=== PATIENT | male | born 1945 | race Caucasian/White ===

== ENCOUNTER 2023-08-12 18:58 | Observation (INO) ==
[2023-08-12 21:27] LABS: Albumin Globulin Ratio 1.8 (0.9-2); Albumin Level 4.6 gm/dl (3.4-5.0); BUN Creatinine Ratio 15.9 (10-20); Bilirubin,Total 1.5 mg/dl (0.2-1.0); Calcium 9.4 mg/dl (8.6-10.3); Creatinine Clr Calc Pharmacy 52.2 ml/min; Est GFR (African American) 73.3 ml/min; Est GFR (Non-African American) 63.2 ml/min; Globulin 2.6 gm/dl (2.5-4.0); Potassium 4.5 mmol/L (3.5-5.1); Total Protein 7.2 gm/dl (6.0-8.3)
[2023-08-12 21:38] LABS: Basophils # (auto) 0.06 K/uL (0.00-0.20); Basophils % (auto) 1.1 %; Eosinophils # (auto) 0.06 K/uL (0.00-0.50); Eosinophils % (auto) 1.1 %; Hematocrit (blood only) 43.2 % (42.0-52.0); Hemoglobin 14.8 g/dl (14.0-18.0); Immature Granulocytes # (auto) 0.02 K/uL (0.01-0.20); Immature Granulocytes % (auto) 0.4 %; Lymphocytes # (auto) 1.22 K/uL (1.20-3.40); Mean Corpuscular Hemoglobin 30.6 pg (25.0-34.0); Mean Corpuscular Hgb Conc 34.3 g/dL (32.0-36.0); Mean Corpuscular Volume 89.3 fL (80.0-100.0); Mean Platelet Volume 11.3 fL (9.4-12.4); Monocytes # (auto) 0.39 K/uL (0.11-0.59); Neutrophils % (auto) 68.4 %; Platelet Count 185 K/uL (130-400); RDW Coefficient of Variation 13.2 % (11.5-14.5); RDW Standard Deviation 43.2 fL (36.4-46.3); Red Blood Count 4.84 M/uL (4.70-6.10); White Blood Count 5.55 K/ul (4.8-10.8)
[2023-08-12 21:39] LABS: Partial Thromboplastin Ratio 0.9; Partial Thromboplastin Time 26 Seconds (21-31)
[2023-08-12] MEDS: SODIUM CHLORIDE 0.9% 1,000 ML IV ONE ×2 (22:09→23:21)
--- NOTE | 2023-08-12 22:14 | Emergency Department Note ---
History of Present Illness General Chief complaint: Illness Stated complaint: NO INTAKE Time Seen by Provider: 08/12/23 21:51 Source: patient, family ( was at the bedside), RN notes reviewed and old records reviewed (The patient's primary doctor Dr. Blanco called and I reviewed the note that was left) Mode of arrival: ambulatory Limitations: no limitations History of Present Illness This patient was sent over by the primary care doctor after he has had weight loss and significant dysphagia he is in the midst of getting this worked up he was seen and had upper endoscopy done by Dr. Flor on July 23. He was found to have ulceration and esophagitis. They did multiple biopsies and he said that it was inconclusive whether it was cancer or not. He said he has trouble eating and is on a liquid diet today he has been having more problems eating and has been coughing/vomiting up a lot of phlegm. He is "coughed/vomited up greater than a quart of phlegm today. He only gets chest pain when he coughs up he feels like things get stuck. Bowels are moving is normal at present he feels okay. He apparently has lost 30 pounds and they felt he was dehydrated in the office and sent him here. Home Medications Medication Instructions Recorded Confirmed Type omeprazole 40 mg capsule,delayed 40 mg PO BID 08/12/23 08/12/23 History release Allergies Allergy/AdvReac Type Severity Reaction Status Date / Time No Known Allergies Allergy Verified 08/12/23 22:21 Past Med/Surg History Medical History BPH (benign prostatic hyperplasia) Vomiting reason for upcoming EGD > (30 lb weight loss) Dysphagia reason for upcoming EGD Surgical History Hx of vasectomy Hx of umbilical hernia repair History of appendectomy History of esophagogastroduodenoscopy (EGD) History of adenoidectomy History of tonsillectomy Social History Smoking Status: Never smoker Second Hand Exposure: No; Do You Dip or Chew Tobacco: No; Hx Alcohol Use: No Hx Substance Use: No Preferred Language: [place] Communication Ability: Effective Sql Data Architect Required: No Beliefs That Will Affect Care: None Current Living Situation: Spouse Feels Safe at Home: Yes Assistive Devices: Glasses and Hearing Aid - Bilateral Review of Systems A total of 10 systems reviewed and were otherwise negative Physical Exam Vital Signs Vital Signs - 24 hr 08/12/23 19:15 08/12/23 22:00 08/12/23 22:23 Temperature 36.6 C Temperature Source Temporal Artery Scan Pulse Rate 123 H 72 Pulse Rate [Apical] 80 Pulse Rhythm [Apical] Regular Pulse Strength [Apical] Normal Respiratory Rate 18 16 Respiratory Effort / Characteristics Non-Labored Non-Labored Respiratory Depth Normal Normal Blood Pressure 127/84 Blood Pressure [Right Arm] 146/78 H Blood Pressure Mean 98 Blood Pressure Mean [Right Arm] 100 Pulse Oximetry 97 99 Oxygen Delivery Method Room Air Room Air Sepsis Recent Fever Within 48 Hours No Sepsis New/Unexplained Change in Mental Status No Sepsis Action Taken by Nursing No Action Required General: Well developed well nourished older male who is slender and appears in no acute distress, breathing comfortably on room air. Normal speech, not drooling HEENT: Normal cephalic atraumatic. Pupils are equal round and reactive to light. Extraocular movements are intact. Oropharynx is pink with moist mucous membranes. No swelling of the mouth lips or tongue. Neck: Supple with a midline trachea. No meningeal signs or stiffness, no JVD or bruits. No Stridor. Chest: Clear to auscultation bilaterally. No wheezes or rhonchi. No increased work of breathing. Heart: Regular rate and rhythm without murmurs or gallops. Abdomen: Soft nontender, nondistended without rebound guarding or rigidity. Extremities: No cyanosis clubbing or edema. No calf tenderness or assymetry Spine/Back. Non tender to palpation. No CVA tenderness Skin: Good turgor without rashes. Neurologic exam: Cranial nerves two through 12 are intact. Motor and sensation are intact and symmetrical throughout. Course Administered Medications Sodium Chloride (Nss) 1,000 mls @ 999 mls/hr IV .Q1H1M ONE Stop: 08/13/23 00:08 Last Admin: 08/12/23 23:21 Dose: 999 mls/hr Documented By: HB Discontinued Medications Sodium Chloride (Nss) 1,000 mls @ 999 mls/hr IV .Q1H1M ONE Stop: 08/12/23 23:03 Last Infusion: 08/12/23 23:07 Dose: Infused Documented By: Admin: 08/12/23 22:09 Dose: 999 mls/hr Documented By: HB Medical Decision Making Differential Diagnosis Dehydration, esophagitis, esophageal cancer, electrolyte or metabolic abnormality, cardiac disease, aspiration Medical Records Attestation: I reviewed the patient's medical records. Home Medications Current Medication List: was personally reviewed by me Laboratory Data Attestation: I reviewed the patient's lab results. 08/12/23 20:50 08/12/23 20:50 Lab Results 08/12/23 Range/Units 20:50 WBC 5.55 (4.8-10.8) K/ul RBC 4.84 (4.70-6.10) M/uL Hgb 14.8 (14.0-18.0) g/dl Hct 43.2 (42.0-52.0) % MCV 89.3 (80.0-100.0) fL MCH 30.6 (25.0-34.0) pg MCHC 34.3 (32.0-36.0) g/dL RDW Std Deviation 43.2 (36.4-46.3) fL RDW Coeff of Fabby 13.2 (11.5-14.5) % Plt Count 185 (130-400) K/uL MPV 11.3 (9.4-12.4) fL Immature Gran % (Auto) 0.4 % Neut % (Auto) 68.4 % Lymph % (Auto) 22.0 % [place] % (Auto) 7.0 % Eos % (Auto) 1.1 % Baso % (Auto) 1.1 % Neut # (Auto) 3.80 (1.40-6.50) K/uL Lymph # (Auto) 1.22 (1.20-3.40) K/uL [place] # (Auto) 0.39 (0.11-0.59) K/uL Eos # (Auto) 0.06 (0.00-0.50) K/uL Baso # (Auto) 0.06 (0.00-0.20) K/uL Immature Gran # (Auto) 0.02 (0.01-0.20) K/uL APTT 26 (21-31) Seconds PTT Ratio 0.9 Sodium 142 (136-145) mmol/L Potassium 4.5 (3.5-5.1) mmol/L Chloride 103 (98-107) mmol/L Carbon Dioxide 24 (21-32) mmol/L Anion Gap 15 H (3-11) BUN 18 (6-23) mg/dl Creatinine 1.13 (0.6-1.4) mg/dl Est Cr Clr Drug Dosing 52.2 ml/min Est GFR ( Amer) 73.3 ml/min Est GFR (Non-Af Amer) 63.2 ml/min BUN/Creatinine Ratio 15.9 (10-20) Glucose 76 (70-99(Fasting)) mg/dl Calcium 9.4 (8.6-10.3) mg/dl Total Bilirubin 1.5 H (0.2-1.0) mg/dl AST 18 (13-39) U/L ALT 15 (7-52) U/L Alkaline Phosphatase 58 (34-104) U/L Total Protein 7.2 (6.0-8.3) gm/dl Albumin 4.6 (3.4-5.0) gm/dl Globulin 2.6 (2.5-4.0) gm/dl Albumin/Globulin Ratio 1.8 (0.9-2) ECG Data Attestation: I personally reviewed and interpreted this ECG as follows: Indication: + vomiting Rate (beats per minute): 93 Rhythm: + normal sinus and + other (Poor baseline) ECG Intervals/blocks: + Normal QRS, + Normal QT and + Normal [place] ECG [place]: + Normal ECG ST segments: + Nonspecific ST abnormalities ECG Findings: no PACs or no PVCs Comparison ECG Date: from (11/16/12) [facility] Narrative This patient comes in described above he is history of esophageal issues with gastritis and possibly malignancy. He has been having trouble with weight loss and they felt he was dehydrated in the office today they are questioning whether he might need a PEG tube. Sent to the ER. His EKG does not suggest ischemic changes or cardiac disease. And his symptoms do not either. He has no fever or white count to suggest infection. He has no significant anemia. He has no significant electrolyte or metabolic abnormalities. IV access was established hydrated with a 1 L IV normal saline bolus. Upon reassessment he looks well he has no evidence of fluid overload his lungs are clear I did order second liter normal saline bolus. Those labs are reassuring he has not been able to eat or drink and is losing significant weight. I think if we send him home he would end up coming back tomorrow with similar complaints it sounds like they are considering what to do with his esophagus or potentially does he need a feeding or PEG tube in the meantime. I have consult Dr. Del Toro to see him for admission/observation he will need further GI workup and evaluation in the hospital. Continuous cardiac monitoring: Orders placed in EMR for continuous cardiac monitoring: Upon my evaluation patient to be in normal sinus rhythm rate 74 Impression & Plan Acute dehydration, Vomiting, Esophagitis, Rapid weight loss Discharge Plan Visit Data Chief Complaint: Illness Stated Complaint: NO INTAKE ED Provider: Tariq Miller Discharge Problem: Acute dehydration, Vomiting, Esophagitis, Rapid weight loss Forms Stand Alone Forms: My [facility] Prescriptions Prescriptions: No Action omeprazole 40 mg Capsule,Delayed Release(Dr/Ec) 40 mg PO BID Referrals Referrals: PCP,NO [Primary Care Provider] - Discharge Problem: Vomiting Qualifiers: Vomiting type: unspecified Nausea presence: without nausea Qualified Code(s): R 11.11 - Vomiting without nausea
[2023-08-13 00:04] LABS: Magnesium 1.9 mg/dl (1.7-2.4)
--- NOTE | 2023-08-13 01:27 | History & Physical Report ---
Date of Service August 13, 2023 Assessment & Plan (1) Esophagitis: Plan: Progressive dysphagia since [facility] last year. Concern for malignancy Malnutrition (low BMI) secondary to above BPH, patient without retention issues OBS [facility] GI consult re: worsening dysphagia resulting in significant weight loss N.p.o. until patient seen by GI in anticipation of endoscopy Nutrition consult Re: Low BMI DVT prophylaxis. SCDs Re: Propensity for bleeding given history of esophagitis with bleeding on recent EGD Full code Patient requesting updates providers. Ms. Anayeli Martines, contact #[phone]. Text document was generated using [email or web address] recognition software. It may contain grammatical or spelling errors. Kindly contact undersigned for clarification of any documentation item in question. History of Present Illness Chief Complaint: Weight loss, worsening dysphagia Primary Care Provider: Nina Blanco MD History obtained from patient, family, and records. Medical history significant for esophagitis, BPH. Patient with worsening dysphagia symptoms over the last 4 months. Initially started with dysphagia with solids later followed by difficulty in swallowing both solids and liquids. Weight loss of about 35 pounds over the last 4 months. [facility] ER visit last month. CT abdomen pelvis showed 1. Severe thickening at the gastroesophageal junction with surrounding inflammatory change/edema. This could be due to an infectious/inflammatory process, the gastroesophageal mass, or underlying ulceration with impending perforation. 2. Mild thickening of the distal esophagus. Outpatient EGD last month. LA grade D esophagitis (with multiple mucosal breaks involving at least 75% of esophageal circumference) with bleeding found. Normal stomach/duodenum as per report. PPI course prescribed. Atypical gastric mucosa as per [facility] pathology report. [facility] GI specialist still concerned about malignancy given about patient significant weight loss. Outpatient EGD and EUS recommended in 2 to 4 weeks for repeat biopsy as per GI note. Worsening dysphagia, dehydration noted over the last few weeks. Regurgitation and throwing up. No chest pain, no SOB, no headache, no actual cough symptoms. Denies actual abdominal pain, black/bloody stools. Patient seen at new [facility] PCP's office yesterday. Subsequently directed to ER for evaluation. 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 Allergies Allergy/AdvReac Type Severity Reaction Status Date / Time No Known Allergies Allergy Verified 08/12/23 22:21 Home Medications Medication Instructions Recorded Confirmed Type omeprazole 40 mg capsule,delayed 40 mg PO BID 08/12/23 08/12/23 History release Past Med/Surg History Medical History BPH (benign prostatic hyperplasia) Vomiting reason for upcoming EGD > (30 lb weight loss) Dysphagia reason for upcoming EGD Surgical History Hx of vasectomy Hx of umbilical hernia repair History of appendectomy History of esophagogastroduodenoscopy (EGD) History of adenoidectomy History of tonsillectomy Social History Smoking Status: Never smoker Second Hand Exposure: No; Do You Dip or Chew Tobacco: No; Hx Alcohol Use: No Hx Substance Use: No Preferred Language: Nepali Communication Ability: Effective Bid Writer Required: No Beliefs That Will Affect Care: None Current Living Situation: Spouse Other Information That Helps Us Care for You: No Feels Safe at Home: Yes Safety Concerns: Feels Safe At This Time Assistive Devices: None Review of Systems Review of Systems: As per HPI, all other systems reviewed and negative Physical Exam Physical Exam: GENERAL: Comfortable, pleasant, underweight, no respiratory distress SKIN: Normal color, warm HEENT: Alopecia, [place] palpebral conjunctivae, no ptosis, dry buccal mucosa NECK : Supple, no tenderness CHEST : CTA, no tenderness HEART : RRR, no obvious murmurs ABDOMEN: no distention, nontender EXTREMITIES : No LE swelling/tenderness, no other conspicuous deformities noted NEUROLOGIC : Coherent, no facial asymmetry, no other gross focality Results & Data Results & Data Vital Signs (Past 12 Hours) Vital Signs Temp Pulse Pulse Resp BP BP Pulse Ox 08/12/23 22:23 72 08/12/23 22:00 80 16 146/78 H 99 08/12/23 19:15 36.6 C 123 H 18 127/84 97 O2 Del Method 08/12/23 22:23 08/12/23 22:00 Room Air 08/12/23 19:15 Room Air Laboratory Results Laboratory Results WBC 5.55 K/ul (4.8-10.8) 08/12/23 20:50 RBC 4.84 M/uL (4.70-6.10) 08/12/23 20:50 Hgb 14.8 g/dl (14.0-18.0) 08/12/23 20:50 Hct 43.2 % (42.0-52.0) 08/12/23 20:50 MCV 89.3 fL (80.0-100.0) 08/12/23 20:50 MCH 30.6 pg (25.0-34.0) 08/12/23 20:50 MCHC 34.3 g/dL (32.0-36.0) 08/12/23 20:50 RDW Std Deviation 43.2 fL (36.4-46.3) 08/12/23 20:50 RDW Coeff of Fabby 13.2 % (11.5-14.5) 08/12/23 20:50 Plt Count 185 K/uL (130-400) 08/12/23 20:50 MPV 11.3 fL (9.4-12.4) 08/12/23 20:50 Immature Gran % (Auto) 0.4 % 08/12/23 20:50 Neut % (Auto) 68.4 % 08/12/23 20:50 Lymph % (Auto) 22.0 % 08/12/23 20:50 [place] % (Auto) 7.0 % 08/12/23 20:50 Eos % (Auto) 1.1 % 08/12/23 20:50 Baso % (Auto) 1.1 % 08/12/23 20:50 Neut # (Auto) 3.80 K/uL (1.40-6.50) 08/12/23 20:50 Lymph # (Auto) 1.22 K/uL (1.20-3.40) 08/12/23 20:50 [place] # (Auto) 0.39 K/uL (0.11-0.59) 08/12/23 20:50 Eos # (Auto) 0.06 K/uL (0.00-0.50) 08/12/23 20:50 Baso # (Auto) 0.06 K/uL (0.00-0.20) 08/12/23 20:50 Immature Gran # (Auto) 0.02 K/uL (0.01-0.20) 08/12/23 20:50 APTT 26 Seconds (21-31) 08/12/23 20:50 PTT Ratio 0.9 08/12/23 20:50 Sodium 142 mmol/L (136-145) 08/12/23 20:50 Potassium 4.5 mmol/L (3.5-5.1) 08/12/23 20:50 Chloride 103 mmol/L (98-107) 08/12/23 20:50 Carbon Dioxide 24 mmol/L (21-32) 08/12/23 20:50 Anion Gap 15 (3-11) H 08/12/23 20:50 BUN 18 mg/dl (6-23) 08/12/23 20:50 Creatinine 1.13 mg/dl (0.6-1.4) 08/12/23 20:50 Est Cr Clr Drug Dosing 52.2 ml/min 08/12/23 20:50 Est GFR ( Amer) 73.3 ml/min 08/12/23 20:50 Est GFR (Non-Af Amer) 63.2 ml/min 08/12/23 20:50 BUN/Creatinine Ratio 15.9 (10-20) 08/12/23 20:50 Glucose 76 mg/dl (70-99(Fasting)) 08/12/23 20:50 Calcium 9.4 mg/dl (8.6-10.3) 08/12/23 20:50 Magnesium 1.9 mg/dl (1.7-2.4) 08/12/23 20:50 Total Bilirubin 1.5 mg/dl (0.2-1.0) H 08/12/23 20:50 AST 18 U/L (13-39) 08/12/23 20:50 ALT 15 U/L (7-52) 08/12/23 20:50 Alkaline Phosphatase 58 U/L (34-104) 08/12/23 20:50 Total Protein 7.2 gm/dl (6.0-8.3) 08/12/23 20:50 Albumin 4.6 gm/dl (3.4-5.0) 08/12/23 20:50 Globulin 2.6 gm/dl (2.5-4.0) 08/12/23 20:50 Albumin/Globulin Ratio 1.8 (0.9-2) 08/12/23 20:50 Diagnostic Findings EKG as per my interpretation :Rate 90, NSR, normal axis, no ischemia, multiple artifacts
[2023-08-13] MEDS ORDERED: PROMETHAZINE HCL 6.25 MG in SODIUM CHLORIDE 0.9% 50 ML IV PRN (01:30)
[2023-08-13] MEDS ORDERED: ACETAMINOPHEN 1,000 MG/100 ML VIAL IV PRN (01:30)
[2023-08-13] MEDS: D5W AND LACTATED RINGERS 1,000 ML IV ONE (03:04)
[2023-08-13] MEDS: PANTOprazole 40 MG TAB PO SCH (07:30)
--- NOTE | 2023-08-13 09:02 | Gastrointestinal Consultation ---
Date of Consultation August 13, 2023 Assessment & Plan (1) Esophagitis: 77 year old male with weight loss, progressively worsening dysphagia, recent EGD concerning for esophageal CA to have OP EGD/EUS admitted with dehydration and regurgitation of phlegm/secretions but notes is tolerating bone broth. No plan for inpatient EGD/EUS OP EGD/EUS Liquid diet only PO PPI 40 mg twice daily May try liquid carafate QID x 14 days He is requesting to try a medication to help decrease his secretions Thank you for allowing us to participate in the care of this patient. Please call with any acute changes, questions or concerns. Please see addendum below with additional recommendation from my supervising physician. Supervising Physician Co-Signing Physician Notes Agree with pe and plan as documented. Appears to be tolerating his secretions. Agree with further plan of care as documented. History of Present Illness Reason for Consultation: dysphagia Requesting Physician: Reese Attending Physician: Calista Leigh MD History of Present Illness 77 year old male with progressively worsening dysphagia, EGD 07/23/23 showing LA grade D esophagitis w/ nodular ulcerations who is admitted for worsening dysphagia, weight loss and dehydration. GI was asked to evaluate for dysphagia. He notes that he is tolerating liquid diet, specifically bone broth is able to be tolerated. however, after he eats/drinks he will have regurgitation and emesis of mucous/phlegm. He does not bring up the bone broth. Notes that room temp/warmer liquid causes less symptoms. Denies abd pain. No black or bloody emesis. 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 whose diagnosis is reflected above. EGD 2023: - LA Grade D esophagitis with stigmata of recent bleeding. At the GE junction and 2-3 cm above the tissue was extremely ulcerated and nodular with deep ulcerations. I did not appreciate an actual esophageal mass but the tissue was very inflamed and nodular. The GE junction was very stenotic due to inflammation. This was only able to be passed after switching to the ultra slim upper endoscope. Biopsies obtained. - Normal stomach. - Normal duodenal bulb and second portion of the duodenum. CTAP 07/18/2023: . Severe thickening at the gastroesophageal junction with surrounding inflammatory change/edema. This could be due to an infectious/inflammatory process, the gastroesophageal mass, or underlying ulceration with impending perforation. GI consultation recommended for further evaluation. 2. Mild thickening of the distal esophagus. 3. No evidence for bowel obstruction. 4. Colonic diverticulosis. No evidence for acute diverticulitis. 5. Prostatomegaly. 6. Prior appendectomy. 7. Additional findings as described above. Allergies Allergy/AdvReac Type Severity Reaction Status Date / Time No Known Allergies Allergy Verified 08/12/23 22:21 Home Medications Medication Instructions Recorded Confirmed Type omeprazole 40 mg capsule,delayed 40 mg PO BID 08/12/23 08/12/23 History release Patient History Medical History BPH (benign prostatic hyperplasia) Vomiting reason for upcoming EGD > (30 lb weight loss) Dysphagia reason for upcoming EGD Surgical History Hx of vasectomy Hx of umbilical hernia repair History of appendectomy History of esophagogastroduodenoscopy (EGD) History of adenoidectomy History of tonsillectomy Social History Smoking Status: Never smoker Second Hand Exposure: No; Do You Dip or Chew Tobacco: No; Hx Alcohol Use: No Hx Substance Use: No Preferred Language: Italian Communication Ability: Effective Manager Grocery Required: No Beliefs That Will Affect Care: None Current Living Situation: Spouse Other Information That Helps Us Care for You: No Feels Safe at Home: Yes Safety Concerns: Feels Safe At This Time Assistive Devices: None Review of Systems Review of Systems: All systems reviewed & are unremarkable except as noted in HPI & below Physical Exam Constitutional: WD/WN, vitals as above Respiratory: normal respiratory effort, lungs clear to auscultation Cardiovascular: Rate/Rhythm: regular rate and regular rhythm Skin: no rashes, warm and dry Results & Data Vital Signs (Past 12 Hours) Vital Signs Temp Pulse Pulse Pulse Resp BP Pulse Ox 08/13/23 08:00 08/13/23 07:13 36.4 C L 72 14 108/64 98 08/13/23 03:00 36.4 C L 77 16 150/66 H 99 08/13/23 02:35 75 16 133/79 96 08/13/23 02:21 76 08/12/23 22:23 72 08/12/23 22:00 80 16 146/78 H 99 O2 Del Method 08/13/23 08:00 Room Air 08/13/23 07:13 Room Air 08/13/23 03:00 Room Air 08/13/23 02:35 Room Air 08/13/23 02:21 08/12/23 22:23 08/12/23 22:00 Room Air Laboratory Results 08/13/23 08/12/23 Range/Units 07:20 20:50 WBC 5.55 (4.8-10.8) K/ul RBC 4.84 (4.70-6.10) M/uL Hgb 14.8 (14.0-18.0) g/dl Hct 43.2 (42.0-52.0) % MCV 89.3 (80.0-100.0) fL MCH 30.6 (25.0-34.0) pg MCHC 34.3 (32.0-36.0) g/dL RDW Std Deviation 43.2 (36.4-46.3) fL RDW Coeff of [place] 13.2 (11.5-14.5) % Plt Count 185 (130-400) K/uL MPV 11.3 (9.4-12.4) fL Immature Gran % (Auto) 0.4 % Neut % (Auto) 68.4 % Lymph % (Auto) 22.0 % [place] % (Auto) 7.0 % Eos % (Auto) 1.1 % Baso % (Auto) 1.1 % Neut # (Auto) 3.80 (1.40-6.50) K/uL Lymph # (Auto) 1.22 (1.20-3.40) K/uL [place] # (Auto) 0.39 (0.11-0.59) K/uL Eos # (Auto) 0.06 (0.00-0.50) K/uL Baso # (Auto) 0.06 (0.00-0.20) K/uL Immature Gran # (Auto) 0.02 (0.01-0.20) K/uL APTT 26 (21-31) Seconds PTT Ratio 0.9 Sodium Pending 142 (136-145) mmol/L Potassium Pending 4.5 (3.5-5.1) mmol/L Chloride Pending 103 (98-107) mmol/L Carbon Dioxide Pending 24 (21-32) mmol/L Anion Gap Pending 15 H (3-11) BUN Pending 18 (6-23) mg/dl Creatinine Pending 1.13 (0.6-1.4) mg/dl Est Cr Clr Drug Dosing Pending 52.2 ml/min Est GFR ( Amer) Pending 73.3 ml/min Est GFR (Non-Af Amer) Pending 63.2 ml/min BUN/Creatinine Ratio Pending 15.9 (10-20) Glucose Pending 76 (70-99(Fasting)) mg/dl Calcium Pending 9.4 (8.6-10.3) mg/dl Magnesium 1.9 (1.7-2.4) mg/dl Total Bilirubin Pending 1.5 H (0.2-1.0) mg/dl AST Pending 18 (13-39) U/L ALT Pending 15 (7-52) U/L Alkaline Phosphatase Pending 58 (34-104) U/L Total Protein Pending 7.2 (6.0-8.3) gm/dl Albumin Pending 4.6 (3.4-5.0) gm/dl Globulin Pending 2.6 (2.5-4.0) gm/dl Albumin/Globulin Ratio Pending 1.8 (0.9-2)
[2023-08-13 09:12] LABS: Albumin Globulin Ratio 2.1 (0.9-2); Albumin Level 3.5 gm/dl (3.4-5.0); BUN Creatinine Ratio 15.5 (10-20); Calcium 8.3 mg/dl (8.6-10.3); Creatinine Clr Calc Pharmacy 72.8 ml/min; Est GFR (African American) 99.3 ml/min; Est GFR (Non-African American) 85.7 ml/min; Globulin 1.7 gm/dl (2.5-4.0); Potassium 3.7 mmol/L (3.5-5.1); Total Protein 5.2 gm/dl (6.0-8.3)
--- OUTSIDE RECORDS SUMMARY | 2023-08-13 12:09 | External Medical Summary | Summary of Care ---
Author Name Unknown Organization [facility] Address [address] [facility] [place] [address] Phone [phone] Care Team Providers Care Sustainability Consultant Name Role Phone Unavailable Primary Care Provider Unavailabl e Encounter Details Date Type Department Care Team (Late st Contact Info) Description 08/06/2023 Telephone Hepatology, [facility] [address] [place] [address] Diana Flor DO [address] [place] [address] Allergies No known active allergiesdocumented as of this encounter (statuses as of 08/12/2023) Medications Medication Sig Dispensed Refills Start Date End Date Status IBUPROFEN 600 MG PO TABSIndications:Cell ulitis of arm one tab by mouth 3 times a day with meals 30 1 04/04/2006 Active Omeprazole 40 MG Oral Capsule Delayed Release (PriLOSEC)Indication s:Esophagitis Take 1 Capsule by mouth 2 times a day with morning and evening meals. 180 Capsule 1 07/23/2023 Active documented as of this encounter (statuses as of 08/12/2023) Active Problems Problem Noted Date Diagnosed Date NO KNOWN PROBLEMS 03/28/2006 documented as of this encounter (statuses as of 08/12/2023) Social History Tobacco Use Types Packs/Day Years Used Date Smoking Tobacco: Never Alcohol Use Standard Drinks/Week Comments No 0 (1 standard drink = 0.6 oz pur e alcohol) Sex and Gender Information Value Date Recorded Sex Assigned at Not on file Gender Identity Not on file Sexual Orientation Not on file Job Start Date Occupation Industry Not on file Not on file Not on file documented as of this encounter Miscellaneous Notes * Telephone Encounter - Chastity Loco RN - 08/12/2023 8:35 AM EDT I do not see a lot of health history in the chart but going off procedure at [place] it looks like he isan ASA 3. Could we see if we can get him on a [facility]SS[facility]? Chastity Loco RN * Telephone Encounter - Ronda Kee OSA - 08/06/2023 12:55 PM EST Pt done at [place] today. Please advise where to schedule. * Telephone Encounter - Diana Flor DO - 08/06/2023 12:38 PM EST Called patient to discuss pathology results from recent EGD done for dysphagia and significant weight loss. I let him know that [facility] pathology was unable to determine a diagnosis so his path results from EGD were sent to [facility]. 5 pathologists reviewed the case and they were unable to come to a definitive conclusion but said there is at least high grade dysplasia. Given his significant weight loss I am still concerned there is underlying cancer. Will arrange an EGD and EUS in the next 2-4 weeks for repeat biopsies and EUS given concern for cancer. Scheduling please assist in getting an urgent EGD and EUS arranged with either Dr. Barrios or Dr. Rivera. Diana Flor DO documented in this encounter Plan of Treatment Upcoming Encounters Date Type Department Care Team (Late st Contact Info) Description 08/12/2023 5:00 PM EDT Office Visit [address] [address] Nina Blanco MD [address] [place] [phone] Scheduled Orders Name Type Priority Associated Diagnoses Orde r Schedule US ENDOSCOPIC Medical Imaging Routine Severe esophageal dysplasia Esophagitis Expected: 08/06/2023, Expires: 09/05/2024 Health Maintenance Due Date Last Done Comments Depression Screening 1957 Hepatitis C Screening 12/07/1965 DTaP,Tdap,and Td Vaccines (1 - Tdap) 12/07/1966 Zoster Vaccines (1 of 2) 12/07/1997 Pneumococcal Vaccine: 65+ Ye ars (1 of 1 - PCV) 12/07/2012 COVID-19 Vaccine (2022-2 4 season) 2023 Influenza Vaccine (FLU shot) (#1) 2023 GARDASIL-HPV IMMUNIZATION SERIES Aged Out No longer eligible based on patient's age to complete this topic Hepatitis B Aged Out No longer eligi ble based on patient's age to complete this topic MENINGOCOCCAL (MENACTRA/MENVEO) Aged Out No longer eligible based on patient's age to complete this topic documented as of this encounter Medical Devices Not on filedocumented as of this encounter Visit Diagnoses Diagnosis Severe esophageal dysplasia- Primary Esophagitis Esophagitis, unspecified documented in this encounter
--- OUTSIDE RECORDS SUMMARY | 2023-08-13 12:10 | External Medical Summary | Summary of Care ---
Author Name Unknown Organization [facility] Address [address] [facility] [place] [address] Phone [phone] Care Team Providers Care Mailer Name Role Phone Unavailable Primary Care Provider Unavailabl e Encounter Details Date Type Department Care Team (Late st Contact Info) Description 07/23/2023 Telephone Hepatology, [facility] [address] [place] [address] Diana Flor DO [address] [place] [address] Allergies No known active allergiesdocumented as of this encounter (statuses as of 07/23/2023) Medications Medication Sig Dispensed Refills Start Date [...] as of this encounter (statuses as of 07/23/2023) Active Problems Problem Noted Date Diagnosed Date NO KNOWN PROBLEMS 03/28/2006 documented as of this encounter (statuses as of 07/23/2023) Social History Tobacco Use Types Packs/Day Years Used Date Smoking Tobacco: Never Alcohol Use Standard Drinks/Week Comments No 0 (1 standard drink = 0.6 oz pur e alcohol) Sex and Gender Information Value Date Recorded Sex Assigned at Not on file Gender Identity Not on file Sexual Orientation Not on file documented as of this encounter Plan of Treatment Health Maintenance Due Date Last Done Comments [...] as of this encounter Visit Diagnoses Diagnosis Esophagitis- Primary Esophagitis, unspecified documented in this encounter
--- OUTSIDE RECORDS SUMMARY | 2023-08-13 12:10 | External Medical Summary | Summary of Care ---
Author Name Unknown Organization [facility] Address [address] [facility] [place] [address] Phone [phone] Care Team Providers Care Scientific Process Operator Name Role Phone Unavailable Primary Care Provider Unavailabl e Encounter Details Date Type Department Care Team (Late st Contact Info) Description 07/23/2023 Result Scan Unspecified Department Diana Flor DO [address] [place] [address] <No scans attached> Allergies No known active allergiesdocumented as of this encounter (statuses as of 08/06/2023) Medications Medication Sig Dispensed Refills Start Date [...] as of this encounter (statuses as of 08/06/2023) Active Problems Problem Noted Date Diagnosed Date NO KNOWN PROBLEMS 03/28/2006 documented as of this encounter (statuses as of 08/06/2023) Social History Tobacco Use Types Packs/Day Years [...] of 1 - PCV) 12/07/2012 COVID-19 Vaccine (1 - 2022-2 4 season) 2023 Influenza Vaccine (FLU shot) [...] Not on filedocumented as of this encounter Procedures Procedure Name Priority Date/Time Associated Diagnosis Comments PATHOLOGY SCANNED RESULT 07/23/2023 documented in this encounter Results * PATHOLOGY SCANNED RESULT (07/23/2023) 07/23/2023 Diana Flor DO PATHOLOGY documented in this encounter
--- OUTSIDE RECORDS SUMMARY | 2023-08-13 12:10 | External Medical Summary | Summary of Care ---
Author Name Unknown Organization [facility] Address [address] [facility] [place] [address] Phone [phone] Care Team Providers Care Boiler Out Name Role Phone Unavailable Primary Care Provider Unavailabl e Encounter Details Date Type Department Care Team (Late st Contact Info) Description 08/06/2023 Telephone Hepatology, [facility] [address] [place] [address] Diana Flor DO [address] [place] [address] Allergies No known active allergiesdocumented as of [...] encounter Miscellaneous Notes * Telephone Encounter - Ronda Kee OSA - 08/06/2023 12:55 PM EST Pt done at [facility]. Please advise where to schedule. * Telephone Encounter - Diana Flor DO - 08/06/2023 12:38 PM EST Called patient to discuss pathology results from recent EGD done for dysphagia and significant weight loss. I let him know that [facility] pathology was unable to determine [...] documented in this encounter Plan of Treatment Scheduled Orders Name Type Priority Associated Diagnoses [...]
--- OUTSIDE RECORDS SUMMARY | 2023-08-13 12:10 | External Medical Summary | Continuity of Care Document ---
Author Name Unknown Organization [facility] Address [address] [place] [phone] Care Team Providers Care Public Policy Associate Name Role Phone Diana Flor Primary Care Physician [phone] [facility] [id number] Date(s): 07/28/23 - 07/28/[address] [phone] Discharge Disposition: Home or Self Care Attending Physician: MD Snell Sarah J Referring Physician: MD Snell Sarah J Social History Social History Type Response Sex Male Patient Care team information Care Team Personnel Name: DO Flor Ashley Marie Position: Referring Member Role: Primary Care Provider Address: Address: [facility] Gastroenterology [address] [place] [address] [place] [id number]
--- OUTSIDE RECORDS SUMMARY | 2023-08-13 12:10 | External Medical Summary | Summary of Care ---
Author Name Unknown Organization [facility] Address [address] [facility] [place] [address] Phone [phone] Care Team Providers Care Secretary Book Keeper Name Role Phone Unavailable Primary Care Provider Unavailabl e Reason for Visit * Reason Onset Date Comments Encounter Created in Error 08/04/2023 Encounter Details Date Type Department Care Team (Late st Contact Info) Description 08/04/2023 Telephone Gastroenterology, [facility] [address] [place] [address] Diana Flor DO [address] [place] [address] Encounter Created in Error Allergies No known active allergiesdocumented as of this encounter (statuses as of 08/04/2023) Medications Medication Sig Dispensed Refills Start Date [...] as of this encounter (statuses as of 08/04/2023) Active Problems Problem Noted Date Diagnosed Date NO KNOWN PROBLEMS 03/28/2006 documented as of this encounter (statuses as of 08/04/2023) Social History Tobacco Use Types Packs/Day Years [...]
--- OUTSIDE RECORDS SUMMARY | 2023-08-13 12:10 | External Medical Summary | Summary of Care ---
Author Name Unknown Organization [facility] Address [address] [facility] [place] [address] Phone [phone] Care Team Providers Care Pre Sales Network Engineer Name Role Phone Unavailable Primary Care Provider Unavailabl e Encounter Details Date Type Department Care Team (Late st Contact Info) Description 07/21/2023 Telephone ENDO [facility], Endoscopy Suite [facility] [address] [place] [address] Diana Webb, [address] [place] [address] Allergies No known active allergiesdocumented as of this encounter (statuses as of 08/04/2023) Medications Medication Sig Dispensed Refills Start Date End Date Status IBUPROFEN 600 MG PO TABSIndications:Celluli tis of arm one tab by mouth 3 times a day with meals 30 1 04/04/2006 Active documented as of this encounter (statuses [...] encounter Miscellaneous Notes * Telephone Encounter - Brenna Hawk LPN - 08/04/2023 1:56 PM EST Pt called by this nurse. Pt stating that he is drastically losing weight- losing approx one pound aday. Pt stating that he can not keep anything down. Asked him what he is eating ./ drinking since the last time he was seen ( for a scope with Dr webb) he was to be on a liquid diet. Pt stating that he is not sure what he can drink to increase his calories. Explained that he could drink protein shakes, tomato juice, and other fluids, pt stating that someone told him to stay away from acidic foods- I asked who. They replied that they were not sure who.Pt must have had me on speaker with and son listening- they never disclosed this to me, but multiple ppl were asking questions while Iwas on the phone with them. Pt stating that he is very fatigued due to not getting enough calories in, since he keeps having like " flem" come back up. Pt asking for advice, stating that if he "waits til 12 weeks from his last scope to be scope and they to dilated his esophagus- he will be 6 feet tall and about 140 lbs by than" the patient stating that he is losing approx once pound a day. Please advise. * Telephone Encounter - Lian Franks OSA - 08/04/2023 1:46 PM EST Pt called and stated he is still having issues since his procedure and keeping anything down. Can someone please call and advise? * Telephone Encounter - Roxie Lao RN - 07/21/2023 4:11 PM EST Pt aware. * Telephone Encounter - Roxie Lao, RN - 07/21/2023 1:14 PM EST This patient called this nurse, stating he cannot keep any food down, has lost 20 pounds, is vomiting even liquids, had blood in his emesis this morning. States he cannot wait until Friday for hisEGD. Are we able to fit him in anywhere tomorrow? Thank you, documented in this encounter Plan of Treatment Health Maintenance [...]
--- OUTSIDE RECORDS SUMMARY | 2023-08-13 12:10 | External Medical Summary | Summary of Care ---
Author Name Unknown Organization [facility] Address [address] [facility] [place] [address] Phone [phone] Care Team Providers Care Supervisor Silvering Department Name Role Phone Unavailable Primary Care Provider Unavailabl e Encounter Details Date Type Department Care Team (Late st Contact Info) Description 07/21/2023 Telephone ENDO [facility], Endoscopy Suite [facility] [address] [place] [address] Diana Webb, [address] [place] [address] Allergies No known active allergiesdocumented as of [...] Encounter - Brenna Hawk LPN - 08/04/2023 4:13 PM EST Pt called and made aware of awaiting path before we move forward with anything. Pt aware as we discussed earlier to drink protein drinks for calories. * Telephone Encounter - Brenna Hawk LPN [...] and advise? * Telephone Encounter - Roxie Lao, RN - 07/21/2023 4:11 PM EST Pt aware. * Telephone Encounter - Roxie Lao RN - 07/21/2023 1:14 PM EST This [...]
--- OUTSIDE RECORDS SUMMARY | 2023-08-13 12:10 | External Medical Summary | Summary of Care ---
Author Name Unknown Organization [facility] Address [address] [facility] [place] [address] Phone [phone] Care Team Providers Care Substation Inspector Name Role Phone Unavailable Primary Care Provider Unavailabl e Encounter Details Date Type Department Care Team (Late st Contact Info) Description 08/06/2023 Telephone Hepatology, [facility] [address] [place] [address] Diana Flor DO [address] [place] [address] Allergies No known active allergiesdocumented as of [...] 08/06/2023 12:55 PM EST Pt done at [facility]. Please advise where to schedule. * Telephone Encounter - Diana Flor DO - 08/06/2023 12:38 PM EST Called patient to discuss pathology results from recent EGD done for dysphagia and significant weight loss. I let him know that [facility] pathology was unable to determine [...]
--- OUTSIDE RECORDS SUMMARY | 2023-08-13 12:10 | External Medical Summary | Summary of Care ---
Author Name Unknown Organization [facility] Address [address] [facility] [place] [address] Phone [phone] Care Team Providers Care Aircraft Engine Mechanic Overhaul Name Role Phone Unavailable Primary Care Provider Unavailabl e Encounter Details Date Type Department Care Team (Late st Contact Info) Description 07/21/2023 Telephone ENDO [facility], Endoscopy Suite [facility] [address] [place] [address] Diana Flor, [address] [place] [address] Allergies No known active allergiesdocumented as of [...] encounter Miscellaneous Notes * Telephone Encounter - Lian Franks JAMES - 08/04/2023 1:46 PM EST Pt called [...] of 1 - PCV) 12/07/2012 COVID-19 Vaccine ( - 2022-2 4 season) 2023 Influenza Vaccine [...]
--- OUTSIDE RECORDS SUMMARY | 2023-08-13 12:10 | External Medical Summary | Summary of Care ---
Author Name Unknown Organization [facility] Address [address] [facility] [place] [address] Phone [phone] Care Team Providers Care Industrial Arts Teacher Name Role Phone Unavailable Primary Care Provider Unavailabl e Encounter Details Date Type Department Care Team (Late st Contact Info) Description 07/21/2023 Telephone ENDO [facility], Endoscopy Suite [facility] [address] [place] [address] Diana Webb, [address] [place] [address] Allergies No known active allergiesdocumented as of [...] Encounter - Brenna Hawk LPN - 08/04/2023 4:15 PM EST Pt called and made aware of awaiting path before we move forward with anything. Pt aware as we discussed earlier to drink protein drinks for calories. * Telephone Encounter - Brenna Hawk LPN - 08/04/2023 4:14 PM EST Images from the original note were not included. Diana Webb, DO You; [facility] Nurse Pool/Class6 minutes ago (4:08 PM) We are still awaiting the path results from [facility] from EGD that was done. The path had to be sent for expert consultation so we need to await for this path first to decide next steps. I recommend he try to drink 3-4 boost/ensure daily for protein right now in the meantime. Diana Webb, DO * Telephone Encounter - Brenna Hawk LPN - 08/04/2023 4:13 PM EST . * Telephone Encounter - Brenna Hawk LPN [...]
--- OUTSIDE RECORDS SUMMARY | 2023-08-13 12:10 | External Medical Summary | Summary of Care ---
Author Name Unknown Organization [facility] Address [address] [facility] [place] [address] Phone [phone] Care Team Providers Care Bookkeeping Assistant Name Role Phone Unavailable Primary Care Provider Unavailabl e Encounter Details Date Type Department Care Team (Late st Contact Info) Description 07/23/2023 Orders Only Gastroenterology, [facility] [address] [place] [address] Diana Flor DO [address] [place] [address] Allergies No known active allergiesdocumented as of [...] Procedure Name Priority Date/Time Associated Diagnosis Comments UPPER GI ENDOSCOPY 07/23/2023 documented in this encounter Results * UPPER GI ENDOSCOPY (07/23/2023) 07/23/2023 Diana Flor DO GASTRO UPPER documented in this encounter
--- NOTE | 2023-08-13 13:17 | Communication Note ---
Date of Service: August 13, 2023 Patient seen and examined. GI had evaluated not recommended statin liquid diet and for outpatient EGD with EUS. Patient was started on liquid diet and's been having nausea and vomiting. Discussed with GI who recommended monitoring and reassessing in the morning to determine next plan of action. Will continue IV fluids for now. Only liquid diet as tolerated Other plans as detailed in H&P this morning
[2023-08-13] MEDS: D5W AND NSS 1,000 ML IV SCH (16:02)
[2023-08-14 07:55] LABS: Hematocrit (blood only) 36.8 % (42.0-52.0); Hemoglobin 12.5 g/dl (14.0-18.0); Mean Corpuscular Hemoglobin 30.5 pg (25.0-34.0); Mean Corpuscular Volume 89.8 fL (80.0-100.0); Mean Platelet Volume 11.2 fL (9.4-12.4); Platelet Count 137 K/uL (130-400); RDW Coefficient of Variation 13.1 % (11.5-14.5); RDW Standard Deviation 42.5 fL (36.4-46.3); White Blood Count 4.64 K/ul (4.8-10.8)
[2023-08-14 08:14] LABS: BUN Creatinine Ratio 7.9 (10-20); Calcium 8.4 mg/dl (8.6-10.3); Creatinine Clr Calc Pharmacy 68.7 ml/min; Est GFR (African American) 96.9 ml/min; Est GFR (Non-African American) 83.6 ml/min; Magnesium 1.7 mg/dl (1.7-2.4); Phosphorus 3.2 mg/dl (2.5-4.9); Potassium 3.5 mmol/L (3.5-5.1)
[2023-08-14 14:19] LABS: Influenza A virus by PCR Negative (Neg); Influenza B virus by PCR Negative (Neg); RSV by PCR Negative (Neg); SARS CoV2 RNA(COVID-19) Ceph NEGATIVE (Negative)
--- NOTE | 2023-08-14 14:28 | Discharge Summary ---
Discharge Summary Date of Service August 14, 2023 Notes For Next Care Provider ongoing dysphagia, esophagitis, transferring to [facility] for EGD/EUS Medication Changes From Visit N/A Admission HPI Per Admitting Provider History obtained from patient, family, and records. Medical history significant for esophagitis, BPH. Patient with worsening dysphagia symptoms over the last 4 months. Initially started with dysphagia with solids later followed by difficulty in swallowing both solids and liquids. Weight loss of about 35 pounds over the last 4 months. [facility] ER visit last month. CT abdomen pelvis showed 1. Severe thickening at the gastroesophageal junction with surrounding inflammatory change/edema. This could be due to an infectious/inflammatory process, the gastroesophageal mass, or underlying ulceration with impending perforation. 2. Mild thickening of the distal esophagus. Outpatient EGD last month. LA grade D esophagitis (with multiple mucosal breaks involving at least 75% of esophageal circumference) with bleeding found. Normal stomach/duodenum as per report. PPI course prescribed. Atypical gastric mucosa as per [facility] pathology report. [facility] [place] still concerned about malignancy given about patient significant weight loss. Outpatient EGD and EUS recommended in 2 to 4 weeks for repeat biopsy as per GI note. Worsening dysphagia, dehydration noted over the last few weeks. Regurgitation and throwing up. No chest pain, no SOB, no headache, no actual cough symptoms. Denies actual abdominal pain, black/bloody stools. Patient seen at new [facility] [place]'s office yesterday. Subsequently directed to ER for evaluation. 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 Admission Exam Per Admitting Provider GENERAL: Comfortable, pleasant, underweight, no respiratory distress SKIN: Normal color, warm HEENT: Alopecia, [place] palpebral conjunctivae, no ptosis, dry buccal mucosa NECK : Supple, no tenderness CHEST : CTA, no tenderness HEART : RRR, no obvious murmurs ABDOMEN: no distention, nontender EXTREMITIES : No LE swelling/tenderness, no other conspicuous deformities noted NEUROLOGIC : Coherent, no facial asymmetry, no other gross focality Principal Dx & Hospital Course #1 = Principal Diagnosis (1) Rapid weight loss: (2) Esophagitis: (3) Dysphagia: Plan This is a 77yo M with a PMH of progressively worsening dysphagia, EGD 07/23/23 showing LA grade D esophagitis w/ nodular ulcerations who is admitted for worsening dysphagia, weight loss and dehydration. Patient admits to an approxi mate 30 pound weight loss over the past few months in setting of inability to tolerate p.o. intake. Can drink small amounts of bone broth at home but afterwards has regurgitation and emesis of mucus/phlegm. Cannot even tolerate drinking tea. History of biopsy from 2023 with atypical gastric mucosa with at least high-grade dysplasia. EGD from 2023 with esophagitis with stigmata of recent bleeding. At the GE junction and 2-3 cm above the tissue was extremely ulcerated and nodular with deep ulcerations. CT abdomen pelvis from 07/18/2023 with severe thickening at the gastroesophageal junction with surrounding inflammatory change/edema. This could be due to to an infectious/inflammatory process, the just growth esophageal mass or underlying ulceration with impending perforation. Was evaluated by GI service, with recommendation for EUS/EGD which unfortunately cannot be performed here at this time. Recommended transfer to [facility] with coordination between hospitalist and GI services. Patient accepted and to be transferred via ground this afternoon for continued GI care. Continue on full liquid diet, continue Protonix as tolerated. Patient hemodynamically stable at time of discharge to [facility]. Discharge Exam Gen: WD/WN, NAD, sitting up in bed, thin male, A&Ox3 HEENT: Normocephalic, atraumatic, conjunctivae moist, sclerae anicteric, dry mucous membranes of oropharynx Lung: Clear to Auscultation bilaterally, no wheezes/rales/rhonchi Heart: Regular rate, regular rhythm, no murmurs, rubs, or gallops Abdomen: Soft, NT, ND +BS x 4 Extremities: no edema Skin: Warm, no rash Updated Medication List Medication Instructions Recorded Confirmed Type omeprazole 40 mg capsule,delayed 40 mg PO BID 08/12/23 08/12/23 History release Hospital Stay Data Consultations 08/12/23 23:29 ED Decision to Admit Stat 08/13/23 02:59 Consult Gastroenterology Routine Pending Results Patient Have Any Pending Studies at Discharge: No Discharge Instructions Given to Patient (Per Discharging Provider) Patient with 30+ lb weight loss, progressively worsening dysphagia, recent EGD concerning for esophageal CA to have OP EGD/EUS admitted with dehydration and regurgitation of phlegm/secretions Seen by GI who recommend transfer for EGD/EUS. Care coordinated with hospitalist service/ GI service at [facility]. Liquid diet only. PPI 40mg BID. Consider Carafate QID x 14 days. Total Time Total Time Spent Total Time Spent (In Minutes): 60 Supervising Physician Co-Signing Physician Notes Patient seen and examined He is still not able to tolerate fluids and having vomiting. I discussed with Hillary Painter with GI. She discussed with GI Dr Barrios at [facility] who agreed to do EGD/EUS if transferred over to [facility] I discussed these with patient and . They initially preferred transfer to [facility] Delisa Correa PA-C called transfer center and patient was accepted for transfer to [facility] for GI eval/procedure and not [facility]. She notified patient about this and he agreed to transfer to [facility]. I called Dr Black who is Accepting Physician at [facility] and signed out patient to her. I agree with plans and findings as detailed by Advanced Provider and take full responsibility I spent a total of 50 minutes coordinating, documenting and providing care for this patient excluding time spent in performance of separately billed services
--- NOTE | 2023-08-15 06:05 | Electrocardiogram Report ---
Test Reason : Blood Pressure : / mmHG Vent. Rate : 093 BPM Atrial Rate : 093 BPM P-R Int : 166 ms QRS Dur : 080 ms QT Int : 396 ms P-R-T Axes : 067 023 051 degrees QTc Int : 492 ms Poor data quality, interpretation may be adversely affected Normal sinus rhythm Nonspecific ST and T wave abnormality Abnormal ECG When compared with ECG of 16-NOV-2012 11:53, QT has lengthened Confirmed by Mando Cardenas ([id number]) on 08/15/2023 6:04:38 AM Referred By: REFERRED SELF Confirmed By:Mando Cardenas
--- OUTSIDE RECORDS SUMMARY | 2023-08-15 15:54 | External Medical Summary | Summary of Care ---
Author Name Unknown Organization [facility] Address [address] [place] [address] Phone [phone] Care Team Providers Care Air Antisubmarine Officer Name Role Phone Unavailable Primary Care Provider Unavailabl e Reason for Visit * Reason Onset Date Comments Advice 08/13/2023 LMOM 08/14/2023 Encounter Details Date Type Department Care Team ([facility] Contact Info) Description 08/13/2023 Telephone Family Practice [address] [phone] Nina Blanco MD [address] [place] [phone] Advice (LMOM 08/14/2023) Allergies No known active allergiesdocumented as of this encounter (statuses as of 08/14/2023) Medications Medication Sig Dispensed Refills Start Date End Date Status Omeprazole 40 MG Oral Capsule Delayed Release (PriLOSEC)Indicatio ns:Esophagitis Take 1 Capsule by mouth 2 times a day with morning and evening meals. 180 Capsule 1 07/23/2023 Active Scopolamine 1 MG/3DAYS Transdermal Patch 72 Hour (Transderm Scop)Indications:Ex cessive salivation Place 1 Patch over 72 hours topically on the skin every 3 days. 10 Patch 12 08/12/2023 Active documented as of this encounter (statuses as of 08/14/2023) Active Problems Problem Noted Date Diagnosed Date Esophageal dysphagia 08/12/2023 Loss of weight 08/12/2023 documented as of this encounter (statuses as of 08/14/2023) Resolved Problems Problem Noted Date Diagnosed Date Resolved Date NO KNOWN PROBLEMS 03/28/2006 08/12/2023 documented as of this encounter (statuses as of 08/14/2023) Social History Tobacco Use Types Packs/Day Years Used Date Smoking Tobacco: Never Smokeless Tobacco: Never Alcohol Use Standard Drinks/Week Comments [...] encounter Miscellaneous Notes * Telephone Encounter - Denisse Singletary CCMA - 08/14/2023 10:[address] per Dr Blanco pt is in need of a PEG tube placement. We do not have the supplies for a PEG tubeat this office. Pt and were informed of this at office visit. This was the reasoning that theywere sent to the ED from the office visit. Attempted to call pt and make aware of of above. Unable to reach. LMOM If pt calls back please make aware of above. Dr Whitaker recommendation is to have a PEG tube placement. * Telephone Encounter - Swathi Stapleton OSA - 08/13/2023 6:26 PM EDT Spouse calling in to request Dr Blanco call her back as she was told the pt can stop by the clinicto receive an IV for his dehydration and is now in the hospital bc they do not do that at the clinic Spouse stating pt cannot keep anything down and has thrown up 28 oz of liquid She wants to know the "plan" for the pt Please advise [phone] Tried warm transfer to clinic but Dr Blanco had left for the night documented in this encounter Plan of Treatment [...]
--- OUTSIDE RECORDS SUMMARY | 2023-08-15 15:54 | External Medical Summary | Summary of Care ---
Author Name Unknown Organization [facility] Address [address] [place] [address] Phone [phone] Care Team Providers Care Fabricator Special Items Name Role Phone Unavailable Primary Care Provider Unavailabl e Reason for Visit * Reason Comments NEW PATIENT Encounter Details Date Type Department Care Team ([facility] Contact Info) Description 08/12/2023 5:00 PM EDT Office Visit [address] [phone] Nina Blanco MD [address] [place] [phone] Esophageal dysphagia*; Loss of weight; Dehydration; Excessive salivation Allergies No known active allergiesdocumented as of this encounter (statuses as of 08/12/2023) Medications Medication Sig Dispensed Refills Start Date End Date Status Omeprazole 40 MG Oral Capsule Delayed Release (PriLOSEC)Indicat ions:Esophagitis Take 1 Capsule by mouth 2 times a day with morning and evening meals. 180 Capsule 1 07/23/2023 Active Scopolamine 1 MG/3DAYS Transdermal Patch 72 Hour (Transderm Scop)Indications: Excessive salivation Place 1 Patch over 72 hours topically on the skin every 3 days. 10 Patch 12 08/12/2023 Active IBUPROFEN 600 MG PO TABSIndications:C ellulitis of arm one tab by mouth 3 times a day with meals 30 1 04/04/2006 Discontinue d(Medicatio n List Clean Up) documented as of this encounter (statuses as of 08/12/2023) Active Problems Problem Noted Date Diagnosed Date Esophageal dysphagia 08/12/2023 Loss of weight 08/12/2023 documented as of this encounter (statuses as of 08/12/2023) Resolved Problems Problem Noted Date Diagnosed Date Resolved Date NO KNOWN PROBLEMS 03/28/2006 08/12/2023 documented as of this encounter (statuses as of 08/12/2023) Social History Tobacco Use Types Packs/Day Years Used Date Smoking Tobacco: Never Smokeless Tobacco: Never Tobacco Cessation:Counseling Given: Yes Alcohol Use Standard Drinks/Week Comments No 0 (1 standard drink = 0.6 oz pur e alcohol) Sex and Gender Information Value Date Recorded Sex Assigned at Not on file Gender Identity Not on file Sexual Orientation Not on file Job Start Date Occupation Industry Not on file Not on file Not on file documented as of this encounter Last Filed Vital Signs Vital Sign Reading Time Taken Comments Blood Pressure 92/62 08/12/2023 4:55 PM EDT Pulse 95 08/12/2023 4:55 PM EDT Temperature 36.5 C (97.7 F) 08/12/2023 4:55 PM ED T Respiratory Rate 16 08/12/2023 4:55 PM EDT Oxygen Saturation 98% 08/12/2023 4:55 PM EDT Inhaled Oxygen Concentration - - Weight 66.7 kg (147 lb) 08/12/2023 4:55 PM EDT Height - - Body Mass Index - - documented in this encounter Progress Notes * Nina Blanco MD - 08/12/2023 5:00 PM EDT Images from the original note were not included. History of Present Illness Lauro Martines is a 77 year old male that presents for NEW PATIENT Chart reviewed. Recently was admitted at [facility] in July due to weight loss and severe dysphagia, dehydration. Also had a CT scan concerning for esophageal cancer. Completed an EGD at [facility] in July which showed severe ulcerations and esophageal stricture. Note from Dr. Flor reviewed from 08/06/23: "[facility] pathology was unable to determine a diagnosis [...] biopsies and EUS given concern for cancer. " Since then, he has had progressively worsening dysphagia even to liquids. Today is a particularly bad day with very poor oral intake - about 1.5 cups of urine all day which is very dark. He feels poorly, weak, dehydrated. Can't eat solids. Can't keep down protein shakes. Only can keep some electrolyte drinks down, but only here and there. Has had significant saliva production and can't even keep h is secretions down - he is throwing them up. Other medical history: none PSH: appendectomy, EGD FH: father had heart attack and an aneurysm. No cancer history SH: no tobacco ever. Very rare alcohol. No other drugs. Lives at home with . 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 Constitutional: General: He is not in acute distress. Appearance: Normal appearance. He is ill-appearing. Comments: Very thin HENT: Head: Normocephalic and atraumatic. Mouth/Throat: Mouth: Mucous membranes are dry. Pharynx: Oropharynx is clear. Eyes: Conjunctiva/sclera: Conjunctivae normal. Cardiovascular: Rate and Rhythm: Normal rate and regular rhythm. Pulses: Normal pulses. Heart sounds: Normal heart sounds. No murmur heard. Pulmonary: Effort: Pulmonary effort is normal. No respiratory distress. Breath sounds: Normal breath sounds. Musculoskeletal: Right lower leg: No edema. Left lower leg: No edema. Skin: General: Skin is warm and dry. Capillary Refill: Capillary refill takes 2 to 3 seconds. Findings: No rash. Neurological: General: No focal deficit present. Mental Status: He is alert and oriented to person, place, and time. Mental status is at baseline. I have reviewed the following results: EGD, biopsy results Assessment and Plan Esophageal dysphagia Loss of weight Dehydration Concerning for worsening dehydration with BP 90s/60s and worsening malnutrition. Discussed at length with patient. He and his will go to [facility] ER due to worsening dehydration for labs and IV fluids. Would certainly consider a PEG tube placement at this point given the severity of his dysphagia. Excessive salivation - Scopolamine 1 MG/3DAYS Transdermal Patch 72 Hour (Transderm Scop); Place 1 Patch over 72 hours topically on the skin every 3 days. Wrap-Up Follow Up: Return for Go to ER. | For: Go to ER Time: I spent a total of 40-54 minutes (exact time 48 mins) on the date of service in preparation, delivery, and documentation of the care provided to Lauro Martines excluding any time spent in the performance of separately billed services. documented in this encounter Nursing Notes * Jerry Barrett LPN - 08/12/2023 5:00 PM EDT The patient has been properly identified by confirmation of name and date of . Pt here with . New patient. Weight loss. States he can't eat. Spitting up mucous all day long. documented in this encounter Plan of Treatment [...] as of this encounter Visit Diagnoses Diagnosis Esophageal dysphagia- Primary Dysphagia, pharyngoesophageal phase Loss of weight Dehydration Excessive salivation Disturbance of salivary secretion documented in this encounter
== END 2023-08-14 15:59 | disposition short-term general hospital (02) ==
LOC: ED 18:58 → 3N 18:58

== ENCOUNTER 2024-05-27 05:18 | Inpatient (IN) ==
--- OUTSIDE RECORDS SUMMARY | 2024-05-27 05:24 | External Medical Summary | Summary of Care ---
Author Name Unknown Organization [facility] Address [address] [place] [address] Phone [phone] Care Team Providers Care Metal Furniture Polisher Name Role Phone Nina Blanco MD Primary Care Provi [facility] Reason for Referral * Ancillary Services (Within 10 days (routine)) - Authorized Specialty Diagnoses / Procedures Referred By Contact Referred To Contact Interventional Radiology / Radiology Diagnoses Encounter for adjustment and management of vascular access device Nina Blanco MD [address] [place] [phone] Phone: tel: fax: Referral ID Status Reason Start Date Expiration Date Visits Requested Visits Authorized [id number] Authorized Ancillary Services Required 4 [phone] Question Answer Referral Priority Within 10 days (routine) Where should this appointment be scheduled? ising Where Will The Procedure Be Performed? [facility] Comments Please enter the reason for consult: Malfunctioning port Are outside images available?: Yes - Images available in Epic Reason for Visit * Reason Onset Date Comments Order Request 05/06/2024 Encounter Details Date Type Department Care Team (Late st Contact Info) Description 05/06/2024 Telephone Hematology/Oncology Treatment, [facility] [address] [place] [phone] Nina Blanco MD [address] [place] [phone] Order Request Allergies No known active allergiesdocumented as of this encounter (statuses as of 05/17/2024) Medications Water For Irrigation, Sterile (FEED TUBE WATER) TF Administer 150 mL into J tube every 6 hours. 500 Each 10 09/01/19 Active Liquid Hope Peptide Sargent Oral LiquidIndications: Esophageal adenocarcinoma (HCC) Administer 5 pouches daily as directed through feeding tube via feeding pump at 100 ml/hr x 17 hours. [id number] g 04/16/20 24 025 Active Compleat Peptide 1.5 Oral LiquidIndications: Esophageal adenocarcinoma (HCC),Severe protein-energy malnutrition (HCC) Administer 7 bottles daily (1750 mL daily) through J tube at 100 ml/hr x 17.5 hrs via feeding pump 80858 mL 6 10/14/19 24 024 Discontin ued(Medic ation List Clean Up) [employer] Peptide 1.5 Oral Liquid Administer 1625 ml daily as directed at 135 ml/hr for 12 hours through J tube via feeding pump. 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/28/2023 Erosive esophagitis 08/15/2023 Severe protein-energy malnutrition 08/14/2023 Esophageal dysphagia 08/12/2023 documented as of this encounter (statuses as of 05/17/2024) Resolved Problems Problem Noted Date Diagnosed Date Resolved Date Preop examination 12/19/2023 02/05/2024 Esophageal mass 08/17/2023 08/28/2023 Dehydration 08/14/2023 08/17/2023 Gastroesophageal reflux dise ase with esophagitis without hemorrhage 08/14/2023 4 Loss of weight 08/12/2023 08/21/2023 NO KNOWN PROBLEMS 03/28/2006 08/12/2023 documented as of this encounter (statuses as of 05/17/2024) Immunizations No known immunizationsdocumented as of this encounter Social History Tobacco Use Types Packs/Day Years Used Date Smoking Tobacco: Never Passive Smoke Exposure: Never Smokeless Tobacco: Never Alcohol Use Standard Drinks/Week Comments No 0 (1 standard drink = 0.6 oz pur e alcohol) PHQ-2 Answer Date Recorded PHQ Adult Total Score 0 09/03/2023 Hunger Vital Sign Answer Date Recorded Within the past 12 months, y ou worried that your food would run out before you got the money to buy more. Never true 09/03/19 Within the past 12 months, t he food you bought just didn't last and you didn't have money to get more. Never true 09/03/2023 Childcare Answer Date Recorded Do you feel overwhelmed with taking care of a child, family member or friend? No 09/03/2023 Does your family need help f inding childcare? (Household - for ages 0-17 years) Not on file 09/03/2023 Clothing Answer Date Recorded Have you been unable to get clothing when it was really needed? No 09/03/2023 Is your family able to get c lothes or diapers when needed? (Household - for ages 0-17 years) Not on file 09/03/2023 Personal Safety Answer Date Recorded Do you feel unsafe or have concerns for your saf ety? No 09/03/2023 Do you have concerns for you r family's safety? (Household - for ages 0-17 years) Not on file 09/03/2023 Utilities Answer Date Recorded Do you have trouble paying y our heating, water, or electric bill? No 09/03/2023 Is your family able to pay t he heat, water, or electric bill? (Household - for ages 0-17 years) Not on file 09/03/2023 Does your family have access to good internet? (Household - for ages 0-17 years) Not on file 09/03/2023 Employment Status Answer Date Recorded Are you unemployed or without regular income? No 09/03/2023 Does the household have a re gular source of income? (Household - for ages 0-17 years) Not on file 09/03/2023 Social Connections Answer Date Recorded How often do you feel lonely or isolated from th ose around you? Never 09/03/2023 Financial Resource Strain Answer Date R ecorded Do you have any trouble payi ng for your medications, or do you think you might in the future? No 09/03/2023 Does your family have troubl e paying for medicine? (Household - for ages 0-17 years) Not on file 09/03/2023 Transportation Needs Answer Date Record ed READ ONLY Do you have troubl e getting a ride to medical visits or work? Never True 09/03/2023 Does your family have a hard time getting a ride to doctors visits? (Household - for ages 0-17 years) Not on file 09/03/2023 Has lack of transportation k ept you from medical appointments, meetings, work, or from getting things needed for daily living? Check all that apply. (Adult - for ages 18 years and over) Not on file 09/03/2023 Do you (or your family) have trouble finding or paying for a ride (transportation)? (Household - for ages 0-17 years) Not on file 09/03/2023 Housing Stability Answer Date Recorded Do you currently live in a s helter or have no steady place to sleep at night? No 09/03/2023 READ ONLY Do you think you a re at risk of becoming homeless? No 09/03/2023 Does your family worry about paying for your home or becoming homeless? (Household - for ages 0-17 years) Not on file 0 09/03/2023 Are you homeless or worried that you might be in the future? (Adult - for ages 18 years and over) Not on file Are you (or your family) nicky eless or worried that you might be in the future? (Household - for ages 0-17 years) Not on file Food Insecurity Answer Date Recorded Do you need food for this week? No 09/03/2023 Are you able to get enough f ood for your family? (Household - for ages 0-17 years) Not on file 09/03/2023 Does your family need food t his week? (Household - for ages 0-17 years) Not on file 09/03/2023 Do you always have enough fo od for your family? 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 Answer Date of Assessment Author No 08/28/2023 5:33 PM EDT Rosey Nassar RN * Are you blind or do you have serious difficulty seeing, even when wearing glasses? Answer Date of Assessment Author No 08/28/2023 5:33 PM EDT Rosey Nassar RN * Do you have serious difficulty walking or climbing stairs? (5 years old or older) Answer Date of Assessment Author No 08/28/2023 5:33 PM EDT Rosey Nassar RN * Do you have difficulty dressing or bathing? (5 years old or older) Answer Date of Assessment Author No 08/28/2023 5:33 PM EDT Rosey Nassar RN * Because of a physical, mental, or emotional condition, do you have difficulty doing errands alone such as visiting a doctors office or shopping? (15 years old or older) Answer Date of Assessment Author No 08/28/2023 5:33 PM EDT Rosey Nassar RN documented as of this encounter Mental Status * Because of a physical, mental, or emotional condition, do you have serious difficulty concentrating, remembering, or making decisions? (5 years old or older) Answer Entry Date Author No 08/28/2023 5:33 PM Rosey Rice RN documented in this encounter Miscellaneous Notes * Telephone Encounter - Patricia El LPN - 05/17/2024 12:15 PM EST myG sent to patient to make aware that referral and xray order placed. * Addendum Note - Nina Blanco MD - 05/15/2024 12:16 PM EST Addended by: NINA BLANCO on: 05/15/2024 12:16 PM Modules accepted: Orders * Telephone Encounter - Nina Blanco MD - 05/15/2024 12:16 PM EST Referral and xray ordered - please assist patient in scheduling * Telephone Encounter - Hailey Kowalski RN - 05/14/2024 1:58 PM EST Patient here for cathflo- still no blood return. Per [facility] policy, at this point would recommend referral to IR (either [facility] or [facility]) for port dye study. Before patient could be scheduled with IR, they will want patient to have a 1 view CXR to check port placement. Dr Blanco: TYRONE- please place orders/ have your office follow up with patient with the above if agreeable. * Telephone Encounter - Diana Willis OSA - 05/11/2024 10:00 AM EST Pt is scheduled and is aware * Telephone Encounter - Jeffrey Mccauley RN - 05/11/2024 9:52 AM EST Scheduling- please call patient to schedule 2 hour treatment "Port flush with Cathflo" (Francis). Thank you. * Telephone Encounter - Jeffrey Mccauley RN - 05/10/2024 9:44 AM EST Order received. Cathflo built into beacon plan. Awaiting signature and will route to [facility] for scheduling. * Telephone Encounter - Sherry Joyce CRNP - 05/10/2024 9:11 AM EST Inboxologist Covering Provider All replies or additional communication must be routed to the PCP ORDER signed * Telephone Encounter - Hailey Kowalski RN - 05/06/2024 12:57 PM EST Received message from [facility]- patient there for port flush, unable to obtain blood return. They are unable to cathflo port. Dr Blanco: would you like patient to receive cathflo in case port has developed a fibrin sheathe? If so, please place order- we will build beacon plan and route this to you to sign, then have patient come in. When patient comes in, we would check for blood return before administering cathflo (in case port had been positional). Thanks! documented in this encounter Plan of Treatment Upcoming Encounters Date Type Department Care Team (Late st Contact Info) Description 06/09/2024 12:20 PM EST Office Visit Nutrition & Weight Management, [facility] [address] [place] [address] Nina Larson PA-C [address] [place] [address] 06/21/2024 12:45 PM EST Imaging Radiology [address], [address] [place] [address] 07/14/2024 2:00 PM EST Office Visit [address] [phone] Nina Blanco MD [address] [place] [phone] Scheduled Orders Name Type Priority Associated Diagnoses Orde r Schedule XR CHEST 1 VIEW Medical Imaging Routine Encounter for adjustment and management of vascular access device Ordered: 05/15/2024 Scheduled Referrals Name Type Priority Associated Diagnoses Order Schedule INTERVENTIONAL RADIOLOGY REFERRAL OP Referral Within 10 days (routine) Encounter for adjustment and management of vascular access device Ordered: 05/15/2024 Health Maintenance Due Date Last Done Comments Hepatitis C Screening 12/07/1963 Zoster Vaccines (1 of 2) 12/07/1997 Pneumococcal Vaccine: 65+ Ye ars (1 of 1 - PCV) 12/07/2012 Adult Wellness Visit 12/07/2013 COVID-19 Vaccine (1 - 2023-2 5 season) 2024 Influenza Vaccine (FLU shot) (#1) 2024 DTap/Tdap Vaccines (1 - Tdap) 06/02/2024 Postponed from 12/07/1966 (Patient Declined After Education) Depression Screening 09/02/2024 09/03/2023 HPV (Gardasil) Vaccine Aged Out No lo nger eligible based on patient's age to complete this topic Hepatitis B Vaccine Aged Out No longe r eligible based on patient's age to complete this topic MENINGOCOCCAL (MENACTRA/MENVEO) Aged Out No longer eligible based on patient's age to complete this topic documented as of this encounter Medical Devices Implanted Type Area Bed Bug Exterminator Device Identifier Shelf Expiration Date Model / Serial / Lot Agile Eso Fc 2318mm 11.9cm - [id number] Implanted:Qty : 1 on 08/15/2023 by Liang Barrios DO at OR [facility] [employer] : ENDOSCOPY [id number] 04/09/2025 [id number] / / [id number] Cath Power Port 6fr Clearvue - [id number] Implanted:Qty : 1 on 08/29/2023 by Efe Tadeo MD at OR [facility] [place] Right: Chest CR BARD : PERIPHERAL VASCULAR 09/30/2023 [id number] / / [id number] documented as of this encounter Visit Diagnoses Diagnosis Encounter for adjustment and management of vascular access device- Primary documented in this encounter Advance Directives * Full Code (Latest Code Status on File) Date Activated Date Inactivated Comments 08/28/2023 6:20 PM 09/02/2023 4:30 PM Question Answer Comments Discussion of Advance Direct pily occurred with: Not Discussed due to patient's condition * Full Code Date Activated Date Inactivated Comments 08/14/2023 6:12 PM 08/17/2023 6:34 PM This order r eflects the patients wishes and were consensually agreed upon. Question Answer Comments Discussion of Advance Directives occurred with: Patient Care Teams Metal Furniture Polisher Relationship Specialty Start Date End Date Nina Blanco MD [address] [place] [phone] PCP - General Family Medicine 08/21/23 documented as of this encounter
--- OUTSIDE RECORDS SUMMARY | 2024-05-27 05:24 | External Medical Summary | Summary of Care ---
Author Name Unknown Organization [facility] Address [address] [facility] [place] [address] Phone [phone] Care Team Providers Care Cupola Melting Supervisor Name Role Phone Nina Blanco MD Primary Care Provi [facility] Encounter Details Date Type Department Care Team (Late st Contact Info) Description 02/18/2024 Telephone Nutrition & Weight Management, [facility] [address] [facility] [place] [phone] [facility] [address] [facility] [place] [phone] Allergies No known active allergiesdocumented as of this encounter (statuses as of 05/19/2024) Medications Water For Irrigation, Sterile (FEED TUBE WATER) TF Administer 150 mL into J tube every 6 hours. 500 Each 10 Active documented as of this encounter (statuses as of 05/19/2024) Active Problems Problem Noted Date Diagnosed Date Encounter for adjustment and management of vascular access device 05/10/2024 Iron deficiency anemia secon florentin to inadequate dietary iron intake 04/07/2024 History of esophageal cancer 02/09/2024 H/O insertion of central venous access port 10/01 Esophageal adenocarcinoma 08/28/2023 Erosive esophagitis 08/15/2023 Severe protein-energy malnutrition 08/14/2023 Esophageal dysphagia 08/12/2023 documented as of this encounter (statuses as of 05/19/2024) Resolved Problems Problem Noted Date Diagnosed Date Resolved Date Preop examination 12/19/2023 02/05/2024 Esophageal mass 08/17/2023 08/28/2023 Dehydration 08/14/2023 08/17/2023 Gastroesophageal reflux dise ase with esophagitis without hemorrhage 08/14/2023 Loss of weight 08/12/2023 08/21/2023 NO KNOWN PROBLEMS 03/28/2006 08/12/2023 documented as of this encounter (statuses as of 05/19/2024) Immunizations No known immunizationsdocumented as of this [...] 09/03/2023 Does the household have a re lar source of income? 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 Answer Date of Assessment Author No 08/28/2023 5:33 PM Rosey Rice RN * Are you blind or do you have serious difficulty seeing, even when wearing glasses? Answer Date of Assessment Author No 08/28/2023 5:33 PM EDT Rosey Nassar, FABRICE * Do you have serious difficulty walking or climbing stairs? (5 years old or older) Answer Date of Assessment Author No 08/28/2023 5:33 PM Rosey Rice RN * Do you have difficulty dressing or bathing? (5 years old or older) Answer Date of Assessment Author No 08/28/2023 5:33 PM Rosey Rice RN * Because of a physical, mental, or emotional condition, do you have difficulty doing errands alone such as visiting a doctors office or shopping? (15 years old or older) Answer Date of Assessment Author No 08/28/2023 5:33 PM Rosey Rice RN documented as of this encounter Mental Status * Because of a physical, mental, or emotional condition, do you have serious difficulty concentrating, remembering, or making decisions? (5 years old or older) Answer Entry Date Author No 08/28/2023 5:33 PM EDT Rosey Nassar RN documented in this encounter Plan of Treatment Upcoming Encounters Date Type Department Care Team (Latest Contact Info) Description 05/20/2024 1:34 PM EST Hospital Encounter OR [facility], Operating Room, [facility] - 4th Floor [address] [place] [phone] Uche Mcfarland MD [address] [facility] [place] [address] 05/20/2024 1:34 PM EST - 05/20/2024 2:19 PM EST Surgery OR [facility], Operating Room, [facility] - 4th Floor [address] [place] [phone] Uche Mcfarland MD [address] [facility] [place] [address] REMOVAL OF TUNNELED CENTRAL VENOUS ACCESS DEVICE WITH PORT 06/09/2024 12:20 PM EST Office Visit Nutrition & Weight Management, [place] [address] [place] [address] Nina Larson PA-C [address] [place] [address] 06/21/2024 12:45 PM EST Imaging Radiology [facility] [address] [facility] [place] [address] 07/14/2024 2:00 PM EST Office Visit [address] [phone] Nina Blanco MD [address] [place] [phone] Scheduled Procedures Name Priority Associated Diagnoses Date/Ti me REMOVAL OF TUNNELED CENTRAL VENOUS ACCESS DEVICE WITH PORT Esophageal adenocarcinoma (HCC) 05/20/2024 1:34 PM EST Health Maintenance Due Date Last Done Comments [...] this encounter Medical Devices Implanted Type Area Court Monitor Device Identifier Shelf Expiration Date Model / Serial / Lot Agile Eso Fc 2318mm 11.9cm - [id number] Implanted:Qty : 1 on 08/15/2023 by Liang Barrios DO at OR [facility] [employer] : ENDOSCOPY [id number] 04/09/2025 [id number] / / [id number] Cath Power Port 6fr Clearvue - [id number] Implanted:Qty : 1 on 08/29/2023 by Efe Tadeo MD at [place] [facility] [place] Right: Chest CR BARD : PERIPHERAL VASCULAR 09/30/2023 [id number] / / [id number] documented as of this encounter Advance Directives * Full Code [...] Advance Directives occurred with: Patient Care Teams Cupola Melting Supervisor Relationship Specialty Start Date End Date Nina Blanco MD [address] [place] [address] [place] [phone] PCP - General Family Medicine 08/21/23 documented as of this encounter
--- OUTSIDE RECORDS SUMMARY | 2024-05-27 05:24 | External Medical Summary | Summary of Care ---
Author Name Unknown Organization [facility] Address [address] [place] [address] Phone [phone] Care Team Providers Care Investment Banker Name Role Phone Nina Blanco MD Primary Care Provi mario Reason for Referral * Precert (Within 10 days (routine)) - Authorized Specialty Diagnoses / Procedures Referred By Contac t Referred To Contact Radiology Diagnoses Esophageal adenocarcinoma (HCC) Procedures [facility] Blanco MD [address] [place] [phone] Phone: tel: fax: Referral ID Status Reason Start Date Expiration Date V isits Requested Visits Authorized [id number] Authorized 05/19/2024 999 999 Reason for Visit * Reason Onset Date Comments Scheduling 05/18/2024 Encounter Details Date Type Department Care Team (Late st Contact Info) Description 05/18/2024 Telephone Interventional Radiology, [address] [address] Abhijit Guerrero, RN Scheduling Allergies No known active allergiesdocumented as of this encounter (statuses as of 05/18/2024) Medications Water For Irrigation, Sterile (FEED TUBE WATER) TF Administer 150 mL into J tube every 6 hours. 500 Each 10 4 Active Liquid Hope Peptide Sargent Oral LiquidIndications: Esophageal adenocarcinoma (HCC) Administer 5 pouches daily as directed through feeding tube via feeding pump at 100 ml/hr x 17 hours. 493445 g 4 025 Active documented as of this encounter (statuses as of 05/18/2024) Active Problems Problem Noted Date Diagnosed Date Encounter for adjustment and management of vascular access device 05/10/2024 Iron deficiency anemia secmoi lerma to inadequate dietary iron intake 04/07/2024 History of esophageal cancer 02/09/2024 H/O insertion of central venous access port 10/01 Esophageal adenocarcinoma 08/28/2023 Erosive esophagitis 08/15/2023 Severe protein-energy malnutrition 08/14/2023 Esophageal dysphagia 08/12/2023 documented as of this encounter (statuses as of 05/18/2024) Resolved Problems Problem Noted Date Diagnosed Date Resolved Date Preop examination 12/19/2023 02/05/2024 Esophageal mass 08/17/2023 08/28/2023 Dehydration 08/14/2023 08/17/2023 Gastroesophageal reflux dise ase with esophagitis without hemorrhage 08/14/2023 Loss of weight 08/12/2023 08/21/2023 NO KNOWN PROBLEMS 03/28/2006 08/12/2023 documented as of this encounter (statuses as of 05/18/2024) Immunizations No known immunizationsdocumented as of this [...] money to buy more. Never true 09/03/19 24 Within the past 12 months, t he [...] No 09/03/2023 Does the household have a [facility] [employer] source of income? 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 Answer Date of Assessment Author No 08/28/2023 5:33 PM EDT Rosey Nassar, RN * Are you blind or do you have serious difficulty seeing, even when wearing glasses? Answer Date of Assessment Author No 08/28/2023 5:33 PM Rosey Rice RN * Do you have serious difficulty [...] encounter Miscellaneous Notes * Telephone Encounter - Nina Blanco MD - 05/18/2024 2:19 PM EST Prefers port removal. Order for removal placed. To be scheduled by IR department. * Telephone Encounter - Abhijit Guerrero RN - 05/18/2024 12:38 PM EST Spoke with patient over the phone to schedule Mediport evaluation with scraping/stripping of catheter. Pt stated he would rather just have the catheter removed since he is only getting vitamin C and Iron infusions. Original referral for evaluation ordered by Dr. Blanco, will contact her before scheduling mediport removal, pt agreeable to plan. documented in this encounter Plan of Treatment Upcoming Encounters Date Type Department Care Team (Late st Contact Info) Description 06/09/2024 12:20 PM EST Office Visit Nutrition & Weight Management, [address] [address] Nina Larson PA-C [address] [place] [address] 06/21/2024 12:45 PM EST Imaging Radiology [address], [place] [address] [facility] [place] [address] 07/14/2024 2:00 [place] [phone] Nina Blanco MD [address] [place] [phone] Scheduled Orders Name Type Priority Associated Diagnoses Orde r Schedule REMOV DARREN ROHITH JAMIL ACC DEV,WITH Procedures Routine Circulatory system disorder Expected: 05/19/2024, Expires: 06/18/2025 IR VENOUS ACCESS MEDIPORT Medical Imaging Routine Esophageal adenocarcinoma (HCC) Expected: 05/19/2024, Expires: 06/18/2025 Health Maintenance Due Date Last Done Comments [...] this encounter Medical Devices Implanted Type Area Yarn Worker Device Identifier Shelf Expiration Date Model / Serial / Lot [employer] Eso Fc 2318mm 11.9cm - [id number] Implanted:Qty : 1 on 08/15/2023 by Liang Barrios DO at OR [facility] [id number] 04/09/2025 [id number] / / [id number] Cath Power Port 6fr Clearvue - [id number] Implanted:Qty : 1 on 08/29/2023 by Efe Tadeo MD at OR [facility] Right: Chest CR BARD : PERIPHERAL VASCULAR 09/30/2023 [id number] / / [id number] documented as of this encounter Visit Diagnoses Diagnosis Circulatory system disorder- Primary Unspecified circulatory system disorder Esophageal dysphagia Dysphagia, pharyngoesophageal phase Esophageal adenocarcinoma (HCC) Malignant neoplasm of esophagus, unspecified site documented in this encounter Advance Directives * Full Code (Latest Code Status on File) Date Activated Date Inactivated Comments 08/28/2023 6:20 PM 09/02/2023 4:30 PM Question Answer Comments Discussion of Advance Direct pily occurred with: Not Discussed due to patient's condition * Full Code Date Activated Date Inactivated Comments 08/14/2023 6:12 PM 08/17/2023 6:34 PM This order reflects the patients wishes and were consensually agreed upon. Question Answer Comments Discussion of Advance Directives occurred with: Patient Care Teams Investment Banker Relationship Specialty Start Date End Date Nina Blanco MD [address] [place] [phone] PCP - General Family Medicine 08/21/23 documented as of this encounter
--- OUTSIDE RECORDS SUMMARY | 2024-05-27 05:24 | External Medical Summary | Summary of Care ---
Author Name Unknown Organization [facility] Address [address] [facility] [address] Phone [phone] Care Team Providers Care Glass Enamel Mixer Name Role Phone Nina Blanco MD Primary Care [facility] Reason for Visit * Auth/Cert Specialty Diagnoses / Procedures Referred By Herrera mercado Referred To Contact Diagnoses Esophageal adenocarcinoma (HCC) Esophageal adenocarcinoma (HCC) [C15.9] Procedures REMOV DARREN ROHITH JAMIL ACC DEV,WITH REMOVAL OF TUNNELED CENTRAL VENOUS ACCESS DEVICE WITH PORT Uche Mcfarland MD [address] [place] [address] [place] [address] Phone: tel: fax: [facility], Operating Room, [facility] - 4th Floor [address] [place] [address] [place] [address] Phone: tel: Referral ID Status Reason Start Date Expiration Date Visits Re quested Visits Authorized [id number] Encounter Details Date Type Department Care Team (Latest Contact Info) Description 05/20/2024 12:46 PM EST - 05/20/2024 3:15 PM EST Hospital Encounter [facility], Operating Room, [facility] - 4th Floor [address] [place] [address] Uche Mcfarland MD [address] [place] [address] [place] [address] Discharge Disposition: Home - Self Care Allergies No known active allergiesdocumented as of this encounter (statuses as of 05/21/2024) Medications Water For Irrigation, Sterile (FEED TUBE WATER) TF Administer 150 mL into J tube every 6 hours. 500 Each 10 4 Active Liquid Hope Peptide Sargent Oral LiquidIndications: Esophageal adenocarcinoma (HCC) Administer 5 pouches daily as directed through feeding tube via feeding pump at 100 ml/hr x 17 hours. 323352 g 05/19/2024 11:59 PM EST 4 025 Active documented as of this encounter (statuses as of 05/21/2024) Active Problems Problem Noted Date Diagnosed Date Encounter for adjustment and management of vascular access device 05/10/2024 Iron deficiency anemia secon florentin to inadequate dietary iron intake 04/07/2024 History of esophageal cancer 02/09/2024 H/O insertion of central venous access port 10/01 Esophageal adenocarcinoma 08/28/2023 Erosive esophagitis 08/15/2023 Severe protein-energy malnutrition 08/14/2023 Esophageal dysphagia 08/12/2023 documented as of this encounter (statuses as of 05/21/2024) Resolved Problems Problem Noted Date Diagnosed Date Resolved Date Preop examination 12/19/2023 02/05/2024 Esophageal mass 08/17/2023 08/28/2023 Dehydration 08/14/2023 08/17/2023 Gastroesophageal reflux dise ase with esophagitis without hemorrhage 08/14/2023 Loss of weight 08/12/2023 08/21/2023 NO KNOWN PROBLEMS 03/28/2006 08/12/2023 documented as of this encounter (statuses as of 05/21/2024) Immunizations No known immunizationsdocumented as of this [...] 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 file Not on file Not on file documented as of this encounter Last Filed Vital Signs Vital Sign Reading Time Taken Comments Blood Pressure 129/86 05/20/2024 2:41 PM EST Pulse 98 05/20/2024 2:41 PM EST Temperature 36.5 C (97.7 F) 05/20/2024 2:41 PM ES T Respiratory Rate 18 05/20/2024 2:41 PM EST Oxygen Saturation 98% 05/20/2024 2:41 PM EST Inhaled Oxygen Concentration - - Weight 73 kg (161 lb) 05/20/2024 12:58 PM EST Height 188 cm (6' 2") 05/20/2024 12:58 PM EST Body Mass Index 20.67 05/20/2024 12:58 PM EST documented in this encounter Functional Status * Are you deaf or do you have serious difficulty hearing? Answer Date of Assessment Author No 08/28/2023 5:33 PM EDT Rosey Nassar RN * Are you blind or do you have serious difficulty seeing, even when wearing glasses? Answer Date of Assessment Author No 08/28/2023 5:33 PM EDRosey Romero RN * Do you have serious difficulty [...] Rosey Rice RN documented in this encounter Discharge Instructions * Discharge Instr - AVS* Uche Mcfarland MD - 05/20/2024 2:37 PM EST Discharge Date: 05/20/2024 Provider: Dr. Uche Mcfarland If you are experiencing any problems related to your procedure, please contact Interventional Radiology at [phone] during normal business hours: Friday- Friday 7:30 am - 4 pm. If a problem occursoutside of normal business hours, please call the hospital transcribing operator head at [phone] and ask for theInterventional Radiologist information security consultant. Contact scheduling for Interventional Radiology at [phone] during normal business hours: Friday-Friday, 7:30 am - 4 pm. The information below provides you with the instructions and the list of medications you need to betaking following discharge from the hospital. If you have any questions, please ask before leaving.Please carry this letter with you when you see your doctor in the clinic. If you have questions, you can reach us at the numbers above. SPECIAL INSTRUCTIONS Mediport Removal (Implanted Central Venous Access) Home Care If you are experiencing pain or discomfort at the site you may use a cold pack on the site and/or take acetaminophen (Tylenol) or your preferred pain medicine as directed. Avoid contact sports or any activity that may cause blunt force impact to the surgical site until the wound is completely healed. Avoid strenuous activity for 24 to 48 hours after the procedure. Do not lift anything heavier than 10 pounds for 3 days after the procedure. Gradually increase your activity after 24 to 48 hours after the procedure. No dressing changes or wound care are needed at the removal site. Your wound is closed with sutureson the inside and then sealed on the outside with a special "skin glue" called Dermabond (a surgical glue). Depending on your provider's preference, there may also be "steri strips" applied. It is very important to let these special bandages fall off on their own. Please do not scrub or pull these bandages off. You may gently wash the site with soap and water. Depending on your provider's preference, there may also be a gauze and Tegaderm (clear) bandage over the surgical site. You may remove this bandage in 24 hours. You may shower after 24 hours. Gently wash the area and pat it dry. Please do not take a bath, soak in a hot tub, or swim until the wound is completely healed. When to Call Interventional Radiology Call Interventional Radiology right away if you have any of the following: Fever above 100 degrees Fahrenheit Increased bleeding, redness, swelling, warmth, or discharge at the incision site. Constant or increasing pain, numbness, coldness, or tingling around the incision area. Vomiting or nausea that does not go away If at any time you feel you have a medical emergency, call 911 for emergency assistance. Symptoms may include: Chest Pain Sudden, severe shortness of breath Rapid heart rate Sudden onset of weakness Do not smoke or use tobacco products in any way! If you feel suicidal or homicidal, please call the crisis hotline at 5-970-579-YMLH ([phone]) Driving: You may resume driving 1 day . Diet: You may resume your current diet as tolerated. Return to work or school: You may return to school or work 1 days after the procedure, unless otherwise instructed by the physician. documented in this encounter Progress Notes * Uche Mcfarland MD - 05/20/2024 2:40 PM EST [address] [address] OUTPATIENT SURGERY DISCHARGE SUMMARY NOTE Name: Lauro Martines Location: [facility]/[place] Date: 05/20/2024 Time: 2:40 PM Surgery Date: 05/20/2024 Procedure: REMOVAL OF TUNNELED CENTRAL VENOUS ACCESS DEVICE WITH PORT Right Surgeon: Uche Mcfarland MD Discharge Diagnosis: port removal After examination of this patient, I have determined he is ready for discharge to home when the patient meets criteria. Discharge instructions were given to the patient. documented in this encounter H&P Notes * Uche Mcfarland MD - 05/20/2024 2:00 PM EST HISTORY & PHYSICAL - Interventional Radiology Service [address] [address] Name: Lauro Martines Location: [facility]/[place] Date: 05/20/2024 Time: 2:01 PM CHIEF COMPLAINT: Port removal HISTORY OF PRESENT ILLNESS: Esophageal CA. Declines chemo No past medical history on file. Past Surgical History: Procedure Laterality Date EGD, FLEXIBLE, DIAGNOSTIC N/A 08/15/2023 partially obstructing, GEJ/biopsies show invasive adenocarcinoma/ESOPHAGOGASTRODUODENOSCOPY (EGD), FLEXIBLE, TRANSORAL, DIAGNOSTIC performed by Liang Barrios DO at OR [facility] EGD, FLEXIBLE, DIAGNOSTIC N/A 07/23/2023 [place] grade D esophagitis/biopsies inconclusiveEGD/[place] EGD, W/ENDOSCOPIC US N/A 08/15/2023 mass GEJ/biopsies show invasive adenocarcinoma/ESOPHAGOGASTRODUODENOSCOPY (EGD), FLEXIBLE, TRANSORAL, ENDOSCOPIC ULTRASOUND performed by Liang Barrios DO at OR [facility] ESOPHAGOSCOPY, FLEXIBLE, DIAGNOSTIC N/A 08/29/2023 ESOPHAGOSCOPY DIAGNOSTIC performed by Efe Tadeo MD at [place] [facility] INSER TUNN ACC DEV;5 YRS/OLDER N/A 08/29/2023 INSERT TUNNELED CENTRAL VENOUS ACCESS WITH SUBQ PORT performed by Efe Tadeo MD at [facility] REMOVAL OF APPENDIX 06/02/1971 Appendectomy TUBE JEJUNOSTOMY FOR FEEDING N/A 08/29/2023 NEEDLE CATHETER OR TUBE JEJUNOSTOMY FOR ALIMENTATION performed by Efe Tadeo MD at [place] [facility] Social History Socioeconomic History Marital status: Spouse name: Not on file Number of children: Not on file Years of education: Not on file Highest education level: Not on file Occupational History 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 (Adult - for ages 18 years and over): No Does your family have trouble paying for medicine? (Household - for ages 0-17 years): Not on file Food Insecurity: No Food Insecurity (09/03/2023) Food Insecurity Do you need food for this week? (Adult - for ages 18 years and over): No Are you able to get enough food for your family? (Household - for ages 0-17 years): Not on file Does your family need food this week? (Household - for ages 0-17 years): Not on file Do you always have enough food for your family? (Household - for ages 0-17 years): Not on file Transportation Needs: No Transportation Needs (09/03/2023) Transportation Needs Do you have trouble getting a ride to medical visits or work? (Adult - for ages 18 years and over):Never True Does your family have a hard time getting a ride to doctors visits? (Household - for ages 0-17 years): Not on file Has lack of transportation kept you from medical appointments, meetings, work, or from getting things needed for daily living? Check all that apply. (Adult - for ages 18 years and over): Not on file Do you (or your family) have trouble finding or paying for a ride (transportation)? (Household - for ages 0-17 years): Not on file Social Connections: Socially Integrated (09/03/2023) Social Connections How often do you feel lonely or isolated from those around you? (Adult - for ages 18 years and over): Never Housing Stability: Low Risk (09/03/2023) Housing Stability Do you currently live in a [place] or have no steady place to sleep at night? (Adult - for ages 18 years and over): No Do you think you are at risk of becoming homeless? (Adult - for ages 18 years and over): No Does your family worry about paying for your home or becoming homeless? (Household - for ages 0-17 years): Not on file Are you homeless or worried that you might be in the future? (Adult - for ages 18 years and over): Not on file Are you (or your family) homeless or worried that you might be in the future? (Household - for ages0-17 years): Not on file Family History Problem Relation Name Age of Onset No Past Hx Mother Heart Disorder Father aneurysm, heart attack Cancer No significant family history Review of patient's allergies indicates: No Known Allergies No current facility-administered medications for this encounter. REVIEW OF SYSTEMS: Constitutional: (-) fever chills sweats or weight loss Cardiovascular: (-) negative: no chest pain, dyspnea, syncope, or palpitations Pulmonary: (-) negative: no cough, wheezing, or shortness of breath Abdominal/GI: (-) negative: no pain, heartburn, dysphagia, bleeding, change in bowel habits, nauseaor vomiting OBJECTIVE: BP 115/77 | Pulse 96 | Temp 36 C (96.8 F) (Tympanic) | Resp 16 | Ht 1.88 m (6' 2") | Wt 73 kg (161 lb) | SpO2 98% | BMI 20.67 kg/m | BSA 1.95 m PHYSICAL EXAM: Constitutional: no acute distress CV: normal rate and rhythm, no murmur, gallops or rub Chest: normal respiratory effort, lungs clear to auscultation and percussion, breath sounds normal Abdomen: normal: soft, bowel sounds normal, no masses, tenderness or organomegaly LABS: CBC Results: PT INR Results: BUN Results: Lab Results Component Value Date/Time BUN - [facility] 25 (H) 03/29/2024 10:15 AM BUN - [facility] 24 (H) 12/15/2023 09:27 AM BUN - [facility] 14 09/02/2023 05:15 AM Creatinine Results: Lab Results Component Value Date/Time CREATININE - [facility] 0.9 05/14/2024 11:22 AM CREATININE - [facility] 1.1 03/29/2024 10:15 AM CREATININE - [facility] 1.1 12/15/2023 09:27 AM Potassium Results: Lab Results Component Value Date/Time POTASSIUM - [facility] 4.3 03/29/2024 10:15 AM POTASSIUM - [facility] 4.7 12/15/2023 09:27 AM POTASSIUM - [facility] 4.0 09/02/2023 05:15 AM INFORMED CONSENT: Yes PRE-SEDATION ASSESSMENT IMPRESSION/PLAN: Port removal Uche Mcfarland MD documented in this encounter OR Notes * OR Surgeon - Uche Mcfarland MD - 05/20/2024 3:09 PM EST Procedure: chest medical port removal. 05/20/2024 INDICATION: [Port no longer needed] ATTENDING (OPERATING PHYSICIAN): Bruna CONSENT: After a detailed discussion of the procedure, risks, benefits and alternative treatment options, informed consent was obtained. TIME OUT: A time out procedure was performed. The patient's identification was verified. Informed consent with agreement of procedure, site and position was obtained. All necessary equipment was available prior to procedure. CONTRAST: No contrast was administered. COMPLICATIONS: None. ANESTHESIA: [Local lidocaine.] MEDICATIONS: See MAR PROCEDURE DESCRIPTION: The patient was placed on the fluoroscopy table and a director education fluoroscopic image of the chest was obtained. The [right] neck and chest were prepped and draped in the usual sterile fashion. An incision was made over the scar from medical port placement. The medical port was removed, inspected, and noted to be removed in its entirety. The port pocket was inspected. A final postremoval image was obtained. The incision was then closed with suture and surgical glue. The procedure was performed by Dr. Mcfarland. Findings: The medical port is in the upper chest. The final image demonstrates complete removal. Impression: Successful chest medical port removal. * Operative Report Brief - Uche Mcfarland MD - 05/20/2024 2:36 PM EST PROCEDURE NOTE - Interventional Radiology [facility]-[address] [address] Name: Lauro Martines Location: [facility]/OR Date: 05/20/2024 Time: 2:36 PM PROCEDURE: port removal FARM EQUIPMENT TECHNICIAN: Dr. Uche Mcfarland ASSISTANTS: none ANESTHESIA: local COMPLICATIONS: none SPECIMEN: none ESTIMATED BLOOD LOSS: negligible FINDINGS: port removed intacdt documented in this encounter Miscellaneous Notes * Pre-Sedation Assessment - Uche Mcfarland MD - 05/20/2024 2:02 PM EST PRE-SEDATION ASSESSMENT PRE-SEDATION ASSESSMENT: Port Removal Level of sedation planned: Minimal Patient's allergies reviewed: Yes H&P Review / Interval Note Documentation: There is no H&P on file. Difficulty with sedation / anesthesia: No Sleep apnea: No History of snoring: No History of difficult intubation: No Decreased ROM neck flexion/extension: No Tracheal deviation: No Decreased ability to open mouth / TMJ: No Loose teeth / dentures / partial: No Congenital deformities / abnormalities: No Dysphagia: No Mallampati Classification: II - soft palate, uvula, fauces visible Chest: Clear Heart: Regular Rhythm Adequate Vascular Access: Yes ASA Risk Stratification (Select One): ASA 2 - Mild systemic disease, no functional limitations The patient was identified and the procedure verified: Yes The patient was reevaluated immediately prior to the sedation: 05/20/2024 2:02 PM documented in this encounter Plan of Treatment Upcoming Encounters Date Type Department Care Team (Late st Contact Info) Description 06/09/2024 12:20 PM EST Office Visit Nutrition & Weight Management, [place] [address] [place] [address] Nina Larson PA-C [address] [place] [address] 06/21/2024 12:45 PM EST Imaging Radiology [facility] [address] [address] 07/14/2024 2:00 PM EST Office Visit [address] [address] Nina Blanco MD [address] [place] [phone] Health Maintenance Due Date Last Done Comments Hepatitis C Screening 12/07/1965 Zoster Vaccines (1 of 2) 12/07/1997 Pneumococcal Vaccine: 65+ Ye ars (1 of 1 - PCV) 12/07/2012 Adult Wellness Visit 12/07/2013 COVID-19 Vaccine ( - 2023-2 5 season) 2024 Influenza Vaccine [...] this encounter Medical Devices Implanted Type Area Labor Relations Teacher Device Identifier Shelf Expiration Date Model / Serial / Lot Agile Eso Fc 2318mm 11.9cm - [id number] Implanted:Qty : 1 on 08/15/2023 by Liang Barrios DO at OR [facility] [place] [employer] : ENDOSCOPY [id number] 04/09/2025 [id number] / / [id number] Cath Power Port 6fr Clearvue - [id number] Implanted:Qty : 1 on 08/29/2023 by Efe Tadeo MD [place] [facility] [place] Right: Chest CR BARD : PERIPHERAL VASCULAR 09/30/2023 [id number] / / [id number] documented as of this encounter Procedures Procedure Name Priority Date/Time Associated Diagnosis Comments IR INTERVENTIONAL RADIOLOGY PROCEDURE IN OR Routine 05/20/2024 2:35 PM EST documented in this encounter Results * IR INTERVENTIONAL RADIOLOGY PROCEDURE IN OR (05/20/2024 2:35 PM EST) 05/20/2024 3:11 PM EST Impressions [facility] - 05/20/2024 3:08 PM EST IMPRESSION: Successful chest medical port removal. [facility] - 05/20/2024 3:08 PM EST PROCEDURE: chest medical port removal. 05/20/2024 INDICATION: Port no longer needed ATTENDING (OPERATING PHYSICIAN): Bruna CONSENT: After a detailed discussion of the procedure, risks, benefits and alternative treatment options, informed consent was obtained. TIME OUT: A time out procedure was performed. The patient's identification was verified. Informed consent with agreement of procedure, site and position was obtained. All necessary equipment was available prior to procedure. CONTRAST: No contrast was administered. COMPLICATIONS: None. ANESTHESIA: Local lidocaine. MEDICATIONS: See [facility] PROCEDURE DESCRIPTION: The patient was placed on the fluoroscopy table and a director education fluoroscopic image of the chest was obtained. The right neck and chest were prepped and draped in the usual sterile fashion. An incision was made over the scar from medical port placement. The medical port was removed, inspected, and noted to be removed in its entirety. The port pocket was inspected. A final post removal image was obtained. The incision was then closed with suture and surgical glue. The procedure was performed by Dr. Mcfarland. FINDINGS: The medical port is in the upper chest. The final image demonstrates complete removal. Procedure Note Uche Mcfarland MD - 05/20/2024 PROCEDURE: chest medical port removal. 05/20/2024 INDICATION: Port no longer needed ATTENDING (OPERATING PHYSICIAN): Bruna CONSENT: After a detailed discussion of the procedure, risks, benefits andalternative treatment options, informed consent was obtained. TIME OUT: A time out procedure was performed. The patient's identificationwas verified. Informed consent with agreement of procedure, site andposition was obtained. All necessary equipment was available prior toprocedure. CONTRAST: No contrast was administered. COMPLICATIONS: None. ANESTHESIA: Local lidocaine. MEDICATIONS: See [facility] PROCEDURE DESCRIPTION: The patient was placed on the fluoroscopy table kyle director education fluoroscopic image of the chest was obtained. The right neck andchest were prepped and draped in the usual sterile fashion. An incisionwas made over the scar from medical port placement. The medical port wasremoved, inspected, and noted to be removed in its entirety. The portpocket was inspected. A final post removal image was obtained. Theincision was then closed with suture and surgical glue. The procedure was performed by Dr. Mcfarland. FINDINGS: The medical port is in the upper chest. The final image demonstratescomplete removal. IMPRESSION IMPRESSION: Successful chest medical port removal. Uche Mcfarland MD RAD SPECIAL PROCEDURES Final Res ult [facility] documented in this encounter Active and Recently Administered Medications Times are shown in EST. PRN Medication Order 05/18/2024 05/19/2024 05/20/2024 buffered lidocaine 1 % inj (CANCELED) ONCE PRN INTRA PROCEDURE, Starting on Angelica 05/20/24 at 1426, Until Angelica 05/20/24 at 1436, Intra-Op 1426 (Given - Provid er: Uche Mcfarland MD) documented in this encounter Advance Directives * [...] Advance Directives occurred with: Patient Care Teams Glass Enamel Mixer Relationship Specialty Start Date End Date Nina Blanco MD [address] [place] [phone] PCP - General Family Medicine 08/21/23 documented as of this encounter
--- OUTSIDE RECORDS SUMMARY | 2024-05-27 05:24 | External Medical Summary | Summary of Care ---
Author Name Unknown Organization [facility] Address [address] [place] [address] Phone [phone] Care Team Providers Care Fiscal Clerk Name Role Phone Nina Blanco MD Primary Care Provi [facility] Reason for Referral * Precert (Within 10 days (routine)) - Authorized Specialty Diagnoses / Procedures Referred By Contac t Referred To Contact Radiology Diagnoses Admission for fitting and adjustment of vascular catheter Procedures IR VENOUS ACCESS MEDIPORT Uche Mcfarland MD [address] [place] [address] Phone: tel: fax: Referral ID Status Reason Start Date Expiration Date V isits Requested Visits Authorized [id number] Authorized 05/17/2024 999 999 Encounter Details Date Type Department Care Team (Late st Contact Info) Description 05/17/2024 Orders Only Interventional Radiology, [facility] [address] [place] [address] Uche Mcfarland MD [address] [facility] [phone] Admission for fitting and adjustment of vascular catheter* Allergies No known active allergiesdocumented as of this encounter (statuses as of 05/17/2024) Medications Water For Irrigation, Sterile (FEED TUBE WATER) TF Administer 150 mL into J tube every 6 hours. 500 Each 10 4 Active Liquid Hope Peptide Sargent Oral LiquidIndications: Esophageal adenocarcinoma (HCC) Administer 5 pouches daily as directed through feeding tube via feeding pump at 100 ml/hr x 17 hours. 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 Answer Date of Assessment Author No 08/28/2023 5:33 PM EDT Rosey Nassar, FABRICE * Are you blind or do you [...] 08/28/2023 5:33 PM EDRosey Romero RN * Because of a physical, mental, [...] Rosey Rice RN documented in this encounter Plan of Treatment Upcoming Encounters Date Type Department Care Team (Late st Contact Info) Description 06/09/2024 12:20 PM EST Office Visit Nutrition & Weight Management, [place] [address] [place] [address] Nina Larson PA-C [address] [place] [address] 07/14/2024 2:00 PM EST Office Visit [address] [phone] Nina Blanco MD [address] [place] [phone] Scheduled Orders Name Type Priority Associated Diagnoses Orde r Schedule IR VENOUS ACCESS MEDIPORT Medical Imaging Routine Admission for fitting and adjustment of vascular catheter Expected: 05/17/2024, Expires: 06/17/2025 Health Maintenance Due Date Last Done Comments [...] this encounter Medical Devices Implanted Type Area Pastry Assistant Device Identifier Shelf Expiration Date Model / Serial / Lot Agile Eso Fc 2318mm 11.9cm - [id number] Implanted:Qty : 1 on 08/15/2023 by Liang Barrios DO at OR [facility] [employer] : ENDOSCOPY [id number] 04/09/2025 [id number] / / [id number] Cath Power Port 6fr Clearvue - [id number] Implanted:Qty : 1 on 08/29/2023 [place] Efe Tadeo MD [place] [facility] [place]: Chest CR BARD : PERIPHERAL VASCULAR 09/30/2023 [id number] / / [id number] documented as of this encounter Visit Diagnoses Diagnosis Admission for fitting and adjustment of vascular catheter- Primary Fitting and adjustment of vascular catheter documented in this encounter Advance Directives * [...] Advance Directives occurred with: Patient Care Teams Fiscal Clerk Relationship Specialty Start Date End Date Nina Blanco MD [address] [place] [phone] PCP - General Family Medicine 08/21/23 documented as of this encounter
--- OUTSIDE RECORDS SUMMARY | 2024-05-27 05:24 | External Medical Summary | Summary of Care ---
Author Name Unknown Organization [facility] Address [address] [place] [address] Phone [phone] Care Team Providers Care Rn Staff Name Role Phone Nina Blanco MD Primary Care Provi mario Reason for Referral * Precert (Within 10 days (routine)) - Authorized Specialty Diagnoses / Procedures Referred By Contac t Referred To Contact Radiology Diagnoses Esophageal adenocarcinoma (HCC) Procedures [facility] Nina Blanco MD [address] [place] [phone] Phone: tel: fax: Referral ID Status Reason Start Date Expiration Date V isits Requested Visits Authorized [id number] Authorized 05/19/2024 999 999 Reason for Visit * Reason Onset Date Comments Scheduling 05/18/2024 Encounter Details Date Type Department Care Team (Late st Contact Info) Description 05/18/2024 Telephone Interventional Radiology, [address] [address] Abhijit Guerrero, RN Scheduling Allergies [...] pump at 100 ml/hr x 17 hours. 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 on file Not on file Not [...] encounter Miscellaneous Notes * Telephone Encounter - Arleen Krishnamurthy OSA - 05/18/2024 2:53 PM EST Spoke to patient after the order was placed by the ordering to have the Mediport Removed for 05/20 at [facility] Patient identified by: name Person taught: Patient METHOD: Lecture-telephone interview PATIENT INSTRUCTIONS GIVEN: - General Preoperative Instructions Reviewed - No food or fluid restrictions prior procedure - Animal Husbandry Worker recommended Location and check-in instructions Verbalizes understanding of education: Yes Procedure date at time of Imaging Encounter: 05/20 What procedure is patient having? Mediport Removal Laterality confirmed as Not Applicable Does the patient have a yellow bar? did not The Patient was given the opportunity to ask questions concerning the procedure. Signature: JAMES Ambriz 05/18/2024 * Telephone Encounter - Nina Blanco MD - 05/18/2024 2:19 PM EST Prefers port removal. Order for removal placed. To be scheduled by IR department. * Telephone Encounter - Abhijit Guerrero, RN - 05/18/2024 12:38 PM EST Spoke [...] 05/20/2024 1:34 PM EST Hospital Encounter OR [facility], Operating Room, [facility] - 4th Floor [address] [place] [phone] Uche Mcfarland MD [address] [facility] [place] [address] 05/20/2024 1:34 PM EST - 05/20/2024 2:19 PM EST Surgery OR [facility], Operating Room, [facility] - 4th Floor [address] [place] [phone] Uche Mcfarland MD [address] [place] [address] REMOVAL OF TUNNELED CENTRAL VENOUS ACCESS DEVICE WITH PORT 06/09/2024 12:20 PM EST Office Visit Nutrition & Weight Management, [place] [address] [facility] [place] [address] Nina Larson PA-C [address] [facility] [place] [address] 06/21/2024 12:45 PM EST Imaging Radiology [address], [place] [address] [place] [address] 07/14/2024 2:00 PM EST Office Visit [address] [phone] Nina Blanoc MD [address] [place] [phone] Scheduled Orders Name Type Priority Associated Diagnoses Orde r Schedule REMOV DARREN ROHITH JAMIL ACC DEV,WITH Procedures Routine Circulatory system disorder Expected: 05/19/2024, Expires: 06/18/2025 IR VENOUS ACCESS MEDIPORT Medical Imaging Routine Esophageal adenocarcinoma (HCC) Expected: 05/19/2024, Expires: 06/18/2025 Scheduled Procedures Name Priority Associated Diagnoses Date/Ti [...] this encounter Medical Devices Implanted Type Area Pack Out Operator Device Identifier Shelf Expiration Date Model / Serial / Lot Agile Eso Fc 2318mm 11.9cm - [id number] Implanted:Qty : 1 on 08/15/2023 by Liang Barrios DO at OR [facility] [employer] : ENDOSCOPY [id number] 04/09/2025 [id number] / / [id number] Cath Power Port 6fr Clearvue - [id number] Implanted:Qty : 1 on 08/29/2023 by Efe Tadeo MD at [facility] Right: Chest CR BARD : PERIPHERAL VASCULAR 09/30/2023 [id number] / / [id number] documented as of this encounter Visit Diagnoses Diagnosis Circulatory system disorder- Primary Unspecified circulatory system disorder Esophageal dysphagia Dysphagia, pharyngoesophageal phase Esophageal adenocarcinoma (HCC) Malignant neoplasm of esophagus, unspecified site Esophageal adenocarcinoma (HCC) Malignant neoplasm of esophagus, [...] Advance Directives occurred with: Patient Care Teams Rn Staff Relationship Specialty Start Date End Date Nina Blanco MD [address] [place] [phone] PCP - General Family Medicine 08/21/23 documented as of this encounter
--- OUTSIDE RECORDS SUMMARY | 2024-05-27 05:24 | External Medical Summary | Summary of Care ---
Author Name Unknown Organization [facility] Address [address] [place] [address] Phone [phone] Care Team Providers Care Grinding Mill Operator Name Role Phone Nina Blanco MD Primary Care Provi mario Reason for Visit * Reason Onset Date Comments Med Request 02/17/2024 Encounter Details Date Type Department Care Team ([facility] st Contact Info) Description 02/17/[address] [phone] Nina Blanco MD [address] [place] [phone] Med Request Allergies No known active allergiesdocumented as of this encounter (statuses as of 05/18/2024) Medications Water For Irrigation, Sterile (FEED TUBE WATER) TF Administer 150 mL into J tube every 6 hours. 500 Each 10 024 Active Compleat Peptide 1.5 Oral LiquidIndications :Esophageal adenocarcinoma (HCC),Severe protein-energy malnutrition (HCC) Administer 7 bottles daily (1750 mL daily) through J tube at 100 ml/hr x 17.5 hrs via feeding pump 60220 mL 6 024 2023 Discontinued(M edication List Clean Up) Liquid Hope Peptide Sargent Oral Liquid Administer 5 pouches daily as directed through feeding tube via feeding pump at 100 ml/hr x 17 hours. 00678 g 11 024 2023 Discontinued Triamcinolone Acetonide 0.1 % External Cream (Aristocort)Indic ations:Granulatio n tissue Apply topically to affected area 2 times a day for 15 days. Apply to j-tube site 30 g 024 2023 Irma Morales Peptide 1.5 Oral Liquid Administer 1625 ml daily as directed at 135 ml/hr for 12 hours through J tube via feeding pump. 21292 mL 6 024 2023 Discontinued(M edication List Clean Up) documented as of this [...] No 09/03/2023 Does the household have a [facility] source of income? 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 - 4th Floor [address] [facility] [place] [phone] Uche Mcfarland MD [address] [facility] [place] [address] REMOVAL OF TUNNELED CENTRAL VENOUS ACCESS DEVICE WITH PORT 06/09/2024 12:20 PM EST Office Visit Nutrition & Weight Management, [place] [address] [place] [address] Nina Larson PA-C [address] [place] [address] 06/21/2024 12:45 PM EST Imaging Radiology [facility] [facility], [place] [address] [facility] [place] [address] 07/14/2024 2:00 PM EST Office Visit [address] [phone] Nina Blanco MD [address] [place] [phone] Scheduled Procedures Name Priority Associated Diagnoses [...] this encounter Medical Devices Implanted Type Area Room Attendants Device Identifier Shelf Expiration Date Model / Serial / Lot Adeline Ogden Fc 2318mm 11.9cm - [id number] Implanted:Qty : 1 on 08/15/2023 by Liang Barrios DO at OR [facility] [employer] : ENDOSCOPY [id number] 04/09/2025 [id number] / / [id number] Cath Power Port 6fr Clearvue - [id number] Implanted:Qty : 1 on 08/29/2023 by Efe Tadeo MD at [place] [facility] [place] Right: Chest CR BARD : PERIPHERAL VASCULAR 09/30/2023 [id number] / / [id number] documented as of this encounter Advance Directives [...] Advance Directives occurred with: Patient Care Teams Grinding Mill Operator Relationship Specialty Start Date End Date Nina Blanco MD [address] [place] [phone] PCP - General Family Medicine 08/21/23 documented as of this encounter
--- OUTSIDE RECORDS SUMMARY | 2024-05-27 05:24 | External Medical Summary | Summary of Care ---
Author Name Unknown Organization [facility] Address [address] [facility] [place] [address] Phone [phone] Care Team Providers Care Manager Site Name Role Phone Nina Blanco MD Primary Care Provi mario Encounter Details Date Type Department Care Team (Late st Contact Info) Description 05/16/2024 Documentation General Internal Medicine [address] [place] [phone] Burrell, Alyson Norma Thi, DO [address] [place] [facility] [place] [address] Allergies No known active allergiesdocumented as of this encounter (statuses as of 05/16/2024) Medications Water For Irrigation, Sterile (FEED TUBE WATER) TF Administer 150 mL into J tube every 6 hours. 500 Each 10 4 Active Liquid Hope Peptide Sargent Oral LiquidIndications: Esophageal adenocarcinoma (HCC) Administer 5 pouches daily as directed through feeding tube via feeding pump at 100 ml/hr x 17 hours. 579843 g 4 025 Active documented as of this encounter (statuses as of 05/16/2024) Active Problems Problem Noted Date Diagnosed Date Encounter for adjustment and management of vascular access device 05/10/2024 Iron deficiency anemia secon florentin to inadequate dietary iron intake 04/07/2024 History of esophageal cancer 02/09/2024 H/O insertion of central venous access port 10/01 Esophageal adenocarcinoma 08/28/2023 Erosive esophagitis 08/15/2023 Severe protein-energy malnutrition 08/14/2023 Esophageal dysphagia 08/12/2023 documented as of this encounter (statuses as of 05/16/2024) Resolved Problems Problem Noted Date Diagnosed Date Resolved Date Preop examination 12/19/2023 02/05/2024 Esophageal mass 08/17/2023 08/28/2023 Dehydration 08/14/2023 08/17/2023 Gastroesophageal reflux dise ase with esophagitis without hemorrhage 08/14/2023 Loss of weight 08/12/2023 08/21/2023 NO KNOWN PROBLEMS 03/28/2006 08/12/2023 documented as of this encounter (statuses as of 05/16/2024) Immunizations No known immunizationsdocumented as of this [...] 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 (5 years old or older) Answer Date of Assessment Author No 08/28/2023 5:33 PM EDT Rosey Nassar, FABRICE * Do you have difficulty dressing or bathing? (5 years old or older) Answer Date of Assessment Author No 08/28/2023 5:33 PM EDT Rosey Nassar, RN * Because of a physical, mental, or emotional condition, do you have difficulty doing errands alone such as visiting a doctors office or shopping? (15 years old or older) Answer Date of Assessment Author No 08/28/2023 5:33 PM EDT Rosey Nassar, RN documented as of this encounter Mental [...] EST Office Visit Nutrition & Weight Management, [place] [address] [place] [address] McSNina burns PA-C [address] [place] [address] 07/14/2024 2:00 PM EST Office Visit [address] [phone] Nina Blanco MD [address] [place] [phone] Health Maintenance Due Date Last Done [...] this encounter Medical Devices Implanted Type Area Ticker Maintainer Device Identifier Shelf Expiration Date Model / Serial / Lot Agile Eso Fc 2318mm 11.9cm - [id number] Implanted:Qty : 1 on 08/15/2023 by Liang Barrios DO at OR [facility] [employer] ENDOSCOPY [id number] 04/09/2025 [id number] / / [id number] Cath Power Port 6fr Clearvue - [id number] Implanted:Qty : 1 on 08/29/2023 by Efe Tadeo MD [place] [facility] [place] Chest CR [employer]ARD : PERIPHERAL VASCULAR 09/30/2023 [id number] / / [id number] documented as of this encounter Advance Directives [...] Advance Directives occurred with: Patient Care Teams Manager Site Relationship Specialty Start Date End Date Nina Blanco MD [address] [place] [phone] PCP - General Family Medicine 08/21/23 documented as of this encounter
--- OUTSIDE RECORDS SUMMARY | 2024-05-27 05:24 | External Medical Summary | Summary of Care ---
Author Name Unknown Organization [facility] Address [address] [place] [address] Phone [phone] Care Team Providers Care Catalog Librarian Name Role Phone Nina Blanco MD Primary Care Provi [facility] Reason for Referral * Ancillary Services (Within 10 days (routine)) - Authorized Specialty Diagnoses / Procedures Referred By Contact Referred To Contact Interventional Radiology / Radiology Diagnoses Encounter for adjustment and management of vascular access device Nina Blanco MD [address] [place] [phone] Phone: tel: fax: Referral ID Status Reason Start Date Expiration Date Visits Requested Visits Authorized [id number] Authorized Ancillary Services Required 4 999 999 Question Answer Referral Priority Within 10 days (routine) Where should this appointment be scheduled? ising Where Will The Procedure Be Performed? [facility] Comments Please enter the reason for consult: Malfunctioning port Are outside images available?: Yes - Images available in Epic Reason for Visit * Reason Onset Date Comments Order Request 05/06/2024 Encounter Details Date Type Department Care Team (Late st Contact Info) Description 05/06/2024 Telephone Hematology/Oncology Treatment, [place] [address] [place] [phone] Nina Blanco MD [address] [place] [phone] Order Request Allergies No known active allergiesdocumented [...] pump at 100 ml/hr x 17 hours. 266128 g 04/16/20 24 025 Active Compleat Peptide 1.5 Oral LiquidIndications: Esophageal adenocarcinoma (HCC),Severe protein-energy malnutrition (HCC) Administer 7 bottles daily (1750 mL daily) through J tube at 100 ml/hr x 17.5 hrs via feeding pump 84908 mL 6 10/14/19 24 024 Discontin ued(Medic ation List Clean Up) Irma Farms Peptide 1.5 Oral Liquid Administer 1625 ml daily as directed at 135 ml/hr for 12 hours through J tube via feeding pump. 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 Answer Date of Assessment Author No 08/28/2023 5:33 PM DAVIDT Rosey Nassar RN * Are you blind or do you have serious difficulty seeing, even when wearing glasses? Answer Date of Assessment Author No 08/28/2023 5:33 PM DAVIDT Rosey Nassar RN * Do you have serious difficulty walking or climbing stairs? (5 years old or older) Answer Date of Assessment Author No 08/28/2023 5:33 PM DAVIDT Rosey Nassar RN * Do you have difficulty dressing or bathing? (5 years old or older) Answer Date of Assessment Author No 08/28/2023 5:33 PM DAVIDT Rosey Nassar RN * Because of a [...] encounter Miscellaneous Notes * Telephone Encounter - Sangeetha Loo, JAMES - 05/17/2024 12:47 PM EST Lmom to call us and read his my chart msg then call us to get apt set up * Telephone Encounter - Patricia El LPN [...] for cathflo- still no blood return. Per [facility] policy, at this point would recommend referral to IR (either [facility] or [place]) for port dye study. Before patient could [...] plan. Awaiting signature and will route to [facility] for scheduling. * Telephone Encounter - Sherry Joyce CRNP - 05/10/2024 9:11 AM EST Inboxologist Covering Provider All replies or additional communication must be routed to the PCP ORDER signed * Telephone Encounter - Hailey Kowalski RN - 05/06/2024 12:57 PM EST Received message from [facility]- patient there for port flush, unable to [...] EST Office Visit Nutrition & Weight Management, [place] [address] [place] [address] Nina Larson PA-C [address] [place] [address] 06/21/2024 12:45 PM EST Imaging Radiology [address] [place] [address] 07/14/2024 2:00 PM EST Office Visit [address] [phone] Nina Blanco MD [address] [place] [phone] Scheduled Orders Name Type Priority Associated [...] this encounter Medical Devices Implanted Type Area T Rail Turner Device Identifier Shelf Expiration Date Model / Serial / Lot Adeline Eso Fc 2318mm 11.9cm - [id number] Implanted:Qty : 1 on 08/15/2023 by Liang Barrios DO at OR [facility] [employer] [facility] ENDOSCOPY [id number] 04/09/2025 [id number] / / [id number] Cath Power Port 6fr Clearvue - [id number] Implanted:Qty : 1 on 08/29/2023 by Efe Tadeo MD at [facility] Right: Chest CR BARD : PERIPHERAL VASCULAR 09/30/2023 [id number] / / [id number] documented as of this encounter Visit Diagnoses [...] Advance Directives occurred with: Patient Care Teams Catalog Librarian Relationship Specialty Start Date End Date Nina Blanco MD [address] [place] [address] [place] [phone] PCP - General Family Medicine 08/21/23 documented as of this encounter
--- OUTSIDE RECORDS SUMMARY | 2024-05-27 05:24 | External Medical Summary | Summary of Care ---
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) Procedures PET CT SKULL BASE TO MID-THIGH FDG Nina Blanco MD [address] [place] [phone] Phone: tel: fax: Referral ID Status Reason Start Date Expiration Date V isits Requested Visits Authorized [id number] Authorized 07/01/2024 999 999 Reason for Visit * Reason Comments Follow Up 3 month follow up Encounter Details Date Type Department Care Team (Latest Contact Info) Description 05/13/2024 1:40 PM EST Office Visit [address] [phone] Nina Blanco MD [address] [place] [phone] Esophageal adenocarcinoma (HCC)*; 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 500 Each 10 09/01/19 Active Liquid Hope Peptide Sargent Oral LiquidIndications: Esophageal adenocarcinoma (HCC) Administer 5 pouches daily as directed through feeding tube via feeding pump at 100 ml/hr x 17 hours. 020058 g 04/16/20 24 025 Active Compleat Peptide 1.5 Oral LiquidIndications: Esophageal adenocarcinoma (HCC),Severe protein-energy malnutrition (HCC) Administer 7 bottles daily (1750 mL daily) through J tube at 100 ml/hr x 17.5 hrs via feeding pump 37664 mL 6 10/14/19 24 024 Discontin ued(Medic ation List Clean Up) Irma Farms Peptide 1.5 Oral Liquid Administer 1625 ml daily as directed at 135 ml/hr for 12 hours through J tube via feeding pump. 15154 mL 6 02/17/20 24 024 Discontin ued(Medic ation List Clean Up) documented as of this encounter (statuses as of 05/15/2024) Active Problems Problem Noted Date Diagnosed Date Encounter for adjustment and management of vascular access device 05/10/2024 Iron deficiency anemia secon florentin to inadequate dietary iron intake 04/07/2024 History of esophageal cancer 02/09/2024 H/O insertion of central venous access port 10/01 Esophageal adenocarcinoma 08/28/2023 Erosive esophagitis 08/15/2023 Severe protein-energy malnutrition 08/14/2023 Esophageal dysphagia 08/12/2023 documented as of this encounter (statuses as of 05/15/2024) Resolved Problems Problem Noted Date Diagnosed Date Resolved Date Preop examination 12/19/2023 02/05/2024 Esophageal mass 08/17/2023 08/28/2023 Dehydration 08/14/2023 08/17/2023 Gastroesophageal reflux dise ase with esophagitis without hemorrhage 08/14/2023 Loss of weight 08/12/2023 08/21/2023 NO KNOWN PROBLEMS 03/28/2006 08/12/2023 documented as of this encounter (statuses as of 05/15/2024) Immunizations No known immunizationsdocumented as of this encounter Social History Tobacco Use Types Packs/Day Years Used Date Smoking Tobacco: Never Passive Smoke Exposure: Never Smokeless Tobacco: Never Tobacco Cessation:Counseling Given: Not Answered Alcohol Use Standard Drinks/Week Comments No 0 [...] 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 Not on file Not on file documented as of this encounter Last Filed Vital Signs Vital Sign Reading Time Taken Comments Blood Pressure 112/68 05/13/2024 1:35 PM EST Pulse 105 05/13/2024 1:35 PM EST Temperature 35.9 C (96.7 F) 05/13/2024 1:35 PM ES T Respiratory Rate 17 05/13/2024 1:35 PM EST Oxygen Saturation 96% 05/13/2024 1:35 PM EST Inhaled Oxygen Concentration - - Weight 73 kg (161 lb) 05/13/2024 1:35 PM EST Height - - Body Mass Index 20.4 04/27/2024 3:46 PM EST documented in this encounter Functional [...] Rosey Rice RN documented in this encounter Progress Notes * Nina Blanco MD - 05/13/2024 1:40 PM EST Images from the original note were not included. History of Present Illness Lauro Martines is a 78 year old male with esophageal adenocarcinoma with severe protein calorie malnutrition that presents for Follow Up (3 month follow up) Presents for routine follow up. He has esophageal adenocarcinoma. Has opted for non-traditional treatment through an organization in [place] called [facility]. Just recently returned from [facility], where they made some changes to his treatment. His treatment currently includes capecitabine 1000 mg BID - 2 weeks on, 1 week off, and cyclophosphamide 50 mg daily (5 days per week), as well as vitamin B17, D, Turmeric, selenium, fish oil, and melatonin. Repeat PET scan 03/29/24 showed: 1. Increased hypermetabolism in the lower esophagus and gastric cardia, consistent with known esophageal adenocarcinoma. 2. Increased size and metabolic activity of gastrohepatic lymph node cluster, peripancreatic nodule, and lower abdominal omental nodule, highly suspicious for metastatic disease. 3. New mildly enlarged left supraclavicular and left axillary lymph nodes with metabolic activity less than blood pool, nonspecific, but given other findings also suspicious for metastasis. At a minimum, attention on follow-up imaging advised. He has a J tube with Liquid Hope tube feeds. Struggles with managing his secretions and swallowing,but is working with a rn medical surgical in [place] and feels some new supplements have been helpful. Has been struggling with some diarrhea since returning from [place]. No longer feels ill, just having some non-bloody diarrhea. They wonder if it could be from alkaline water they have been drinking or the higher dose of capecitabine he just started. Due for a week of next week and will see how it is doing. No abdominal pain. Had been sick around [facility] and had noted leukocytosis. Also recently was found to have mild iron deficiency anemia, likely related to poor absorption fromJ tube feeds. Underwent IV iron infusion. Also had difficulty accessing port, so he is scheduled for a clot buster treatment in [place]. Physical Exam Vitals: 05/13/24 1335 Temp: 96.7 F (35.9 C) Pulse: 105 Resp: 17 SpO2: 96% BP: 112/68 Wt Readings from Last 3 Encounters: 05/13/24 161 lb (73 kg) 04/27/24 158 lb 8 oz (71.9 kg) 03/16/24 159 lb (72.1 kg) Physical Exam Vitals and nursing note reviewed. Constitutional: General: He is not in acute distress. Appearance: Normal appearance. He is not toxic-appearing. Comments: Appears thin HENT: Head: Normocephalic and atraumatic. Mouth/Throat: Comments: Bringing up secretions Eyes: Conjunctiva/sclera: Conjunctivae normal. Cardiovascular: Rate and Rhythm: Normal rate and regular rhythm. Pulses: Normal pulses. Heart sounds: Normal heart sounds. No murmur heard. Pulmonary: Effort: Pulmonary effort is normal. No respiratory distress. Breath sounds: Normal breath sounds. Musculoskeletal: Right lower leg: No edema. Left lower leg: No edema. Skin: General: Skin is warm and dry. Capillary Refill: Capillary refill takes less than 2 seconds. Findings: No rash. Neurological: General: No focal deficit present. Mental Status: He is alert and oriented to person, place, and time. Mental status is at baseline. Psychiatric: Mood and Affect: Mood normal. Behavior: Behavior normal. I have reviewed the following results: PET scan, iron studies, ferritin, B12, UA, CA 19-9, CMP, andCBC Assessment and Plan Esophageal adenocarcinoma (HCC) Has opted for non-traditional treatment through an organization in [place] called [facility]. Histreatment currently includes capecitabine 1000 mg BID - 2 weeks on, 1 week off, and cyclophosphamide 50 mg daily (5 days per week), as well as vitamin B17, D, Turmeric, selenium, fish oil, and melatonin. Continues on J tube feedings, Liquid Hope, and is managing secretions with holistic approach with supplements. Plan on repeating labs and PET scan prior to next trip to [facility], likely July. 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 - COMPREHENSIVE METABOLIC PANEL; Future Iron deficiency anemia secondary to inadequate dietary iron intake Likely due to poor absorption with J tube feeds. S/p iron infusion. Recheck labs in 6-8 weeks. - CBC WITH WBC DIFFERENTIAL; Future - FERRITIN; Future - IRON SCREEN, INCLUDING TIBC; Future Leukocytosis, unspecified type Repeat CBC now that infection improved - CBC WITH WBC DIFFERENTIAL AND ANEMIA REFLEX WORKUP; Future Diarrhea, unspecified type Possibly capecitabine induced - will monitor with him holding this over the next week. IF not improving, consider stool studies. Wrap-Up Follow Up: Return in about 2 months (around 07/14/2024) for Return with Physician. | For: Return with Physician | Check-out note: With me if at all possible Time: I spent a total of 40-54 minutes (exact time 53 mins) on the date of service in preparation, delivery, and documentation of the care provided to Lauro Martines excluding any time spent in the performance of separately billed services. documented in this encounter Nursing Notes * Marie Jimenez LPN - 05/13/2024 1:35 PM EST The patient has been properly identified by confirmation of name and date of . Chief Complaint Patient presents with Follow Up 3 month follow up documented in this encounter Plan of Treatment Upcoming Encounters Date Type Department Care Team (Late st Contact Info) Description 06/09/2024 12:20 PM EST Office Visit Nutrition & Weight Management, [place] [address] [place] [address] [facility] [address] [place] [address] 07/14/2024 2:00 PM EST Office Visit [address] [phone] Nina Blanco MD [address] [place] [phone] Scheduled Orders Name Type Priority Associated Diagnoses Orde r Schedule COMPREHENSIVE METABOLIC PANEL Lab Routine Esophageal adenocarcinoma (HCC) Severe protein-energy malnutrition (HCC) Expected: 06/24/2024 (Approximate), Expires: 05/13/2025 CBC WITH WBC DIFFERENTIAL Lab Routine Iron deficiency anemia secondary to inadequate dietary iron intake Expected: 06/24/2024 (Approximate), Expires: 05/13/2025 FERRITIN Lab Routine Iron deficiency anemia secondary to inadequate dietary iron intake Expected: 06/24/2024 (Approximate), Expires: 05/13/2025 IRON SCREEN, INCLUDING TIBC Lab Routine Iron deficiency anemia secondary to inadequate dietary iron intake Expected: 06/24/2024 (Approximate), Expires: 05/13/2025 CA 19-9 Lab Routine Esophageal adenocarcinoma (HCC) Neoplasm of uncertain behavior of other specified digestive organs Expected: 06/24/2024 (Approximate), Expires: 05/13/2025 MICROSCOPIC EXAM, URINE Lab Routine Esophageal adenocarcinoma (HCC) Expected: 06/24/2024 (Approximate), Expires: 05/13/[address] SKULL BASE TO MID-THIGH FDG Medical Imaging Routine Esophageal adenocarcinoma (HCC) 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) Expected: 07/01/2024, Expires: 06/13/2025 Health Maintenance Due Date Last Done Comments [...] this encounter Medical Devices Implanted Type Area Hvac Commercial Salesperson Device Identifier Shelf Expiration Date Model / Serial / Lot Agile Eso Fc 2318mm 11.9cm - [id number] Implanted:Qty : 1 on 08/15/2023 by Liang Barrios DO at OR [facility] [employer] : ENDOSCOPY [id number] 04/09/2025 [id number] / / [id number] Cath Power Port 6fr Clearvue - [id number] Implanted:Qty : 1 on 08/29/2023 [place] Efe Tade[place] [facility] [place] Chest CR BARD : PERIPHERAL VASCULAR 09/30/2023 [id number] / / [id number] documented as of this encounter Visit Diagnoses Diagnosis Esophageal adenocarcinoma (HCC)- Primary Malignant neoplasm of esophagus, unspecified site 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) Malignant neoplasm of lower third of esophagus Neoplasm of uncertain behavior of other specified digestive organs Severe protein-energy malnutrition (HCC) Other severe protein-calorie malnutrition Iron deficiency anemia secondary to inadequate dietary iron intake Leukocytosis, unspecified type Diarrhea, unspecified type documented in this encounter Advance Directives * [...] Advance Directives occurred with: Patient Care Teams Card Doffer Relationship Specialty Start Date End Date Nina Blanco MD [address] [place] [phone] PCP - General Family Medicine 3/21/24 documented as of this encounter"
--- OUTSIDE RECORDS SUMMARY | 2024-05-27 05:24 | External Medical Summary | Summary of Care ---
Author Name Unknown Organization [facility] Address [address] [place] [address] Phone [phone] Care Team Providers Care Boilermaker Assembly And Erection Name Role Phone Nina Blanco MD Primary Care Provi [facility] Reason for Referral * Ancillary Services (Within 10 days (routine)) - Authorized Specialty Diagnoses / Procedures Referred By Contact Referred To Contact Interventional Radiology / Radiology Diagnoses Encounter for adjustment and management of vascular access device Nina Blanco MD [address] [place] [phone] Phone: tel: fax: Referral ID Status Reason Start Date Expiration Date Visits Requested Visits Authorized [id number] Authorized Ancillary Services Required 4 999 999 Question Answer Referral Priority Within 10 days (routine) Where should this appointment be scheduled? ising Where Will The Procedure Be Performed? [facility] Comments Please enter the reason for consult: Malfunctioning port Are outside images available?: Yes - Images available in Epic Reason for Visit * Reason Onset Date Comments Order Request 05/06/2024 Encounter Details Date Type Department Care Team (Late st Contact Info) Description 05/06/2024 Telephone Hematology/Oncology Treatment, [place] [address] [place] [phone] Nina Blanco MD [address] [place] [phone] Order Request Allergies No known active allergiesdocumented [...] pump at 100 ml/hr x 17 hours. 517349 g 04/16/20 24 025 Active Compleat Peptide 1.5 Oral LiquidIndications: Esophageal adenocarcinoma (HCC),Severe protein-energy malnutrition (HCC) Administer 7 bottles daily (1750 mL daily) through J tube at 100 ml/hr x 17.5 hrs via feeding pump 07906 mL 6 10/14/19 24 024 Discontin ued(Medic ation List Clean Up) [employer] Peptide 1.5 Oral Liquid Administer 1625 ml daily as directed at 135 ml/hr for 12 hours through J tube via feeding pump. 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 (5 years old or older) Answer Entry Date Author No 08/28/2023 5:33 PM Rosey Rice RN documented in this encounter Miscellaneous Notes * Addendum Note - Nina Blanco MD [...] for cathflo- still no blood return. Per [facility] policy, at this point would recommend referral to IR (either [facility] or [place]) for port dye study. Before patient could be scheduled with IR, they will want patient to have a 1 view CXR to check port placement. Dr Blanco: FYI- please place orders/ have your office follow [...] plan. Awaiting signature and will route to [facility] for scheduling. * Telephone Encounter - Sherry Joyce CRNP - 05/10/2024 9:11 AM EST Inboxologist Covering Provider All replies or additional communication must be routed to the PCP ORDER signed * Telephone Encounter - Hailey Kowalski RN - 05/06/2024 12:57 PM EST Received message from [employer]- patient there for port flush, unable to [...] EST Office Visit Nutrition & Weight Management, [place] [address] [place] [address] Nina Larson PA-C [address] [place] [address] 07/14/2024 2:00 PM EST Office Visit [address] [phone] Nina Blanco MD [address] [place] [phone] Scheduled Orders Name Type Priority Associated [...] this encounter Medical Devices Implanted Type Area Key Punch Operator Device Identifier Shelf Expiration Date Model / Serial / Lot Agile Eso Fc 2318mm 11.9cm - [id number] Implanted:Qty : 1 on 08/15/2023 by Liang Barrios DO at OR [facility] [employer] : ENDOSCOPY [id number] 04/09/2025 [id number] / / [id number] Cath Power Port 6fr Clearvue - [id number] Implanted:Qty : 1 on 08/29/2023 [place] Efe Tadeo [place] [facility] [facility] [place] Chest CR BARD : PERIPHERAL VASCULAR 09/30/2023 [id number] / / [id number] documented as of this encounter Visit Diagnoses [...] Advance Directives occurred with: Patient Care Teams Boilermaker Assembly And Erection Relationship Specialty Start Date End Date Nina Blanco MD [address] [place] [phone] PCP - General Family Medicine 08/21/23 documented as of this encounter
--- OUTSIDE RECORDS SUMMARY | 2024-05-27 05:25 | External Medical Summary ---
Author Name Unknown Address Unknown Organization [id number]:LABORATORY [facility] [place] - [facility] [address] [facility] [address] Laboratory Report Ordering Provider Test Date Status HAYLIE MICHELE 05/14/2024 11:22:35 Final Observation Date Value Abnormality Reference (Units ) Status Retic, % (auto) 05/14/2024 11:22:35 2.31 Above high normal 0.80-1.90 (%) Final Reticulocytes, Absolute 05/14/2024 11:22:35 86.2 31.3-100.1 (K/uL) Final Reticulocyte fraction, immature 05/14/2024 11:22:35 17.5 2.5-20.6 (%) Final Reticulocyte HGB 05/14/2024 11:22:35 44.4 Above high normal 29.7-37.4 (pg) Final Performing Location LABORATORY [facility] [place] - [address] [place] [address]
--- OUTSIDE RECORDS SUMMARY | 2024-05-27 05:25 | External Medical Summary ---
Author Name Unknown Address Unknown Organization [id number]:LABORATORY [facility] [place] - [address] [place] [address] Laboratory Report Ordering Provider Test Date Status HAYLIE MICHELE 05/14/2024 11:22:35 Final Observation Date Value Abnormality Reference (Units ) Status Vitamin B12 05/14/2024 11:22:35 191 139-5322 (pg/mL) Final Performing Location LABORATORY [facility] - [address] [place] [address]
--- OUTSIDE RECORDS SUMMARY | 2024-05-27 05:25 | External Medical Summary | Summary of Care ---
Author Name Unknown Organization [facility] Address [address] [place] [address] Phone [phone] Care Team Providers Care Microwave Supervisor Name Role Phone Nina Blanco MD Primary Care Provi mario Reason for Visit * Reason Onset Date Comments Order Request 05/06/2024 Encounter Details Date Type Department Care Team (Late st Contact Info) Description 05/06/2024 Telephone Hematology/Oncology Treatment, [place] [address] [place] [address] Nina Blanco MD [address] [place] [phone] Order Request Allergies No known active allergiesdocumented as of this encounter (statuses as of 05/14/2024) Medications Water For Irrigation, Sterile (FEED TUBE WATER) TF Administer 150 mL into J tube every 6 hours. 500 Each 10 09/01/19 24 Active Liquid Hope Peptide Sargent Oral LiquidIndications: Esophageal adenocarcinoma (HCC) Administer 5 pouches daily as directed through feeding tube via feeding pump at 100 ml/hr x 17 hours. 505609 g 04/16/20 24 025 Active Compleat Peptide 1.5 Oral LiquidIndications: Esophageal adenocarcinoma (HCC),Severe protein-energy malnutrition (HCC) Administer 7 bottles daily (1750 mL daily) through J tube at 100 ml/hr x 17.5 hrs via feeding pump 37631 mL 6 10/14/19 24 024 Discontin ued(Medic ation List Clean Up) [employer] Far[employer] Peptide 1.5 Oral Liquid Administer 1625 ml daily as directed at 135 ml/hr for 12 hours through J tube via feeding pump. 72925 mL 6 02/17/20 24 024 Discontin ued(Medic ation List Clean Up) documented as of this encounter (statuses as of 05/14/2024) Active Problems Problem Noted Date Diagnosed Date Encounter for adjustment and management of vascular access device 05/10/2024 Iron deficiency anemia secon florentin to inadequate dietary iron intake 04/07/2024 History of esophageal cancer 02/09/2024 H/O insertion of central venous access port 10/01 Esophageal adenocarcinoma 08/28/2023 Erosive esophagitis 08/15/2023 Severe protein-energy malnutrition 08/14/2023 Esophageal dysphagia 08/12/2023 documented as of this encounter (statuses as of 05/14/2024) Resolved Problems Problem Noted Date Diagnosed Date Resolved Date Preop examination 12/19/2023 02/05/2024 Esophageal mass 08/17/2023 08/28/2023 Dehydration 08/14/2023 08/17/2023 Gastroesophageal reflux dise ase with esophagitis without hemorrhage 08/14/2023 Loss of weight 08/12/2023 08/21/2023 NO KNOWN PROBLEMS 03/28/2006 08/12/2023 documented as of this encounter (statuses as of 05/14/2024) Immunizations No known immunizationsdocumented as of this [...] 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 (5 years old or older) Answer Entry Date Author No 08/28/2023 5:33 PM EDRosey Romero RN documented in this encounter Miscellaneous Notes * Telephone Encounter - Hailey Kowalski RN - 05/14/2024 1:58 PM EST Patient here for cathflo- still no blood return. Per [facility] policy, at this point would recommend referral to IR (either [facility] or [place]) for port dye study. Before patient could [...] plan. Awaiting signature and will route to [facility] for scheduling. * Telephone Encounter - Sherry Joyce CRNP - 05/10/2024 9:11 AM EST Inboxologist Covering Provider All replies or additional communication must be routed to the PCP ORDER signed * Telephone Encounter - Hailey Kowalski RN - 05/06/2024 12:57 PM EST Received message from [facility]- patient there for port flush, [...] EST Office Visit Nutrition & Weight Management, [place] [address] [place] [address] Nina Larson PA-C [address] [place] [address] 07/14/2024 2:00 PM EST Office Visit Family Practice [address], [place] [address] [place] [phone] Nina Blanco MD [address] [place] [phone] Health Maintenance Due Date Last Done [...] this encounter Medical Devices Implanted Type Area Outreach Associate Device Identifier Shelf Expiration Date Model / Serial / Lot Agile Eso Fc 2318mm 11.9cm - [id number] Implanted:Qty : 1 on 08/15/2023 by Liang Barrios DO at OR [facility] [employer] : ENDOSCOPY [id number] 04/09/2025 [id number] / / [id number] Cath Power Port 6fr Clearvue - [id number] Implanted:Qty : 1 on 08/29/2023 [place] Efe Tadeo [place] [facility] [place] Chest CR BARD : PERIPHERAL VASCULAR 09/30/2023 [id number] / / [id number] documented as of this encounter Visit Diagnoses [...] Advance Directives occurred with: Patient Care Teams Microwave Supervisor Relationship Specialty Start Date End Date Nina Blanco MD [address] [place] [phone] PCP - General Family Medicine 08/21/23 documented as of this encounter
--- OUTSIDE RECORDS SUMMARY | 2024-05-27 05:25 | External Medical Summary ---
Author Name Unknown Address Unknown Organization K01:LABORATORY [facility] [place] - [address] [place] [address] Laboratory Report Ordering Provider Test Date Status HAYLIE MICHELE 05/14/2024 11:22:35 Final Observation Date Value Abnormality Reference (Units ) Status Creatinine 05/14/2024 11:22:35 0.9 0.6-1.2 (mg/dL) Final Glomerular filtration rate/1.73 sq M.predicted [Volume Rate/Area] in Serum, Plasma or Blood by Creatinine-based formula (CKD-EPI) 05/14/2024 11:22:35 89 >=60 (mL/min) Final eGFR is calculated based on the CKD-EPI 2020 equation. Performing Location LABORATORY [facility] [place] - [address] [place] [address]
--- OUTSIDE RECORDS SUMMARY | 2024-05-27 05:25 | External Medical Summary | Summary of Care ---
Author Name Unknown Organization [facility] Address [address] [facility] [facility] [address] Phone [phone] Care Team Providers Care Acid Operator Name Role Phone Nina Blanco MD Primary Care Provi mario Reason for Visit * Reason Comments Procedure Port flush Medication Administration Cath evelina Encounter Details Date Type Department Care Team (Latest Contact Info) Description 05/14/2024 11:45 AM EST Hem/Onc Treatment Hematology/Oncology Treatment, [address] [phone] [place], Chair 5 Hem Onc [address] [address] History of esophageal cancer*; Encounter for adjustment and management of vascular access device Allergies No known active allergiesdocumented as of this encounter (statuses as of 05/14/2024) Medications Water For Irrigation, Sterile (FEED TUBE WATER) TF Administer 150 mL into J tube every 6 hours. 500 Each 10 4 Active Liquid Hope Peptide Sargent Oral LiquidIndications: Esophageal adenocarcinoma (HCC) Administer 5 pouches daily as directed through feeding tube via feeding pump at 100 ml/hr x 17 hours. 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 (5 years old or older) Answer Date of Assessment Author No 08/28/2023 5:33 PM Rosey Rice, RN * Do you have difficulty dressing or bathing? (5 years old or older) Answer Date of Assessment Author No 08/28/2023 5:33 PM EDT Rosey Nassar, FABRICE * Because of a physical, mental, or [...] EDRosey Romero RN documented in this encounter Nursing Notes * Sima Bain RN - 05/14/2024 12:05 PM EST 1152 cath evelina instilled, explained procedure to patient and . 1222: No blood return at this time, TPA remains in place. 1252: No blood return, TPA in place. 1320: No blood return, TPA in place 1350: No bleed return, TPA in place. TE sent by Hailey Kowalski RN to Dr. Blanco to notify. Informed patient and that next steps typically include chest xray and port dye study. Verbalized understanding. VAD flushed with 10 ml NSS and Heparin 5 ml (100 units/ml). Rdz needle removed intact. Dry dressing applied. Goals: Patient will remain free from injury. Possible barriers to meeting goals: decreased mobility Stability of the patient: Moderately stable - low risk of patient condition declining or worsening Summary regarding today's goals: Met: Patient remained free from harm/injury during treatment. Patient left facility in stable condition. * Sima Bain RN - 05/14/2024 12:02 PM EST Chair 9, patient here for port flush and use of cath evelina if needed. VAD accessed without difficulty, flushed easily, no blood return noted. Repositioned patient multiple times - unsuccessful for obtaining blood return. Cath evelina instilled per order. Safety and Risk for Injury Patient will remain free from injury. Ensure appropriate safety devices are available. Provide and maintain safe environment. Patient instructed on use of heat and massage functions where applicable. Patient shown how to operate the heat function of the chair and to alert nursing staff if the chair feels too warm. Patient instructed on the risk of potential capellan while using the heat function. documented in this encounter Plan of Treatment Upcoming Encounters Date Type Department Care Team (Late st Contact Info) Description 06/09/2024 12:20 PM EST Office Visit Nutrition & Weight Management, [place] [address] [place] [address] Nina Larson PA-C [address] [place], [place] [phone] 07/14/2024 2:00 PM EST Office Visit [address] [phone] Nina Blanco MD [address] [place] [phone] Health Maintenance Due Date Last Done [...] this encounter Medical Devices Implanted Type Area Tool Lathe Operator Device Identifier Shelf Expiration Date Model / Serial / Lot Adeline Maganao Fc 2318mm 11.9cm - [id number] Implanted:Qty : 1 on 08/15/2023 by Liang Barrios DO at OR [facility] [employer] : ENDOSCOPY [id number] 04/09/2025 [id number] / / [id number] Cath Power Port 6fr Clearvue - [id number] Implanted:Qty : 1 on 08/29/2023 by Efe Tadeo MD at [place] [facility] [place]: Chest CR BARD : PERIPHERAL VASCULAR 09/30/2023 [id number] / / [id number] documented as of this encounter Visit Diagnoses Diagnosis History of esophageal cancer- Primary Personal history of malignant neoplasm of esophagus Encounter for adjustment and management of vascular access device documented in this encounter Administered Medications Active Administered Medications - up to 3 most recent administrations Medication Order MAR Action Action Date Dose Rate Site hEParin 100 UNIT/ML Lock Flush inj 500 Units 500 Units (5 mL), IV Lock, PRN Other, IV Flush, Starting on Fri05/14/24 at 1146, Until 05/15/24 at 1145, For 24 hours, Do not flush if lock, PICC, or central line not in place; IV infusing or unable to flush.Indications:History of esophageal cancer,Encounter for adjustment and management of vascular access device Given 05/14/2024 2:02 PM EST 500 Units sodium chloride 0.9 % flush central line 10 mL 10 mL, IV Push, PRN Other, IV Flush, Starting on Fri05/14/24 at 1146, Until 05/15/24 at 1145, For 24 hours, Do not flush if lock, PICC, or central line not in place; IV infusing or unable to flush.Indications:History of esophageal cancer,Encounter for adjustment and management of vascular access device Given 05/14/2024 2:02 PM EST 10 mL Inactive Administered Medications - up to 3 most recent administrations Medication Order MAR Action Action Date Dose Rate Site Alteplase (Cathflo Activase) inj 2 mg 2 mg, IV Push, ONCE, On Fri05/14/24 at 1230, For 1 dose, *Obtain Alteplase (CathFlo Activase) *Reconstitute Alteplase (CathFlo Activase) 2 mg in 2.2 mL sterile water *Instill Alteplase (CathFlo Activase) into occluded lumen(s) *After 30 minutes dwell time in catheter, assess catheter patency by attempting to aspirate blood. If catheter is patent withdraw 3 mL of blood to remove Alteplase (CathFlo Activase) and residual clot. Flush lumen with 10 mL 0.9% normal saline *If catheter function is not restored allow for further dwell up to 120 minutes. *If catheter function is not restored, a second dose of Alteplase (CathFlo Activase) may be administered. *if catheter is still not restored call a physicianIndications:History of esophageal cancer,Encounter for adjustment and management of vascular access device Given 05/14/2024 11:52 AM EST 2 mg documented in this encounter Advance Directives * [...] Advance Directives occurred with: Patient Care Teams Acid Operator Relationship Specialty Start Date End Date Nina lBanco MD [address] [place] [phone] PCP - General Family Medicine 08/21/23 documented as of this encounter
--- OUTSIDE RECORDS SUMMARY | 2024-05-27 05:25 | External Medical Summary ---
Author Name Unknown Address Unknown Organization K01:LABORATORY [facility] [place] - [address] [facility] [address] Laboratory Report Ordering Provider Test Date Status HAYLIE MICHELE 05/14/2024 11:22:35 Final Observation Date Value Abnormality Reference (Units ) Status SYNC LEUKOCYTES IN BLOOD BY AUTOMATED COUNT 05/14/2024 11:22:35 11.12 Above high normal 4.00-10.80 (K/uL) Final Segs 05/14/2024 11:22:35 79.5 Above high normal 40.0-75.0 (%) Final Lymphs % 05/14/2024 11:22:35 11.3 Below low normal 18.0-42.0 (%) Final Monos 05/14/2024 11:22:35 7.7 1.0-11.0 (%) Final Eosinophils 05/14/2024 11:22:35 0.3 0.0-6.0 (%) Final Basos 05/14/2024 11:22:35 0.5 0.0-2.0 (%) Final Immature Granulocyte, Percent 05/14/2024 11:22:35 0.7 0.0-2.0 (%) Final Absolute Segs 05/14/2024 11:22:35 8.83 Above high normal 1.80-7.70 (K/uL) Final Lymphs, absolute 05/14/2024 11:22:35 1.26 1.00-4.80 (K/ul) Final Monos, Abs 05/14/2024 11:22:35 0.86 0.00-1.10 (K/uL) Final Eos, Abs 05/14/2024 11:22:35 0.03 0.00-0.70 (K/uL) Final Basos, Abs 05/14/2024 11:22:35 0.06 0.00-0.20 (K/uL) Final Immature Granulocytes, Number 05/14/2024 11:22:35 0.08 0.00-0.20 (K/uL) Final Performing Location LABORATORY [facility] [place] - [facility] [place] [address]
--- OUTSIDE RECORDS SUMMARY | 2024-05-27 05:25 | External Medical Summary ---
Author Name Unknown Address Unknown Organization K01:LABORATORY [facility] [place] [place] - [address] [place] [address] Laboratory Report Ordering Provider Test Date Status HAYLIE MICHELE 05/14/2024 11:22:35 Final Observation Date Value Abnormality Reference (Units ) Status Folic Acid 05/14/2024 11:22:35 17.7 >4.5 (ng/ mL) Final Performing Location LABORATORY [facility] - [address] [place] [address]
--- OUTSIDE RECORDS SUMMARY | 2024-05-27 05:25 | External Medical Summary | Summary of Care ---
Author Name Unknown Organization [facility] Address [address] [facility] [address] Phone [phone] Care Team Providers Care Acrobatic Rigger Name Role Phone Nina Blanco MD Primary Care Provi [facility] Encounter Details Date Type Department Care Team (Late st Contact Info) Description 05/12/2024 Orders Only Hematology/Oncology [facility] [place] [address] [facility] [place] [phone] Nina Blanco MD [address] [place] [phone] Allergies No known active allergiesdocumented as of this encounter (statuses as of 05/12/2024) Medications Water For Irrigation, Sterile (FEED TUBE WATER) TF Administer 150 mL into J tube every 6 hours. 500 Each 10 09/01/19 24 Active Compleat Peptide 1.5 Oral LiquidIndications: Esophageal adenocarcinoma (HCC),Severe protein-energy malnutrition (HCC) Administer 7 bottles daily (1750 mL daily) through J tube at 100 ml/hr x 17.5 hrs via feeding pump 92424 mL 6 10/14/19 24 Active Additional Information Patient not taking.Reported on 04/27/2024 [employer] Peptide 1.5 Oral Liquid Administer 1625 ml daily as directed at 135 ml/hr for 12 hours through J tube via feeding pump. 03130 mL 6 02/17/20 24 Active Additional Information Patient not taking.Reported on 04/27/2024 Liquid Hope Peptide Sargent Oral LiquidIndications: Esophageal adenocarcinoma (HCC) Administer 5 pouches daily as directed through feeding tube via feeding pump at 100 ml/hr x 17 hours. 128267 g 04/16/20 24 025 Active documented as of this encounter (statuses as of 05/12/2024) Active Problems Problem Noted Date Diagnosed Date Encounter for adjustment and management of vascular access device 05/10/2024 Iron deficiency anemia secon florentin to inadequate dietary iron intake 04/07/2024 History of esophageal cancer 02/09/2024 H/O insertion of central venous access port 10/01 Esophageal adenocarcinoma 08/28/2023 Erosive esophagitis 08/15/2023 Severe protein-energy malnutrition 08/14/2023 Esophageal dysphagia 08/12/2023 documented as of this encounter (statuses as of 05/12/2024) Resolved Problems Problem Noted Date Diagnosed Date Resolved Date Preop examination 12/19/2023 02/05/2024 Esophageal mass 08/17/2023 08/28/2023 Dehydration 08/14/2023 08/17/2023 Gastroesophageal reflux dise ase with esophagitis without hemorrhage 08/14/2023 Loss of weight 08/12/2023 08/21/2023 NO KNOWN PROBLEMS 03/28/2006 08/12/2023 documented as of this encounter (statuses as of 05/12/2024) Immunizations No known immunizationsdocumented as of this [...] No 09/03/2023 Does the household have a unm cancer centerlar source of income? 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 on file Not [...] Care Team (Late st Contact Info) Description 05/13/2024 1:40 PM EST Office Visit [address] [phone] Nina Blanco MD [address] [place] [phone] 05/14/2024 11:45 AM EST Hem/Onc Treatment Hematology/Oncology Treatment, [place] [address] [place] [phone] Lan[place], Chair 5 Hem Onc [facility] [address] [place] [address] 06/09/2024 12:20 PM EST Office Visit Nutrition & Weight Management, [place] [address] [place] [address] Nina Larson PA-C [address] [place] [address] Health Maintenance Due Date Last Done Comments [...] this encounter Medical Devices Implanted Type Area Small Business Sales Representative Device Identifier Shelf Expiration Date Model / Serial / Lot Agile Eso Fc 2318mm 11.9cm - [id number] Implanted:Qty : 1 on 08/15/2023 by Liang Barrios DO at OR [facility] [employer] : ENDOSCOPY [id number] 04/09/2025 [id number] / / [id number] Cath Power Port 6fr Clearvue - [id number] Implanted:Qty : 1 on 08/29/2023 by Efe Tadeo MD [place] [facility] [place] Chest CR BARD : PERIPHERAL VASCULAR 09/30/2023 [id number] / / [id number] documented as of this encounter Advance Directives [...] Advance Directives occurred with: Patient Care Teams Acrobatic Rigger Relationship Specialty Start Date End Date Nina Blanco MD [address] [place] [phone] PCP - General Family Medicine 08/21/23 documented as of this encounter
--- OUTSIDE RECORDS SUMMARY | 2024-05-27 05:25 | External Medical Summary | Summary of Care ---
Author Name Unknown Organization [facility] Address [address] [place] [address] Phone [phone] Care Team Providers Care Program Development Specialist Name Role Phone Nina Blanco MD Primary Care Provi mario Reason for Visit * Reason Onset Date Comments Order Request 05/06/2024 Encounter Details Date Type Department Care Team (Late st Contact Info) Description 05/06/2024 Telephone Hematology/Oncology Treatment, [place] [address] [place] [address] Nina Blanco MD [address] [place] [phone] Order Request Allergies No known active allergiesdocumented as of this encounter (statuses as of 05/11/2024) Medications Water For Irrigation, Sterile (FEED TUBE WATER) TF Administer 150 mL into J tube every 6 hours. 500 Each 10 09/01/19 24 Active Compleat Peptide 1.5 Oral LiquidIndications: Esophageal adenocarcinoma (HCC),Severe protein-energy malnutrition (HCC) Administer 7 bottles daily (1750 mL daily) through J tube at 100 ml/hr x 17.5 hrs via feeding pump 80345 mL 6 10/14/19 24 Active Additional Information Patient not taking.Reported on 04/27/2024 [employer] Peptide 1.5 Oral Liquid Administer 1625 ml daily as directed at 135 ml/hr for 12 hours through J tube via feeding pump. 80111 mL 6 02/17/20 24 Active Additional Information Patient not taking.Reported on 04/27/2024 Liquid Hope Peptide Sargent Oral LiquidIndications: Esophageal adenocarcinoma (HCC) Administer 5 pouches daily as directed through feeding tube via feeding pump at 100 ml/hr x 17 hours. 120365 g 04/16/20 24 025 Active documented as of this encounter (statuses as of 05/11/2024) Active Problems Problem Noted Date Diagnosed Date Encounter for adjustment and management of vascular access device 05/10/2024 Iron deficiency anemia secon florentin to inadequate dietary iron intake 04/07/2024 History of esophageal cancer 02/09/2024 H/O insertion of central venous access port 10/01 Esophageal adenocarcinoma 08/28/2023 Erosive esophagitis 08/15/2023 Severe protein-energy malnutrition 08/14/2023 Esophageal dysphagia 08/12/2023 documented as of this encounter (statuses as of 05/11/2024) Resolved Problems Problem Noted Date Diagnosed Date Resolved Date Preop examination 12/19/2023 02/05/2024 Esophageal mass 08/17/2023 08/28/2023 Dehydration 08/14/2023 08/17/2023 Gastroesophageal reflux dise ase with esophagitis without hemorrhage 08/14/2023 Loss of weight 08/12/2023 08/21/2023 NO KNOWN PROBLEMS 03/28/2006 08/12/2023 documented as of this encounter (statuses as of 05/11/2024) Immunizations No known immunizationsdocumented as of this [...] 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 Thank you. * Telephone Encounter - Jeffrey Mccauley RN - 05/10/2024 9:44 AM EST Order received. Cathflo built into beacon plan. Awaiting signature and will route to [facility] for scheduling. * Telephone Encounter - Sherry Joyce CRNP - 05/10/2024 9:11 AM EST Inboxologist Covering Provider All replies or additional communication must be routed to the PCP ORDER signed * Telephone Encounter - Hailey Kowalski RN - 05/06/2024 12:57 PM EST Received message from [facility]- patient there for port flush, unable to [...] Upcoming Encounters Date Type Department Care Team ([facility] st Contact Info) Description 05/13/2024 1:40 PM EST Office Visit [address] [phone] Nina Blanco MD [address] [place] [phone] 06/09/2024 12:20 PM EST Office Visit Nutrition & Weight Management, [place] [address] [place] [address] Nina Larson PA-C [address] [place] [address] Health Maintenance Due Date Last Done Comments [...] this encounter Medical Devices Implanted Type Area Catalyst Concentration Operator Device Identifier Shelf Expiration Date Model / Serial / Lot Agile Eso Fc 2318mm 11.9cm - [id number] Implanted:Qty : 1 on 08/15/2023 by Liang Barrios DO at OR [facility] [employer] [facility] ENDOSCOPY [id number] 04/09/2025 [id number] / / [id number] Cath Power Port 6fr Clearvue - [id number] Implanted:Qty : 1 on 08/29/2023 by Efe Tadeo MD at [place] [facility] [place] Right: Chest CR BARD : PERIPHERAL VASCULAR 09/30/2023 [id number] / / [id number] documented as of this encounter Visit Diagnoses [...] Advance Directives occurred with: Patient Care Teams Program Development Specialist Relationship Specialty Start Date End Date Nina Blanco MD [address] [place] [phone] PCP - General Family Medicine 08/21/23 documented as of this encounter
--- OUTSIDE RECORDS SUMMARY | 2024-05-27 05:25 | External Medical Summary | Summary of Care ---
Author Name Unknown Organization [facility] Address [address] [facility] [place] [address] Phone [phone] Care Team Providers Care Reach Truck Operator Name Role Phone Nina Blanco MD Primary Care Provi mario Encounter Details Date Type Department Care Team (Late st Contact Info) Description 05/13/2024 Documentation General Internal Medicine [place] [address] [place] [phone] Burrell, Alyson Norma Thi, DO [address] [place] [facility] [phone] Allergies No known active allergiesdocumented as of this encounter (statuses as of 05/13/2024) Medications Water For Irrigation, Sterile (FEED TUBE WATER) TF Administer 150 mL into J tube every 6 hours. 500 Each 10 4 Active Liquid Hope Peptide Sargent Oral LiquidIndications: Esophageal adenocarcinoma (HCC) Administer 5 pouches daily as directed through feeding tube via feeding pump at 100 ml/hr x 17 hours. 236144 g 4 025 Active documented as of this encounter (statuses as of 05/13/2024) Active Problems Problem Noted Date Diagnosed Date Encounter for adjustment and management of vascular access device 05/10/2024 Iron deficiency anemia secon florentin to inadequate dietary iron intake 04/07/2024 History of esophageal cancer 02/09/2024 H/O insertion of central venous access port 10/01 Esophageal adenocarcinoma 08/28/2023 Erosive esophagitis 08/15/2023 Severe protein-energy malnutrition 08/14/2023 Esophageal dysphagia 08/12/2023 documented as of this encounter (statuses as of 05/13/2024) Resolved Problems Problem Noted Date Diagnosed Date Resolved Date Preop examination 12/19/2023 02/05/2024 Esophageal mass 08/17/2023 08/28/2023 Dehydration 08/14/2023 08/17/2023 Gastroesophageal reflux dise ase with esophagitis without hemorrhage 08/14/2023 Loss of weight 08/12/2023 08/21/2023 NO KNOWN PROBLEMS 03/28/2006 08/12/2023 documented as of this encounter (statuses as of 05/13/2024) Immunizations No known immunizationsdocumented as of this [...] 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 Not [...] 5:33 PM EDT Rosey Nassar, RN documented in this encounter Plan of Treatment Upcoming Encounters Date Type Department Care Team (Late st Contact Info) Description 05/14/2024 11:45 AM EST Hem/Onc Treatment Hematology/Oncology Treatment, [place] [address] [place] [phone] [place], Chair 5 Hem Onc [place] [address] [place] [address] 06/09/2024 12:20 PM EST Office Visit Nutrition & Weight Management, [place] [address] [place] [address] Nina Larson PA-C [address] [place] [address] 07/14/2024 2:00 PM EST Office Visit Family [address] [phone] Nina Blanco MD [address] [place] [phone] Health Maintenance Due Date Last Done [...] this encounter Medical Devices Implanted Type Area Primary Special Education Teacher Device Identifier Shelf Expiration Date Model / Serial / Lot Agile Eso Fc 2318mm 11.9cm - [id number] Implanted:Qty : 1 on 08/15/2023 by Liang Barrios DO at OR [facility] [employer] : ENDOSCOPY [id number] 04/09/2025 [id number] / / [id number] Cath Power Port 6fr Clearvue - [id number] Implanted:Qty : 1 on 08/29/2023 by Efe Tadeo MD at OR [facility] Right: Chest CR BARD : PERIPHERAL VASCULAR 09/30/2023 [id number] / / [id number] documented as of this encounter Advance Directives [...] Advance Directives occurred with: Patient Care Teams Reach Truck Operator Relationship Specialty Start Date End Date Nina Blanco MD [address] [place] [phone] PCP - General Family Medicine 08/21/23 documented as of this encounter
--- OUTSIDE RECORDS SUMMARY | 2024-05-27 05:25 | External Medical Summary | Summary of Care ---
Author Name Unknown Organization [facility] Address [address] [place] [address] Phone [phone] Care Team Providers Care Concrete Pointer Name Role Phone Nina Blanco MD Primary Care Provi mario Reason for Visit * Reason Onset Date Comments Order Request 05/06/2024 Encounter Details Date Type Department Care Team (Late st Contact Info) Description 05/06/2024 Telephone Hematology/Oncology Treatment, [place] [address] [place] [address] Nina Blanco MD [address] [place] [phone] Order Request Allergies No known active [...] ml/hr x 17.5 hrs via feeding pump 53317 mL 6 10/14/19 24 Active Additional Information Patient not taking.Reported on 04/27/2024 Irma Farms Peptide 1.5 Oral Liquid Administer 1625 ml daily as directed at 135 ml/hr for 12 hours through J tube via feeding pump. 63512 mL 6 02/17/20 24 Active Additional Information Patient not taking.Reported on 04/27/2024 Liquid Hope Peptide Sargent Oral LiquidIndications: Esophageal adenocarcinoma (HCC) Administer 5 pouches daily as directed through feeding tube via feeding pump at 100 ml/hr x 17 hours. 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 Thank you. * Telephone Encounter - Jeffrey Mccauley RN - 05/10/2024 9:44 AM EST Order received. Cathflo built into beacon plan. Awaiting signature and will route to [facility] for scheduling. * Telephone Encounter - Sherry Joyce CRNP - 05/10/2024 9:11 AM EST Inboxologist Covering Provider All replies or additional communication must be routed to the PCP ORDER signed * Telephone Encounter - Hailey Kowalski RN - 05/06/2024 12:57 PM EST Received message from [facility]- patient there for port flush, unable [...] Description 05/13/2024 1:40 PM EST Office Visit [address] [phone] Nina Blanco MD [address] [place] [phone] 05/14/2024 11:45 AM EST Hem/Onc Treatment Hematology/Oncology Treatment, [place] [address] [place] [facility] [place] [phone] Lanette, Chair 5 Hem Onc [facility] 200 [facility] [place] [address] 06/09/2024 12:20 PM EST Office Visit Nutrition & Weight Management, [place] [address] [place] [address] Nina Larson PA-C [address], [place] [phone] Health Maintenance Due Date Last Done Comments [...] this encounter Medical Devices Implanted Type Area Research Development Director Device Identifier Shelf Expiration Date Model / Serial / Lot Agile Eso Fc 2318mm 11.9cm - [id number] Implanted:Qty : 1 on 08/15/2023 by Liang Barrios DO at OR [facility] [employer] : ENDOSCOPY [id number] 04/09/2025 [id number] / / [id number] Cath Power Port 6fr Clearvue - [id number] Implanted:Qty : 1 on 08/29/2023 by Efe Tadeo MD at OR [facility] [place] Right: Chest CR BARD : PERIPHERAL VASCULAR 09/30/2023 [id number] / / [id number] documented as of this encounter Visit Diagnoses [...] Advance Directives occurred with: Patient Care Teams Concrete Pointer Relationship Specialty Start Date End Date Nina Blanco MD [address] [place] [phone] PCP - General Family Medicine 08/21/23 documented as of this encounter
--- OUTSIDE RECORDS SUMMARY | 2024-05-27 05:25 | External Medical Summary ---
Author Name Unknown Address Unknown Organization [id number]:LABORATORY [facility] [place] - [address] [facility] [address] Laboratory Report Ordering Provider Test Date Status HAYLIE MICHELE 05/14/2024 11:22:35 Final Observation Date Value Abnormality Reference (Units ) Status WBC, Total 05/14/2024 11:22:35 11.12 Above high normal 4 .00-10.80 (K/uL) Final RBC 05/14/2024 11:22:35 3.74 4.50-5.25 (M/uL) Final Hemoglobin 05/14/2024 11:22:35 11.7 Below low normal 14 .0-16.8 (g/dL) Final Anemia reflex testing trigge rs on a HGB < 12.0 for Females and HGB < 13.0 for Males in accordance with the WHO Anemia Guidelines
Anemia reflex testing triggers on a HGB < 12.0 for Females and HGB < 13.0 for Males in accordance with the WHO Anemia Guidelines HCT 05/14/2024 11:22:35 37.6 Below low normal 40. 0-48.4 (%) Final MCV 05/14/2024 11:22:35 100.5 82.0-99.5 (fL) Final MCH 05/14/2024 11:22:35 31.3 27.0-34.0 (pg) Final MCHC 05/14/2024 11:22:35 31.1 32.0-36.0 (g/dL) Final RDW 05/14/2024 11:22:35 16.8 11.5-15.5 (%) Final Platelets 05/14/2024 11:22:35 377 140-400 (K /uL) Final MPV 05/14/2024 11:22:35 9.1 6.6-11.1 ( fL) Final Nucleated erythrocytes/100 leukocytes [Ratio] in Blood by Automated count 05/14/2024 11:22:35 0 <=0 (/100 WBCs) Fi formerly [facility] Performing Location LABORATORY [facility] [place] - [address] [facility] [address]
--- OUTSIDE RECORDS SUMMARY | 2024-05-27 05:25 | External Medical Summary ---
Author Name Unknown Address Unknown Organization K01:LABORATORY [facility] [place] - [address] [facility] [place] [address] Laboratory Report Ordering Provider Test Date Status HAYLIE MICHELE 05/14/2024 11:22:35 Final Observation Date Value Abnormality Reference (Units ) Status TSH 05/14/2024 11:22:35 2.73 0.27-4.20 (uIU/mL) Final Performing Location LABORATORY [facility] - [address] [facility] [address]
--- OUTSIDE RECORDS SUMMARY | 2024-05-27 05:25 | External Medical Summary | Summary of Care ---
Author Name Unknown Organization [facility] Address [address] [facility] [place] [address] Phone [phone] Care Team Providers Care Electrical Controls Assembler Name Role Phone Nina Blanco MD Primary Care Provi mario Encounter Details Date Type Department Care Team (Late st Contact Info) Description 05/15/2024 Documentation General Internal Medicine [place] [address] [place] [phone] Burrell, Alyson Norma Thi, DO [address] [place] [facility] [place] [address] Allergies No known active allergiesdocumented as [...] pump at 100 ml/hr x 17 hours. 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 Answer Date of Assessment Author No 08/28/2023 5:33 PM EDT Rosey Nsasar, FABRICE * Are you blind or do [...] EST Office Visit Nutrition & Weight Management, [place] [address] [place] [address] McSNina burns PA-C [address] [place] [address] 07/14/2024 2:00 PM EST Office Visit [address] [phone] Nina Blanco MD [address] [place] [phone] Health Maintenance Due Date Last Done [...] this encounter Medical Devices Implanted Type Area Senior Genetic Counselor Device Identifier Shelf Expiration Date Model / Serial / Lot Agile Eso Fc 2318mm 11.9cm - [id number] Implanted:Qty : 1 on 08/15/2023 by Liang Barrios DO at OR [facility] [employer] : ENDOSCOPY [id number] 04/09/2025 [id number] / / [id number] Cath Power Port 6fr Clearvue - [id number] Implanted:Qty : 1 on 08/29/2023 by Efe Tadeo [place] [facility] [place]: Chest CR BARD : PERIPHERAL VASCULAR 09/30/2023 [id number] / / [id number] documented as of this encounter Advance Directives [...] Advance Directives occurred with: Patient Care Teams Electrical Controls Assembler Relationship Specialty Start Date End Date Nina Blanco MD [address] [place] [phone] PCP - General Family Medicine 08/21/23 documented as of this encounter
--- OUTSIDE RECORDS SUMMARY | 2024-05-27 05:25 | External Medical Summary | Summary of Care ---
Author Name Unknown Organization [facility] Address [address] [facility] [address] Phone [phone] Care Team Providers Care Program Project Manager Name Role Phone Nina Blanco MD Primary Care Provi mario Reason for Visit * Reason Comments Outpatient Testing Encounter Details Date Type Department Care Team (Late st Contact Info) Description 05/14/2024 11:20 AM EST Laboratory Laboratory [facility] [place] [address] [place] [phone] [facility] 200 [facility] [place] [address] Leukocytosis, unspecified type Allergies No known active allergiesdocumented [...] pump at 100 ml/hr x 17 hours. 232186 g 4 025 Active documented as of this encounter (statuses as of 05/14/2024) Active Problems Problem Noted Date Diagnosed Date Encounter for adjustment and management of vascular access device 05/10/2024 Iron deficiency anemia phyllis lerma to inadequate dietary iron intake 04/07/2024 [...] No 09/03/2023 Does the household have a [facility] source of income? (Household - [...] 11:45 AM EST Hem/Onc Treatment Hematology/Oncology Treatment, [place] [address] [place] [phone] Lanette, Chair 5 Hem Onc [place] [address] [place] [address] Arrived 06/09/2024 12:20 PM EST Office Visit Nutrition & Weight Management, [place] [address] [place] [address] [facility] [address] [place] [address] 07/14/2024 2:00 PM EST Office Visit [address] [phone] Nina Blanco MD [address] [place] [phone] Pending Results Name Type Priority Associated Diagnoses Date /Time CBC WITH WBC DIFFERENTIAL AND ANEMIA REFLEX WORKUP Lab Routine Leukocytosis, unspecified type 05/14/2024 11:22 AM EST ANEMIA CBC Lab Routine Leukocytosis, unspecified type 05/14/2024 11:22 AM EST DIFFERENTIAL, AUTOMATED Lab Routine Leukocytosis, unspecified type 05/14/2024 11:22 AM EST ANEMIA REFLEX CHEMISTRY HOLD Lab Routine Leukocytosis, unspecified type 05/14/2024 11:22 AM EST Health Maintenance Due Date Last Done [...] this encounter Medical Devices Implanted Type Area Weather Strip Installer Device Identifier Shelf Expiration Date Model / Serial / Lot Agile Eso Fc 2318mm 11.9cm - [id number] Implanted:Qty : 1 on 08/15/2023 by Liang Barrios DO at OR [facility] [employer] : ENDOSCOPY [id number] 04/09/2025 [id number] / / [id number] Cath Power Port 6fr Clearvue - [id number] Implanted:Qty : 1 on 08/29/2023 by Efe Tadeo MD [place] [facility] [place]: Chest CR BARD : PERIPHERAL VASCULAR 09/30/2023 [id number] / / [id number] documented as of this encounter Visit Diagnoses Diagnosis Leukocytosis, unspecified type documented in this encounter Advance [...] Directives occurred with: Patient Care Teams Program Project Manager Relationship Specialty Start Date End Date Nina Blanco MD [address] [place] [phone] PCP - General Family Medicine 08/21/23 documented as of this encounter
--- OUTSIDE RECORDS SUMMARY | 2024-05-27 05:26 | External Medical Summary | Summary of Care ---
Author Name Unknown Organization [facility] Address [address] [place] [address] Phone [phone] Care Team Providers Care Moisture Meter Operator Name Role Phone Nina Blanco MD Primary Care Provi mario Reason for Visit * Auth/Cert Specialty Diagnoses / Procedures Referred By Herrera mercado Referred To Contact Diagnoses Other iron deficiency anemias Malignant neoplasm of esophagus, unspecified (HCC) Procedures [facility] Adwoa Olmedo MD [address] [place] [address] Phone: tel: fax: OR [facility], Operating Room, [facility] 1st Floor [address] [place] [address] Phone: tel: Referral ID Status Reason Start Date Expiration Date Visits Re quested Visits Authorized [id number] Encounter Details Date Type Department Care Team (Latest Contact Info) Description 05/06/2024 11:03 AM EST - 05/06/2024 1:28 PM EST Hospital Encounter OR [facility], Operating Room, [facility] 1st Floor [address] [place] [address] Adwoa Olmedo MD [address] [facility] [place] [address] Discharge Disposition: Home - Self Care Allergies No known active allergiesdocumented as of this encounter (statuses as of 05/07/2024) Medications Water For Irrigation, Sterile (FEED TUBE WATER) TF Administer 150 mL into J tube every 6 hours. 500 Each 10 09/01/19 24 Active Compleat Peptide 1.5 Oral LiquidIndications: Esophageal adenocarcinoma (HCC),Severe protein-energy malnutrition (HCC) Administer 7 bottles daily (1750 mL daily) through J tube at 100 ml/hr x 17.5 hrs via feeding pump 67743 mL 6 10/14/19 Active Additional Information Patient not taking.Reported on 04/27/2024 Ir[employer] Farms Peptide 1.5 Oral Liquid Administer 1625 ml daily as directed at 135 ml/hr for 12 hours through J tube via feeding pump. 70625 mL 6 02/17/20 Active Additional Information Patient not taking.Reported on 04/27/2024 Liquid Hope Peptide Sargent Oral LiquidIndications: Esophageal adenocarcinoma (HCC) Administer 5 pouches daily as directed through feeding tube via feeding pump at 100 ml/hr x 17 hours. 918329 g 04/16/20 24 025 Active documented as of this encounter (statuses as of 05/07/2024) Active Problems Problem Noted Date Diagnosed Date Iron deficiency anemia secon florentin to inadequate dietary iron intake 04/07/2024 History of esophageal cancer 02/09/2024 H/O insertion of central venous access port 10/01 Esophageal adenocarcinoma 08/28/2023 Erosive esophagitis 08/15/2023 Severe protein-energy malnutrition 08/14/2023 Esophageal dysphagia 08/12/2023 documented as of this encounter (statuses as of 05/07/2024) Resolved Problems Problem Noted Date Diagnosed Date Resolved Date Preop examination 12/19/2023 02/05/2024 Esophageal mass 08/17/2023 08/28/2023 Dehydration 08/14/2023 08/17/2023 Gastroesophageal reflux dise ase with esophagitis without hemorrhage 08/14/2023 Loss of weight 08/12/2023 08/21/2023 NO KNOWN PROBLEMS 03/28/2006 08/12/2023 documented as of this encounter (statuses as of 05/07/2024) Immunizations No known immunizationsdocumented as of this [...] 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 on file Not on file Travel History Travel Start Travel End [place] 03/31/2024 04/07/2024 documented as of this encounter Last Filed Vital Signs Vital Sign Reading Time Taken Comments Blood Pressure 120/82 05/06/2024 1:15 PM EST Pulse 97 05/06/2024 1:15 PM EST Temperature 36 C (96.8 F) 05/06/2024 12:00 PM EST Respiratory Rate 16 05/06/2024 12:15 PM EST Oxygen Saturation 96% 05/06/2024 1:15 PM EST Inhaled Oxygen Concentration - - Weight - - Height - - Body Mass Index - - documented in this encounter Functional Status * [...] Rosey Rice RN documented in this encounter Nursing Notes * Aditi Alicea, FABRICE - 05/06/2024 1:27 PM EST Patient tolerated infusion without issues. Vitals stable, IV removed without issues. Pt declined tostay post infusion for monitoring due to no previous reaction to infusion. Pt left to home via ambulation to personal car. documented in this encounter Plan of Treatment Upcoming Encounters Date Type Department Care Team ([facility] st Contact Info) Description 05/13/2024 1:40 PM EST Office Visit [address] [phone] Nina Blanco MD [address] [place] [phone] 06/09/2024 12:20 PM EST Office Visit Nutrition & Weight Management, [place] [address] [place] [address] Nina Larson PA-C [address] [place], [place] [phone] Health Maintenance Due Date Last Done Comments [...] this encounter Medical Devices Implanted Type Area Electrical Assemblies Supervisor Device Identifier Shelf Expiration Date Model / Serial / Lot Adeline Eso Fc 2318mm 11.9cm - [id number] Implanted:Qty : 1 on 08/15/2023 by Liang Barrios DO at OR [facility] [employer] : ENDOSCOPY [id number] 04/09/2025 [id number] / / [id number] Cath Power Port 6fr Clearvue - [id number] Implanted:Qty : 1 on 08/29/2023 by Efe Tadeo MD at OR [facility] [place] Right: Chest CR BARD : PERIPHERAL VASCULAR 09/30/2023 [id number] / / [id number] documented as of this encounter Visit Diagnoses Diagnosis Iron deficiency anemia secondary to inadequate dietary iron intake- Primary documented in this encounter Administered Medications Inactive Administered Medications - up to 3 most recent administrations Medication Order MAR Action Action Date Dose Rate Site EPINEPHrine 1 MG/ML inj 0.3 mg 0.3 mg, Intramuscular, ONCE PRN Other, Hypersensitivity Reaction or Anaphylaxis, Starting on Angelica 05/06/24 at 1105, Until Angelica 05/06/24 at 1728, For 24 hoursIndications:Iron deficiency anemia secondary to inadequate dietary iron intake Famotidine (Pepcid) inj 20 mg 20 mg, IV Push, ONCE PRN Other, Hypersensitivity Reaction, Starting on Angelica 05/06/24 at 1105, Until Angelica 05/06/24 at 1728, For 24 hours, Give IV push over 2 minutes.Indications:Iron deficiency anemia secondary to inadequate dietary iron intake hEParin 100 UNIT/ML Lock Flush inj 500 Units 500 Units (5 mL), IV Lock, ONCE PRN Other, medi-port, Starting on Angelica 05/06/24 at 1118, Until Angelica 05/06/24 at 1728, For 1 dose, Do not flush if lock, PICC, or central line not in place; IV infusing or unable to flush. Hydrocortisone Sod Suc (PF) (Solu-Cortef) inj 100 mg 100 mg, IV Push, ONCE PRN Other, Hypersensitivity Reaction, Starting on Angelica 05/06/24 at 1105, Until Angelica 05/06/24 at 1728, For 24 hoursIndications:Iron deficiency anemia secondary to inadequate dietary iron intake Iron Dextran (Infed) 975 mg in NSS 250 mL INFUSION 975 mg, IV Piggyback, ONCE, 1 dose, On Angelica 05/06/24 at 1230, Administer over 1 Hours, - Administer iron dextran infusion bag over 1 hour - Monitor for infusion reactions with vitals at 30 minutes and 60 minutes after starting the infusion. - If patient develops sign/symptoms of reaction or vital signs outside normal limits: 1) STOP infusion 2) CONTACT physicianIndications:Iron deficiency anemia secondary to inadequate dietary iron intake New Bag 05/06/2024 12:16 PM EST 975 mg 274.5 mL/hr Iron Dextran (Infed) IV Push TEST DOSE 25 mg IV Push, Administer over 0.5 Minutes, -Educate patient on signs/symptoms of infusion reaction -Administer 25 mg test dose of iron dextran before infusion bag -Observe patient for signs/symptoms of reaction with vital signs before test dose, then at 15 minutes after administering the test dose -If patient tolerates test dose with no reaction, proceed with iron dextran infusion -HOLD infusion and contact physician immediately if patient reacts to test dose, ONCE, 1 dose, On Angelica 05/06/24 at 1215Indications:Iron deficiency anemia secondary to inadequate dietary iron intake Given 05/06/2024 12:03 PM EST 25 mg oxygen GAS Inhalation, PRN, Starting on Angelica 05/06/24 at 1105, Until Angelica 05/06/24 at 1728, Device/Managed by: Low Flow Device, Goal SPO2 (%): 91-95, Starting Device: Nasal Cannula, Initial Flow Rate (LPM): 2, Lowest Support: Nasal Cannula: Flow 0-6 LPM. Titrate up/down by 1 LPM., Higher Support: Non-Rebreather (NRB) Mask: Minimum of 10 LPM. Titrate to maintain bag inflation., Titration Interval: Q2 minutes and as needed., Notify Provider: For sudden DECREASE in resting SPO2 to less than 85% and when escalating delivery device., Wean patient off Oxygen when the oxygen saturation is greater than or equal to 93%Indications:Iron deficiency anemia secondary to inadequate dietary iron intake sodium chloride 0.9 % flush central line 10 mL 10 mL, IV Push, Q8H, First dose on Angelica 05/06/24 at 1400, Until Discontinued, TO UNUSED PORTS Do not flush if lock, PICC, or central line not in place; IV infusing or unable to flush. documented in this encounter Active and Recently Administered Medications Times are shown in EST. Scheduled Medication Order 05/04/2024 05/05/2024 05/06/2024 Iron Dextran (Infed) 975 mg in NSS 250 mL INFUSION (COMPLETED) 975 mg, IV Piggyback, ONCE, 1 dose, On Angelica 05/06/24 at 1230, Administer over 1 Hours, - Administer iron dextran infusion bag over 1 hour - Monitor for infusion reactions with vitals at 30 minutes and 60 minutes after starting the infusion. - If patient develops sign/symptoms of reaction or vital signs outside normal limits: 1) STOP infusion 2) CONTACT physician 1216 (New Bag - Prov ider: Aditi Alicea RN) Iron Dextran (Infed) IV Push TEST DOSE 25 mg (COMPLETED) IV Push, Administer over 0.5 Minutes, -Educate patient on signs/symptoms of infusion reaction -Administer 25 mg test dose of iron dextran before infusion bag -Observe patient for signs/symptoms of reaction with vital signs before test dose, then at 15 minutes after administering the test dose -If patient tolerates test dose with no reaction, proceed with iron dextran infusion -HOLD infusion and contact physician immediately if patient reacts to test dose, ONCE, 1 dose, On Angelica 05/06/24 at 1215 1203 (Given - Provid er: Aditi Alicea RN) sodium chloride 0.9 % flush central line 10 mL 10 mL, IV Push, Q8H, First dose on Angelica 05/06/24 at 1400, Until Discontinued, TO UNUSED PORTS Do not flush if lock, PICC, or central line not in place; IV infusing or unable to flush. PRN Medication Order 05/04/2024 05/05/2024 05/06/2024 EPINEPHrine 1 MG/ML inj 0.3 mg 0.3 mg, Intramuscular, ONCE PRN Other, Hypersensitivity Reaction or Anaphylaxis, Starting on Angelica 05/06/24 at 1105, Until Angelica 05/06/24 at 1728, For 24 hours Famotidine (Pepcid) inj 20 mg 20 mg, IV Push, ONCE PRN Other, Hypersensitivity Reaction, Starting on Angelica 05/06/24 at 1105, Until Angelica 24 at 1728, For 24 hours, Give IV push over 2 minutes. hEParin 100 UNIT/ML Lock Flush inj 500 Units 500 Units (5 mL), IV Lock, ONCE PRN Other, medi-port, Starting on Angelica 05/06/24 at 1118, Until Angelica 1224 at 1728, For 1 dose, Do not flush if lock, PICC, or central line not in place; IV infusing or unable to flush. Hydrocortisone Sod Suc (PF) (Solu-Cortef) inj 100 mg 100 mg, IV Push, ONCE PRN Other, Hypersensitivity Reaction, Starting on Angelica 05/06/24 at 1105, Until Angelica 1224 at 1728, For 24 hours oxygen GAS Inhalation, PRN, Starting on Angelica 05/06/24 at 1105, Until Angelica 1224 at 1728, Device/Managed by: Low Flow Device, Goal SPO2 (%): 91-95, Starting Device: Nasal Cannula, Initial Flow Rate (LPM): 2, Lowest Support: Nasal Cannula: Flow 0-6 LPM. Titrate up/down by 1 LPM., Higher Support: Non-Rebreather (NRB) Mask: Minimum of 10 LPM. Titrate to maintain bag inflation., Titration Interval: Q2 minutes and as needed., Notify Provider: For sudden DECREASE in resting SPO2 to less than 85% and when escalating delivery device., Wean patient off Oxygen when the oxygen saturation is greater than or equal to 93% documented in this encounter Advance Directives * [...] Advance Directives occurred with: Patient Care Teams Moisture Meter Operator Relationship Specialty Start Date End Date Nina Blnaco MD [address] [place] [phone] (Lpso) PCP - General Family Medicine 08/21/23 documented as of this encounter
--- OUTSIDE RECORDS SUMMARY | 2024-05-27 05:26 | External Medical Summary | Summary of Care ---
Author Name Unknown Organization [facility] Address [address] [place] [address] Phone [phone] Care Team Providers Care Grounds Manager Name Role Phone Nina Blanco MD Primary Care Provi mario Reason for Visit * Reason Onset Date Comments Order Request 05/06/2024 Encounter Details Date Type Department Care Team (Late st Contact Info) Description 05/06/2024 Telephone Hematology/Oncology Treatment, [place] [address] [place] [address] Nina Blanco MD [address] [place] [phone] Order Request Allergies No known active allergiesdocumented as of this encounter (statuses as of 05/10/2024) Medications Water For Irrigation, Sterile (FEED TUBE WATER) TF Administer 150 mL into J tube every 6 hours. 500 Each 10 09/01/19 24 Active Compleat Peptide 1.5 Oral LiquidIndications: Esophageal adenocarcinoma (HCC),Severe protein-energy malnutrition (HCC) Administer 7 bottles daily (1750 mL daily) through J tube at 100 ml/hr x 17.5 hrs via feeding pump 67535 mL 6 10/14/19 24 Active Additional Information Patient not taking.Reported on 04/27/2024 [employer] Farms Peptide 1.5 Oral Liquid Administer 1625 ml daily as directed at 135 ml/hr for 12 hours through J tube via feeding pump. 37019 mL 6 02/17/20 24 Active Additional Information Patient not taking.Reported on 04/27/2024 Liquid Hope Peptide Sargetn Oral LiquidIndications: Esophageal adenocarcinoma (HCC) Administer 5 pouches daily as directed through feeding tube via feeding pump at 100 ml/hr x 17 hours. 321170 g 04/16/20 24 025 Active documented as of this encounter (statuses as of 05/10/2024) Active Problems Problem Noted Date Diagnosed Date Encounter for adjustment and management of vascular access device 05/10/2024 Iron deficiency anemia secon florentin to inadequate dietary iron intake 04/07/2024 History of esophageal cancer 02/09/2024 H/O insertion of central venous access port 10/01 Esophageal adenocarcinoma 08/28/2023 Erosive esophagitis 08/15/2023 Severe protein-energy malnutrition 08/14/2023 Esophageal dysphagia 08/12/2023 documented as of this encounter (statuses as of 05/10/2024) Resolved Problems Problem Noted Date Diagnosed Date Resolved Date Preop examination 12/19/2023 02/05/2024 Esophageal mass 08/17/2023 08/28/2023 Dehydration 08/14/2023 08/17/2023 Gastroesophageal reflux dise ase with esophagitis without hemorrhage 08/14/2023 Loss of weight 08/12/2023 08/21/2023 NO KNOWN PROBLEMS 03/28/2006 08/12/2023 documented as of this encounter (statuses as of 05/10/2024) Immunizations No known immunizationsdocumented as of this [...] 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 Awaiting signature and will route to [facility] for scheduling. * Telephone Encounter - Sherry Joyce CRNP - 05/10/2024 9:11 AM EST Inboxologist Covering Provider All replies or additional communication must be routed to the PCP ORDER signed * Telephone Encounter - Hailey Kowalski RN - 05/06/2024 12:57 PM EST Received message from [facility]- patient there for port flush, [...] Upcoming Encounters Date Type Department Care Team ([facility] st Contact Info) Description 05/13/2024 1:40 PM EST Office Visit [address] [phone] Nina Blanco MD [address] [place] [phone] 06/09/2024 12:20 PM EST [facility] [address] [place] [address] Nina Larson PA-C [address] [place] [address] Health Maintenance Due Date Last Done Comments [...] this encounter Medical Devices Implanted Type Area Scrap Piler Device Identifier Shelf Expiration Date Model / Serial / Lot Agile Eso Fc 2318mm 11.9cm - [id number] Implanted:Qty : 1 on 08/15/2023 by Liang Barrios DO at OR [facility] : ENDOSCOPY [id number] 04/09/2025 [id number] / / [id number] Cath Power Port 6fr Clearvue - [id number] Implanted:Qty : 1 on 08/29/2023 by Efe Tadeo MD [place] [facility] [place]: Chest CR BARD : PERIPHERAL VASCULAR 09/30/2023 [id number] / / [id number] documented as of this encounter Visit Diagnoses [...] Advance Directives occurred with: Patient Care Teams Grounds Manager Relationship Specialty Start Date End Date Nina Blanco MD [address] [place] [phone] PCP - General Family Medicine 08/21/23 documented as of this encounter
--- OUTSIDE RECORDS SUMMARY | 2024-05-27 05:26 | External Medical Summary | Summary of Care ---
Author Name Unknown Organization [facility] Address [address] [facility] [place] [address] Phone [phone] Care Team Providers Care Garment Looper Name Role Phone Nina Blanco MD Primary Care Provi [facility] Encounter Details Date Type Department Care Team (Late st Contact Info) Description 02/03/2024 Telephone Vitaliy Larkin [address] [place] [address] Gwendolyn Nails RDN [address] [place] [address] Allergies No known active allergiesdocumented as of this encounter (statuses as of 05/04/2024) Medications Water For Irrigation, Sterile (FEED TUBE WATER) TF Administer 150 mL into J tube every 6 hours. 500 Each 10 09/01/19 24 Active Compleat Peptide 1.5 Oral LiquidIndications: Esophageal adenocarcinoma (HCC),Severe protein-energy malnutrition (HCC) Administer 7 bottles daily (1750 mL daily) through J tube at 100 ml/hr x 17.5 hrs via feeding pump 40232 mL 6 10/14/19 24 Active Additional Information Patient not taking.Reported on 04/27/2024 documented as of this encounter (statuses as of 05/04/2024) Active Problems Problem Noted Date Diagnosed Date Iron deficiency anemia secon florentin to inadequate dietary iron intake 04/07/2024 History of esophageal cancer 02/09/2024 H/O insertion of central venous access port 10/01 Esophageal adenocarcinoma 08/28/2023 Erosive esophagitis 08/15/2023 Severe protein-energy malnutrition 08/14/2023 Esophageal dysphagia 08/12/2023 documented as of this encounter (statuses as of 05/04/2024) Resolved Problems Problem Noted Date Diagnosed Date Resolved Date Preop examination 12/19/2023 02/05/2024 Esophageal mass 08/17/2023 08/28/2023 Dehydration 08/14/2023 08/17/2023 Gastroesophageal reflux dise ase with esophagitis without hemorrhage 08/14/2023 Loss of weight 08/12/2023 08/21/2023 NO KNOWN PROBLEMS 03/28/2006 08/12/2023 documented as of this encounter (statuses as of 05/04/2024) Immunizations No known immunizationsdocumented as of this [...] 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 Requesting to have it done at [facility]. Requesting a return call at [phone]. documented in this encounter Plan of Treatment Upcoming Encounters Date Type Department Care Team (Late st Contact Info) Description 05/06/2024 11:00 AM EST Appointment Ancillary Special Procedures, [place] [id number] [place] [address] 05/13/2024 1:40 PM EST Office Visit [address] [phone] Nina Blanco MD [address] [place] [phone] 06/09/2024 12:20 PM EST Office Visit Nutrition & Weight Management, [place] [address] [place] [address] Nina Larson PA-C [address] [place] [address] Health Maintenance Due Date Last Done Comments [...] this encounter Medical Devices Implanted Type Area Prepress Specialist Device Identifier Shelf Expiration Date Model / Serial / Lot Agile Eso Fc 2318mm 11.9cm - [id number] Implanted:Qty : 1 on 08/15/2023 by Liang Barrios DO at OR [facility] [employer] : ENDOSCOPY [id number] 04/09/2025 [id number] / / [id number] Cath Power Port 6fr Clearvue - [id number] Implanted:Qty : 1 on 08/29/2023 by Efe Tadeo MD at [place] [facility] [place]: Chest CR BARD : PERIPHERAL VASCULAR 09/30/2023 [id number] / / [id number] documented as of this encounter Advance Directives [...] Advance Directives occurred with: Patient Care Teams Garment Looper Relationship Specialty Start Date End Date Nina Blanco MD [address] [place] [phone] PCP - General Family Medicine 08/21/23 documented as of this encounter
--- OUTSIDE RECORDS SUMMARY | 2024-05-27 05:26 | External Medical Summary | Summary of Care ---
Author Name Unknown Organization [facility] Address [address] [place] [address] Phone [phone] Care Team Providers Care Senior Process Analyst Name Role Phone Nina Blanco MD Primary Care Provi [facility] Encounter Details Date Type Department Care Team (Late st Contact Info) Description 01/22/2024 Telephone Home Infusion, [address] [phone] Rosamaria Ruelas, [facility] [address] [place] [address] Allergies No known active allergiesdocumented as of this encounter (statuses as of 04/22/2024) Medications Water For Irrigation, Sterile (FEED TUBE WATER) TF Administer 150 mL into J tube every 6 hours. 500 Each 10 024 Active Compleat Peptide 1.5 Oral LiquidIndications :Esophageal adenocarcinoma (HCC),Severe protein-energy malnutrition (HCC) Administer 7 bottles daily (1750 mL daily) through J tube at 100 ml/hr x 17.5 hrs via feeding pump 08245 mL 6 024 Active Additional Information Patient not taking.Reported on 03/29/2024 Liquid Hope Peptide Sargent Oral Liquid Administer 5 pouches daily as directed through feeding tube via feeding pump at 100 ml/hr x 17 hours. 53199 g 11 024 2023 Discontinued documented as of this encounter (statuses as of 04/22/2024) Active Problems Problem Noted Date Diagnosed Date Iron deficiency anemia secon florentin to inadequate dietary iron intake 04/07/2024 History of esophageal cancer 02/09/2024 H/O insertion of central venous access port 10/01 Esophageal adenocarcinoma 08/28/2023 Erosive esophagitis 08/15/2023 Severe protein-energy malnutrition 08/14/2023 Esophageal dysphagia 08/12/2023 documented as of this encounter (statuses as of 04/22/2024) Resolved Problems Problem Noted Date Diagnosed Date Resolved Date Preop examination 12/19/2023 02/05/2024 Esophageal mass 08/17/2023 08/28/2023 Dehydration 08/14/2023 08/17/2023 Gastroesophageal reflux dise ase with esophagitis without hemorrhage 08/14/2023 Loss of weight 08/12/2023 08/21/2023 NO KNOWN PROBLEMS 03/28/2006 08/12/2023 documented as of this encounter (statuses as of 04/22/2024) Immunizations No known immunizationsdocumented as of this [...] 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 on 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 Not [...] Care Team (Late st Contact Info) Description 05/03/2024 11:00 AM EST Nurse Only Hematology/Oncology Treatment, [place] [address] [place] [address] Lanette, Chair 3 Hem Onc [place] [address] [place] [address] 05/13/2024 1:40 PM EST Office Visit Family [address] [phone] Nina Blanco MD [address] [place] [phone] 06/09/2024 12:20 PM EST Office Visit Nutrition & Weight Management, [place] [address] [place] [address] Nina Larson PA-C [address] [place], [place] [phone] Health Maintenance Due Date Last Done Comments [...] this encounter Medical Devices Implanted Type Area Speaking Unit Assembler Device Identifier Shelf Expiration Date Model / Serial / Lot Agile Eso Fc 2318mm 11.9cm - [id number] Implanted:Qty : 1 on 08/15/2023 by Liang Barrios DO at OR [facility] : ENDOSCOPY [id number] 04/09/2025 [id number] / / [id number] Cath Power Port 6fr Clearvue - [id number] Implanted:Qty : 1 on 08/29/2023 by Efe Tadeo MD [place] [facility] [place]: Chest CR BARD : PERIPHERAL VASCULAR 09/30/2023 [id number] / / [id number] documented as of this encounter Advance Directives [...] Advance Directives occurred with: Patient Care Teams Senior Process Analyst Relationship Specialty Start Date End Date Nina Blanco MD [address] [place] [phone] PCP - General Family Medicine 08/21/23 documented as of this encounter
--- OUTSIDE RECORDS SUMMARY | 2024-05-27 05:26 | External Medical Summary | Summary of Care ---
Author Name Unknown Organization [facility] Address [address] [place] [address] Phone [phone] Care Team Providers Care Mainspring Torque Tester Name Role Phone Nina Blanco MD Primary Care Provi mario Reason for Visit * Reason Onset Date Comments Order Request 05/06/2024 Encounter Details Date Type Department Care Team (Late st Contact Info) Description 05/06/2024 Telephone Hematology/Oncology Treatment, [place] [address] [place] [address] Nina Blanco MD [address] [place] [phone] Order Request Allergies No known active [...] ml/hr x 17.5 hrs via feeding pump 94884 mL 6 10/14/19 24 Active Additional Information Patient not taking.Reported on 04/27/2024 [employer] Peptide 1.5 Oral Liquid Administer 1625 ml daily as directed at 135 ml/hr for 12 hours through J tube via feeding pump. 80769 mL 6 02/17/20 24 Active Additional Information Patient not taking.Reported on 04/27/2024 Liquid Hope Peptide Sargent Oral LiquidIndications: Esophageal adenocarcinoma (HCC) Administer 5 pouches daily as directed through feeding tube via feeding pump at 100 ml/hr x 17 hours. 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 Awaiting signature and will route to [facility] for scheduling. * Telephone Encounter - Sherry Joyce CRNP - 05/10/2024 9:11 AM EST Inboxologist Covering Provider All replies or additional communication must be routed to the PCP ORDER signed * Telephone Encounter - Hailey Kowalski RN - 05/06/2024 12:57 PM EST Received message from [facility]- patient there for port flush, [...] Upcoming Encounters Date Type Department Care Team ([facility] st Contact Info) Description 05/13/2024 1:40 PM EST Office Visit [address] [phone] Nina Blanco MD [address] [place] [phone] 06/09/2024 12:20 PM EST [facility] [address] [place] [address] Nina Larson PA-C [address] [place] [address] Health Maintenance Due Date Last Done Comments [...] this encounter Medical Devices Implanted Type Area Hot Bread Baker Device Identifier Shelf Expiration Date Model / Serial / Lot Agile Eso Fc 2318mm 11.9cm - [id number] Implanted:Qty : 1 on 08/15/2023 by Liang Barrios DO at OR [facility] [employer] : ENDOSCOPY [id number] 04/09/2025 [id number] / / [id number] Cath Power Port 6fr Clearvue - [id number] Implanted:Qty : 1 on 08/29/2023 by Efe Tadeo MD [place] [facility] [place]: Chest CR BARD : PERIPHERAL VASCULAR 09/30/2023 [id number] / / [id number] documented as of this encounter Visit Diagnoses [...] Advance Directives occurred with: Patient Care Teams Mainspring Torque Tester Relationship Specialty Start Date End Date Nina Blanco MD [address] [place] [phone] PCP - General Family Medicine 08/21/23 documented as of this encounter
--- OUTSIDE RECORDS SUMMARY | 2024-05-27 05:26 | External Medical Summary ---
Author Name Unknown Address Unknown Organization [id number][facility] [address] [place] [address] Laboratory Report Ordering Provider Test Date Status HAYLIE MICHELE 04/27/2024 16:16:23 Final Observation Date Value Abnormality Reference (Units ) Status WBC, Total 04/27/2024 16:16:23 18.27 Above high normal 4 .00-10.80 (K/uL) Final RBC 04/27/2024 16:16:23 4.06 4.50-5.25 (M/uL) Final Hemoglobin 04/27/2024 16:16:23 12.6 Below low normal 14 .0-16.8 (g/dL) Final HCT 04/27/2024 16:16:23 38.9 Below low normal 40. 0-48.4 (%) Final MCV 04/27/2024 16:16:23 95.8 82.0-99.5 (fL) Final MCH 04/27/2024 16:16:23 31.0 27.0-34.0 (pg) Final MCHC 04/27/2024 16:16:23 32.4 32.0-36.0 (g/dL) Final RDW 04/27/2024 16:16:23 15.0 11.5-15.5 (%) Final Platelets 04/27/2024 16:16:23 399 140-400 (K /uL) Final MPV 04/27/2024 16:16:23 8.9 6.6-11.1 ( fL) Final Performing Location [facility] [place] [address]
--- OUTSIDE RECORDS SUMMARY | 2024-05-27 05:26 | External Medical Summary | Summary of Care ---
Author Name Unknown Organization [facility] Address [address] [place] [address] Phone [phone] Care Team Providers Care Keno Clerk Name Role Phone Nina Blanco MD Primary Care Provi mario Encounter Details Date Type Department [facility] ([facility] Contact Info) Description 04/27/[address] [phone] Nina Blanco MD [address] [place] [phone] Allergies No known active allergiesdocumented as of this encounter (statuses as of 04/27/2024) Medications Water For Irrigation, Sterile (FEED TUBE WATER) TF Administer 150 mL into J tube every 6 hours. 500 Each 10 09/01/19 24 Active Compleat Peptide 1.5 Oral LiquidIndications: Esophageal adenocarcinoma (HCC),Severe protein-energy malnutrition (HCC) Administer 7 bottles daily (1750 mL daily) through J tube at 100 ml/hr x 17.5 hrs via feeding pump 68644 mL 6 10/14/19 24 Active Additional Information Patient not taking.Reported on 03/29/2024 [employer] Peptide 1.5 Oral Liquid Administer 1625 ml daily as directed at 135 ml/hr for 12 hours through J tube via feeding pump. 19283 mL 6 02/17/20 Active Liquid Hope Peptide Sargent Oral LiquidIndications: Esophageal adenocarcinoma (HCC) Administer 5 pouches daily as directed through feeding tube via feeding pump at 100 ml/hr x 17 hours. 678463 g 04/16/20 24 025 Active documented as of this encounter (statuses as of 04/27/2024) Active Problems Problem Noted Date Diagnosed Date Iron deficiency anemia secon florentin to inadequate dietary iron intake 04/07/2024 History of esophageal cancer 02/09/2024 H/O insertion of central venous access port 10/01 Esophageal adenocarcinoma 08/28/2023 Erosive esophagitis 08/15/2023 Severe protein-energy malnutrition 08/14/2023 Esophageal dysphagia 08/12/2023 documented as of this encounter (statuses as of 04/27/2024) Resolved Problems Problem Noted Date Diagnosed Date Resolved Date Preop examination 12/19/2023 02/05/2024 Esophageal mass 08/17/2023 08/28/2023 Dehydration 08/14/2023 08/17/2023 Gastroesophageal reflux dise ase with esophagitis without hemorrhage 08/14/2023 Loss of weight 08/12/2023 08/21/2023 NO KNOWN PROBLEMS 03/28/2006 08/12/2023 documented as of this encounter (statuses as of 04/27/2024) Immunizations No known immunizationsdocumented as of this [...] 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 (5 years old or older) Answer Entry Date Author No 08/28/2023 5:33 PM Rosey Rice RN documented in this encounter Miscellaneous Notes * Telephone Encounter - Nina Blanco MD - 04/27/2024 10:42 AM EST Labs ordered to reassess iron deficiency anemia documented in this encounter Plan of Treatment Upcoming Encounters Date Type Department Care Team (Late st Contact Info) Description 04/27/2024 3:40 PM EST Office Visit Nutrition & Weight Management, [facility] [address] [facility] [place] [address] Marycruz Galvan PA-C [address] [facility] [place] [address] 05/03/2024 11:00 AM EST Nurse Only Hematology/Oncology Treatment, [place] [address] [place] [phone] Lanette, Chair 3 Hem Onc [facility] [address] [place] [address] 05/13/2024 1:40 PM EST Office [address] [phone] Nina Blanco MD [address] [place] [phone] 06/09/2024 12:20 PM EST Office Visit Nutrition & Weight Management, [place] [address] [place] [address] Nina Larson PA-C [address] [place], [place] [phone] Scheduled Orders Name Type Priority Associated Diagnoses Orde r Schedule CBC WITH WBC DIFFERENTIAL Lab Routine Iron deficiency anemia, unspecified iron deficiency anemia type Expected: 04/27/2024 (Approximate), Expires: 04/27/2025 FERRITIN Lab Routine Iron deficiency anemia, unspecified iron deficiency anemia type Expected: 04/27/2024 (Approximate), Expires: 04/27/2025 IRON SCREEN, INCLUDING TIBC Lab Routine Iron deficiency anemia, unspecified iron deficiency anemia type Expected: 04/27/2024 (Approximate), Expires: 04/27/2025 Health Maintenance Due Date Last Done Comments [...] this encounter Medical Devices Implanted Type Area Fire Technician Device Identifier Shelf Expiration Date Model / Serial / Lot Agile Eso Fc 2318mm 11.9cm - [id number] Implanted:Qty : 1 on 08/15/2023 by Liang Barrios DO at OR [facility] : ENDOSCOPY [id number] 04/09/2025 [id number] / / [id number] Cath Power Port 6fr Clearvue - [id number] Implanted:Qty : 1 on 08/29/2023 by Efe Tadeo MD at [place] [facility] [place] Right: Chest CR BARD : PERIPHERAL VASCULAR 09/30/2023 [id number] / / [id number] documented as of this encounter Visit Diagnoses Diagnosis Iron deficiency anemia, unspecified iron deficiency anemia type- Primary documented in this encounter Advance Directives [...] Advance Directives occurred with: Patient Care Teams Keno Clerk Relationship Specialty Start Date End Date Nina Blanco MD [address] [place] [phone] PCP - General Family Medicine 08/21/23 documented as of this encounter
--- OUTSIDE RECORDS SUMMARY | 2024-05-27 05:26 | External Medical Summary | Summary of Care ---
Author Name Unknown Organization [facility] Address [address] [place] [address] Phone [phone] Care Team Providers Care Web Sizer Name Role Phone Nina Blanco MD Primary Care Provi mario Reason for Visit * Reason Onset Date Comments Order Request 05/06/2024 Encounter Details Date Type Department Care Team (Late st Contact Info) Description 05/06/2024 Telephone Hematology/Oncology Treatment, [place] [address] [place] [address] Nina Blanco MD [address] [place] [phone] Order Request Allergies No known active [...] ml/hr x 17.5 hrs via feeding pump 30350 mL 6 10/14/19 24 Active Additional Information Patient not taking.Reported on 04/27/2024 Irma Farms Peptide 1.5 Oral Liquid Administer 1625 ml daily as directed at 135 ml/hr for 12 hours through J tube via feeding pump. 12439 mL 6 02/17/20 24 Active Additional Information Patient not taking.Reported on 04/27/2024 Liquid Hope Peptide Sargent Oral LiquidIndications: Esophageal adenocarcinoma (HCC) Administer 5 pouches daily as directed through feeding tube via feeding pump at 100 ml/hr x 17 hours. 293726 g 04/16/20 24 025 Active documented as [...] No 09/03/2023 Does the household have a [facility] source of income? (Household - for ages [...] EDRosey Romero RN * Do you have difficulty dressing [...] encounter Miscellaneous Notes * Telephone Encounter - Sherry Joyce CRNP - 05/10/2024 9:11 AM EST Inboxologist Covering Provider All replies or additional communication must be routed to the PCP ORDER signed * Telephone Encounter - Hailey Kowalski RN - 05/06/2024 12:57 PM EST Received message from [facility]- patient there for port [...] Description 05/13/2024 1:40 PM EST Office Visit [facility] [address] [place] [phone] Nina Blanco MD [address] [place] [phone] 06/09/2024 12:20 PM EST Office Visit Nutrition & Weight Management, [place] [address] [place] [address] Nina Larson PA-C [address] [place], [place] [phone] Health Maintenance Due Date Last Done Comments [...] encounter Medical Devices Implanted Type Area Catalyst Plant Supervisor Device Identifier Shelf Expiration Date Model / Serial / Lot Agile Eso Fc 2318mm 11.9cm - [id number] Implanted:Qty : 1 on 08/15/2023 by Liang Barrios DO at OR [facility] [employer] : ENDOSCOPY [id number] 04/09/2025 [id number] / / [id number] Cath Power Port 6fr Clearvue - [id number] Implanted:Qty : 1 on 08/29/2023 by Efe Tadeo MD at [facility] Right: Chest CR BARD : PERIPHERAL VASCULAR 09/30/2023 [id number] / / [id number] documented as of this encounter Visit Diagnoses [...] Advance Directives occurred with: Patient Care Teams Web Sizer Relationship Specialty Start Date End Date Nina Blanco MD [address] [place] [phone] PCP - General Family Medicine 08/21/23 documented as of this encounter
--- OUTSIDE RECORDS SUMMARY | 2024-05-27 05:26 | External Medical Summary | Summary of Care ---
Author Name Unknown Organization [facility] Address [address] [facility] [place] [address] Phone [phone] Care Team Providers Care Aeroplane Pilot Name Role Phone Nina Blanco MD Primary Care Provi mario Encounter Details Date Type Department Care Team ([facility] [address] Contact Info) Description 05/10/2024 Orders Only Family Practice [address] [phone] Nina Blanco MD [address] [place] [phone] Allergies No known active allergiesdocumented as [...] ml/hr x 17.5 hrs via feeding pump 69243 mL 6 10/14/19 24 Active Additional Information Patient not taking.Reported on 04/27/2024 Irma Farms Peptide 1.5 Oral Liquid Administer 1625 ml daily as directed at 135 ml/hr for 12 hours through J tube via feeding pump. 56149 mL 6 02/17/20 24 Active Additional Information Patient not taking.Reported on 04/27/2024 Liquid Hope Peptide Sargent Oral LiquidIndications: Esophageal adenocarcinoma (HCC) Administer 5 pouches daily as directed through feeding tube via feeding pump at 100 ml/hr x 17 hours. 070327 g 04/16/20 24 025 Active documented as [...] No 09/03/2023 Does the household have a [facility] source of income? 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 on file Not [...] Description 05/13/2024 1:40 PM EST Office Visit [address] [phone] Nina Blanco MD [address] [place] [phone] 06/09/2024 12:20 PM EST Office Visit Nutrition & Weight Management, [place] [address] [place] [address] [facility] [address] [place] [address] Health Maintenance Due Date Last Done Comments [...] this encounter Medical Devices Implanted Type Area De Alcholizer Device Identifier Shelf Expiration Date Model / Serial / Lot Agile Eso Fc 2318mm 11.9cm - [id number] Implanted:Qty : 1 on 08/15/2023 by Liang Barrios DO at OR [facility] [employer] : ENDOSCOPY [id number] 04/09/2025 [id number] / / [id number] Cath Power Port 6fr Clearvue - [id number] Implanted:Qty : 1 on 08/29/2023 by Efe Tadeo MD at [place] [facility] [place] Right: Chest CR BARD : PERIPHERAL VASCULAR 09/30/2023 [id number] / / [id number] documented as of this encounter Advance Directives [...] Advance Directives occurred with: Patient Care Teams Aeroplane Pilot Relationship Specialty Start Date End Date Nina Blanco MD [address] [place] [phone] PCP - General Family Medicine 08/21/23 documented as of this encounter
--- OUTSIDE RECORDS SUMMARY | 2024-05-27 05:26 | External Medical Summary | Summary of Care ---
Author Name Unknown Organization [facility] Address [address] [facility] [place] [address] Phone [phone] Care Team Providers Care Metal Finish Inspector Name Role Phone Nina Blanco MD Primary Care Provi mario Reason for Visit * Reason Comments Home Tube Feeding The pt stated he dev eloped a granuloma about a week ago. Then he saw [facility] and now he is here for assessment and treatment Encounter Details Date Type Department Care Team (Late st Contact Info) Description 04/27/2024 3:40 PM EST Office Visit Nutrition & Weight Management, [facility] [address] [facility] [place] [address] Marycruz Galvan PA-C [address] [facility] [place] [address] Jejunostomy tube leak (HCC)*; Granulation tissue Allergies No known active allergiesdocumented as of [...] ml/hr x 17.5 hrs via feeding pump 52681 mL 6 10/14/19 24 Active Additional Information Patient not taking.Reported on 04/27/2024 Irma Farms Peptide 1.5 Oral Liquid Administer 1625 ml daily as directed at 135 ml/hr for 12 hours through J tube via feeding pump. 10280 mL 6 02/17/20 24 Active Additional Information Patient not taking.Reported on 04/27/2024 Liquid Hope Peptide Sargent Oral LiquidIndications: Esophageal adenocarcinoma (HCC) Administer 5 pouches daily as directed through feeding tube via feeding pump at 100 ml/hr x 17 hours. 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 Not on file Not on file documented as of this encounter Last Filed Vital Signs Vital Sign Reading Time Taken Comments Blood Pressure 112/72 04/27/2024 3:46 PM EST Pulse 94 04/27/2024 3:46 PM EST Temperature 36.3 C (97.3 F) 04/27/2024 3:46 PM ES T Respiratory Rate - - Oxygen Saturation - - Inhaled Oxygen Concentration - - Weight 71.9 kg (158 lb 8 oz) 04/27/2024 3:46 PM EST Height 189.2 cm (6' 2.49") 04/27/2024 3:46 PM ES T Body Mass Index 20.08 04/27/2024 3:46 PM EST documented in this [...] documented in this encounter Progress Notes * Marycruz Galvan PA-C - 04/27/2024 3:52 PM EST GI NUTRITION TUBE CHANGE Lauro Martines presents to the clinic today for follow-up. The patient has a 14F 3.[address] The current tube was placed 03/16/24 The patient presents today for a tube check He has noted proud flesh/granuloma Some drainage Minimal erythema without warmth or tenderness, no fevers Tried triamcinolone cream Area cleaned and silver nitrate applied to granulomatous tissue Recommend monitoring the area for changes, any signs of worsening redness, warmth, drainage, fevers Follow up in [place] as scheduled for tube changes Patient tolerated procedure well. BP 112/72 | Pulse 94 | Temp 36.3 C (97.3 F) (Tympanic) | Ht 1.892 m (6' 2.49") | Wt 71.9 kg (158 lb 8 oz) | BMI 20.08 kg/m | BSA 1.94 m Weight is stable. Assessment and Plan: Continue current tube feeding cycle. Education provided regarding follow-up care and emergency measures. Marycruz Galvan PA-C, [facility] Nutrition and Weight Management [facility] ([facility]) documented in this encounter Nursing Notes * Piter Cooper LPN - 04/27/2024 4:24 PM EST Chief Complaint Patient presents with Home Tube Feeding The pt stated he developed a granuloma about a week ago. Then he saw [facility] and now he is here for assessment and treatment documented in this encounter Plan of Treatment Upcoming Encounters Date Type Department Care Team (Late st Contact Info) Description 05/03/2024 11:00 AM EST Nurse Only Hematology/Oncology Treatment, [place] [facility] [phone] [place], Chair 3 Hem Onc [facility] [address] [facility] [address] 05/13/2024 1:40 PM EST Office Visit [address] [phone] Nina Blanco MD [address] [place] [phone] 06/09/2024 12:20 PM EST Office Visit Nutrition & Weight Management, [place] [address] [place] [address] Mc[facility]ina burns PA-C [address] [place] [address] Health Maintenance Due Date Last Done Comments [...] this encounter Medical Devices Implanted Type Area Mule Operator Device Identifier Shelf Expiration Date Model / Serial / Lot Agile Eso Fc 2318mm 11.9cm - [id number] Implanted:Qty : 1 on 08/15/2023 by Liang Barrios DO at OR [facility] [employer] : ENDOSCOPY [id number] 04/09/2025 [id number] / / [id number] Cath Power Port 6fr Clearvue - [id number] Implanted:Qty : 1 on 08/29/2023 [place] Efe Tade[place] MD [place] [facility] [place]: Chest CR BARD : PERIPHERAL VASCULAR 09/30/2023 [id number] / / [id number] documented as of this encounter Visit Diagnoses Diagnosis Jejunostomy tube leak (HCC)- Primary Mechanical complication of colostomy and enterostomy Granulation tissue documented in this encounter Advance Directives * [...] Directives occurred with: Patient Care Teams Metal Finish Inspector Relationship Specialty Start Date End Date Nina Blanco MD [address] [place] [phone] PCP - General Family Medicine 08/21/23 documented as of this encounter
--- OUTSIDE RECORDS SUMMARY | 2024-05-27 05:26 | External Medical Summary ---
Author Name Unknown Address Unknown Organization K01:LABORATORY C - [address] [facility] [place] [address] Laboratory Report Ordering Provider Test Date Status HAYLIE MICHELE 04/27/2024 16:16:23 Final Observation Date Value Abnormality Reference (Units ) Status Ferritin 04/27/2024 16:16:23 224 30-400 (ng /mL) Final Performing Location [facility] - [address] [place] [address]
--- OUTSIDE RECORDS SUMMARY | 2024-05-27 05:26 | External Medical Summary | Summary of Care ---
Author Name Unknown Organization [facility] Address [address] [place] [address] Phone [phone] Care Team Providers Care Installation Coordinator Name Role Phone Nina Blanco MD Primary Care Provi mario Reason for Visit * Reason Onset Date Comments Other 05/03/2024 Encounter Details Date Type Department Care Team ([facility] st Contact Info) Description 05/03/2024 Telephone Family [address] [phone] Nina Blanco MD [address] [place] [phone] Other Allergies No known active allergiesdocumented as of this encounter (statuses as of 05/03/2024) Medications Water For Irrigation, Sterile (FEED TUBE WATER) TF Administer 150 mL into J tube every 6 hours. 500 Each 10 09/01/19 24 Active Compleat Peptide 1.5 Oral LiquidIndications: Esophageal adenocarcinoma (HCC),Severe protein-energy malnutrition (HCC) Administer 7 bottles daily (1750 mL daily) through J tube at 100 ml/hr x 17.5 hrs via feeding pump 71342 mL 6 10/14/19 24 Active Additional Information Patient not taking.Reported on 04/27/2024 Irma Farms Peptide 1.5 Oral Liquid Administer 1625 ml daily as directed at 135 ml/hr for 12 hours through J tube via feeding pump. 65201 mL 6 02/17/20 24 Active Additional Information Patient not taking.Reported on 04/27/2024 Liquid Hope Peptide Sargent Oral LiquidIndications: Esophageal adenocarcinoma (HCC) Administer 5 pouches daily as directed through feeding tube via feeding pump at 100 ml/hr x 17 hours. 242417 g 04/16/20 24 025 Active documented as of this encounter (statuses as of 05/03/2024) Active Problems Problem Noted Date Diagnosed Date Iron deficiency anemia secon florentin to inadequate dietary iron intake 04/07/2024 History of esophageal cancer 02/09/2024 H/O insertion of central venous access port 10/01 Esophageal adenocarcinoma 08/28/2023 Erosive esophagitis 08/15/2023 Severe protein-energy malnutrition 08/14/2023 Esophageal dysphagia 08/12/2023 documented as of this encounter (statuses as of 05/03/2024) Resolved Problems Problem Noted Date Diagnosed Date Resolved Date Preop examination 12/19/2023 02/05/2024 Esophageal mass 08/17/2023 08/28/2023 Dehydration 08/14/2023 08/17/2023 Gastroesophageal reflux dise ase with esophagitis without hemorrhage 08/14/2023 Loss of weight 08/12/2023 08/21/2023 NO KNOWN PROBLEMS 03/28/2006 08/12/2023 documented as of this encounter (statuses as of 05/03/2024) Immunizations No known immunizationsdocumented as of this [...] No 09/03/2023 Does the household have a [facility] source of income? 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 He verbalized understanding and will await contact from infusion center. Zuri Martinez RN * Telephone Encounter - Nina Blanco MD - 05/03/2024 11:05 AM EST Iron infusion ordered - patient should be contacted by infusion center to arrange scheduling * Telephone Encounter - Zuri Martinez RN - 05/03/2024 8:31 AM EST Incoming call from [place] and his stating that their geophysical party chief feels he would benefit froman iron infusion. Stated it was not their [facility] geophysical party chief that recommended this. If an iron infusion is indicated they would like to have his port flush completed at the same time. Please review and advise. Zuri Martinez RN documented in this encounter Plan of Treatment Upcoming Encounters Date Type Department Care Team ([facility] st Contact Info) Description 05/13/2024 1:40 PM EST Office Visit [facility] [address] [place] [phone] Nina Blanco MD [address] [place] [phone] 06/09/2024 12:20 PM EST Office Visit Nutrition & Weight Management, [place] [address] [place], [place] [phone] Nina Larson PA-C [address] [place], [place] [phone] Health Maintenance Due Date Last Done Comments [...] this encounter Medical Devices Implanted Type Area Cath Lab Manager Device Identifier Shelf Expiration Date Model / Serial / Lot Adeline Ogden Fc 2318mm 11.9cm - [id number] Implanted:Qty : 1 on 08/15/2023 by Liang Barrios DO at OR [facility] [employer] : ENDOSCOPY [id number] 04/09/2025 [id number] / / [id number] Cath Power Port 6fr Clearvue - [id number] Implanted:Qty : 1 on 08/29/2023 by Efe Tadeo MD [place] [facility] [place]: Chest CR BARD : PERIPHERAL VASCULAR 09/30/2023 [id number] / / [id number] documented as of this encounter Visit Diagnoses Diagnosis Other iron deficiency anemia- Primary Esophageal adenocarcinoma (HCC) Malignant neoplasm of esophagus, [...] Advance Directives occurred with: Patient Care Teams Installation Coordinator Relationship Specialty Start Date End Date Nina Blanco MD [address] [place] [phone] PCP - General Family Medicine 08/21/23 documented as of this encounter
--- OUTSIDE RECORDS SUMMARY | 2024-05-27 05:26 | External Medical Summary | Summary of Care ---
Author Name Unknown Organization [facility] Address [address] [facility] [address] Phone [phone] Care Team Providers Care Patient Ambassador Name Role Phone Nina Blanco MD Primary Care Provi [facility] Encounter Details Date Type Department Care Team (Late st Contact Info) Description 05/10/2024 Orders Only Hematology/Oncology [facility] [place] [address] [facility] [place] [phone] Nina Blanco MD [address] [place] [phone] Allergies No known active allergiesdocumented as [...] ml/hr x 17.5 hrs via feeding pump 54363 mL 6 10/14/19 24 Active Additional Information Patient not taking.Reported on 04/27/2024 Irma Farms Peptide 1.5 Oral Liquid Administer 1625 ml daily as directed at 135 ml/hr for 12 hours through J tube via feeding pump. 37315 mL 6 02/17/20 24 Active Additional Information Patient not taking.Reported on 04/27/2024 Liquid Hope Peptide Sargent Oral LiquidIndications: Esophageal adenocarcinoma (HCC) Administer 5 pouches daily as directed through feeding tube via feeding pump at 100 ml/hr x 17 hours. 406382 g 04/16/20 24 025 Active documented as [...] No 09/03/2023 Does the household have a [facility] source of income? (Household - for [...] Description 05/13/2024 1:40 PM EST Office Visit [address] [phone] Nina Blanco MD [address] [place] [phone] 06/09/2024 12:20 PM EST Office Visit Nutrition & Weight Management, [place] [address] [place] [address] [facility] [address] [place] [address] Health Maintenance Due Date Last Done Comments Hepatitis C Screening 12/07/1965 Zoster Vaccines (1 of 2) 12/07/1997 Pneumococcal Vaccine: 65+ Ye ars (1 of 1 - PCV) 12/07/2012 Adult Wellness Visit 12/07/2013 COVID-19 Vaccine (2023-2 5 season) 2024 Influenza Vaccine (FLU shot) [...] this encounter Medical Devices Implanted Type Area Desk Manager Device Identifier Shelf Expiration Date Model / Serial / Lot Agile Eso Fc 2318mm 11.9cm - [id number] Implanted:Qty : 1 on 08/15/2023 by Liang Barrios DO at OR [facility] [employer] : ENDOSCOPY [id number] 04/09/2025 [id number] / / [id number] Cath Power Port 6fr Clearvue - [id number] Implanted:Qty : 1 on 08/29/2023 by Efe Tadeo MD [place] [facility] [place]: Chest CR BARD : PERIPHERAL VASCULAR 09/30/2023 [id number] / / [id number] documented as of this encounter Advance Directives [...] Advance Directives occurred with: Patient Care Teams Patient Ambassador Relationship Specialty Start Date End Date Nina Blanco MD [address] [place] [phone] PCP - General Family Medicine 08/21/23 documented as of this encounter
--- OUTSIDE RECORDS SUMMARY | 2024-05-27 05:26 | External Medical Summary ---
Author Name Unknown Address Unknown Organization K01:LAB[facility]ATORY [facility] [place] [facility] - [address] [place] [address] Laboratory Report Ordering Provider Test Date Status HAYLIE MICHELE 04/27/2024 16:16:23 Final Observation Date Value Abnormality Reference (Units ) Status Iron 04/27/2024 16:16:23 33 Below low normal 45-176 (ug/dL) Final Iron-binding capacity 04/27/2024 16:16:23 353 250-425 (ug/dL) Final Transferrin Sat % 04/27/2024 16:16:23 9 Below low normal 15-55 (%) Final Performing Location LAB[facility]ORY [facility] [place] [facility] - [address] [place] [address]
--- OUTSIDE RECORDS SUMMARY | 2024-05-27 05:26 | External Medical Summary | Summary of Care ---
Author Name Unknown Organization [facility] Address [address] [place] [address] Phone [phone] Care Team Providers Care Project Lead Name Role Phone Nina Blanco MD Primary Care Provi mario Reason for Visit * Reason Onset Date Comments Other 04/16/2024 Encounter Details Date Type Department Care Team ([facility] st Contact Info) Description 04/16/2024 Telephone Family [address] [phone] Nina Blanco MD [address] [place] [phone] Other Allergies No known active allergiesdocumented as of this encounter (statuses as of 04/27/2024) Medications Water For Irrigation, Sterile (FEED TUBE WATER) TF Administer 150 mL into J tube every 6 hours. 500 Each 09/01/19 24 Active Compleat Peptide 1.5 Oral LiquidIndications: Esophageal adenocarcinoma (HCC),Severe protein-energy malnutrition (HCC) Administer 7 bottles daily (1750 mL daily) through J tube at 100 ml/hr x 17.5 hrs via feeding pump 61657 mL 6 10/14/19 24 Active Additional Information Patient not taking.Reported on 03/29/2024 [employer] Peptide 1.5 Oral Liquid Administer 1625 ml daily as directed at 135 ml/hr for 12 hours through J tube via feeding pump. 18181 mL 6 02/17/20 Active Liquid Hope Peptide Oral LiquidIndications: Esophageal adenocarcinoma (HCC),Severe protein-energy malnutrition (HCC) Administer 5 pouches daily as directed through feeding tube via feeding pump at 100 ml/hr x 17 hours 69347 g 11 04/13/20 24 024 Discontin ued(Medic ation List Clean Up) Liquid Hope Peptide Sargent Oral Liquid Pump - Administer 5 pouches daily as directed through feeding tube via feeding pump at 100ml/hr x 17 hours 78462 g 04/16/20 24 024 Discontin ued(Medic ation List Clean [...] No 09/03/2023 Does the household have a [facility] source of income? 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 Not on file Not [...] encounter Miscellaneous Notes * Telephone Encounter - Mitchell Oropeza PA-C - 04/16/2024 2:13 PM EST Pharmacy Selected: [facility] Medication Orders Placed This Encounter Medications Liquid Hope Peptide Sargent Oral Liquid Sig: Pump - Administer 5 pouches daily as directed through feeding tube via feeding pump at 100ml/hr x 17 hours Dispense: 99031 g Refill: 11 * Telephone Encounter - Zuri Martinez RN - 04/16/2024 1:58 PM EST CM received incoming call from [facility] stating that there are no suppliers able to obtain Liquid Hope Peptide formula. They are requesting to return to Liquid Hope Sargent formula for tube feedsand would like to continue with [facility] for supplier. Please place order for Liquid Hope Sargent as requested by patient. He previously was using [employer] formula which he had concerns regarding the sugar content. He is trying to limit sugar content with active cancer and Liquid Hope Sargent will better meet his needs. documented in this encounter Plan of Treatment Upcoming Encounters Date Type Department Care Team (Late st Contact Info) Description 04/27/2024 3:40 PM EST Office Visit Nutrition & Weight Management, [facility] [place] [address] Marycruz Galvan PA-C [address] [place] [address] 05/03/2024 11:00 AM EST Nurse Only Hematology/Oncology Treatment, [address] [phone] Lanette, Chair [address] Hem [address] [address] 05/13/2024 1:40 PM EST Office Visit [address] [phone] Nina Blanco MD [address] [place] [phone] 06/09/2024 12:20 PM EST Office Visit Nutrition & Weight Management, [place] [address] [place], [place] [phone] Nina Larson PA-C [address] [place], [place] [phone] Health Maintenance Due Date Last Done Comments [...] this encounter Medical Devices Implanted Type Area Admitting Interviewer Device Identifier Shelf Expiration Date Model / Serial / Lot Agile Eso Fc 2318mm 11.9cm - [id number] Implanted:Qty : 1 on 08/15/2023 by Liang Barrios DO at OR [facility] [employer] : ENDOSCOPY [id number] 04/09/2025 [id number] / / [id number] Cath Power Port 6fr Clearvue - [id number] Implanted:Qty : 1 on 08/29/2023 by Efe Tadeo MD at OR [facility] Right: Chest CR BARD : PERIPHERAL VASCULAR 09/30/2023 [id number] / / [id number] documented as of this encounter Advance Directives [...] Advance Directives occurred with: Patient Care Teams Project Lead Relationship Specialty Start Date End Date Nina Blanco MD [address] [place] [phone] PCP - General Family Medicine 08/21/23 documented as of this encounter
--- OUTSIDE RECORDS SUMMARY | 2024-05-27 05:26 | External Medical Summary | Summary of Care ---
Author Name Unknown Organization [facility] Address [address] [place] [address] Phone [phone] Care Team Providers Care Reverberatory Furnace Operator Name Role Phone Nina Blanco MD Primary Care Provi mario Reason for Visit * Reason Onset Date Comments Order Request 05/06/2024 Encounter Details Date Type Department Care Team (Late st Contact Info) Description 05/06/2024 Telephone Hematology/Oncology Treatment, [place] [address] [place] [address] Nina Blanco MD [address] [place] [phone] Order Request Allergies No known active [...] ml/hr x 17.5 hrs via feeding pump 86035 mL 6 10/14/19 24 Active Additional Information Patient not taking.Reported on 04/27/2024 [employer] Peptide 1.5 Oral Liquid Administer 1625 ml daily as directed at 135 ml/hr for 12 hours through J tube via feeding pump. 06171 mL 6 02/17/20 24 Active Additional Information Patient not taking.Reported on 04/27/2024 Liquid Hope Peptide Sargent Oral LiquidIndications: Esophageal adenocarcinoma (HCC) Administer 5 pouches daily as directed through feeding tube via feeding pump at 100 ml/hr x 17 hours. 876023 g 04/16/20 24 025 Active documented as [...] No 09/03/2023 Does the household have a [facility] source of income? 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 Not on file Not [...] 05/06/2024 12:57 PM EST Received message from [facility]- patient there for port flush, unable to [...] Description 05/13/2024 1:40 PM EST Office Visit [facility] [address] [place] [address] Nina Blanco MD [address] [place] [phone] 06/09/2024 12:20 PM EST Office Visit Nutrition & Weight Management, [place] [address] [place] [address] Nina Larson PA-C [address] [place], [place] [phone] Health Maintenance Due Date Last Done Comments [...] this encounter Medical Devices Implanted Type Area Wheelchair Van Operator First Responder Device Identifier Shelf Expiration Date Model / Serial / Lot Agile Eso Fc 2318mm 11.9cm - [id number] Implanted:Qty : 1 on 08/15/2023 by Liang Barrios DO at OR [facility] [employer] : ENDOSCOPY [id number] 04/09/2025 [id number] / / [id number] Cath Power Port 6fr Clearvue - [id number] Implanted:Qty : 1 on 08/29/2023 by Efe Tadeo MD at [facility] Right: Chest CR BARD : PERIPHERAL VASCULAR 09/30/2023 [id number] / / [id number] documented as of this encounter Visit Diagnoses [...] Advance Directives occurred with: Patient Care Teams Reverberatory Furnace Operator Relationship Specialty Start Date End Date Nina Blanco MD [address] [place] [phone] PCP - General Family Medicine 08/21/23 documented as of this encounter
--- OUTSIDE RECORDS SUMMARY | 2024-05-27 05:26 | External Medical Summary | Summary of Care ---
Author Name Unknown Organization [facility] Address [address] [facility] [address] Phone [phone] Care Team Providers Care Jig And Fixture Builder Name Role Phone Nina Blanco MD Primary Care Provi mario Reason for Visit * Reason Comments Outpatient Testing Encounter Details Date Type Department Care Team (Late st Contact Info) Description 04/27/2024 4:00 PM EST Laboratory Laboratory, [facility] [address] [place] [address] [facility] [address] Iron deficiency anemia, unspecified iron deficiency anemia type Allergies No known active allergiesdocumented as [...] ml/hr x 17.5 hrs via feeding pump 84319 mL 6 10/14/19 24 Active Additional Information Patient not taking.Reported on 04/27/2024 Irma [employer] Peptide 1.5 Oral Liquid Administer 1625 ml daily as directed at 135 ml/hr for 12 hours through J tube via feeding pump. 34231 mL 6 02/17/20 24 Active Additional Information Patient not taking.Reported on 04/27/2024 Liquid Hope Peptide Sargent Oral LiquidIndications: Esophageal adenocarcinoma (HCC) Administer 5 pouches daily as directed through feeding tube via feeding pump at 100 ml/hr x 17 hours. 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 on file Not [...] 11:00 AM EST Nurse Only Hematology/Oncology Treatment, [address] [phone] Lanette, Chair 3 Hem On[address] [address] 05/13/2024 1:40 PM EST Office Visit [address] [phone] Nina Blanco MD [address] [place] [phone] 06/09/2024 12:20 PM EST Office Visit Nutrition & Weight Management, [place] [address] [place] [address] Nina Larson PA-C [address] [place] [address] Pending Results Name Type Priority Associated Diagnoses Date /Time FERRITIN Lab Routine Iron deficiency anemia, unspecified iron deficiency anemia type 04/27/2024 4:16 PM EST IRON SCREEN, INCLUDING TIBC Lab Routine Iron deficiency anemia, unspecified iron deficiency anemia type 04/27/2024 4:16 PM EST Health Maintenance Due Date Last [...] this encounter Medical Devices Implanted Type Area Care Tech Device Identifier Shelf Expiration Date Model / Serial / Lot Agile Eso Fc 2318mm 11.9cm - [id number] Implanted:Qty : 1 on 08/15/2023 by Liang Barrios DO at OR [facility] [employer] : ENDOSCOPY [id number] 04/09/2025 [id number] / / [id number] Cath Power Port 6fr Clearvue - [id number] Implanted:Qty : 1 on 08/29/2023 by Efe Tadeo MD [place] [facility] Right: Chest CR BARD : PERIPHERAL VASCULAR 09/30/2023 [id number] / / [id number] documented as of this encounter Procedures Procedure Name Priority Date/Time Associated Diagnosis Comments DIFFERENTIAL, AUTOMATED Routine 04/27/2024 4:16 PM EST Iron deficiency anemia, unspecified iron deficiency anemia type CBC Routine 04/27/2024 4:16 PM EST Iron deficiency anemia, unspecified iron deficiency anemia type CBC Routine 04/27/2024 4:16 PM EST Iron deficiency anemia, unspecified iron deficiency anemia type DIFFERENTIAL, TECHNOLOGIST REVIEW Routine 04/27/2024 4:16 PM EST Iron deficiency anemia, unspecified iron deficiency anemia type documented in this encounter Results * (ABNORMAL) DIFFERENTIAL, TECHNOLOGIST REVIEW (04/27/2024 4:16 PM EST) WBC 18.27(H) 4.00 - 10.80 K/uL 04/27/2024 4:51 PM EST [facility] [place] [facility] Neutrophils % 83.0(H) 40.0 - 75.0 % 04/27/2024 4:51 PM EST [facility] [place] [facility] Lymphocytes % 12.0(L) 18.0 - 42.0 % 04/27/2024 4:51 PM EST [facility] [place] [facility] Monocytes % 3.0 1.0 - 11.0 % 04/27/2024 4:51 PM EST [facility] [place] [facility] Eosinophils % 1.0 0.0 - 6.0 % 04/27/2024 4:51 PM EST [facility] [place] [facility] Metamyelocytes % 1.0(H) <=0.0 % 04/27/20 4:51 PM EST [facility] [place] [facility] Absolute Neutrophils 15.16(H) 1.80 - 7.70 K/uL 04/27/2024 4:51 PM EST [facility] [place] [facility] Absolute Lymphocytes 2.19 1.00 - 4.80 K/uL 04/27/2024 4:51 PM EST [facility] [place] [facility] Absolute Monocytes 0.55 0.00 - 1.10 K/uL 04/27/2024 4:51 PM EST [facility] [place] [facility] Absolute Eosinophils 0.18 0.00 - 0.70 K/uL 04/27/2024 4:51 PM EST [facility] [place] [facility] Absolute Metamyelocytes 0.18(H) <=0.00 K/uL 04/27/2024 4:51 PM EST [facility] [place] [facility] nRBCs 04/27/2024 4:51 PM EST [facility] [place] [facility] Blood Venous blood specimen / Unknown Venipuncture / Unknown 04/27/2024 4:16 PM EST 04/27/2024 4:16 PM EST Nina Blanco MD LAB BLOOD ORDERABLE S Final Result [facility]ATORY [facility] [place] [address] * DIFFERENTIAL, AUTOMATED (04/27/2024 4:16 PM EST) Blood Venous blood specimen / Unknown Venipuncture / Unknown 04/27/2024 4:16 PM EST 04/27/2024 4:16 PM EST Nina Blanco MD LAB BLOOD ORDERABLE S Final Result Performing Organization Address City/[facility]/ZIP Co de Phone Number LAB[facility]ATORY [facility] [place] [address] * (ABNORMAL) CBC (04/27/2024 4:16 PM EST) WBC 18.27(H) 4.00 - 10.80 K/uL 04/27/2024 4:51 PM EST [facility] [place] [facility] RBC 4.06 4.50 - 5.25 M/uL 04/27/2024 4:51 PM EST [facility] [place] [facility] HGB 12.6(L) 14.0 - 16.8 g/dL 04/27/2024 4:51 PM EST [facility] [place] [facility] HCT 38.9(L) 40.0 - 48.4 % 04/27/2024 4:51 PM EST [facility] [place] [facility] MCV 95.8 82.0 - 99.5 fL 04/27/2024 4:51 PM EST [facility] [place] [facility] MCH 31.0 27.0 - 34.0 pg 04/27/2024 4:51 PM EST [facility] [place] [facility] MCHC 32.4 32.0 - 36.0 g/dL 04/27/2024 4:51 PM EST [facility] [place] [facility] RDW 15.0 11.5 - 15.5 % 04/27/2024 4:51 PM EST [facility] [place] [facility] PLT 399 140 - 400 K/uL 04/27/2024 4:51 PM EST [facility] [place] [facility] MPV 8.9 6.6 - 11.1 fL 04/27/2024 4:51 PM EST [facility] [place] [facility] Blood Venous blood specimen / Unknown Venipuncture / Unknown 04/27/2024 4:16 PM EST 04/27/2024 4:16 PM EST Nina Blanco MD LAB BLOOD ORDERABLE S Final Result [facility] [place] [facility] [address] [place] [place] [address] documented in this encounter Visit Diagnoses Diagnosis Iron deficiency anemia, unspecified iron deficiency anemia type documented in this encounter Advance Directives [...] Advance Directives occurred with: Patient Care Teams Jig And Fixture Builder Relationship Specialty Start Date End Date Nina Blanco MD [address] [place] [address] [place] [address] PCP - General Family Medicine 08/21/23 documented as of this encounter
--- OUTSIDE RECORDS SUMMARY | 2024-05-27 05:26 | External Medical Summary ---
Author Name Unknown Address Unknown Organization [id number]:LABORATORY [facility] - [address] [place] [address] Laboratory Report Ordering Provider Test Date Status HAYLIE MICHELE 04/27/2024 16:16:23 Final Observation Date Value Abnormality Reference (Units ) Status SYNC LEUKOCYTES IN BLOOD BY AUTOMATED COUNT 04/27/2024 16:16:23 18.27 Above high normal 4.00-10.80 (K/uL) Final Neutrophils/100 leukocytes in Blood by Manual count 04/27/2024 16:16:23 83.0 Above high normal 40.0-75.0 (%) Final Lymphocytes/100 leukocytes in Blood by Manual count 04/27/2024 16:16:23 12.0 Below low normal 18.0-42.0 (%) Final Monocytes/100 leukocytes in Blood by Manual count 04/27/2024 16:16:23 3.0 1.0-11.0 (%) Final Eosinophils/100 leukocytes in Blood by Manual count 04/27/2024 16:16:23 1.0 0.0-6.0 (%) Final Metamyelocytes/100 leukocytes in Blood by Manual count 04/27/2024 16:16:23 1.0 Above high normal <=0.0 (%) Final Neutrophils [#/volume] in Blood by Manual count 04/27/2024 16:16:23 15.16 Above high normal 1.80-7.70 (K/uL) Final Lymphocytes [#/volume] in Blood by Manual count 04/27/2024 16:16:23 2.19 1.00-4.80 (K/uL) Final Monocytes [#/volume] in Blood by Manual count 04/27/2024 16:16:23 0.55 0.00-1.10 (K/uL) Final Eosinophils [#/volume] in Blood by Manual count 04/27/2024 16:16:23 0.18 0.00-0.70 (K/uL) Final Metamyelocytes [#/volume] in Blood by Manual count 04/27/2024 16:16:23 0.18 Above high normal <=0.00 (K/uL) Final Nucleated erythrocytes/100 leukocytes [Ratio] in Blood by Automated count 04/27/2024 16:16:23 Final Performing Location LAB[facility]ATORY [facility]1 0 - [address] [facility] [address]
--- OUTSIDE RECORDS SUMMARY | 2024-05-27 05:27 | External Medical Summary | Summary of Care ---
Author Name Unknown Organization [facility] Address [address] [facility] [address] Phone [phone] Care Team Providers Care Assistant Superintendent Name Role Phone Nina Blanco MD Primary Care Provi mario Reason for Visit * Reason Comments Procedure Port flush Encounter Details Date Type Department Care Team (Late st Contact Info) Description 03/22/2024 11:00 AM EDT Nurse Only Hematology/Oncology Treatment, [address] [phone] [place], Chair 3 Hem On[address] [place] [address] Procedure (Port flush) Allergies No known active allergiesdocumented as of this encounter (statuses as of 03/22/2024) Medications Medication Sig Dispensed Refills Start Date End Date Status Water For Irrigation, Sterile (FEED TUBE WATER) TF Administer 150 mL into J tube every 6 hours. 500 Each 10 09/01/2023 Active Compleat Peptide 1.5 Oral LiquidIndications:Esop hageal adenocarcinoma (HCC),Severe protein-energy malnutrition (HCC) Administer 7 bottles daily (1750 mL daily) through J tube at 100 ml/hr x 17.5 hrs via feeding pump 55025 mL 6 10/14/2023 Active Liquid Hope Peptide Sragent Oral Liquid Administer 5 pouches daily as directed through feeding tube via feeding pump at 100 ml/hr x 17 hours. 38615 g 11 01/20/2024 Active Irma [email or web address] Peptide 1.5 Oral Liquid Administer 1625 ml daily as directed at 135 ml/hr for 12 hours through J tube via feeding pump. 51718 mL 6 02/17/2024 Active documented as of this encounter (statuses as of 03/22/2024) Active Problems Problem Noted Date Diagnosed Date History of esophageal cancer 02/09/2024 H/O insertion of central venous access port 10/01 Esophageal adenocarcinoma 08/28/2023 Erosive esophagitis 08/15/2023 Severe protein-energy malnutrition 08/14/2023 Esophageal dysphagia 08/12/2023 documented as of this encounter (statuses as of 03/22/2024) Resolved Problems Problem Noted Date Diagnosed Date Resolved Date Preop examination 12/19/2023 02/05/2024 Esophageal mass 08/17/2023 08/28/2023 Dehydration 08/14/2023 08/17/2023 Gastroesophageal reflux dise ase with esophagitis without hemorrhage 08/14/2023 Loss of weight 08/12/2023 08/21/2023 NO KNOWN PROBLEMS 03/28/2006 08/12/2023 documented as of this encounter (statuses as of 03/22/2024) Immunizations No known immunizationsdocumented as of this [...] No 09/03/2023 Does the household have a [facility] source of income? (Household - for ages [...] Assigned at Male 01/26/2024 6:38 PM EDT Gender Identity Male 01/26/2024 6:38 PM EDT Sexual Orientation Straight 01/26/2024 6: 38 PM EDT Job Start Date Occupation Industry Not on file Not on file Not on file documented as of this encounter Functional Status Functional Status Response Date of Assess ment Are you deaf or do you have serious difficulty h earing? No 08/28/2023 Are you blind or do you have serious difficulty seeing, even when wearing glasses? No 08/28/2023 Do you have serious difficul ty walking or climbing stairs? (5 years old or older) No 08/28/2023 Do you have difficulty dress ing or bathing? (5 years old or older) No 08/28/2023 Because of a physical, menta l, or emotional condition, do you have difficulty doing errands alone such as visiting a doctor s office or shopping? (15 years old or older) No 08/28/19 Cognitive Status Response Date of Assessm ent Because of a physical, menta l, or emotional condition, do you have serious difficulty concentrating, remembering, or making decisions? (5 years old or older) No 08/28/2023 documented as of this encounter Nursing Notes * Milly Gray, RN - 03/22/2024 11:36 AM EDT Chair 11 Patient here for port flush. Patient offers no acute complaints. VAD (Venous Access Device) accessed with #19G 3/4" without difficulty. VAD flushed with 10 ml NSS and Heparin 5 ml (100 units/ml). Rdz needle removed intact. Pt discharged in stable condition. documented in this encounter Plan of Treatment Upcoming Encounters Date Type Department Care Team (Late st Contact Info) Description 03/29/2024 10:45 AM EDT Imaging Radiology [facility] 1st [facility] [address] [place] [address] 05/03/2024 11:00 AM EST Nurse Only Hematology/Oncology Treatment, [place] [address] [facility] [address] [place] [phone] [place], Chair 3 Hem Onc Scene [address] [place] [address] 05/10/2024 9:40 AM EST Office Visit Nutrition & Weight Management, [facility] [address] [place] [address] Marycruz Galvan PA-C [address] [place] [address] 05/13/2024 1:40 PM EST Office Visit [address] [phone] Nina Blanco MD [address] [place] [phone] 06/09/2024 12:20 PM EST Office Visit Nutrition & Weight Management, [place] [address] [place] [address] McSNina burns PA-C [address] [place] [address] Health Maintenance Due Date Last Done Comments [...] this encounter Medical Devices Implanted Type Area Test Lead Application Testing Device Identifier Shelf Expiration Date Model / Serial / Lot Adeline Eso Fc 2318mm 11.9cm - [id number] Implanted:Qty : 1 on 08/15/2023 by Liang Barrios DO at OR [facility] [employer] ENDOSCOPY [id number] 04/09/2025 [id number] / / [id number] Cath Power Port 6fr Clearvue - [id number] Implanted:Qty : 1 on 08/29/2023 by Efe Tadeo MD [place] [facility] [place]: Chest CR BARD : PERIPHERAL VASCULAR 09/30/2023 [id number] / / [id number] documented as of this encounter Visit Diagnoses Diagnosis History of esophageal cancer- Primary Personal history of malignant neoplasm of esophagus Encounter for adjustment and management of vascular access device documented in this encounter Administered Medications Inactive Administered Medications - up to 3 most recent administrations Medication Order MAR Action Action Date Dose Rate Site hEParin 100 UNIT/ML Lock Flush inj 500 Units 500 Units (5 mL), IV Lock, PRN Other, IV Flush, Starting on Fri03/22/24 at 1111, Until Fri03/22/24 at 1543, For 24 hours, Do not flush if lock, PICC, or central line not in place; IV infusing or unable to flush. Given 03/22/2024 11:11 AM EDT 500 Units sodium chloride 0.9 % flush central line 10 mL 10 mL, IV Push, PRN Other, IV Flush, Starting on Fri03/22/24 at 1111, Until Fri03/22/24 at 1543, For 24 hours, Do not flush if lock, PICC, or central line not in place; IV infusing or unable to flush. Given 03/22/2024 11:11 AM EDT 10 mL documented in this encounter Advance Directives * [...] Advance Directives occurred with: Patient Care Teams Assistant Superintendent Relationship Specialty Start Date End Date Nina Blanco MD [address] [place] [phone] PCP - General Family Medicine 08/21/23 documented as of this encounter
--- OUTSIDE RECORDS SUMMARY | 2024-05-27 05:27 | External Medical Summary ---
Author Name Unknown Address Unknown Organization K01:LABORATORY C - [address] [place] [address] Laboratory Report Ordering Provider Test Date Status HAYLIE MICHELE 03/29/2024 10:15:06 Final Observation Date Value Abnormality Reference (Units ) Status Ferritin 03/29/2024 10:15:06 30 30-400 (ng /mL) Final Performing Location [facility]ORY [facility] - [address] [place] [address]
--- OUTSIDE RECORDS SUMMARY | 2024-05-27 05:27 | External Medical Summary | Summary of Care ---
Author Name Unknown Organization [facility] Address [address] [facility] [place] [address] Phone [phone] Care Team Providers Care Ladies Suit Operator Name Role Phone Nina Blanco MD Primary Care Provi mario Reason for Visit * Reason Onset Date Comments Test Results 03/30/2024 Encounter Details Date Type Department Care Team ([facility] st Contact Info) Description 03/30/2024 Telephone Family [address] [phone] Nina Blanco MD [address] [place] [phone] Test Results Allergies No known active allergiesdocumented as of this encounter (statuses as of 03/30/2024) Medications Medication Sig Dispensed Refills Start Date End Date Status Water For Irrigation, Sterile (FEED TUBE WATER) TF Administer 150 mL into J tube every 6 hours. 500 Each 10 09/01/2023 Active Compleat Peptide 1.5 Oral LiquidIndications:Eso phageal adenocarcinoma (HCC),Severe protein-energy malnutrition (HCC) Administer 7 bottles daily (1750 mL daily) through J tube at 100 ml/hr x 17.5 hrs via feeding pump 21037 mL 6 10/14/2023 Active Additional Information Patient not taking.Reported on 03/29/2024 Liquid Hope Peptide Sargent Oral Liquid Administer 5 pouches daily as directed through feeding tube via feeding pump at 100 ml/hr x 17 hours. 50800 g 11 01/20/2024 Active Irma Carmen Peptide 1.5 Oral Liquid Administer 1625 ml daily as directed at 135 ml/hr for 12 hours through J tube via feeding pump. 11332 mL 6 02/17/2024 Active documented as of this encounter (statuses as of 03/30/2024) Active Problems Problem Noted Date Diagnosed Date History of esophageal cancer 02/09/2024 H/O insertion of central venous access port 10/01 Esophageal adenocarcinoma 08/28/2023 Erosive esophagitis 08/15/2023 Severe protein-energy malnutrition 08/14/2023 Esophageal dysphagia 08/12/2023 documented as of this encounter (statuses as of 03/30/2024) Resolved Problems Problem Noted Date Diagnosed Date Resolved Date Preop examination 12/19/2023 02/05/2024 Esophageal mass 08/17/2023 08/28/2023 Dehydration 08/14/2023 08/17/2023 Gastroesophageal reflux dise ase with esophagitis without hemorrhage 08/14/2023 Loss of weight 08/12/2023 08/21/2023 NO KNOWN PROBLEMS 03/28/2006 08/12/2023 documented as of this encounter (statuses as of 03/30/2024) Immunizations No known immunizationsdocumented as of this [...] No 09/03/2023 Does the household have a [facility] source of income? (Household - for ages [...] (15 years old or older) No 08/28/19 24 Cognitive Status Response Date of Assessm ent Because of a physical, menta l, or emotional condition, do you have serious difficulty concentrating, remembering, or making decisions? (5 years old or older) No 08/28/2023 documented as of this encounter Miscellaneous Notes * Telephone Encounter - Nina Blanco MD - 03/30/2024 10:17 AM EDT Called and spoke with patient and his regarding PET scan results, indicating progression of disease: IMPRESSION 1. Increased hypermetabolism in the lower esophagus [...] attention on follow-up imaging advised. He has elected non-traditional treatment through an organization in [place] called [facility], with aim at using non-toxic low dose chemotherapy and holistic treatments, emphasis on maintaining quality of life. Prefers not to pursue traditional oncologic treatments. He is returning to see them tomorrow for an 8 day trip. They have access to his PET scan and labs. He will report back after this trip on their recommendations and if he would like to change his course of treatment. They are interested in switching to a lower sugar tube feed, such as Liquid Hope Nourish Peptide, and will be reaching out to nutrition today regarding that. Add on anemia work up with downtrending hgb. documented in this encounter Plan of Treatment Upcoming Encounters Date Type Department Care Team (Late st Contact Info) Description 05/03/2024 11:00 AM EST Nurse Only Hematology/Oncology Treatment, [place] [address] [place] [phone] Lanette, Chair 3 Hem Onc Scenery [address] [place] [address] 05/13/2024 1:40 PM EST Office Visit Family [facility] [address] [place] [phone] Nina Blanco MD [address] [place] [phone] 06/09/2024 12:20 PM EST Office Visit Nutrition & Weight Management, [place] [address] [place] [address] Nina Larson PA-C [address] [place] [address] Pending Results Name Type Priority Associated Diagnoses Date /Time FERRITIN Lab Routine Macrocytic anemia 03/29/2024 10:15 AM EDT IRON SCREEN, INCLUDING TIBC Lab Routine Macrocytic anemia 03/29/2024 10:15 AM EDT VITAMIN B12 Lab Routine Macrocytic anemia 03/29/2024 10:15 AM EDT FOLIC ACID Lab Routine Macrocytic anemia 03/29/2024 10:15 AM EDT Scheduled Orders Name Type Priority Associated Diagnoses Orde r Schedule FERRITIN Lab Routine Macrocytic anemia Expected: 03/30/2024 (Approximate), Expires: 03/30/2025 IRON SCREEN, INCLUDING TIBC Lab Routine Macrocytic anemia Expected: 03/30/2024 (Approximate), Expires: 03/30/2025 VITAMIN B12 Lab Routine Macrocytic anemia Expected: 03/30/2024 (Approximate), Expires: 03/30/2025 FOLIC ACID Lab Routine Macrocytic anemia Expected: 03/30/2024 (Approximate), Expires: 03/30/2025 Health Maintenance Due Date Last Done Comments [...] this encounter Medical Devices Implanted Type Area Cartography Professor Device Identifier Shelf Expiration Date Model / Serial / Lot Agile Eso Fc 2318mm 11.9cm - [id number] Implanted:Qty : 1 on 08/15/2023 by Liang Barrios DO at OR [facility] [employer] : ENDOSCOPY [id number] 04/09/2025 [id number] / / [id number] Cath Power Port 6fr Clearvue - [id number] Implanted:Qty : 1 on 08/29/2023 by Efe Tadeo MD at [place] [facility] Right: Chest CR BARD : PERIPHERAL VASCULAR 09/30/2023 [id number] / / [id number] documented as of this encounter Visit Diagnoses Diagnosis Macrocytic anemia- Primary Unspecified deficiency anemia documented in this encounter Advance Directives * [...] Advance Directives occurred with: Patient Care Teams Ladies Suit Operator Relationship Specialty Start Date End Date Nina Blanco MD [address] [place] [phone] PCP - General Family Medicine 08/21/23 documented as of this encounter
--- OUTSIDE RECORDS SUMMARY | 2024-05-27 05:27 | External Medical Summary ---
Author Name Unknown Address Unknown Organization [id number]:LABORATORY [facility] [place] - [address] [place] [address] Laboratory Report Ordering Provider Test Date Status HAYLIE MICHELE 03/29/2024 10:15:06 Final Observation Date Value Abnormality Reference (Units ) Status Iron 03/29/2024 10:15:06 54 45-176 (ug/dL) Final Iron-binding capacity 03/29/2024 10:15:06 496 Above high normal 250-425 (ug/dL) Final Transferrin Sat % 03/29/2024 10:15:06 11 Below low normal 15-55 (%) Final Performing Location LABORATORY [facility] - [address] [place] [address]
--- OUTSIDE RECORDS SUMMARY | 2024-05-27 05:27 | External Medical Summary ---
Author Name Unknown Address Unknown Organization [id number]:LABORATORY [facility] [place] [facility] - [address] [place] [address] Laboratory Report Ordering Provider Test Date Status HAYLIE MICHELE 03/29/2024 12:30:21 Final Observation Date Value Abnormality Reference (Units ) Status Color of Urine by Auto 03/29/2024 12:30:21 Yellow Light Yellow, Yellow, Dark Yellow Final Clarity, Urine 03/29/2024 12:30:21 Slightly Cloudy Abnormal Clear Final Glucose [Mass/volume] in Urine by Automated test strip 03/29/2024 12:30:21 Negative Negative (mg/dL) Final Bilirubin.total [Presence] in Urine by Automated test strip 03/29/2024 12:30:21 Negative Negative Final Ketones [Mass/volume] in Urine by Automated test strip 03/29/2024 12:30:21 Negative Negative (mg/dL) Final Specific gravity, Urine 03/29/2024 12:30:21 >=1.030 1.003-1.030 Final Hemoglobin [Presence] in Urine by Automated test strip 03/29/2024 12:30:21 Negative Negative Final pH, Urine 03/29/2024 12:30:21 6.0 5.0-7.5 (Units) Final Protein [Mass/volume] in Urine by Automated test strip 03/29/2024 12:30:21 Trace Abnormal Negative (mg/dL) Final Urobilinogen [Mass/volume] in Urine by Automated test strip 03/29/2024 12:30:21 0.2 0.2, 1.0 (mg/dL) Final Nitrite [Presence] in Urine by Automated test strip 03/29/2024 12:30:21 Negative Negative Final Leukocyte esterase [Presence] in Urine by Automated test strip 03/29/2024 12:30:21 Negative Negative Final RBC, Urine 03/29/2024 12:30:21 0-2 0-2 (/HPF) Final WBC, Urine 03/29/2024 12:30:21 0-2 0-2 (/HPF) Final Bacteria [#/area] in Urine sediment by Microscopy high power field 03/29/2024 12:30:21 0-25 0-25 (/HPF) Final Performing Location LABORATORY [place] [phone] [facility] [address]
--- OUTSIDE RECORDS SUMMARY | 2024-05-27 05:27 | External Medical Summary ---
Author Name Unknown Address Unknown Organization K01:LABORATORY [facility] [place] - [address] [place] [address] Laboratory Report Ordering Provider Test Date Status HAYLIE MICHELE 03/29/2024 10:15:06 Final Observation Date Value Abnormality Reference (Units ) Status Vitamin B12 03/29/2024 10:15:06 790 376-0636 (pg/mL) Final Performing Location LABORATORY [facility] - [address] [place] [address]
--- OUTSIDE RECORDS SUMMARY | 2024-05-27 05:27 | External Medical Summary | Summary of Care ---
Author Name Unknown Organization [facility] Address [address] [facility] [address] Phone [phone] Care Team Providers Care Flame Hardening Machine Setter Name Role Phone Nina Blanco MD Primary Care Provi mario Reason for Visit * Reason Comments Outpatient Testing Encounter Details Date Type Department Care Team (Late st Contact Info) Description 03/29/2024 10:10 AM EDT Laboratory Laboratory, [facility] [address] [facility] [phone] [facility] [address] [facility] [place] [address] [employer] Research Other*[id number]; Esophageal adenocarcinoma (HCC); Other abnormal tumor markers Allergies No known active allergiesdocumented as of this encounter (statuses as of 03/29/2024) Medications Medication Sig Dispensed Refills Start Date End Date Status Water For Irrigation, Sterile (FEED TUBE WATER) TF Administer 150 mL into J tube every 6 hours. 500 Each 09/01/2023 Active Compleat Peptide 1.5 Oral LiquidIndications:Eso phageal adenocarcinoma (HCC),Severe protein-energy malnutrition (HCC) Administer 7 bottles daily (1750 mL daily) through J tube at 100 ml/hr x 17.5 hrs via feeding pump 00788 mL 6 10/14/2023 Active Additional Information Patient not taking.Reported on 03/29/2024 Liquid Hope Peptide Sargent Oral Liquid Administer 5 pouches daily as directed through feeding tube via feeding pump at 100 ml/hr x 17 hours. 94360 g 11 01/20/2024 Active Irma Carmen Peptide 1.5 Oral Liquid Administer 1625 ml daily as directed at 135 ml/hr for 12 hours through J tube via feeding pump. 64023 mL 6 02/17/2024 Active documented as of this encounter (statuses as of 03/29/2024) Active Problems Problem Noted Date Diagnosed Date History of esophageal cancer 02/09/2024 H/O insertion of central venous access port 10/01 Esophageal adenocarcinoma 08/28/2023 Erosive esophagitis 08/15/2023 Severe protein-energy malnutrition 08/14/2023 Esophageal dysphagia 08/12/2023 documented as of this encounter (statuses as of 03/29/2024) Resolved Problems Problem Noted Date Diagnosed Date Resolved Date Preop examination 12/19/2023 02/05/2024 Esophageal mass 08/17/2023 08/28/2023 Dehydration 08/14/2023 08/17/2023 Gastroesophageal reflux dise ase with esophagitis without hemorrhage 08/14/2023 Loss of weight 08/12/2023 08/21/2023 NO KNOWN PROBLEMS 03/28/2006 08/12/2023 documented as of this encounter (statuses as of 03/29/2024) Immunizations No known immunizationsdocumented as of this [...] No 09/03/2023 Does the household have a [facility] source of [facility]? (Household - for ages [...] No 08/28/2023 documented as of this encounter Plan of Treatment Upcoming Encounters Date Type Department Care Team (Late st Contact Info) Description 05/03/2024 11:00 AM EST Nurse Only Hematology/Oncology Treatment, [place] [address] [place] [address] Lanette, Chair 3 Hem Onc Scenery [address] [place] [address] 05/13/2024 1:40 PM EST Office Visit [address] [phone] Nina Blanco MD [address] [place] [phone] 06/09/2024 12:20 PM EST Office Visit Nutrition & Weight Management, [place] [address] [place], [place] [phone] Nina Larson PA-C [address] [place], [place] [phone] Pending Results Name Type Priority Associated Diagnoses Date /Time MYCODE INITIAL ADULT Lab Routine MyCode Research Other*[id number] 03/29/2024 10:15 AM EDT CA 19-9 Lab Routine Esophageal adenocarcinoma (HCC) Other abnormal tumor markers 03/29/2024 10:15 AM EDT MYCODE INITIAL ADULT-PINK Lab Routine [employer] Other*[id number] 03/29/2024 10:15 AM EDT MYCODE SST1 Lab Routine [employer] Research Other*[id number] 03/29/2024 10:15 AM EDT MYCODE SST2 Lab Routine [employer] Research Other*[id number] 03/29/2024 10:15 AM EDT URINALYSIS WITH MICROSCOPIC EXAM Lab Routine Esophageal adenocarcinoma (HCC) 03/29/2024 12:30 PM EDT Health Maintenance Due Date Last Done Comments [...] this encounter Medical Devices Implanted Type Area Energy Efficiency Specialist Device Identifier Shelf Expiration Date Model / Serial / Lot Agile Eso Fc 2318mm 11.9cm - [id number] Implanted:Qty : 1 on 08/15/2023 by Liang Barrios DO at OR [facility] [employer] : ENDOSCOPY [id number] 04/09/2025 [id number] / / [id number] Cath Power Port 6fr Clearvue - [id number] Implanted:Qty : 1 on 08/29/2023 by Efe Tadeo MD at OR [facility] Right: Chest CR BARD : PERIPHERAL VASCULAR 09/30/2023 [id number] / / [id number] documented as of this encounter Procedures Procedure Name Priority Date/Time Associated Diagnosis Comments DIFFERENTIAL, AUTOMATED Routine 03/29/2024 10:15 AM EDT Esophageal adenocarcinoma (HCC) COMPREHENSIVE METABOLIC PANEL Routine 03/29/2024 10:15 AM EDT Esophageal adenocarcinoma (HCC) CBC Routine 03/29/2024 10:15 AM EDT Esophageal adenocarcinoma (HCC) CBC Routine 03/29/2024 10:15 AM EDT Esophageal adenocarcinoma (HCC) documented in this encounter Results * DIFFERENTIAL, AUTOMATED (03/29/2024 10:15 AM EDT) WBC 6.92 4.00 - 10.80 K/uL 03/29/2024 10:58 AM EDT [facility] [place] [facility] Neutrophils % 68.0 40.0 - 75.0 % 03/29/2024 10:58 AM EDT [facility] [place] [facility] Lymphocytes % 22.0 18.0 - 42.0 % 03/29/2024 10:58 AM EDT [facility] [place] [facility] Monocytes % 8.2 1.0 - 11.0 % 03/29/2024 10:58 AM EDT [facility] [place] [facility] Eosinophils % 1.2 0.0 - 6.0 % 03/29/2024 10:58 AM EDT [facility] [place] [facility] Basophils % 0.6 0.0 - 2.0 % 03/29/2024 10:58 AM EDT [facility] [place] [facility] Absolute Neutrophils 4.71 1.80 - 7.70 K/uL 03/29/2024 10:58 AM EDT [facility] [place] [facility] Absolute Lymphocytes 1.52 1.00 - 4.80 K/ul 03/29/2024 10:58 AM EDT [facility] [place] [facility] Absolute Monocytes 0.57 0.00 - 1.10 K/uL 03/29/2024 10:58 AM EDT [facility] [place] [facility] Absolute Eosinophils 0.08 0.00 - 0.70 K/uL 03/29/2024 10:58 AM EDT [facility] [place] [facility] Absolute Basophils 0.04 0.00 - 0.20 K/uL 03/29/2024 10:58 AM EDT [facility] [place] [facility] Blood Venous blood specimen / Unknown Venipuncture / Unknown 03/29/2024 10:15 AM EDT 03/29/2024 10:15 AM EDT Nina Blanco MD LAB BLOOD O RDERABLES LAB[facility] [place] [facility] [address] [place] [address] * (ABNORMAL) CBC (03/29/2024 10:15 AM EDT) WBC 6.92 4.00 - 10.80 K/uL 03/29/2024 10:58 AM EDT [facility] [place] [facility] RBC 3.72 4.50 - 5.25 M/uL 03/29/2024 10:58 AM EDT [facility] [place] [facility] HGB 12.3(L) 14.0 - 16.8 g/dL 03/29/2024 10:58 AM EDT [facility] [place] [facility] HCT 38.0(L) 40.0 - 48.4 % 03/29/2024 10:58 AM EDT [facility] [place] [facility] MCV 102.2 82.0 - 99.5 fL 03/29/2024 10:58 AM EDT [facility] [place] [facility] MCH 33.1 27.0 - 34.0 pg 03/29/2024 10:58 AM EDT [facility] [place] [facility] MCHC 32.4 32.0 - 36.0 g/dL 03/29/2024 10:58 AM EDT [facility] [place] [facility] RDW 15.8 11.5 - 15.5 % 03/29/2024 10:58 AM EDT [facility] [place] [facility] PLT 231 140 - 400 K/uL 03/29/2024 10:58 AM EDT [facility] [place] [facility] MPV 10.0 6.6 - 11.1 fL 03/29/2024 10:58 AM EDT [facility] [place] [facility] Blood Venous blood specimen / Unknown Venipuncture / Unknown 03/29/2024 10:15 AM EDT 03/29/2024 10:15 AM EDT Nina Blanco MD LAB BLOOD O RDERABLES [facility] [place] [facility] [address] [place] [place] [address] * (ABNORMAL) COMPREHENSIVE METABOLIC PANEL (03/29/2024 10:15 AM EDT) BUN 25(H) 6 - 20 mg/dL 03/29/2024 12:05 PM EDT [facility] [place] [facility] CREATININE 1.1 0.6 - 1.2 mg/dL 03/29/2024 12:05 PM EDT [facility] [place] [facility] [facility] EGFR 71 >=60 mL/min 03/29/2024 12:05 PM EDT [facility] [place] [facility] Comment:eGFR is calculated b ased on the CKD-EPI 2020 equation. SODIUM 145 135 - 146 mmol/L 03/29/2024 12:05 PM EDT [facility] [place] [facility] POTASSIUM 4.3 3.5 - 5.1 mmol/L 03/29/2024 12:05 PM EDT [facility] [place] [facility] CHLORIDE 105 98 - 107 mmol/L 03/29/2024 12:05 PM EDT [facility] [place] [facility] CO2 29 22 - 32 mmol/L 03/29/2024 12:05 PM EDT [facility] [place] [facility] ANION GAP 11 7 - 15 mmol/L 03/29/2024 12:05 PM EDT [facility] [place] [facility] [facility] GLUCOSE 110 70 - 120 mg/dL 03/29/2024 12:05 PM EDT [facility] [place] [facility] [facility] Albumin 4.1 3.8 - 5.0 g/dL 03/29/2024 12:05 PM EDT [facility] [place] [facility] [facility] AST 19 10 - 50 U/L 03/29/2024 12:05 PM EDT [facility] [place] [facility] [facility] Alkaline Phosphatase 79 35 - 130 U/L 03/29/2024 12:05 PM EDT [facility] [place] [facility] [facility] Bilirubin, Total 0.4 <=1.2 mg/dL 03/29/2024 12:05 PM EDT [facility] [place] [facility] CALCIUM 9.5 8.4 - 10.2 mg/dL 03/29/2024 12:05 PM EDT [facility] [place] [facility] [facility] Protein 6.6 6.0 - 8.3 g/dL 03/29/2024 12:05 PM EDT [facility] [place] [facility] ALT 17 10 - 50 U/L 03/29/2024 12:05 PM EDT [facility] [place] [facility] Blood Venous blood specimen / Unknown Venipuncture / Unknown 03/29/2024 10:15 AM EDT 03/29/2024 10:15 AM EDT Nina Blanco MD LAB BLOOD O RDERABLES [facility] [place] [facility] [address] [place] [address] documented in this encounter Visit Diagnoses Diagnosis MyCode Research Other*[id number] Esophageal adenocarcinoma (HCC) Malignant neoplasm of esophagus, unspecified site Other abnormal tumor markers documented in this encounter Advance Directives * [...] Advance Directives occurred with: Patient Care Teams Flame Hardening Machine Setter Relationship Specialty Start Date End Date Nina Blanco MD [address] [place] [phone] PCP - General Family Medicine 08/21/23 documented as of this encounter
--- OUTSIDE RECORDS SUMMARY | 2024-05-27 05:27 | External Medical Summary ---
Author Name Unknown Address Unknown Organization K01:LABORATORY [facility] [place] - [address] [place] [address] Laboratory Report Ordering Provider Test Date Status FINESSE VELAZQUEZ 03/29/2024 10:15:06 Final Observation Date Value Abnormality Reference (Units ) Status MYCODE SPECIMEN-SST 03/29/2024 10:15:06 Freezing of extracted DNA, whole blood and/or serum. Final Performing Location LABORATORY [facility] [place] - [address] [place] [address]
--- OUTSIDE RECORDS SUMMARY | 2024-05-27 05:27 | External Medical Summary | Summary of Care ---
Author Name Unknown Organization [facility] Address [address] [place] [address] Phone [phone] Care Team Providers Care Poultry Feed Supervisor Name Role Phone Nina Blanco MD Primary Care Provi mario Encounter Details Date Type Department Care Team ([facility] Contact Info) Description 04/07/2024 Orders Only Family Practice [address] [phone] Nina Blanco MD [address] [place] [phone] Allergies No known active allergiesdocumented as of this encounter (statuses as of 04/07/2024) Medications Medication Sig Dispensed Refills Start Date End Date Status Water For Irrigation, Sterile (FEED TUBE WATER) TF Administer 150 mL into J tube every 6 hours. 500 Each 10 09/01/2023 Active Compleat Peptide 1.5 Oral LiquidIndications:Eso phageal adenocarcinoma (HCC),Severe protein-energy malnutrition (HCC) Administer 7 bottles daily (1750 mL daily) through J tube at 100 ml/hr x 17.5 hrs via feeding pump 14446 mL 6 10/14/2023 Active Additional Information Patient not taking.Reported on 03/29/2024 Liquid Hope Peptide Sargent Oral Liquid Administer 5 pouches daily as directed through feeding tube via feeding pump at 100 ml/hr x 17 hours. 85117 g 11 01/20/2024 Active Irma Morales Peptide 1.5 Oral Liquid Administer 1625 ml daily as directed at 135 ml/hr for 12 hours through J tube via feeding pump. 57349 mL 6 02/17/2024 Active documented as of this encounter (statuses as of 04/07/2024) Active Problems Problem Noted Date Diagnosed Date Iron deficiency anemia secon florentin to inadequate dietary iron intake 04/07/2024 History of esophageal cancer 02/09/2024 H/O insertion of central venous access port 10/01 Esophageal adenocarcinoma 08/28/2023 Erosive esophagitis 08/15/2023 Severe protein-energy malnutrition 08/14/2023 Esophageal dysphagia 08/12/2023 documented as of this encounter (statuses as of 04/07/2024) Resolved Problems Problem Noted Date Diagnosed Date Resolved Date Preop examination 12/19/2023 02/05/2024 Esophageal mass 08/17/2023 08/28/2023 Dehydration 08/14/2023 08/17/2023 Gastroesophageal reflux dise ase with esophagitis without hemorrhage 08/14/2023 Loss of weight 08/12/2023 08/21/2023 NO KNOWN PROBLEMS 03/28/2006 08/12/2023 documented as of this encounter (statuses as of 04/07/2024) Immunizations No known immunizationsdocumented as of this [...] No 09/03/2023 Does the household have a [facility] source of income? (Household - for [...] 11:00 AM EST Nurse Only Hematology/Oncology Treatment, [place] [address] [place] [phone] Lanette, Chair 3 Hem Onc [address] [place] [address] 05/13/2024 1:40 PM EST Office Visit [address] [phone] Nina Blanco MD [address] [place] [phone] 06/09/2024 12:20 PM EST Office Visit Nutrition & Weight Management, [place] [address] [place], [place] [phone] Nina Larson PA-C [address] [place], [place] [phone] Health Maintenance Due Date Last Done Comments [...] this encounter Medical Devices Implanted Type Area Passementerie Worker Device Identifier Shelf Expiration Date Model / Serial / Lot [employer]il[employer]ix Eso Fc 2318mm 11.9cm - [id number] Implanted:Qty : 1 on 08/15/2023 by Liang Barrios DO at OR [facility] [employer] : ENDOSCOPY [id number] 04/09/2025 [id number] / / [id number] Cath Power Port 6fr Clearvue - [id number] Implanted:Qty : 1 on 08/29/2023 by Efe Tadeo MD at [place] [facility] Right: Chest CR BARD : PERIPHERAL VASCULAR 09/30/2023 [id number] / / [id number] documented as of this encounter Advance Directives [...] Advance Directives occurred with: Patient Care Teams Poultry Feed Supervisor Relationship Specialty Start Date End Date Nina Blanco MD [address] [place] [phone] PCP - General Family Medicine 08/21/23 documented as of this encounter
--- OUTSIDE RECORDS SUMMARY | 2024-05-27 05:27 | External Medical Summary ---
Author Name Unknown Address Unknown Organization K01:LABORATORY [facility] [place] - [address] [place] [address] Laboratory Report Ordering Provider Test Date Status FINESSE VELAZQUEZ 03/29/2024 10:15:06 Final Observation Date Value Abnormality Reference (Units ) Status MYCODE SPECIMEN-SST 03/29/2024 10:15:06 Freezing of extracted DNA, whole blood and/or serum. Final Performing Location LABORATORY [facility] [place] - [address] [place] [address]
--- OUTSIDE RECORDS SUMMARY | 2024-05-27 05:27 | External Medical Summary | Summary of Care ---
Author Name Unknown Organization [facility] Address [address] [facility] [place] [address] Phone [phone] Care Team Providers Care Pesticide Control Inspector Name Role Phone Nina Blanco MD Primary Care Provi mario Reason for Visit * Reason Onset Date Comments Home Tube Feeding 04/21/2024 Encounter Details Date Type Department Care Team (Late st Contact Info) Description 04/21/2024 10:30 AM EST Scheduled Telephone Vitaliy Larkin [address] [place] [address] Gwendolyn Nails RDN [address] [facility] [place] [address] Allergies No known active allergiesdocumented as of this encounter (statuses as of 04/21/2024) Medications Water For Irrigation, Sterile (FEED TUBE WATER) TF Administer 150 mL into J tube every 6 hours. 500 Each 09/01/19 24 Active Compleat Peptide 1.5 Oral LiquidIndications: Esophageal adenocarcinoma (HCC),Severe protein-energy malnutrition (HCC) Administer 7 bottles daily (1750 mL daily) through J tube at 100 ml/hr x 17.5 hrs via feeding pump 46395 mL 6 10/14/19 24 Active Additional Information Patient not taking.Reported on 03/29/2024 Irma Morales Peptide 1.5 Oral Liquid Administer 1625 ml daily as directed at 135 ml/hr for 12 hours through J tube via feeding pump. 04745 mL 6 02/17/20 Active Liquid Hope Peptide Oral LiquidIndications: Esophageal adenocarcinoma (HCC),Severe protein-energy malnutrition (HCC) Administer 5 pouches daily as directed through feeding tube via feeding pump at 100 ml/hr x 17 hours 23190 g 11 04/13/20 Active Liquid Hope Peptide Sargent Oral Liquid Pump - Administer 5 pouches daily as directed through feeding tube via feeding pump at 100ml/hr x 17 hours 07893 g 11 04/16/20 24 025 Active documented as of this encounter (statuses as of 04/21/2024) Active Problems Problem Noted Date Diagnosed Date Iron deficiency anemia secon florentin to inadequate dietary iron intake 04/07/2024 History of esophageal cancer 02/09/2024 H/O insertion of central venous access port 10/01 Esophageal adenocarcinoma 08/28/2023 Erosive esophagitis 08/15/2023 Severe protein-energy malnutrition 08/14/2023 Esophageal dysphagia 08/12/2023 documented as of this encounter (statuses as of 04/21/2024) Resolved Problems Problem Noted Date Diagnosed Date Resolved Date Preop examination 12/19/2023 02/05/2024 Esophageal mass 08/17/2023 08/28/2023 Dehydration 08/14/2023 08/17/2023 Gastroesophageal reflux dise ase with esophagitis without hemorrhage 08/14/2023 Loss of weight 08/12/2023 08/21/2023 NO KNOWN PROBLEMS 03/28/2006 08/12/2023 documented as of this encounter (statuses as of 04/21/2024) Immunizations No known immunizationsdocumented as of this [...] Industry 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 He has returned from [place] following cancer treatments recently. Spoke with his , Anayeli, who states there was an issue getting the variety of tube feeding that they requested. They were working with a supplier but were unable to access this formula. Patient is currently receiving 5 containers of Liquid Hope daily. states she needs to thin down formula with 1/2 cup or more of water in order for it to go through the tube. Patient tolerating regimen, but admits to some bloating. notes pt has a borderline low iron level recently. She is asking about rechecking this level, B-12 and folic acid levels. Encouraged her to disc uss this with pt's PCP. Encouraged them to contact me if any other questions or concerns arise. Gwendolyn Nails RDN, Clinical Dietitian II, [facility] Clinical Nutrition Services [facility] [address] [place] [address] Available via [employer] Portal documented in this encounter Plan of Treatment Upcoming Encounters Date Type Department Care Team (Late st Contact Info) Description 05/03/2024 11:00 AM EST Nurse Only Hematology/Oncology Treatment, [place] [address] [place] [phone] Lanette, Chair 3 Hem Onc Scenery [address] [place] [address] 05/13/2024 1:40 PM EST Office Visit [address] [phone] Nina Blanco MD [address] [place] [phone] 06/09/2024 12:20 PM EST Office Visit Nutrition & Weight Management, [place] [address] [place], [place] [phone] Nina Larson PA-C [address] [place], [place] [phone] Health Maintenance Due Date Last Done Comments [...] this encounter Medical Devices Implanted Type Area Apron Operator Device Identifier Shelf Expiration Date Model / Serial / Lot Adeline Ogden Fc 2318mm 11.9cm - [id number] Implanted:Qty : 1 on 08/15/2023 by Liang Barrios DO at OR [facility] [employer] : ENDOSCOPY [id number] 04/09/2025 [id number] / / [id number] Cath Power Port 6fr Clearvue - [id number] Implanted:Qty : 1 on 08/29/2023 [place] Efe Tadeo MD [place] [facility] [place] Chest CR BARD : PERIPHERAL VASCULAR 09/30/2023 [id number] / / [id number] documented as of this encounter Advance Directives [...] Advance Directives occurred with: Patient Care Teams Pesticide Control Inspector Relationship Specialty Start Date End Date Nina Blanco MD [address] [place] [phone] PCP - General Family Medicine 08/21/23 documented as of this encounter
--- OUTSIDE RECORDS SUMMARY | 2024-05-27 05:27 | External Medical Summary ---
Author Name Unknown Address Unknown Organization [facility]0G:[facility] [address] [place] [address] Laboratory Report Ordering Provider Test Date Status HAYLIE MICHELE 03/29/2024 10:15:06 Final Observation Date Value Abnormality Reference (Units ) Status SYNC LEUKOCYTES IN BLOOD BY AUTOMATED COUNT 03/29/2024 10:15:06 6.92 4.00-10.80 (K/uL) Final Segs 03/29/2024 10:15:06 68.0 40.0-75.0 (%) Final Lymphs % 03/29/2024 10:15:06 22.0 18.0-42.0 (%) Final Monos 03/29/2024 10:15:06 8.2 1.0-11.0 (%) Final Eosinophils 03/29/2024 10:15:06 1.2 0.0-6.0 (%) Final Basos 03/29/2024 10:15:06 0.6 0.0-2.0 (%) Final Absolute Segs 03/29/2024 10:15:06 4.71 1.80-7.70 (K/uL) Final Lymphs, absolute 03/29/2024 10:15:06 1.52 1.00-4.80 (K/ul) Final Monos, Abs 03/29/2024 10:15:06 0.57 0.00-1.10 (K/uL) Final Eos, Abs 03/29/2024 10:15:06 0.08 0.00-0.70 (K/uL) Final Basos, Abs 03/29/2024 10:15:06 0.04 0.00-0.20 (K/uL) Final Performing Location [facility] [address] [place] [address]
--- OUTSIDE RECORDS SUMMARY | 2024-05-27 05:27 | External Medical Summary ---
Author Name Unknown Address Unknown Organization K01:[facility] [place] [address] [place] [address] Laboratory Report Ordering Provider Test Date Status HAYLIE MICHELE 03/29/2024 10:15:06 Final Observation Date Value Abnormality Reference (Units ) Status Cancer Ag 19-9 03/29/2024 10:15:06 11.5 <35.0 (U/mL) Final Performing Location [facility] - [address] [place] [address]
--- OUTSIDE RECORDS SUMMARY | 2024-05-27 05:27 | External Medical Summary | Summary of Care ---
Author Name Unknown Organization [facility] Address [address] [facility] [address] Phone [phone] Care Team Providers Care Chemical Maker Name Role Phone Nina Blanco MD Primary Care Provi mario Reason for Visit * Reason Comments Outpatient Testing Encounter Details Date Type Department Care Team (Late st Contact Info) Description 03/29/2024 10:10 AM EDT Laboratory Laboratory, [facility] [address] [facility] [address] [facility] [address] [facility] [place] [address] Telepathy Research Other*[id number]; Esophageal adenocarcinoma (HCC); Other abnormal tumor markers [...] ml/hr x 17.5 hrs via feeding pump 10458 mL 6 10/14/2023 Active Additional Information Patient not taking.Reported on 03/29/2024 Liquid Hope Peptide Sargent Oral Liquid Administer 5 pouches daily as directed through feeding tube via feeding pump at 100 ml/hr x 17 hours. 55776 g 11 01/20/2024 Active Irma Carmen Peptide 1.5 Oral Liquid Administer 1625 ml daily as directed at 135 ml/hr for 12 hours through J tube via feeding pump. 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) 03/29/2024 12:00 PM EDT [address] Rad[address] [address] Arrived 05/03/2024 11:00 AM EST Nurse Only Hematology/Oncology Treatment, [place] [address] [place] [phone] Lanette, Chair 3 Hem Onc Scenery [address] [place] [address] 05/13/2024 1:40 PM EST Office Visit [address] [phone] Nina Blanco MD [address] [place] [phone] 06/09/2024 12:20 PM EST Office Visit Nutrition & Weight Management, [place] [address] [place] [address] Nina Larson PA-C [address] [place], [place] [phone] Pending Results Name Type Priority Associated Diagnoses Date /Time MYCODE INITIAL ADULT Lab Routine MyCode Research Other*[id number] 03/29/2024 10:15 AM EDT CBC WITH WBC DIFFERENTIAL Lab Routine Esophageal adenocarcinoma (HCC) 03/29/2024 10:15 AM EDT COMPREHENSIVE METABOLIC PANEL Lab Routine Esophageal adenocarcinoma (HCC) 03/29/2024 10:15 AM EDT CA 19-9 Lab Routine Esophageal adenocarcinoma (HCC) Other abnormal tumor markers 03/29/2024 10:15 AM EDT MYCODE INITIAL ADULT-PINK Lab Routine MyCode Research Other*[id number] 03/29/2024 10:15 AM EDT MYCODE SST1 Lab Routine MyCode Research Other*[id number] 03/29/2024 10:15 AM EDT MYCODE SST2 Lab Routine MyCode Research Other*[id number] 03/29/2024 10:15 AM EDT CBC Lab Routine Esophageal adenocarcinoma (HCC) 03/29/2024 10:15 AM EDT DIFFERENTIAL, AUTOMATED Lab Routine Esophageal adenocarcinoma (HCC) 03/29/2024 10:15 AM EDT Health Maintenance Due Date Last Done [...] this encounter Medical Devices Implanted Type Area Radiation / Chemistry Technician Device Identifier Shelf Expiration Date Model / Serial / Lot Agile Eso Fc 2318mm 11.9cm - [id number] Implanted:Qty : 1 on 08/15/2023 by Liang Barrios DO at OR [facility] [employer] : ENDOSCOPY [id number] 04/09/2025 [id number] / / [id number] Cath Power Port 6fr Clearvue - [id number] Implanted:Qty : 1 on 08/29/2023 by Efe Tadeo MD at [place] [facility] [place]: Chest CR BARD : PERIPHERAL VASCULAR 09/30/2023 [id number] / / [id number] documented as of this encounter Visit Diagnoses Diagnosis Esophageal adenocarcinoma (HCC) Malignant neoplasm of esophagus, unspecified site 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
--- OUTSIDE RECORDS SUMMARY | 2024-05-27 05:27 | External Medical Summary | Summary of Care ---
Author Name Unknown Organization [facility] Address [address] [place] [address] Phone [phone] Care Team Providers Care Lead Solutions Architect Name Role Phone Nina Blanco MD Primary Care Provi mario Encounter Details Date Type Department Care Team (Late st Contact Info) Description 04/05/2024 Orders Only Outcomes Research Department [address] [place], [place] [phone] Raquel Morin CHRA MyCode Research Other*[id number] Allergies No known active allergiesdocumented as of this encounter (statuses as of 04/05/2024) Medications Medication Sig Dispensed Refills Start Date End Date Status Water For Irrigation, Sterile (FEED TUBE WATER) TF Administer 150 mL into J tube every 6 hours. 500 Each 10 09/01/2023 Active Compleat Peptide 1.5 Oral LiquidIndications:Eso phageal adenocarcinoma (HCC),Severe protein-energy malnutrition (HCC) Administer 7 bottles daily (1750 mL daily) through J tube at 100 ml/hr x 17.5 hrs via feeding pump 18330 mL 6 10/14/2023 Active Additional Information Patient not taking.Reported on 03/29/2024 Liquid Hope Peptide Sargent Oral Liquid Administer 5 pouches daily as directed through feeding tube via feeding pump at 100 ml/hr x 17 hours. 29761 g 11 01/20/2024 Active Irma Farms Peptide 1.5 Oral Liquid Administer 1625 ml daily as directed at 135 ml/hr for 12 hours through J tube via feeding pump. 87682 mL 6 02/17/2024 Active documented as of this encounter (statuses as of 04/05/2024) Active Problems Problem Noted Date Diagnosed Date History of esophageal cancer 02/09/2024 H/O insertion of central venous access port 10/01 Esophageal adenocarcinoma 08/28/2023 Erosive esophagitis 08/15/2023 Severe protein-energy malnutrition 08/14/2023 Esophageal dysphagia 08/12/2023 documented as of this encounter (statuses as of 04/05/2024) Resolved Problems Problem Noted Date Diagnosed Date Resolved Date Preop examination 12/19/2023 02/05/2024 Esophageal mass 08/17/2023 08/28/2023 Dehydration 08/14/2023 08/17/2023 Gastroesophageal reflux dise ase with esophagitis without hemorrhage 08/14/2023 Loss of weight 08/12/2023 08/21/2023 NO KNOWN PROBLEMS 03/28/2006 08/12/2023 documented as of this encounter (statuses as of 04/05/2024) Immunizations No known immunizationsdocumented as of this [...] 11:00 AM EST Nurse Only Hematology/Oncology Treatment, [place] [address] [place] [phone] Lanette, Chair 3 Hem Onc Scenery [address] [place] [address] 05/13/2024 1:40 PM EST Office Visit [facility] [address] [place] [phone] Nina Blanco MD [address] [place] [phone] 06/09/2024 12:20 PM EST Office Visit Nutrition & Weight Management, [place] [address] [place] [address] Nina Larson PA-C [address] [place] [address] Scheduled Orders Name Type Priority Associated Diagnoses Orde r Schedule MYCODE SUBSEQUENT ADULT Lab Routine MyCode Research Other*[id number] Every 6 Months for 2 Occurrences starting 04/05/2024 until 04/25/2025 Health Maintenance Due Date Last Done Comments [...] this encounter Medical Devices Implanted Type Area Glass Lined Tank Repairer Device Identifier Shelf Expiration Date Model / Serial / Lot Agile Eso Fc 2318mm 11.9cm - [id number] Implanted:Qty : 1 on 08/15/2023 by Liang Barrios DO at OR [facility] [employer] : ENDOSCOPY [id number] 04/09/2025 [id number] / / [id number] Cath Power Port 6fr Clearvue - [id number] Implanted:Qty : 1 on 08/29/2023 [place] Efe Tadeo MD [place] [facility] [place]: Chest CR BARD : PERIPHERAL VASCULAR 09/30/2023 [id number] / / [id number] documented as of this encounter Visit Diagnoses Diagnosis MyCode Research Other*[id number] documented in this encounter Advance Directives * [...] Advance Directives occurred with: Patient Care Teams Lead Solutions Architect Relationship Specialty Start Date End Date Nina Blanco MD [address] [place] [phone] PCP - General Family Medicine 08/21/23 documented as of this encounter
--- OUTSIDE RECORDS SUMMARY | 2024-05-27 05:27 | External Medical Summary ---
Author Name Unknown Address Unknown Organization K0G:[facility] [address] - [address] [place] [address] Laboratory Report Ordering Provider Test Date Status HAYLIE MICHELE 03/29/2024 10:15:06 Final Observation Date Value Abnormality Reference (Units ) Status BUN 03/29/2024 10:15:06 25 Above high normal 6-20 (mg/dL) Final Creatinine 03/29/2024 10:15:06 1.1 0.6-1.2 (mg/dL) Final Glomerular filtration rate/1.73 sq M.predicted [Volume Rate/Area] in Serum, Plasma or Blood by Creatinine-based formula (CKD-EPI) 03/29/2024 10:15:06 71 >=60 (mL/min) Final eGFR is calculated based on the CKD-EPI 2020 equation. Sodium 03/29/2024 10:15:06 145 135-146 (m mol/L) Final Potassium 03/29/2024 10:15:06 4.3 3.5-5.1 (m mol/L) Final Cl 03/29/2024 10:15:06 105 98-107 (mm ol/L) Final CO2 03/29/2024 10:15:06 29 22-32 (mmo l/L) Final Anion gap 03/29/2024 10:15:06 11 7-15 (mmol /L) Final Glucose 03/29/2024 10:15:06 110 70-120 (mg /dL) Final Albumin 03/29/2024 10:15:06 4.1 3.8-5.0 (g /dL) Final AST (Aspartate aminotransferase) 03/29/2024 10:15:06 19 10-50 (U/L) Final Alk Phos 03/29/2024 10:15:06 79 35-130 (U/ L) Final Bilirubin, Total 03/29/2024 10:15:06 0.4 <=1 .2 (mg/dL) Final Calcium 03/29/2024 10:15:06 9.5 8.4-10.2 ( mg/dL) Final Protein 03/29/2024 10:15:06 6.6 6.0-8.3 (g /dL) Final ALT (Alanine aminotransferase) 03/29/2024 10:15:06 17 10-50 (U/L) Final Performing Location [facility] [address] [facility] [address]
--- OUTSIDE RECORDS SUMMARY | 2024-05-27 05:27 | External Medical Summary ---
Author Name Unknown Address Unknown Organization K01[facility] [place] [address] [place] [address] Laboratory Report Ordering Provider Test Date Status FINESSE VELAZQUEZ 03/29/2024 10:15:06 Final Observation Date Value Abnormality Reference (Units ) Status Telecoast CommunicationsODE SPECIMEN-LAV 03/29/2024 10:15:06 Freezing of extracted DNA, whole blood and/or serum. Final Performing Location [facility] [place] [address] [facility] [address]
--- OUTSIDE RECORDS SUMMARY | 2024-05-27 05:27 | External Medical Summary | Summary of Care ---
Author Name Unknown Organization [facility] Address [address] [facility] [address] Phone [phone] Care Team Providers Care Pattern Lease Inspector Name Role Phone Nina Blanco MD Primary Care Provi mario Reason for Visit * Reason Comments Procedure Port flush Encounter Details Date Type Department Care Team (Late st Contact Info) Description 03/22/2024 11:00 AM EDT Nurse Only Hematology/Oncology Treatment, [address] [phone] [place], Chair [address] Hem On[address] [place] [address] Procedure (Port flush) Allergies No known active allergiesdocumented as of this encounter (statuses as of 04/13/2024) Medications Water For Irrigation, Sterile (FEED TUBE WATER) TF Administer 150 mL into J tube every 6 hours. 500 Each 10 4 Active Compleat Peptide 1.5 Oral LiquidIndications: Esophageal adenocarcinoma (HCC),Severe protein-energy malnutrition (HCC) Administer 7 bottles daily (1750 mL daily) through J tube at 100 ml/hr x 17.5 hrs via feeding pump 97486 mL 6 4 Active Liquid Hope Peptide Sargent Oral Liquid Administer 5 pouches daily as directed through feeding tube via feeding pump at 100 ml/hr x 17 hours. 27017 g 11 4 Active Irma Morales Peptide 1.5 Oral Liquid Administer 1625 ml daily as directed at 135 ml/hr for 12 hours through J tube via feeding pump. 94250 mL 6 4 Active documented as of this encounter (statuses as of 04/13/2024) Active Problems Problem Noted Date Diagnosed Date History of esophageal cancer 02/09/2024 H/O insertion of central venous access port 10/01 Esophageal adenocarcinoma 08/28/2023 Erosive esophagitis 08/15/2023 Severe protein-energy malnutrition 08/14/2023 Esophageal dysphagia 08/12/2023 documented as of this encounter (statuses as of 04/13/2024) Resolved Problems Problem Noted Date Diagnosed Date Resolved Date Preop examination 12/19/2023 02/05/2024 Esophageal mass 08/17/2023 08/28/2023 Dehydration 08/14/2023 08/17/2023 Gastroesophageal reflux dise ase with esophagitis without hemorrhage 08/14/2023 Loss of weight 08/12/2023 08/21/2023 NO KNOWN PROBLEMS 03/28/2006 08/12/2023 documented as of this encounter (statuses as of 04/13/2024) Immunizations No known immunizationsdocumented as of this [...] No 09/03/2023 Does the household have a [facility] hospital[facility] source of income? 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 on file [...] Assessment Author No 08/28/2023 5:33 PM EDRosey Romero, RN * Do you have difficulty dressing [...] Rosey Nassar, RN documented in this encounter Nursing Notes * Milly Gray RN - 03/22/2024 11:36 AM EDT Chair [...] 11:00 AM EST Nurse Only Hematology/Oncology Treatment, [address] [phone] [place], Chair [address] [address] 05/13/2024 1:40 PM EST Office Visit [address] [phone] Nina Blanco MD [address] [place] [phone] 06/09/2024 12:20 PM EST Office Visit Nutrition & Weight Management, [address] [address] Nina Larson PA-C [address] [place], [place] [phone] Health Maintenance Due Date Last Done Comments [...] this encounter Medical Devices Implanted Type Area Mixer Dry Food Products Device Identifier Shelf Expiration Date Model / Serial / Lot Agile Eso Fc 2318mm 11.9cm - [id number] Implanted:Qty : 1 on 08/15/2023 by Liang Barrios DO at OR [facility] [employer] : ENDOSCOPY [id number] 04/09/2025 [id number] / / [id number] Cath Power Port 6fr Clearvue - [id number] Implanted:Qty : 1 on 08/29/2023 by Efe Tadeo MD [place] [facility] [place]: Chest CR BARD : PERIPHERAL VASCULAR 09/30/2023 [id number] / / [id number] documented as of this encounter Visit Diagnoses [...] Flush, Starting on Fri03/22/24 at 1111, Until 03/22/24 at 1543, For 24 hours, Do not flush if lock, PICC, or central line not in place; IV infusing or unable to flush.Indications:History of esophageal cancer Given 03/22/2024 11:11 AM EDT 500 Units sodium chloride 0.9 % flush central line 10 mL 10 mL, IV Push, PRN Other, IV Flush, Starting on 03/22/24 at 1111, Until 03/22/24 at 1543, For 24 hours, Do not flush if lock, PICC, or central line not in place; IV infusing or unable to flush.Indications:History of esophageal cancer Given 03/22/2024 11:11 AM EDT 10 mL [...] Advance Directives occurred with: Patient Care Teams Pattern Lease Inspector Relationship Specialty Start Date End Date Nina Blanco MD [address] [place] [phone] PCP - General Family Medicine 08/21/23 documented as of this encounter
--- OUTSIDE RECORDS SUMMARY | 2024-05-27 05:27 | External Medical Summary | Summary of Care ---
Author Name Unknown Organization [facility] Address [address] [place] [address] Phone [phone] Care Team Providers Care Wire Fence Erector Name Role Phone Nina Blanco MD Primary Care Provi mario Encounter Details Date Type Department Care Team ([facility] Contact Info) Description 04/07/2024 Orders Only Family Practice [address] [phone] Nina Blanco MD [address] [place] [phone] Allergies No known active allergiesdocumented as [...] ml/hr x 17.5 hrs via feeding pump 50978 mL 6 10/14/2023 Active Additional Information Patient not taking.Reported on 03/29/2024 Liquid Hope Peptide Sargent Oral Liquid Administer 5 pouches daily as directed through feeding tube via feeding pump at 100 ml/hr x 17 hours. 78759 g 11 01/20/2024 Active Irma Morales Peptide 1.5 Oral Liquid Administer 1625 ml daily as directed at 135 ml/hr for 12 hours through J tube via feeding pump. 35934 mL 6 02/17/2024 Active documented as of [...] No 09/03/2023 Does the household have a [facility] source of income? (Household - for ages [...] 11:00 AM EST Nurse Only Hematology/Oncology Treatment, [place] [address] [place] [phone] [place], Chair 3 Hem Onc Scene [address] [place] [address] 05/13/2024 1:40 PM EST Office Visit [address] [phone] Nina Blanco MD [address] [place] [phone] 06/09/2024 12:20 PM EST Office Visit Nutrition & Weight Management, [place] [address] [place], [place] [phone] Nina Larson PA-C [address] [place], [place] [phone] Health Maintenance Due Date Last Done Comments [...] this encounter Medical Devices Implanted Type Area Manager Strategy Device Identifier Shelf Expiration Date Model / Serial / Lot Agilfelix Eso Fc 2318mm 11.9cm - [id number] Implanted:Qty : 1 on 08/15/2023 by Liang Barrios DO at OR [facility] [place] [employer] : ENDOSCOPY [id number] 04/09/2025 [id number] / / [id number] Cath Power Port 6fr Clearvue - [id number] Implanted:Qty : 1 on 08/29/2023 by Efe Tadeo MD at OR [facility] [place] Right: Chest CR BARD : PERIPHERAL VASCULAR 09/30/2023 [id number] / / [id number] documented as of this encounter Advance Directives [...] Advance Directives occurred with: Patient Care Teams Wire Fence Erector Relationship Specialty Start Date End Date Nina Blanco MD [address] [place] [phone] PCP - General Family Medicine 08/21/23 documented as of this encounter
--- OUTSIDE RECORDS SUMMARY | 2024-05-27 05:27 | External Medical Summary | Summary of Care ---
Author Name Unknown Organization [facility] Address [address] [facility] [address] Phone [phone] Care Team Providers Care Organic Gardening Teacher Name Role Phone Nina Blanco MD Primary Care Provi mario Reason for Visit * Reason Comments Procedure Port flush Encounter Details Date Type Department Care Team (Late st Contact Info) Description 03/22/2024 11:00 AM EDT Nurse Only Hematology/Oncology Treatment, [address] [address] [place], Chair 3 Hem On[address] [place] [address] Procedure (Port flush) Allergies No known active [...] ml/hr x 17.5 hrs via feeding pump 42015 mL 6 10/14/2023 Active Liquid Hope Peptide Sargent Oral Liquid Administer 5 pouches daily as directed through feeding tube via feeding pump at 100 ml/hr x 17 hours. 51930 g 11 01/20/2024 Active Irma Selectable Media Peptide 1.5 Oral Liquid Administer 1625 ml daily as directed at 135 ml/hr for 12 hours through J tube via feeding pump. 98382 mL 6 02/17/2024 Active documented as of [...] No 09/03/2023 Does the household have a [facility] source of income? (Household - for ages [...] Description 03/29/2024 10:45 AM EDT Imaging Radiology [facility] 1st [facility] [address] [place] [address] 05/03/2024 11:00 AM EST Nurse Only Hematology/Oncology Treatment, [place] [address] [place] [phone] Lan[place], Chair 3 Hem Onc Scene [address] [place] [address] 05/10/2024 9:40 AM EST Office Visit Nutrition & Weight Management, [facility] [address] [place] [address] Marycruz Galvan PA-C [address] [place] [address] 05/13/2024 1:40 PM EST Office Visit [address] [phone] Nina Blanco MD [address] [place] [phone] 06/09/2024 12:20 PM EST Office Visit Nutrition & Weight Management, [place] [address] [place] [address] McSNina burns PA-C [address] [place] [address] Health Maintenance Due Date Last Done Comments [...] this encounter Medical Devices Implanted Type Area Tennis Ball Cover Cementer Device Identifier Shelf Expiration Date Model / Serial / Lot Adeline Eso Fc 2318mm 11.9cm - [id number] Implanted:Qty : 1 on 08/15/2023 by Liang Barrios DO at OR [facility] [place] [employer] : ENDOSCOPY [id number] 04/09/2025 [id number] / / [id number] Cath Power Port 6fr Clearvue - [id number] Implanted:Qty : 1 on 08/29/2023 by Efe Tadeo MD at [place] [facility] [place]: Chest CR BARD : PERIPHERAL VASCULAR 09/30/2023 [id number] / / [id number] documented as of this encounter Visit Diagnoses [...] Flush, Starting on Fri03/22/24 at 1111, Until Fri03/23/24 at 1110, For 24 hours, Do not flush if lock, PICC, or central line not in place; IV infusing or unable to flush. Given 03/22/2024 11:11 AM EDT 500 Units sodium chloride 0.9 % flush central line 10 mL 10 mL, IV Push, PRN Other, IV Flush, Starting on Fri03/22/24 at 1111, Until Fri03/23/24 at 1110, For 24 hours, Do not flush if [...] Advance Directives occurred with: Patient Care Teams Organic Gardening Teacher Relationship Specialty Start Date End Date Nina Blanco MD [address] [place] [phone] PCP - General Family Medicine 08/21/23 documented as of this encounter
--- OUTSIDE RECORDS SUMMARY | 2024-05-27 05:27 | External Medical Summary ---
Author Name Unknown Address Unknown Organization K01:[facility] [place] - [address] [place] [address] Laboratory Report Ordering Provider Test Date Status HAYLIE MICHELE 03/29/2024 10:15:06 Final Observation Date Value Abnormality Reference (Units ) Status Folic Acid 03/29/2024 10:15:06 20.0 >4.5 (ng/ mL) Final Performing Location LABORATORY [facility] - [address] [place] [address]
--- OUTSIDE RECORDS SUMMARY | 2024-05-27 05:27 | External Medical Summary ---
Author Name Unknown Address Unknown Organization [id number]:LAB[facility]ATORY [place] [address] - [address] [place] [address] Laboratory Report Ordering Provider Test Date Status HAYLIE MICHELE 03/29/2024 10:15:06 Final Observation Date Value Abnormality Reference (Units ) Status WBC, Total 03/29/2024 10:15:06 6.92 4.00-10.8 0 (K/uL) Final RBC 03/29/2024 10:15:06 3.72 4.50-5.25 (M/uL) Final Hemoglobin 03/29/2024 10:15:06 12.3 Below low normal 14 .0-16.8 (g/dL) Final HCT 03/29/2024 10:15:06 38.0 Below low normal 40. 0-48.4 (%) Final MCV 03/29/2024 10:15:06 102.2 82.0-99.5 (fL) Final MCH 03/29/2024 10:15:06 33.1 27.0-34.0 (pg) Final MCHC 03/29/2024 10:15:06 32.4 32.0-36.0 (g/dL) Final RDW 03/29/2024 10:15:06 15.8 11.5-15.5 (%) Final Platelets 03/29/2024 10:15:06 231 140-400 (K /uL) Final MPV 03/29/2024 10:15:06 10.0 6.6-11.1 ( fL) Final Performing Location [facility] [address] [place] [address]
--- OUTSIDE RECORDS SUMMARY | 2024-05-27 05:28 | External Medical Summary | Summary of Care ---
Author Name Unknown Organization [facility] Address [address] [facility] [place] [address] Phone [phone] Care Team Providers Care Rfid Developer Name Role Phone Nina Blanco MD Primary Care Provi mario Reason for Visit * Reason Onset Date Comments Home Tube Feeding 02/18/2024 Encounter Details Date Type Department Care Team (Late st Contact Info) Description 02/18/2024 10:30 AM EDT Scheduled Telephone Vitaliy Larkin [address] [place] [address] Gwendolyn Nails, RUBEN [address] [place] [address] Allergies No known active allergiesdocumented as of this encounter (statuses as of 02/18/2024) Medications Medication Sig Dispensed Refills Start Date End Date Status Water For Irrigation, Sterile (FEED TUBE WATER) TF Administer 150 mL into J tube every 6 hours. 500 Each 10 09/01/2023 Active Compleat Peptide 1.5 Oral LiquidIndications:Eso phageal adenocarcinoma (HCC),Severe protein-energy malnutrition (HCC) Administer 7 bottles daily (1750 mL daily) through J tube at 100 ml/hr x 17.5 hrs via feeding pump 47190 mL 6 10/14/2023 Active Liquid Hope Peptide Sargent Oral Liquid Administer 5 pouches daily as directed through feeding tube via feeding pump at 100 ml/hr x 17 hours. 92906 g 11 01/20/2024 Active Triamcinolone Acetonide 0.1 % External Cream (Aristocort)Indicatio ns:Granulation tissue Apply topically to affected area 2 times a day for 15 days. Apply to j-tube site 30 g 02/11/2024 02/26/2024 Active Irma Farms Peptide 1.5 Oral Liquid Administer 1625 ml daily as directed at 135 ml/hr for 12 hours through J tube via feeding pump. 86948 mL 6 02/17/2024 Active documented as of this encounter (statuses as of 02/18/2024) Active Problems Problem Noted Date Diagnosed Date History of esophageal cancer 02/09/2024 H/O insertion of central venous access port 10/01 Esophageal adenocarcinoma 08/28/2023 Erosive esophagitis 08/15/2023 Severe protein-energy malnutrition 08/14/2023 Esophageal dysphagia 08/12/2023 documented as of this encounter (statuses as of 02/18/2024) Resolved Problems Problem Noted Date Diagnosed Date Resolved Date Preop examination 12/19/2023 02/05/2024 Esophageal mass 08/17/2023 08/28/2023 Dehydration 08/14/2023 08/17/2023 Gastroesophageal reflux dise ase with esophagitis without hemorrhage 08/14/2023 Loss of weight 08/12/2023 08/21/2023 NO KNOWN PROBLEMS 03/28/2006 08/12/2023 documented as of this encounter (statuses as of 02/18/2024) Immunizations No known immunizationsdocumented as of this [...] No 09/03/2023 Does the household have a [facility] source [facility]? (Household - for [...] Telephone Encounter - Gwendolyn Nails RDN - 02/18/2024 4:00 PM EDT Received message from pt's regarding physical issues and tube feeding. Contacted who states pt had been up most of the night coughing due to excessive mucous and dry heaves. They are concerned about opening around tube site growing in. States she is still mixing 100 mL of extra water intotube feeding formula to thin it down enough to go through the tube. I contacted hourly team members in Gastroenterology at [facility] (). Nurse sent a message to Gastroenterology at [facility] regarding this issue. Nurse from also contacted to inform her of above and encouraged her to call her back if does not receive a message from GI Team at [facility]. Gwendolyn Nails RDN, Clinical Dietitian II, [facility] Clinical Nutrition Services [facility] [address] [place] [address] Available via [facility] management Portal documented in this encounter Plan of Treatment Upcoming Encounters Date Type Department Care Team (Late st Contact Info) Description 03/22/2024 11:00 AM EDT Nurse Only Hematology/Oncology Treatment, [place] [address] [place] [address] [place], Chair 3 Hem Onc [place] [address] [place] [address] 03/29/2024 10:45 AM EDT Imaging Radiology [facility] 1st [facility] [address] [place] [address] 05/10/2024 9:40 AM EST Office Visit Nutrition & Weight Management, [place] [facility] [address] [place] [address] Marycruz Galvan PA-C [address] [place] [address] 05/13/2024 1:40 PM EST Office Visit Family [facility] [address] [place] [address] Nina Blanco MD [address] [place] [phone] Health Maintenance Due Date Last Done [...] this encounter Medical Devices Implanted Type Area Quilting Supervisor Device Identifier Shelf Expiration Date Model / Serial / Lot Adeline Eso Fc 2318mm 11.9cm - [id number] Implanted:Qty : 1 on 08/15/2023 by Liang Barrios DO at OR [facility] [place] [employer] : ENDOSCOPY [id number] 04/09/2025 [id number] / / [id number] Cath Power Port 6fr Clearvue - [id number] Implanted:Qty : 1 on 08/29/2023 by Efe Tadeo MD at OR [facility] Right: Chest CR BARD : PERIPHERAL VASCULAR 09/30/2023 [id number] / / [id number] documented as of this encounter Advance Directives [...] Advance Directives occurred with: Patient Care Teams Rfid Developer Relationship Specialty Start Date End Date Nina Blanco MD [address] [place] [phone] PCP - General Family Medicine 08/21/23 documented as of this encounter
--- OUTSIDE RECORDS SUMMARY | 2024-05-27 05:28 | External Medical Summary | Summary of Care ---
Author Name Unknown Organization [facility] Address [address] [facility] [address] Phone [phone] Care Team Providers Care Beef Cattle Farm Manager Name Role Phone Nina Blanco MD Primary Care Provi mario Reason for Visit * Reason Onset Date Comments Advice 03/15/2024 Encounter Details Date Type Department Care Team (Late st Contact Info) Description 03/15/2024 Telephone Gastroenterology, [facility] [address] [place] [address] Willian Blackburn MD [address] [place] [address] Advice Allergies No known active allergiesdocumented as of this encounter (statuses as of 03/15/2024) Medications Medication Sig Dispensed Refills Start Date End Date Status Water For Irrigation, Sterile (FEED TUBE WATER) TF Administer 150 mL into J tube every 6 hours. 500 Each 10 09/01/2023 Active Compleat Peptide 1.5 Oral LiquidIndications:Esop hageal adenocarcinoma (HCC),Severe protein-energy malnutrition (HCC) Administer 7 bottles daily (1750 mL daily) through J tube at 100 ml/hr x 17.5 hrs via feeding pump 38795 mL 6 10/14/2023 Active Liquid Hope Peptide Sargent Oral Liquid Administer 5 pouches daily as directed through feeding tube via feeding pump at 100 ml/hr x 17 hours. 85837 g 11 01/20/2024 Active Irma Farms Peptide 1.5 Oral Liquid Administer 1625 ml daily as directed at 135 ml/hr for 12 hours through J tube via feeding pump. 15225 mL 6 02/17/2024 Active documented as of this encounter (statuses as of 03/15/2024) Active Problems Problem Noted Date Diagnosed Date History of esophageal cancer 02/09/2024 H/O insertion of central venous access port 10/01 Esophageal adenocarcinoma 08/28/2023 Erosive esophagitis 08/15/2023 Severe protein-energy malnutrition 08/14/2023 Esophageal dysphagia 08/12/2023 documented as of this encounter (statuses as of 03/15/2024) Resolved Problems Problem Noted Date Diagnosed Date Resolved Date Preop examination 12/19/2023 02/05/2024 Esophageal mass 08/17/2023 08/28/2023 Dehydration 08/14/2023 08/17/2023 Gastroesophageal reflux dise ase with esophagitis without hemorrhage 08/14/2023 Loss of weight 08/12/2023 08/21/2023 NO KNOWN PROBLEMS 03/28/2006 08/12/2023 documented as of this encounter (statuses as of 03/15/2024) Immunizations No known immunizationsdocumented as of this [...] No 09/03/2023 Does the household have a [facility] source of income? (Household - for ages [...] encounter Miscellaneous Notes * Telephone Encounter - Pantera Zhang OSA - 03/15/2024 11:31 AM EDT Called and spoke with the patient and have him scheduled to be seen in the [place] [facility] Department tomorrow (03/16/24) with one of our providers to evaluate his tube and tube site. * Telephone Encounter - Pat Booker OSA - 03/15/2024 11:06 AM EDT Called pt and relayed the information below to the pt. He stated that it would probably make more sense to just go back to [place] since we dont do anything with the j peg incase something was needing placed or fixed on it. Notified Jayashree in [place] and she was forwarding the message to [facility] that handles the home tubes so they can get the pt situated. * Telephone Encounter - Willian Blackburn MD - 03/15/2024 9:20 AM EDT Patient had a surgically placed J-tube in july, its a direct J tube and not a PEG/J. It looks like he had a bedside J tube replacement on 02/[address] Benavidez and Rolan. We do not have j-tubes in office to replace, and not something we are doing routinely in GI office, I am happy to look at it, but may need to have them look at it. Will cc them on note Willian Blackburn MD * Telephone Encounter - Pat Booker OSA - 03/15/2024 8:43 AM EDT Gwendolyn foster stopped here in the office regarding the pt. Pt contacted her regarding his j tube leaking and having issues with it. Pt was scheduled incorrectly with Amelia on 03/22/24 are you able to see the pt sometime this week after a endo day or on admin day cause [facility] issues but is still having issues. documented in this encounter Plan of Treatment Upcoming Encounters Date Type Department Care Team (Late st Contact Info) Description 03/16/2024 2:20 PM EDT Office Visit Nutrition & Weight Management, [place] [address] [place] [address] Nina Larson PA-C [address] [place] [address] 03/22/2024 11:00 AM EDT Nurse Only Hematology/Oncology Treatment, [place] [address] [place] [phone] [place], Chair 3 Hem Onc Scene [address] [facility] [place] [address] 03/29/2024 10:45 AM EDT Imaging Radiology [facility]st [facility] [place] [address] 05/10/2024 9:40 AM EST Office Visit Nutrition & Weight Management, [facility] [address] [facility] [place] [address] Marycruz Galvan PA-C [address] [place] [address] 05/13/2024 1:40 PM EST Office Visit [address] [phone] Nina Blanco MD [address] [place] [phone] Health Maintenance Due Date Last Done [...] this encounter Medical Devices Implanted Type Area Milk Receiver Device Identifier Shelf Expiration Date Model / Serial / Lot Agile Eso Fc 2318mm 11.9cm - [id number] Implanted:Qty : 1 on 08/15/2023 by Liang Barrios DO at OR [facility] [place] [employer] : ENDOSCOPY [id number] 04/09/2025 [id number] / / [id number] Cath Power Port 6fr Clearvue - [id number] Implanted:Qty : 1 on 08/29/2023 by Efe Tadeo MD at OR [facility] [place] Right: Chest CR BARD : PERIPHERAL VASCULAR 09/30/2023 [id number] / / [id number] documented as of this encounter Advance Directives [...] Advance Directives occurred with: Patient Care Teams Beef Cattle Farm Manager Relationship Specialty Start Date End Date Nina Blanco MD [address] [place] [phone] PCP - General Family Medicine 08/21/23 documented as of this encounter
--- OUTSIDE RECORDS SUMMARY | 2024-05-27 05:28 | External Medical Summary | Summary of Care ---
Author Name Unknown Organization [facility] Address [address] [facility] [place] [address] Phone [phone] Care Team Providers Care Door Tender Name Role Phone Nina Blanco MD Primary Care Provi mario Reason for Visit * Reason Onset Date Comments Home Tube Feeding 02/13/2024 Encounter Details Date Type Department Care Team (Late st Contact Info) Description 02/13/2024 3:30 PM EDT Scheduled Telephone Vitaliy Larkin [address] [place] [address] Gwendolyn Nails, RUBEN [address] [place] [address] Allergies No known active allergiesdocumented as of this encounter (statuses as of 02/13/2024) Medications Medication Sig Dispensed Refills Start Date End Date Status Water For Irrigation, Sterile (FEED TUBE WATER) TF Administer 150 mL into J tube every 6 hours. 500 Each 10 09/01/2023 Active Compleat Peptide 1.5 Oral LiquidIndications:Eso phageal adenocarcinoma (HCC),Severe protein-energy malnutrition (HCC) Administer 7 bottles daily (1750 mL daily) through J tube at 100 ml/hr x 17.5 hrs via feeding pump 32488 mL 6 10/14/2023 Active Liquid Hope Peptide Sargent Oral Liquid Administer 5 pouches daily as directed through feeding tube via feeding pump at 100 ml/hr x 17 hours. 35172 g 11 01/20/2024 Active Triamcinolone Acetonide 0.1 % External Cream (Aristocort)Indicatio ns:Granulation tissue Apply topically to affected area 2 times a day for 15 days. Apply to j-tube site 30 g 02/11/2024 02/26/2024 Active documented as of this encounter (statuses as of 02/13/2024) Active Problems Problem Noted Date Diagnosed Date History of esophageal cancer 02/09/2024 H/O insertion of central venous access port 10/01 Esophageal adenocarcinoma 08/28/2023 Erosive esophagitis 08/15/2023 Severe protein-energy malnutrition 08/14/2023 Esophageal dysphagia 08/12/2023 documented as of this encounter (statuses as of 02/13/2024) Resolved Problems Problem Noted Date Diagnosed Date Resolved Date Preop examination 12/19/2023 02/05/2024 Esophageal mass 08/17/2023 08/28/2023 Dehydration 08/14/2023 08/17/2023 Gastroesophageal reflux dise ase with esophagitis without hemorrhage 08/14/2023 Loss of weight 08/12/2023 08/21/2023 NO KNOWN PROBLEMS 03/28/2006 08/12/2023 documented as of this encounter (statuses as of 02/13/2024) Immunizations No known immunizationsdocumented as of this [...] No 09/03/2023 Does the household have a [facility] source of income? (Household - for ages [...] Telephone Encounter - Gwendolyn Nails RDN - 02/13/2024 4:43 PM EDT Received message from pt's regarding difficulty getting current enteral formula, Liquid Hope, to go through new J-tube. This was replaced on Friday with a new 14 malawian 3 cm J-tube. (Liquid Hope is an organic formula which is more dense.) Discussed trying another formula with a thinner consistency. She is agreeable to trying Irma Farms Peptide 1.5 formula. Spoke with Gabby from [facility] to make her aware of above. Due to time of request, order will not go through until Friday AM. (I made aware of this when discussing requested tube feeding change.) Recommend changing formula to [employer]ma [employer] Peptide 1.5 formula, vanilla flavored 5 containers daily via pump (total volume of formula 1625 mL) at 135 mL/hr for 12 hours daily. Above regimen will provide ~2438 calories, 120 grams protein, 1138 mL free fluid. Recommend add 325 mL water flushes 4 times daily. This will provide a total of 2438 mL total fluid daily. Continue to monitor pt tolerance. Gwendolyn Nails RDN, Clinical Dietitian II, [facility] Clinical Nutrition Services [facility] [place] [address] [place] [address] Available via [employer] Portal documented in this encounter Plan of Treatment Upcoming Encounters Date Type Department Care Team (Late st Contact Info) Description 03/22/2024 11:00 AM EDT Nurse Only Hematology/Oncology Treatment, [place] [address] [facility] [phone] Lan[place], Chair 3 Hem Onc [address] [address] 05/10/2024 9:40 AM EST Office Visit Nutrition & Weight Management, [facility] [address] [place] [address] Marycruz Galvan PA-C [address] [place] [address] 05/13/2024 1:40 PM EST Office Visit [facility] [address] [place] [phone] Nina Blanco MD [address] [place] [phone] Health Maintenance Due Date Last Done [...] this encounter Medical Devices Implanted Type Area Setter Automatic Spinning Lathe Device Identifier Shelf Expiration Date Model / Serial / Lot Adeline Ogden Fc 2318mm 11.9cm - [id number] Implanted:Qty : 1 on 08/15/2023 by Liang Barrios DO at OR [facility] [employer] : ENDOSCOPY [id number] 04/09/2025 [id number] / / [id number] Cath Power Port 6fr Clearvue - [id number] Implanted:Qty : 1 on 08/29/2023 by Efe Tadeo MD at [facility] Right: Chest CR BARD : PERIPHERAL VASCULAR 09/30/2023 [id number] / / [id number] documented as of this encounter Advance Directives [...] Advance Directives occurred with: Patient Care Teams Door Tender Relationship Specialty Start Date End Date Nina Blanco MD [address] [place] [phone] PCP - General Family Medicine 08/21/23 documented as of this encounter
--- OUTSIDE RECORDS SUMMARY | 2024-05-27 05:28 | External Medical Summary | Summary of Care ---
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) Procedures PET CT SKULL BASE TO MID-THIGH FDG Nina Blanco MD [address] [place] [phone] Referral ID Status Reason Start Date Expiration Date V isits Requested Visits Authorized [id number] Authorized 03/06/2024 999 999 Reason for Visit * Reason Comments Status Check Ongoing issues with bad taste in mouth---Currently has catheter in place of J tube-- Encounter Details Date Type Department Care Team (Latest Contact Info) Description 02/05/2024 11:00 AM EDT Office Visit [address] [phone] Nina Blanco MD [address] [place] [phone] Esophageal adenocarcinoma (HCC)*; 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 500 Each 10 09/01/2023 Active Compleat Peptide 1.5 Oral LiquidIndications:Esop hageal adenocarcinoma (HCC),Severe protein-energy malnutrition (HCC) Administer 7 bottles daily (1750 mL daily) through J tube at 100 ml/hr x 17.5 hrs via feeding pump 59172 mL 6 10/14/2023 Active Liquid Hope Peptide Sargent Oral Liquid Administer 5 pouches daily as directed through feeding tube via feeding pump at 100 ml/hr x 17 hours. 26543 g 11 01/20/2024 Active documented as of this encounter (statuses as of 02/06/2024) Active Problems Problem Noted Date Diagnosed Date H/O insertion of central venous access port 10/01 Esophageal adenocarcinoma 08/28/2023 Erosive esophagitis 08/15/2023 Severe protein-energy malnutrition 08/14/2023 Esophageal dysphagia 08/12/2023 documented as of this encounter (statuses as of 02/06/2024) Resolved Problems Problem Noted Date Diagnosed Date Resolved Date Preop examination 12/19/2023 02/05/2024 Esophageal mass 08/17/2023 08/28/2023 Dehydration 08/14/2023 08/17/2023 Gastroesophageal reflux dise ase with esophagitis without hemorrhage 08/14/2023 Loss of weight 08/12/2023 08/21/2023 NO KNOWN PROBLEMS 03/28/2006 08/12/2023 documented as of this encounter (statuses as of 02/06/2024) Immunizations No known immunizationsdocumented as of this [...] file Travel History Travel Start Travel End [place] 12/30/2023 01/08/2024 [place] 12/30/2023 01/08/2024 documented as of this encounter Last Filed Vital Signs Vital Sign Reading Time Taken Comments Blood Pressure 104/70 02/05/2024 11:05 AM EDT Pulse 86 02/05/2024 11:05 AM EDT Temperature 37 C (98.6 F) 02/05/2024 11:05 AM EDT Respiratory Rate 18 02/05/2024 11:05 AM EDT Oxygen Saturation 99% 02/05/2024 11:05 AM EDT Inhaled Oxygen Concentration - - Weight 69.2 kg (152 lb 8 oz) 02/05/2024 11:05 AM EDT Height - - Body Mass Index 19.32 01/19/2024 1:36 PM EDT documented in this encounter Functional Status Functional Status Response [...] No 08/28/2023 documented as of this encounter Progress Notes * Nina Blanco MD - 02/05/2024 11:00 AM EDT Images from the original note were not included. History of Present Illness Lauro Martines is a 78 year old male with esophageal adenocarcinoma with severe protein calorie malnutrition that presents for Status Check (Ongoing issues with bad taste in mouth---/Currently has catheter in place of J tube-- ) Presents for routine follow up. He has esophageal adenocarcinoma. Has opted for non-traditional treatment through an organization in [place] called [facility]. His treatment currently includes capecitabine 500 mg and cyclophosphamide 50 mg daily, as well as vitamin B17. Just a few days ago they also recommended Vitamin D, Turmeric, selenium, fish oil, melatonin, which he has started. Since his last visit, he updated his PET CT as below. He has continued to struggle with managing his secretions/swallowing. Recently he was evaluated by palliative care at [facility], who recommended cool mist humidification and warm saltwater gargles for his mucus/secretions. His J tube has also dislodged multiple times. Currently has a hope in place at J tube site which he is using for his feeds. He is scheduled to see GI nutrition to exchange this for a button tube next week. At times he develops bloating and abdominal pain during feeds, which resolve if he pauses the feeds and then resumes them. He is wondering if the hope balloon that is inflated is causing somediscomfort. He has switched to Liquid Hope tube feeds. PET CT from 12/15/23: 1. Intense activity within a mass at the GE junction extending into the gastric cardia, consistent with known malignancy. Overall intensity is stable from the previous examination with size appearingmildly smaller, within the limits of ability to measure accurately on this unenhanced exam. 2. New nodular opacities within the abdomen, largest just anterior to the stomach. This could be inflammatory or neoplastic. Attention on follow-up imaging is recommended. 3. No other areas of abnormal uptake are identified. He is planning to return to [facility] in early April. They would like him to repeat his PET scan and labs prior to that visit, in March. Physical Exam Vitals: 02/05/24 1105 Temp: 37 C (98.6 F) Pulse: 86 Resp: 18 SpO2: 99% BP: 104/70 Physical Exam Vitals and nursing note reviewed. Constitutional: General: He is not in acute distress. Appearance: He is not toxic-appearing. HENT: Head: Normocephalic and atraumatic. Mouth/Throat: Mouth: Mucous membranes are moist. Pharynx: Oropharynx is clear. Eyes: Conjunctiva/sclera: Conjunctivae normal. Cardiovascular: Rate and Rhythm: Normal rate and regular rhythm. Pulses: Normal pulses. Heart sounds: Normal heart sounds. No murmur heard. Pulmonary: Effort: Pulmonary effort is normal. No respiratory distress. Breath sounds: Normal breath sounds. Abdominal: General: There is no distension. Palpations: Abdomen is soft. Tenderness: There is no abdominal tenderness. There is no guarding or rebound. Comments: J tube site with hope catheter in place. Mild erythema with slight herniation around theJ tube site. Musculoskeletal: Right lower leg: No edema. Left [...] normal. I have reviewed the following results: PET/CT, CA 19-9, UA, CMP, and CBC Assessment and Plan Esophageal adenocarcinoma (HCC) As above in HPI - has elected non-traditional treatment through an organization in [place] called [facility], with aim at using non-toxic low dose chemotherapy and holistic treatments, emphasis on maintaining quality of life. He will return to [facility] in early April, and they would like to repeat PET scan and labs prior to that visit in late March. 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 Will be seeing GI nutrition next week for exchange of hope catheter for button tube. Wrap-Up Follow Up: Return in about 3 months (around 05/06/2024) for Return with Physician. | For: Return with Physician Time: I spent a total of 40-54 minutes (exact time 52 mins) on the date of service in preparation, delivery, and documentation of the care provided to Lauro Martines excluding any time spent in the performance of separately billed services. documented in this encounter Nursing Notes * Sadaf Reynoso, WATER CARTER - 02/05/2024 11:07 AM EDT The patient has been properly identified by confirmation of name and date of . Chief Complaint Patient presents with Status Check Ongoing issues with bad taste in mouth--- Currently has catheter in place of J tube-- Patient has been verbally educated on the need or importance of Pneumococcal Vaccine, Shingles Vaccine, and Flu Vaccine and has declined topic(s). documented in this encounter Plan of Treatment Upcoming Encounters Date Type Department Care Team (Late st Contact Info) Description 02/09/2024 11:00 AM EDT Nurse Only Hematology/Oncology Treatment, [place] [address] [place] [phone] Lanette, Chair [address] [address] 02/11/2024 10:50 AM EDT Office Visit Nutrition & Weight Management, [place] [address] [place] [address] Alan Benavidez MD [address] [place] [address] 05/13/2024 1:40 PM EST Office Visit [address] [phone] Nina Blanco MD [address] [place] [phone] Scheduled Orders Name Type Priority Associated Diagnoses Orde r Schedule PET CT SKULL BASE TO MID-THIGH FDG Medical Imaging Routine Esophageal adenocarcinoma (HCC) 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) Expected: 03/06/2024, Expires: 03/06/2025 CBC WITH WBC DIFFERENTIAL Lab Routine Esophageal adenocarcinoma (HCC) Expected: 03/06/2024 (Approximate), Expires: 02/04/2025 COMPREHENSIVE METABOLIC PANEL Lab Routine Esophageal adenocarcinoma (HCC) Expected: 03/06/2024 (Approximate), Expires: 02/04/2025 CA 19-9 Lab Routine Esophageal adenocarcinoma (HCC) Other abnormal tumor markers Expected: 03/06/2024 (Approximate), Expires: 02/04/2025 URINALYSIS WITH MICROSCOPIC EXAM Lab Routine Esophageal adenocarcinoma (HCC) Expected: 03/06/2024 (Approximate), Expires: 02/04/2025 Health Maintenance Due Date Last Done Comments Hepatitis C Screening 12/07/1963 Zoster Vaccines (1 of 2) 12/07/1997 Pneumococcal Vaccine: 65+ Ye ars (1 of 1 - PCV) 12/07/2012 Adult Wellness Visit 12/07/2013 COVID-19 Vaccine (1 - 2022-2 4 season) 2024 Influenza Vaccine (FLU shot) (#1) [...] this encounter Medical Devices Implanted Type Area Custom Harvester Device Identifier Shelf Expiration Date Model / Serial / Lot Agile Eso Fc 2318mm 11.9cm - [id number] Implanted:Qty : 1 on 08/15/2023 by Liang Barrios DO at OR [facility] [employer] : ENDOSCOPY [id number] 04/09/2025 [id number] / / [id number] Cath Power Port 6fr Clearvue - [id number] Implanted:Qty : 1 on 08/29/2023 by Efe Tadeo MD at OR [facility] Right: Chest CR BARD : PERIPHERAL VASCULAR 09/30/2023 [id number] / / [id number] documented as of this encounter Visit Diagnoses Diagnosis Esophageal adenocarcinoma (HCC)- Primary Malignant neoplasm of esophagus, unspecified site 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
--- OUTSIDE RECORDS SUMMARY | 2024-05-27 05:28 | External Medical Summary | Summary of Care ---
Author Name Unknown Organization [facility] Address [address] [facility] [address] Phone [phone] Care Team Providers Care Fiscal Services Manager Name Role Phone Nina Blanco MD Primary Care Provi mario Reason for Visit * Reason Onset Date Comments Advice 03/15/2024 Encounter Details Date Type Department Care Team (Late st Contact Info) Description 03/15/2024 Telephone Gastroenterology, [facility] [address] [place] [address] Willian Blackburn MD [address] [place] [address] Advice Allergies No known active allergiesdocumented as [...] ml/hr x 17.5 hrs via feeding pump 65408 mL 6 10/14/2023 Active Liquid Hope Peptide Sargent Oral Liquid Administer 5 pouches daily as directed through feeding tube via feeding pump at 100 ml/hr x 17 hours. 99285 g 11 01/20/2024 Active Irma Farms Peptide 1.5 Oral Liquid Administer 1625 ml daily as directed at 135 ml/hr for 12 hours through J tube via feeding pump. 42770 mL 6 02/17/2024 Active documented as of [...] No 09/03/2023 Does the household have a [facility] source [facility] income? (Household - for [...] encounter Miscellaneous Notes * Telephone Encounter - Pat Booker OSA - 03/15/2024 11:06 AM EDT Called pt and relayed the information below to the pt. He stated that it would probably make more sense to just go back to [facility] since we dont do anything with the j peg incase something was needing placed or fixed on it. Notified Jayashree in [place] and she was forwarding the message to [...] pt [place] tube issues but is still having issues. documented in this encounter Plan of Treatment Upcoming Encounters Date Type Department Care Team (Late st Contact Info) Description 03/22/2024 11:00 AM EDT Nurse Only Hematology/Oncology Treatment, [place] [address] [place] [address] [place], Chair 3 Hem Onc [place] [address] [place] [address] 03/29/2024 10:45 AM EDT Imaging Radiology [facility] [address] [facility] [address] [facility] [place] [address] 05/10/2024 9:40 AM EST Office Visit Nutrition & Weight Management, [facility] [address] [facility] [place] [address] Marycruz Galvan PA-C [address] [facility] [place] [address] 05/13/2024 1:40 PM EST Office Visit Family [address] [phone] Nina Blanco MD [address] [place] [phone] Health Maintenance Due Date Last Done [...] this encounter Medical Devices Implanted Type Area Power Supply Engineer Device Identifier Shelf Expiration Date Model / Serial / Lot Adeline Ogden Fc 2318mm 11.9cm - [id number] Implanted:Qty : 1 on 08/15/2023 by Liang Barrios DO at OR [facility] [employer] : ENDOSCOPY [id number] 04/09/2025 [id number] / / [id number] Cath Power Port 6fr Clearvue - [id number] Implanted:Qty : 1 on 08/29/2023 by Efe Tadeo MD at OR [facility] Right: Chest CR BARD : PERIPHERAL VASCULAR 09/30/2023 [id number] / / [id number] documented as of this encounter Advance Directives [...] Directives occurred with: Patient Care Teams Fiscal Services Manager Relationship Specialty Start Date End Date Nina Blanco MD [address] [place] [phone] PCP - General Family Medicine 08/21/23 documented as of this encounter
--- OUTSIDE RECORDS SUMMARY | 2024-05-27 05:28 | External Medical Summary | Summary of Care ---
Author Name Unknown Organization [facility] Address [address] [facility] [place] [address] Phone [phone] Care Team Providers Care Stock Crane Operator Name Role Phone Nina Blanco MD Primary Care Provi mario Reason for Visit * Reason Onset Date Comments Home Tube Feeding 03/04/2024 Encounter Details Date Type Department Care Team (Late st Contact Info) Description 03/04/2024 11:30 AM EDT Scheduled Telephone Vitaliy Larkin [address] [place] [address] Gwendolyn Nails, RUBEN [address] [place] [address] Allergies No known active allergiesdocumented as of this encounter (statuses as of 03/04/2024) Medications Medication Sig Dispensed Refills Start Date End Date Status Water For Irrigation, Sterile (FEED TUBE WATER) TF Administer 150 mL into J tube every 6 hours. 500 Each 10 09/01/2023 Active Compleat Peptide 1.5 Oral LiquidIndications:Esop hageal adenocarcinoma (HCC),Severe protein-energy malnutrition (HCC) Administer 7 bottles daily (1750 mL daily) through J tube at 100 ml/hr x 17.5 hrs via feeding pump 34400 mL 6 10/14/2023 Active Liquid Hope Peptide Sargent Oral Liquid Administer 5 pouches daily as directed through feeding tube via feeding pump at 100 ml/hr x 17 hours. 48982 g 11 01/20/2024 Active Irma Farms Peptide 1.5 Oral Liquid Administer 1625 ml daily as directed at 135 ml/hr for 12 hours through J tube via feeding pump. 18319 mL 6 02/17/2024 Active documented as of this encounter (statuses as of 03/04/2024) Active Problems Problem Noted Date Diagnosed Date History of esophageal cancer 02/09/2024 H/O insertion of central venous access port 10/01 Esophageal adenocarcinoma 08/28/2023 Erosive esophagitis 08/15/2023 Severe protein-energy malnutrition 08/14/2023 Esophageal dysphagia 08/12/2023 documented as of this encounter (statuses as of 03/04/2024) Resolved Problems Problem Noted Date Diagnosed Date Resolved Date Preop examination 12/19/2023 02/05/2024 Esophageal mass 08/17/2023 08/28/2023 Dehydration 08/14/2023 08/17/2023 Gastroesophageal reflux dise ase with esophagitis without hemorrhage 08/14/2023 Loss of weight 08/12/2023 08/21/2023 NO KNOWN PROBLEMS 03/28/2006 08/12/2023 documented as of this encounter (statuses as of 03/04/2024) Immunizations No known immunizationsdocumented as of this [...] No 09/03/2023 Does the household have a [facility] source of income? (Household - for [...] shopping? (15 years old or older) No 03/28/20 24 Cognitive Status Response Date of Assessm ent Because of a physical, menta l, or emotional condition, do you have serious difficulty concentrating, remembering, or making decisions? (5 years old or older) No 08/28/2023 documented as of this encounter Miscellaneous Notes * Telephone Encounter - Gwendolyn Nails RDN - 03/04/2024 11:55 AM EDT Contacted pt and to follow-up on tube feeding regimen. Patient states he had J-tube replaced 3weeks ago. States it was replaced with a 14 again. He is using [employer] | VIP formula; he complains oftaste of it after feeding, but is tolerating regimen well. He denies problems with formula going through the tube. No clogging noted per . He denies GI distress but admits to some gas and pain inesophageal area. reports he occasionally drinks 1-2 tsp of water to help bring up phlegm that builds up. Patient describes pain as a growing pain until he coughs. Encouraged pt to discuss this issue with his Oncology provider. States he will discuss issue with his PCP. Encouraged pt and to contact me if any questions or concerns related to enteral regimen arise. Gwendolyn Nails RDN, Clinical Dietitian II, [facility] Clinical Nutrition Services [facility] [address] [place] [address] Available via [employer] Portal documented in this encounter Plan of Treatment Upcoming Encounters Date Type Department Care Team (Late st Contact Info) Description 03/22/2024 11:00 AM EDT Nurse Only Hematology/Oncology Treatment, [place] [address] [place] [phone] Lanette, Chair 3 Hem Onc Sc[place] [address] [place] [address] 03/29/2024 10:45 AM EDT Imaging Radiology [facility] 1st Floor, [place] [address] [place] [address] 05/10/2024 9:40 AM EST Office Visit Nutrition & Weight Management, [facility] [address] [place] [address] Marycruz Galvan PA-C [address] [place] [address] 05/13/2024 1:40 PM EST Office Visit [facility] [address] [place] [address] Nina Blanco MD [address] [place] [phone] Health Maintenance Due Date Last Done [...] this encounter Medical Devices Implanted Type Area End Finder Twisting Department Device Identifier Shelf Expiration Date Model / Serial / Lot Agile Eso Fc 2318mm 11.9cm - [id number] Implanted:Qty : 1 on 08/15/2023 by Liang Barrios DO at OR [facility] [employer] : ENDOSCOPY [id number] 04/09/2025 [id number] / / [id number] Cath Power Port 6fr Clearvue - [id number] Implanted:Qty : 1 on 08/29/2023 by Efe Tadeo MD at [facility] Right: Chest CR BARD : PERIPHERAL VASCULAR 09/30/2023 [id number] / / [id number] documented as of this encounter Advance Directives [...] Advance Directives occurred with: Patient Care Teams Stock Crane Operator Relationship Specialty Start Date End Date Nina Blanco MD [address] [place] [phone] PCP - General Family Medicine 08/21/23 documented as of this encounter"
--- OUTSIDE RECORDS SUMMARY | 2024-05-27 05:28 | External Medical Summary | Summary of Care ---
Author Name Unknown Organization [facility] Address [address] [place] [address] Phone [phone] Care Team Providers Care Butcher Assistant Name Role Phone Nina Blanco MD Primary Care Provi mario Reason for Visit * Reason Comments Home Tube Feeding * Evaluate & Treat - Unlimited Visits (Within 3 days (urgent)) - Authorized Specialty Diagnoses / Procedures Referred By Contact Referred To Contact GI NUTRITION/IM / Gastroenterology Diagnoses Esophageal adenocarcinoma (HCC) Severe protein-energy malnutrition (HCC) Jejunostomy tube fell out Nina Blanco MD [address] [place] [phone] Referral ID Status Reason Start Date Expiration Date Visits Requested Visits Authorized [id number] Authorized Specialty Services Required 02/03/[phone] Encounter Details Date Type Department Care Team ([facility] Contact Info) Description 02/11/2024 10:50 AM EDT Office Visit Nutrition & Weight Management, [place] [address] [place], [place] [phone] Alan Benavidez MD [address] [place], [place] [phone] Jejunostomy tube fell out*; Granulation tissue; Severe protein-energy malnutrition (HCC) [E43] Allergies No known active allergiesdocumented as of this encounter (statuses as of 02/11/2024) Medications Medication Sig Dispensed Refills Start Date End Date Status Water For Irrigation, Sterile (FEED TUBE WATER) TF Administer 150 mL into J tube every 6 hours. 500 Each 10 09/01/2023 Active Compleat Peptide 1.5 Oral LiquidIndications:E sophageal adenocarcinoma (HCC),Severe protein-energy malnutrition (HCC) Administer 7 bottles daily (1750 mL daily) through J tube at 100 ml/hr x 17.5 hrs via feeding pump 55126 mL 6 10/14/2023 Active Liquid Hope Peptide Sargent Oral Liquid Administer 5 pouches daily as directed through feeding tube via feeding pump at 100 ml/hr x 17 hours. 53594 g 11 01/20/2024 Active Triamcinolone Acetonide 0.1 % External Cream (Aristocort)Indicat ions:Granulation tissue Apply topically to affected area 2 times a day for 15 days. Apply to j-tube site 30 g 02/11/2024 4 Active Triamcinolone Acetonide 0.1 % External Cream (Aristocort)Indicat ions:Granulation tissue Apply topically to affected area 2 times a day. Apply to j-tube site 30 g 02/11/2024 4 Discontinued documented as of this encounter (statuses as of 02/11/2024) Active Problems Problem Noted Date Diagnosed Date History of esophageal cancer 02/09/2024 H/O insertion of central venous access port 10/01 Esophageal adenocarcinoma 08/28/2023 Erosive esophagitis 08/15/2023 Severe protein-energy malnutrition 08/14/2023 Esophageal dysphagia 08/12/2023 documented as of this encounter (statuses as of 02/11/2024) Resolved Problems Problem Noted Date Diagnosed Date Resolved Date Preop examination 12/19/2023 02/05/2024 Esophageal mass 08/17/2023 08/28/2023 Dehydration 08/14/2023 08/17/2023 Gastroesophageal reflux dise ase with esophagitis without hemorrhage 08/14/2023 Loss of weight 08/12/2023 08/21/2023 NO KNOWN PROBLEMS 03/28/2006 08/12/2023 documented as of this encounter (statuses as of 02/11/2024) Immunizations No known immunizationsdocumented as of this [...] Sign Reading Time Taken Comments Blood Pressure - - Pulse - - Temperature - - Respiratory Rate - - Oxygen Saturation - - Inhaled Oxygen Concentration - - Weight 68 kg (150 lb) 02/11/2024 10:40 AM EDT Height - - Body Mass Index 19.01 01/19/2024 1:36 PM EDT documented in this [...] 11:00 AM EDT Nurse Only Hematology/Oncology Treatment, [place] [address] [place] [phone] Park, Chair 3 Hem Onc Scenery [address] [place] [address] 05/10/2024 9:40 AM EST Office Visit Nutrition & Weight Management, [facility] [address] [place] [address] Marycruz Galvan PA-C [address] [place] [address] 05/13/2024 1:40 PM EST Office Visit [address] [phone] Nina Blanco MD [address] [place] [phone] Health Maintenance Due Date Last Done Comments Hepatitis C Screening 12/07[birth year]1965 Zoster Vaccines (1 of 2) 12/07/1997 Pneumococcal Vaccine: 65+ Ye ars (1 of 1 - PCV) 12/07/2012 Adult Wellness Visit 12/07/2013 COVID-19 Vaccine ( - 2022-2 4 season) 2024 Influenza Vaccine [...] this encounter Medical Devices Implanted Type Area Procurement Analyst Device Identifier Shelf Expiration Date Model / Serial / Lot Agile Eso Fc 2318mm 11.9cm - [id number] Implanted:Qty : 1 on 08/15/2023 by Liang Barrios DO at OR [facility] [employer] : ENDOSCOPY [id number] 04/09/2025 [id number] / / [id number] Cath Power Port 6fr Clearvue - [id number] Implanted:Qty : 1 on 08/29/2023 by Efe Tadeo MD at OR [facility] Right: Chest CR BARD : PERIPHERAL VASCULAR 09/30/2023 [id number] / / [id number] documented as of this encounter Visit Diagnoses Diagnosis Jejunostomy tube fell out- Primary Mechanical complication of colostomy and enterostomy Granulation tissue Severe protein-energy malnutrition (HCC) [E43] Other severe protein-calorie malnutrition documented in this [...] Advance Directives occurred with: Patient Care Teams Butcher Assistant Relationship Specialty Start Date End Date Nina Blanco MD [address] [place] [phone] PCP - General Family Medicine 08/21/23 documented as of this encounter
--- OUTSIDE RECORDS SUMMARY | 2024-05-27 05:28 | External Medical Summary | Summary of Care ---
Author Name Unknown Organization [facility] Address [address] [facility] [place] [address] Phone [phone] Care Team Providers Care Lien Searcher Name Role Phone Nina Blanco MD Primary Care Provi [facility] Encounter Details Date Type Department Care Team (Late st Contact Info) Description 02/09/2024 Orders Only Hematology/Oncology [facility] [place] [address] [facility] [place] [phone] Iliana Barreto MD [address] [facility] [place] [address] Allergies No known active allergiesdocumented as of this encounter (statuses as of 02/09/2024) Medications Medication Sig Dispensed Refills Start Date End Date Status Water For Irrigation, Sterile (FEED TUBE WATER) TF Administer 150 mL into J tube every 6 hours. 500 Each 10 09/01/2023 Active Compleat Peptide 1.5 Oral LiquidIndications:Esop hageal adenocarcinoma (HCC),Severe protein-energy malnutrition (HCC) Administer 7 bottles daily (1750 mL daily) through J tube at 100 ml/hr x 17.5 hrs via feeding pump 68395 mL 6 10/14/2023 Active Liquid Hope Peptide Sargent Oral Liquid Administer 5 pouches daily as directed through feeding tube via feeding pump at 100 ml/hr x 17 hours. 75361 g 11 01/20/2024 Active documented as of this encounter (statuses as of 02/09/2024) Active Problems Problem Noted Date Diagnosed Date History of esophageal cancer 02/09/2024 H/O insertion of central venous access port 10/01 Esophageal adenocarcinoma 08/28/2023 Erosive esophagitis 08/15/2023 Severe protein-energy malnutrition 08/14/2023 Esophageal dysphagia 08/12/2023 documented as of this encounter (statuses as of 02/09/2024) Resolved Problems Problem Noted Date Diagnosed Date Resolved Date Preop examination 12/19/2023 02/05/2024 Esophageal mass 08/17/2023 08/28/2023 Dehydration 08/14/2023 08/17/2023 Gastroesophageal reflux dise ase with esophagitis without hemorrhage 08/14/2023 Loss of weight 08/12/2023 08/21/2023 NO KNOWN PROBLEMS 03/28/2006 08/12/2023 documented as of this encounter (statuses as of 02/09/2024) Immunizations No known immunizationsdocumented as of this [...] No 09/03/2023 Does the household have a [facility] source of income? (Household - for ages [...] Care Team (Late st Contact Info) Description 02/11/2024 10:50 AM EDT Office Visit Nutrition & Weight Management, [place] [address] [place] [address] Alan Benavidez MD [address] [place] [address] 03/22/2024 11:00 AM EDT Nurse Only Hematology/Oncology Treatment, [place] [address] [place] [address] Lanette, Chair 3 Hem Onc [address] [place] [address] 05/13/2024 1:40 PM EST Office Visit [facility] [address] [place] [address] Nina Blanco MD [address] [place] [phone] Health Maintenance Due Date Last Done [...] this encounter Medical Devices Implanted Type Area Instrumentation Supervisor Device Identifier Shelf Expiration Date Model / Serial / Lot Agile Eso Fc 2318mm 11.9cm - [id number] Implanted:Qty : 1 on 08/15/2023 by Liang Barrios DO at OR [facility] [employer] : ENDOSCOPY [id number] 04/09/2025 [id number] / / [id number] Cath Power Port 6fr Clearvue - [id number] Implanted:Qty : 1 on 08/29/2023 by Efe Tadeo MD at OR [facility] Right: Chest CR BARD : PERIPHERAL VASCULAR 09/30/2023 [id number] / / [id number] documented as of this encounter Advance Directives [...] Advance Directives occurred with: Patient Care Teams Lien Searcher Relationship Specialty Start Date End Date Nina Blanco MD [address] [place] [phone] PCP - General Family Medicine 08/21/23 documented as of this encounter
--- OUTSIDE RECORDS SUMMARY | 2024-05-27 05:28 | External Medical Summary | Summary of Care ---
Author Name Unknown Organization [facility] Address [address] [place] [address] Phone [phone] Care Team Providers Care Golf Course Starter Name Role Phone Nina Blanco MD Primary Care Provi mario Reason for Visit * Reason Onset Date Comments Health Maintenance 02/04/2024 Encounter Details Date Type Department Care Team ([facility] st Contact Info) Description 02/04/2024 Telephone Family [address] [phone] Nina Blanco MD [address] [place] [phone] Health Maintenance Allergies No known active allergiesdocumented as of this encounter (statuses as of 02/04/2024) Medications Medication Sig Dispensed Refills Start Date End Date Status Water For Irrigation, Sterile (FEED TUBE WATER) TF Administer 150 mL into J tube every 6 hours. 500 Each 10 09/01/2023 Active Compleat Peptide 1.5 Oral LiquidIndications:Esop hageal adenocarcinoma (HCC),Severe protein-energy malnutrition (HCC) Administer 7 bottles daily (1750 mL daily) through J tube at 100 ml/hr x 17.5 hrs via feeding pump 28496 mL 6 10/14/2023 Active Liquid Hope Peptide Sargent Oral Liquid Administer 5 pouches daily as directed through feeding tube via feeding pump at 100 ml/hr x 17 hours. 29800 g 11 01/20/2024 Active documented as of this encounter (statuses as of 02/04/2024) Active Problems Problem Noted Date Diagnosed Date Preop examination 12/19/2023 H/O insertion of central venous access port 10/01 Esophageal adenocarcinoma 08/28/2023 Erosive esophagitis 08/15/2023 Severe protein-energy malnutrition 08/14/2023 Gastroesophageal reflux dise ase with esophagitis without hemorrhage 08/14/2023 Esophageal dysphagia 08/12/2023 documented as of this encounter (statuses as of 02/04/2024) Resolved Problems Problem Noted Date Diagnosed Date Resolved Date Esophageal mass 08/17/2023 08/28/2023 Dehydration 08/14/2023 08/17/2023 Loss of weight 08/12/2023 08/21/2023 NO KNOWN PROBLEMS 03/28/2006 08/12/2023 documented as of this encounter (statuses as of 02/04/2024) Immunizations No known immunizationsdocumented as of this [...] file Travel History Travel Start Travel End [place] 12/30/2023 01/08/2024 [place] 12/30/2023 01/08/2024 documented as of this encounter Functional Status [...] encounter Miscellaneous Notes * Telephone Encounter - Johana Heard LPN - 02/04/2024 2:45 PM EDT Care Gaps Comprehensive Care Outreach Last Office/Telemedicine Visit: 10/03/2023 (in office), Visit date not found (telemedicine) Next Office Visit: 02/05/2024 Hemoglobin AIC Results: No results found for: "HEMOGLOBIN A1C" BP Readings from Last 1 Encounters: 12/18/23 131/84 Reviewed Health Maintenance below: Health Maintenance Topic Date Due Hepatitis C Screening Never done Zoster Vaccines (1 of 2) Never done Pneumococcal Vaccine: 65+ Years (1 of 1 - PCV) Never done Adult Wellness Visit Never done Influenza Vaccine (FLU shot) (1) Never done COVID-19 Vaccine ( season) Never done Care Gap Outreach Action Taken: Melinta message sent documented in this encounter Plan of Treatment Upcoming Encounters Date Type Department Care Team ([facility] st Contact Info) Description 02/05/2024 11:00 AM EDT Office Visit [address] [phone] Nina Blanco MD [address] [place] [phone] 02/09/2024 11:00 AM EDT Nurse Only Hematology/Oncology Treatment, [address], [place] [address] Lan[place], Chair 9 Hem Onc [facility] [address] [place] [address] Health Maintenance Due Date Last Done Comments Hepatitis C Screening 12/07/1963 Zoster Vaccines (1 of 2) 12/07/1997 Pneumococcal Vaccine: 65+ Ye ars (1 of 1 - PCV) 12/07/2012 Adult Wellness Visit 12/07/2013 COVID-19 Vaccine (1 - 2022- 4 season) 2024 Influenza Vaccine (FLU shot) [...] this encounter Medical Devices Implanted Type Area Hogshead Cooper Device Identifier Shelf Expiration Date Model / Serial / Lot Agile Eso Fc 2318mm 11.9cm - [id number] Implanted:Qty : 1 on 08/15/2023 by Liang Barrios DO at OR [facility] [employer] : ENDOSCOPY [id number] 04/09/2025 [id number] / / [id number] Cath Power Port 6fr Clearvue - [id number] Implanted:Qty : 1 on 08/29/2023 by Efe Tadeo MD [place] [facility] [place]: Chest CR BARD : PERIPHERAL VASCULAR 09/30/2023 [id number] / / [id number] documented as of this encounter Advance Directives [...] Advance Directives occurred with: Patient Care Teams Golf Course Starter Relationship Specialty Start Date End Date Nina Blanco MD [address] [place] [phone] PCP - General Family Medicine 08/21/23 documented as of this encounter
--- OUTSIDE RECORDS SUMMARY | 2024-05-27 05:28 | External Medical Summary | Summary of Care ---
Author Name Unknown Organization [facility] Address [address] [facility] [address] Phone [phone] Care Team Providers Care Scrap Iron Cutter Name Role Phone Nina Blanco MD Primary Care Provi mario Reason for Visit * Reason Onset Date Comments Advice 03/15/2024 Encounter Details Date Type Department Care Team (Late st Contact Info) Description 03/15/2024 Telephone Gastroenterology, [facility] [address] [place] [address] Willian Blackburn MD [address] [place] [address] Advice Allergies No known active allergiesdocumented as [...] ml/hr x 17.5 hrs via feeding pump 69548 mL 6 10/14/2023 Active Liquid Hope Peptide Sargent Oral Liquid Administer 5 pouches daily as directed through feeding tube via feeding pump at 100 ml/hr x 17 hours. 68717 g 11 01/20/2024 Active Irma Farms Peptide 1.5 Oral Liquid Administer 1625 ml daily as directed at 135 ml/hr for 12 hours through J tube via feeding pump. 81393 mL 6 02/17/2024 Active documented as of [...] No 09/03/2023 Does the household have a [facility] source of income? (Household - for [...] encounter Miscellaneous Notes * Telephone Encounter - Willian Blackburn MD [...] [facility] but is still having issues. documented in this encounter Plan of Treatment Upcoming Encounters Date Type Department Care Team (Late st Contact Info) Description 03/22/2024 11:00 AM EDT Nurse Only Hematology/Oncology Treatment, [place] [address] [place] [address] [place], Chair 3 Hem Onc Scenery [address] [place] [address] 03/29/2024 10:45 AM EDT Imaging Radiology [facility], [place] [address] [place] [address] 05/10/2024 9:40 AM EST Office Visit Nutrition & Weight Management, [facility] [address] [place] [address] Marycruz Galvan PA-C [address] [place] [address] 05/13/2024 1:40 PM EST Office Visit [facility] [address] [place] [address] Nina Blanco MD [address] [place] [phone] Health Maintenance Due Date Last Done [...] this encounter Medical Devices Implanted Type Area Process Machine Operator Device Identifier Shelf Expiration Date Model / Serial / Lot Adeline Maganao Fc 2318mm 11.9cm - [id number] Implanted:Qty : 1 on 08/15/2023 by Liang Barrios DO at OR [facility] [employer] [employer] : ENDOSCOPY [id number] 04/09/2025 [id number] / / [id number] Cath Power Port 6fr Clearvue - [id number] Implanted:Qty : 1 on 08/29/2023 by Efe Tadeo MD at [facility] Right: Chest CR BARD : PERIPHERAL VASCULAR 09/30/2023 [id number] / / [id number] documented as of this encounter Advance Directives [...] Advance Directives occurred with: Patient Care Teams Scrap Iron Cutter Relationship Specialty Start Date End Date Nina Blanco MD [address] [place] [phone] PCP - General Family Medicine 08/21/23 documented as of this encounter
--- OUTSIDE RECORDS SUMMARY | 2024-05-27 05:28 | External Medical Summary | Summary of Care ---
Author Name Unknown Organization [facility] Address [address] [place] [address] Phone [phone] Care Team Providers Care Lead Java Developer Architect Name Role Phone Nina Blanco MD Primary Care Provi mario Reason for Visit * Reason Onset Date Comments Appointment 01/23/2024 Encounter Details Date Type Department Care Team (Late st Contact Info) Description 01/23/2024 Telephone Access Center, [place] [address] [facility] *DO NOT REMOVE THIS DEPARTMENT* [place] [address] Services, Scheduling [address] [place] [address] Appointment Allergies No known active allergiesdocumented as of this encounter (statuses as of 01/26/2024) Medications Medication Sig Dispensed Refills Start Date End Date Status Water For Irrigation, Sterile (FEED TUBE WATER) TF Administer 150 mL into J tube every 6 hours. 500 Each 10 09/01/2023 Active Compleat Peptide 1.5 Oral LiquidIndications:Esop hageal adenocarcinoma (HCC),Severe protein-energy malnutrition (HCC) Administer 7 bottles daily (1750 mL daily) through J tube at 100 ml/hr x 17.5 hrs via feeding pump 48978 mL 6 10/14/2023 Active Liquid Hope Peptide Sargent Oral Liquid Administer 5 pouches daily as directed through feeding tube via feeding pump at 100 ml/hr x 17 hours. 71149 g 11 01/20/2024 Active documented as of this encounter (statuses as of 01/26/2024) Active Problems Problem Noted Date Diagnosed Date Preop examination 12/19/2023 H/O insertion of central venous access port 10/01 Esophageal adenocarcinoma 08/28/2023 Erosive esophagitis 08/15/2023 Severe protein-energy malnutrition 08/14/2023 Gastroesophageal reflux dise ase with esophagitis without hemorrhage 08/14/2023 Esophageal dysphagia 08/12/2023 documented as of this encounter (statuses as of 01/26/2024) Resolved Problems Problem Noted Date Diagnosed Date Resolved Date Esophageal mass 08/17/2023 08/28/2023 Dehydration 08/14/2023 08/17/2023 Loss of weight 08/12/2023 08/21/2023 NO KNOWN PROBLEMS 03/28/2006 08/12/2023 documented as of this encounter (statuses as of 01/26/2024) Immunizations No known immunizationsdocumented as of this [...] 09/03/2023 [facility] the [facility] have a [facility] source [facility] income? (Household - [...] file Travel History Travel Start Travel End [place] 12/30/2023 01/08/2024 [place] 12/30/2023 01/08/2024 documented as of this encounter [...] Telephone Encounter - Diana Willis OSA - 01/26/2024 10:30 AM EDT Apt is scheduled pt is aware * Telephone Encounter - Teresita Olmstead OSA - 01/23/2024 2:36 PM EDT Patient calling to set up port flush for one of the following dates in February 05 or documented in this encounter Plan of Treatment Upcoming Encounters Date Type Department Care Team ([facility] st Contact Info) Description 02/05/2024 11:00 AM EDT Office Visit [facility] [address] [place] [address] Nina Blanco MD [address] [place] [phone] 02/09/2024 11:00 AM EDT Nurse Only Hematology/Oncology Treatment, [place] [address] [place] [address] Lanette, Chair 9 Hem Onc Scene [address] [place] [address] Health Maintenance Due Date Last Done Comments Hepatitis C Screening 12/07/1965 Zoster Vaccines (1 of 2) 12/07/1997 Pneumococcal Vaccine: 65+ Ye ars (1 of 1 - PCV) 12/07/2012 Adult Wellness Visit 12/07/2013 COVID-19 Vaccine (1 - 2022-2 4 season) 2023 Influenza Vaccine (FLU shot) (#1) 2024 DTaP,Tdap,and Td Vaccines (1 - Tdap) 06/02/2024 Postponed from 12/07 (Patient Declined After Education) Depression Screening 09/02/2024 [...] this encounter Medical Devices Implanted Type Area Cyanide Case Hardener Device Identifier Shelf Expiration Date Model / Serial / Lot Agilfelix Eso Fc 2318mm 11.9cm - [id number] Implanted:Qty : 1 on 08/15/2023 by Liang Barrios DO at OR [facility] [employer] : ENDOSCOPY [id number] 04/09/2025 [id number] / / [id number] Cath Power Port 6fr Clearvue - [id number] Implanted:Qty : 1 on 08/29/2023 by Efe Tadeo MD at OR [facility] Right: Chest CR BARD : PERIPHERAL VASCULAR 09/30/2023 [id number] / / [id number] documented as of this encounter Advance Directives [...] Directives occurred with: Patient Care Teams Lead Java Developer Architect Relationship Specialty Start Date End Date Nina Blanco MD [address] [place] [phone] PCP - General Family Medicine 08/21/23 documented as of this encounter
--- OUTSIDE RECORDS SUMMARY | 2024-05-27 05:28 | External Medical Summary | Summary of Care ---
Author Name Unknown Organization [facility] Address [address] [place] [address] Phone [phone] Care Team Providers Care Mercerizing Range Controller Name Role Phone Nina Blanco MD Primary Care Provi mario Reason for Visit * Reason Comments Weight Management Encounter Details Date Type Department Care Team (Late st Contact Info) Description 03/16/2024 2:20 PM EDT Office Visit Nutrition & Weight Management, [place] [address] [place], [place] [phone] Nina Larson PA-C [address] [place] [address] Jejunostomy tube leak (HCC)* Allergies No known active allergiesdocumented as of this encounter (statuses as of 03/16/2024) Medications Medication Sig Dispensed Refills Start Date End Date Status Water For Irrigation, Sterile (FEED TUBE WATER) TF Administer 150 mL into J tube every 6 hours. 500 Each 10 09/01/2023 Active Compleat Peptide 1.5 Oral LiquidIndications:Esop hageal adenocarcinoma (HCC),Severe protein-energy malnutrition (HCC) Administer 7 bottles daily (1750 mL daily) through J tube at 100 ml/hr x 17.5 hrs via feeding pump 56505 mL 6 10/14/2023 Active Liquid Hope Peptide Sargent Oral Liquid Administer 5 pouches daily as directed through feeding tube via feeding pump at 100 ml/hr x 17 hours. 98296 g 11 01/20/2024 Active Irma Pheedo Peptide 1.5 Oral Liquid Administer 1625 ml daily as directed at 135 ml/hr for 12 hours through J tube via feeding pump. 50301 mL 6 02/17/2024 Active documented as of this encounter (statuses as of 03/16/2024) Active Problems Problem Noted Date Diagnosed Date History of esophageal cancer 02/09/2024 H/O insertion of central venous access port 10/01 Esophageal adenocarcinoma 08/28/2023 Erosive esophagitis 08/15/2023 Severe protein-energy malnutrition 08/14/2023 Esophageal dysphagia 08/12/2023 documented as of this encounter (statuses as of 03/16/2024) Resolved Problems Problem Noted Date Diagnosed Date Resolved Date Preop examination 12/19/2023 02/05/2024 Esophageal mass 08/17/2023 08/28/2023 Dehydration 08/14/2023 08/17/2023 Gastroesophageal reflux dise ase with esophagitis without hemorrhage 08/14/2023 Loss of weight 08/12/2023 08/21/2023 NO KNOWN PROBLEMS 03/28/2006 08/12/2023 documented as of this encounter (statuses as of 03/16/2024) Immunizations No known immunizationsdocumented as of this [...] No 09/03/2023 Does the household have a [facility] source of income? (Household - for [...] Sign Reading Time Taken Comments Blood Pressure 120/76 03/16/2024 2:22 PM EDT Pulse 100 03/16/2024 2:22 PM EDT Temperature - - Respiratory Rate - - Oxygen Saturation 95% 03/16/2024 2:22 PM EDT Inhaled Oxygen Concentration - - Weight 72.1 kg (159 lb) 03/16/2024 2:22 PM EDT Height - - Body Mass Index 20.15 01/19/2024 1:36 PM EDT documented in this [...] of this encounter Progress Notes * Nina Larson PA-C - 03/16/2024 2:33 PM EDT GI NUTRITION TUBE CHANGE Lauro Deysi Martines presents to the clinic today for follow-up. The patient has a 14F 3.[address] The current tube was placed 02/11/24. The patient presents today for a routine tube change. Has has increase drainage for j tube recently. Tube feels too snug. Of note, there was 5 ml fluid in balloon. Notes TF go in slower d/t small diameter of tube.. No fever Site is red/irritated from drainage. Minimal proud flesh. Had been treated with triamcinolone cream, with improvement. Now using Desitin cream The current tube was removed without difficulty. A new 14 equatorial guinean 4.0cm jejunostomy tube was inserted via protocol, with 7 in distal tail. The balloon was inflated with 3 cc of water. Dry sterile dressing applied. Hydrosorb foam dressing applied Patient tolerated procedure well. Lot # [id number] BP 120/76 | Pulse 100 | Wt 72.1 kg (159 lb) | SpO2 95% | BMI 20.15 kg/m | BSA 1.95 m Weight isstable. Assessment and Plan: Continue current tube feeding cycle. I suspect leakage may be from over inflated balloon and tightness of tube. RTC in 3 months for routine tube change.- will plan to try to upsize to 18 F J tube (unfortunately no 16 F tube made), will plan on trying 4.5 cm as we are trying to gain weight Education provided regarding follow-up care and emergency measures. Nina Larson PA-C documented in this encounter Plan of Treatment Upcoming Encounters Date Type Department Care Team (Late st Contact Info) Description 03/22/2024 11:00 AM EDT Nurse Only Hematology/Oncology Treatment, [place] [address] [place] [address] Park, Chair 3 Hem Onc Scenery [address] [place] [address] 03/29/2024 10:45 AM EDT Imaging Radiology [facility] [place] [address] 05/10/2024 9:40 AM EST Office Visit Nutrition & Weight Management, [facility] 132 [facility] [place] [address] Marycruz Galvan PA-C 132 [facility] [place] [address] 05/13/2024 1:40 PM EST Office Visit [address] [phone] Nina Blanco MD [address] [place] [phone] 06/09/2024 12:20 PM EST Office Visit Nutrition & Weight Management, [place] [address] [place], [place] [phone] Nina Larson PA-C [address] [place], [place] [phone] Health Maintenance Due Date Last Done Comments [...] this encounter Medical Devices Implanted Type Area Metal Coater Operator Device Identifier Shelf Expiration Date Model / Serial / Lot Agile Eso Fc 2318mm 11.9cm - [id number] Implanted:Qty : 1 on 08/15/2023 by Liang Barrios DO at OR 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
--- OUTSIDE RECORDS SUMMARY | 2024-05-27 05:28 | External Medical Summary | Summary of Care ---
Author Name Unknown Organization [facility] Address [address] [facility] [address] Phone [phone] Care Team Providers Care Loading Rack Supervisor Name Role Phone Nina Blanco MD Primary Care Provi mario Reason for Visit * Reason Comments Procedure Port flush Encounter Details Date Type Department Care Team (Late st Contact Info) Description 02/09/2024 11:00 AM EDT Nurse Only Hematology/Oncology Treatment, [address] [phone] Lan[place], Chair 9 Hem Onc [address] [place] [address] Procedure (Port flush/) Allergies No known active allergiesdocumented as of [...] ml/hr x 17.5 hrs via feeding pump 57598 mL 6 10/14/2023 Active Liquid Hope Peptide Sargent Oral Liquid Administer 5 pouches daily as directed through feeding tube via feeding pump at 100 ml/hr x 17 hours. 21678 g 11 01/20/2024 Active documented as of [...] as of this encounter Nursing Notes * Latosha Hutchins, FABRICE - 02/09/2024 11:47 AM EDT Chair 5 No complaints. Port accessed, flushed easily with blood return. Flushed with 20 mL NS + 500 Units heparin per protocol; de-accessed. Pt scheduled for next port flush 03/22/24 VAD (Venous Access Device) accessed with #19G 3/4" Rdz needle without difficulty. VAD flushed with 20 ml NSS and Heparin 5 ml (100 units/ml). Rdz needle removed intact. documented in this encounter Plan of Treatment Upcoming Encounters Date Type Department Care Team (Late st Contact Info) Description 02/11/2024 10:50 AM EDT Office Visit Nutrition & Weight Management, [place] [address] [place] [address] Alan Benavidez MD [address] [place] [address] 03/22/2024 11:00 AM EDT Nurse Only Hematology/Oncology Treatment, [address] [phone] Lanette, Chair [address] [address] 05/13/2024 1:40 PM EST Office Visit [address] [phone] Nina Blnaco MD [address] [place] [phone] Health Maintenance Due Date Last Done [...] this encounter Medical Devices Implanted Type Area Children'S Lunchroom Supervisor Device Identifier Shelf Expiration Date Model / Serial / Lot Agile Eso Fc 2318mm 11.9cm - [id number] Implanted:Qty : 1 on 08/15/2023 by Liang Barrios DO at OR [facility] [employer] : ENDOSCOPY [id number] 04/09/2025 [id number] / / [id number] Cath Power Port 6fr Clearvue - [id number] Implanted:Qty : 1 on 08/29/2023 by Efe Tadeo MD at OR [facility] Right: Chest CR BARD : PERIPHERAL VASCULAR 09/30/2023 [id number] / / [id number] documented as of this encounter Visit Diagnoses [...] Lock, PRN Other, IV Flush, Starting on Fri02/09/24 at 1125, Until Fri02/10/24 at 1124, For 24 hours, Do not flush if lock, PICC, or central line not in place; IV infusing or unable to flush. Given 02/09/2024 11:32 AM EDT 500 Units sodium chloride 0.9 % flush central line 10 mL 10 mL, IV Push, PRN Other, IV Flush, Starting on Fri02/09/24 at 1125, Until Fri02/10/24 at 1124, For 24 hours, Do not flush if lock, PICC, or central line not in place; IV infusing or unable to flush. Given 02/09/2024 11:32 AM EDT 20 mL documented in this encounter Advance Directives [...] Advance Directives occurred with: Patient Care Teams Loading Rack Supervisor Relationship Specialty Start Date End Date Nina Blanco MD [address] [place] [phone] PCP - General Family Medicine 08/21/23 documented as of this encounter
--- OUTSIDE RECORDS SUMMARY | 2024-05-27 05:28 | External Medical Summary | Summary of Care ---
Author Name Unknown Organization [facility] Address [address] [place] [address] Phone [phone] Care Team Providers Care Glass Beveler Name Role Phone Nina Blanco MD Primary Care Provi mario Reason for Visit * Reason Comments Home Tube Feeding * Evaluate & Treat - Unlimited Visits (Within 3 days (urgent)) - Authorized Specialty Diagnoses / Procedures Referred By Contact Referred To Contact GI NUTRITION/IM / Gastroenterology Diagnoses Esophageal adenocarcinoma (HCC) Severe protein-energy malnutrition (HCC) Jejunostomy tube fell out Nina Blanco MD [address] [place] [phone] Referral ID Status Reason Start Date Expiration Date Visits Requested Visits Authorized [id number] Authorized Specialty Services Required 02/03/2024 [id number] Encounter Details Date Type Department Care Team ([facility] Contact Info) Description 02/11/2024 10:50 AM EDT Office Visit Nutrition & Weight Management, [place] [address] [place], [place] [phone] Alan Benavidez MD [address] [place], [place] [phone] Jejunostomy tube fell out*; Granulation tissue; Severe [...] ml/hr x 17.5 hrs via feeding pump 61485 mL 6 10/14/2023 Active Liquid Hope Peptide Sargent Oral Liquid Administer 5 pouches daily as directed through feeding tube via feeding pump at 100 ml/hr x 17 hours. 94005 g 11 01/20/2024 Active Triamcinolone Acetonide 0.1 [...] 11:00 AM EDT Nurse Only Hematology/Oncology Treatment, [place] [address] [place] [phone] Park, Chair 3 Hem Onc Scenery [address] [place] [address] 05/10/2024 9:40 AM EST Office Visit Nutrition & Weight Management, [facility] [address] [place] [address] Marycruz Galvan PA-C [address] [place] [address] 05/13/2024 1:40 PM EST Office Visit [address] [phone] Nina Blanco MD [address] [place] [phone] Health Maintenance Due Date Last Done [...] this encounter Medical Devices Implanted Type Area Car Framer Device Identifier Shelf Expiration Date Model / Serial / Lot Agile Eso Fc 2318mm 11.9cm - [id number] Implanted:Qty : 1 on 08/15/2023 by Liang Barrios DO at OR [facility] : ENDOSCOPY [id number] 04/09/2025 [id number] / / [id number] Cath Power Port 6fr Clearvue - [id number] Implanted:Qty : 1 on 08/29/2023 by Efe Tadeo MD [place] [facility]: Chest CR BARD : PERIPHERAL VASCULAR 09/30/2023 [id number] / / [id number] documented as of this encounter Visit Diagnoses [...] Directives occurred with: Patient Care Teams Glass Beveler Relationship Specialty Start Date End Date Nina Blanco MD [address] [place] [phone] PCP - General Family Medicine 08/21/23 documented as of this encounter
--- OUTSIDE RECORDS SUMMARY | 2024-05-27 05:28 | External Medical Summary | Summary of Care ---
Author Name Unknown Organization [facility] Address [address] [facility] [place] [address] Phone [phone] Care Team Providers Care Rectification Printer Name Role Phone Nina Blnaco MD Primary Care Provi mario Reason for Visit * Reason Onset Date Comments Home Tube Feeding 03/15/2024 Encounter Details Date Type Department Care Team (Late st Contact Info) Description 03/15/2024 10:30 AM EDT Scheduled Telephone Vitaliy Larkin [address] [place] [address] Gwendolyn Nails, RUBEN [address] [place] [address] Allergies No known active allergiesdocumented as of [...] ml/hr x 17.5 hrs via feeding pump 20649 mL 6 10/14/2023 Active Liquid Hope Peptide Sargent Oral Liquid Administer 5 pouches daily as directed through feeding tube via feeding pump at 100 ml/hr x 17 hours. 93064 g 11 01/20/2024 Active Irma Farms Peptide 1.5 Oral Liquid Administer 1625 ml daily as directed at 135 ml/hr for 12 hours through J tube via feeding pump. 58762 mL 6 02/17/2024 Active documented as of [...] No 09/03/2023 [facility] the [facility] have [facility]? (Household - for [...] Telephone Encounter - Gwendolyn Nails RDN - 03/15/2024 9:43 AM EDT Received phone call from pt's . She states pt is having significant drainage from his tube. Shenotes he is scheduled to see Marycruz Galvan for evaluation of tube on Friday, March 22, but notes she told deckhand tuna boat that they were told before that [facility] GI Department does not review these. Contacted deckhand tuna boat, Pat from this department. She left a message for Dr Blackburn regarding evaluation of the tube. Contacted and made her aware of above. Gwendolyn Nails RDN, Clinical Dietitian II, [facility] Clinical Nutrition Services [facility] [address] [place] [address] Available via [employer] Portal documented in this encounter Plan of Treatment Upcoming Encounters Date Type Department Care Team (Late st Contact Info) Description 03/22/2024 11:00 AM EDT Nurse Only Hematology/Oncology Treatment, [place] [address] [facility] [address] [place] [phone] [place], Chair 3 Hem Onc Scenery [address] [place] [address] 03/29/2024 10:45 AM EDT Imaging [facility] [address] [place] [address] 05/10/2024 9:40 AM EST Office Visit Nutrition & Weight Management, [facility] [address] [place] [address] Marycruz Galvan PA-C [address] [place] [address] 05/13/2024 1:40 PM EST Office Visit [address] [phone] Nina Blanco MD [address] [place] [phone] Health Maintenance Due Date Last Done Comments [...] encounter Medical Devices Implanted Type Area Senior Boiler Operator Device Identifier Shelf Expiration Date Model / Serial / Lot Agile Eso Fc 2318mm 11.9cm - [id number] Implanted:Qty : 1 on 08/15/2023 by Liang Barrios DO at OR [facility] [employer] : ENDOSCOPY [id number] 04/09/2025 [id number] / / [id number] Cath Power Port 6fr Clearvue - [id number] Implanted:Qty : 1 on 08/29/2023 by Efe Tadeo MD at OR [facility] [place] Right: Chest CR BARD : PERIPHERAL VASCULAR 09/30/2023 [id number] / / [id number] documented as of this encounter Advance Directives [...] Advance Directives occurred with: Patient Care Teams Rectification Printer Relationship Specialty Start Date End Date Nina Blanco MD [address] [place] [phone] PCP - General Family Medicine 08/21/23 documented as of this encounter
--- OUTSIDE RECORDS SUMMARY | 2024-05-27 05:28 | External Medical Summary | Summary of Care ---
Author Name Unknown Organization [facility] Address [address] [facility] [address] Phone [phone] Care Team Providers Care Food Order Expediter Name Role Phone Nina Blanco MD Primary Care Provi mario Reason for Visit * Reason Comments Procedure Port flush Encounter Details Date Type Department Care Team (Late st Contact Info) Description 02/09/2024 11:00 AM EDT Nurse Only Hematology/Oncology Treatment, [address] [phone] Lan[place], Chair 9 Hem On[address] [place] [id number] Procedure (Port flush/) Allergies No known active [...] ml/hr x 17.5 hrs via feeding pump 86888 mL 6 10/14/2023 Active Liquid Hope Peptide Sargent Oral Liquid Administer 5 pouches daily as directed through feeding tube via feeding pump at 100 ml/hr x 17 hours. 24421 g 11 01/20/2024 Active documented as of [...] EDT Office Visit Nutrition & Weight Management, [place] [address] [place] [address] Nina Larson PA-C [address] [place] [address] 03/22/2024 11:00 AM EDT Nurse Only Hematology/Oncology Treatment, [place] [address] [place] [phone] Park, Chair 3 Hem Onc Scenery [address] [place] [id number] 03/29/2024 10:45 AM EDT Imaging Radiology [facility]st [facility] [address] [place] [address] 05/10/2024 9:40 AM EST Office Visit Nutrition & Weight Management, [facility] [address] [place] [address] Marycruz Galvan PA-C [address] [place] [address] 05/13/2024 1:40 PM EST Office Visit [address] [place] [address] Nina Blanco MD [address] [place] [address] Health Maintenance Due Date Last Done [...] this encounter Medical Devices Implanted Type Area Audio Production Manager Device Identifier Shelf Expiration Date Model / Serial / Lot Agile Eso Fc 2318mm 11.9cm - [id number] Implanted:Qty : 1 on 08/15/2023 by Liang Barrios DO at OR [facility] : ENDOSCOPY [id number] 04/09/2025 [id number] / / [id number] Cath Power Port 6fr Clearvue - [id number] Implanted:Qty : 1 on 08/29/2023 by Efe Tadeo MD [place] [facility] Right: Chest CR BARD : PERIPHERAL VASCULAR 09/30/2023 [id number] / / [id number] documented as of this encounter Visit Diagnoses [...] Flush, Starting on Fri02/09/24 at 1125, Until Fri02/09/24 at 1608, For 24 hours, Do not flush if lock, PICC, or central line not in place; IV infusing or unable to flush. Given 02/09/2024 11:32 AM EDT 500 Units sodium chloride 0.9 % flush central line 10 mL 10 mL, IV Push, PRN Other, IV Flush, Starting on Fri02/09/24 at 1125, Until Fri02/09/24 at 1608, For 24 hours, Do not flush if [...] Advance Directives occurred with: Patient Care Teams Food Order Expediter Relationship Specialty Start Date End Date Nina Blanco MD [address] [place] [phone] PCP - General Family Medicine 08/21/23 documented as of this encounter
--- OUTSIDE RECORDS SUMMARY | 2024-05-27 05:28 | External Medical Summary | Summary of Care ---
Author Name Unknown Organization [facility] Address [address] [facility] [place] [address] Phone [phone] Care Team Providers Care Punch Press Feeder Name Role Phone Nina Blanco MD Primary Care Provi [facility] Encounter Details Date Type Department Care Team (Late st Contact Info) Description 02/18/2024 Telephone [facility] [address] [facility] [place] [address] [facility] 132 [facility] [place] [id number] Allergies No known active allergiesdocumented as of [...] ml/hr x 17.5 hrs via feeding pump 91903 mL 6 10/14/2023 Active Liquid Hope Peptide Sargent Oral Liquid Administer 5 pouches daily as directed through feeding tube via feeding pump at 100 ml/hr x 17 hours. 33949 g 11 01/20/2024 Active Triamcinolone Acetonide 0.1 % External Cream (Aristocort)Indicatio ns:Granulation tissue Apply topically to affected area 2 times a day for 15 days. Apply to j-tube site 30 g 02/11/2024 02/26/2024 Active [employer]ms Peptide 1.5 Oral Liquid Administer 1625 ml daily as directed at 135 ml/hr for 12 hours through J tube via feeding pump. 80293 mL 6 02/17/2024 Active documented as of [...] encounter Miscellaneous Notes * Telephone Encounter - Alan Benavidez MD - 02/18/2024 2:11 PM EDT Addressed, see patient message encounter 02/12 * Telephone Encounter - Magalie Lea RN - 02/18/2024 10:52 AM EDT Received call from Gwendolyn Nails -solar sales ambassador regarding pt reported concerns with his J-tube. Called patient and spoke to his Anayeli. She reports that prior 16F J tube fell out x2, most recent being last week when they went to the ER and had a 16F hope placed to maintain opening until the tube could be replaced in [place] on 02/10. J tube replaced with 14F, 3 cm button at that time per chart review. Pt reports they asked that they place a 16F button but that they did not have that sizeavailable in the office at the time. Pt reports after, they were noticing some difficulty getting feedings to flow through tube via pump and so they were having to water down feeds. now repo rts pt has been up most of the night with dry heaving/mucous. states that the actual Jtube site looks healthy, dry and clean. No redness or drainage noted. requesting that the patient have the tube replaced with a 16F as she feels this is the issue. worries that the site may be beginning to grow closed with the recent 14F placement and is questioning if a 16F would even be possibleat this point. Informed I would review this with one of our providers and call her back with any recommendations. documented in this encounter Plan of Treatment Upcoming Encounters Date Type Department Care Team (Late st Contact Info) Description 03/22/2024 11:00 AM EDT Nurse Only Hematology/Oncology Treatment, [place] [address] [place] [address] Park, Chair 3 Hem Onc Scenery [address] [place] [address] 03/29/2024 10:45 AM EDT Imaging Radiology [facility]st [facility] [address] [facility] [place] [address] 05/10/2024 9:40 AM EST Office Visit Nutrition & Weight Management, [facility] [address] [facility] [place] [address] Marycruz Galvan PA-C [address] [facility] [place] [address] 05/13/2024 1:40 PM EST Office Visit [address] [phone] Nina Blanco MD [address] [place] [phone] Health Maintenance Due Date Last Done [...] this encounter Medical Devices Implanted Type Area Supervisor Waterworks Device Identifier Shelf Expiration Date Model / Serial / Lot Adeline Maganao Fc 2318mm 11.9cm - [id number] Implanted:Qty : 1 on 08/15/2023 by Liang Barrios DO at OR [facility] [employer] : ENDOSCOPY [id number] 04/09/2025 [id number] / / [id number] Cath Power Port 6fr Clearvue - [id number] Implanted:Qty : 1 on 08/29/2023 by Efe Tadeo MD at [place] [facility] [place]: Chest CR BARD : PERIPHERAL VASCULAR 09/30/2023 [id number] / / [id number] documented as of this encounter Advance Directives [...] Advance Directives occurred with: Patient Care Teams Punch Press Feeder Relationship Specialty Start Date End Date Nina Blanco MD [address] [place] [phone] PCP - General Family Medicine 08/21/23 documented as of this encounter
--- OUTSIDE RECORDS SUMMARY | 2024-05-27 05:29 | External Medical Summary | Summary of Care ---
Author Name Unknown Organization [facility] Address [address] [place] [address] Phone [phone] Care Team Providers Care Sewing Trimmer Name Role Phone Nina Blanco MD Primary Care Provi mario Reason for Visit * Reason Onset Date Comments Appointment 01/23/2024 Encounter Details Date Type Department Care Team (Late st Contact Info) Description 01/23/2024 Telephone Access Center, [place] [address] [facility] *DO NOT REMOVE THIS DEPARTMENT* [place] [address] Services, Scheduling [address] [place] [address] Appointment Allergies No known active allergiesdocumented as [...] ml/hr x 17.5 hrs via feeding pump 04660 mL 6 10/14/2023 Active Liquid Hope Peptide Sargent Oral Liquid Administer 5 pouches daily as directed through feeding tube via feeding pump at 100 ml/hr x 17 hours. 34921 g 11 01/20/2024 Active documented as of [...] Does the household have a [facility] source of income? (Household - for ages [...] file Travel History Travel Start Travel End [place] 12/30/2023 01/08/2024 [place] 12/30/2023 01/08/2024 documented as of this encounter [...] encounter Miscellaneous Notes * Telephone Encounter - Teresita Olmstead OSA - 01/23/2024 2:36 PM EDT Patient calling to set up port flush for one of the following dates in February 05 or documented in this encounter Plan of Treatment Upcoming Encounters Date Type Department Care Team (Late st Contact Info) Description 02/05/2024 11:00 AM EDT Office Visit [address] [phone] Nina Blanco MD [address] [place] [phone] Health Maintenance Due Date Last Done [...] this encounter Medical Devices Implanted Type Area Nursing Executive Device Identifier Shelf Expiration Date Model / Serial / Lot Agile Eso Fc 2318mm 11.9cm - [id number] Implanted:Qty : 1 on 08/15/2023 by Liang Barrios DO at OR [facility] [employer] : ENDOSCOPY [id number] 04/09/2025 [id number] / / [id number] Cath Power Port 6fr Clearvue - [id number] Implanted:Qty : 1 on 08/29/2023 by Efe Tadeo MD at OR [facility] [place] Right: Chest CR BARD : PERIPHERAL VASCULAR 09/30/2023 [id number] / / [id number] documented as of this encounter Advance Directives [...] Advance Directives occurred with: Patient Care Teams Sewing Trimmer Relationship Specialty Start Date End Date Nina Blanco MD [address] [place] [phone] PCP - General Family Medicine 08/21/23 documented as of this encounter
[2024-05-27] MEDS: ONDANSETRON INJ 2 MG/ML 2 ML VIAL ONE (05:55)
[2024-05-27] MEDS: fentaNYL citrate PF 100 MCG/2 ML VIAL ONE (05:56)
[2024-05-27] MEDS: SODIUM CHLORIDE 0.9% 1,000 ML IV ONE (05:56)
[2024-05-27 06:09] LABS: Basophils # (auto) 0.06 K/uL (0.00-0.20); Basophils % (auto) 0.4 %; Eosinophils # (auto) 0.01 K/uL (0.00-0.50); Eosinophils % (auto) 0.1 %; Hematocrit (blood only) 37.1 % (42.0-52.0); Hemoglobin 12.5 g/dl (14.0-18.0); Immature Granulocytes # (auto) 0.05 K/uL (0.01-0.20); Immature Granulocytes % (auto) 0.4 %; Lymphocytes # (auto) 1.56 K/uL (1.20-3.40); Lymphocytes % (auto) 11.3 %; Mean Corpuscular Hemoglobin 32.6 pg (25.0-34.0); Mean Corpuscular Hgb Conc 33.7 g/dL (32.0-36.0); Mean Corpuscular Volume 96.9 fL (80.0-100.0); Mean Platelet Volume 10.1 fL (9.4-12.4); Monocytes # (auto) 1.12 K/uL (0.11-0.59); Monocytes % (auto) 8.1 %; Neutrophils # (auto) 11.05 K/uL (1.40-6.50); Neutrophils % (auto) 79.7 %; Platelet Count 275 K/uL (130-400); RDW Standard Deviation 70.5 fL (36.4-46.3); Red Blood Count 3.83 M/uL (4.70-6.10); White Blood Count 13.85 K/ul (4.8-10.8)
[2024-05-27] MEDS: SODIUM CHLORIDE 0.9% 500 ML IV ONE (06:09)
[2024-05-27] MEDS: PANTOprazole 80 MG in DEXTROSE 5% 100 ML IV ONE (06:11)
[2024-05-27 06:13] LABS: iSTAT Creatinine 1.4 mg/dl (0.6-1.3); iSTAT Hemoglobin 12.9 g/dl (14.0-18.0); iSTAT Ionized Calcium 1.19 mmol/l (1.12-1.32); iSTAT Potassium 3.5 mmol/L (3.3-5.0)
[2024-05-27] MEDS: PIPERACILLIN/TAZOBACTAM 4.5 GM/100 ML BAG IV ONE (06:14)
[2024-05-27] MEDS: fentaNYL citrate PF 100 MCG/2 ML VIAL IV PRN (06:20)
[2024-05-27 06:30] LABS: Albumin Level 4.1 gm/dl (3.4-5.0); BUN Creatinine Ratio 18.3 (10-20); Bilirubin Direct 0.6 mg/dl (0-0.2); Bilirubin,Total 1.5 mg/dl (0.2-1.0); Calcium 9.8 mg/dl (8.6-10.3); Magnesium 2.1 mg/dl (1.7-2.4); Potassium 3.6 mmol/L (3.5-5.1); Total Protein 7.2 gm/dl (6.0-8.3)
[2024-05-27 06:36] LABS: Troponin I High Sensitivity 11.4 pg/ml (0-20)
[2024-05-27] MEDS: OPTIRAY 320 100ml IV ONE (06:36)
[2024-05-27] MEDS: PANTOprazole 40 MG in DEXTROSE 5% MINI-B 100 ML IV SCH ×2 (06:43→23:24)
[2024-05-27] MEDS: PANTOPRAZOLE BOLUS/DRIP IV STA (06:44)
--- NOTE | 2024-05-27 06:47 | XRay Report ---
EXAM: XR chest 1V portable CLINICAL HISTORY: SEVERE PAIN, SEPSIS. TECHNIQUE: An X-ray image of the chest was obtained in 1 view: AP projection. COMPARISON: No prior studies are available for comparison. FINDINGS: Pulmonary Parenchyma: Prominent bronchovascular marking related to mild congestion/bronchitis. No evidence of consolidation, collapse, or focal opacities. No pulmonary nodules are identified. No evidence of pleural effusion or pleural thickening. Heart and Mediastinum: Heart size and shape are normal. No mediastinal widening or masses. No hilar or mediastinal lymphadenopathy. Bony Thorax: Bony thorax appears intact without fractures or deformities. Soft Tissues: Soft tissues overlying the chest wall are unremarkable. IMPRESSION: 1. Prominent bronchovascular marking related to mild congestion/bronchitis. Clinical correlation is required. 2. No acute cardiopulmonary abnormalities are identified. Electronically signed by Alejandra Lopez 05-27-2024 06:47 AM
[2024-05-27] MEDS: SODIUM CHLORIDE 0.9% 1,000 ML IV SCH (06:56)
--- NOTE | 2024-05-27 07:04 | Emergency Department Note ---
Impression & Plan Abdominal pain, Nausea & vomiting, Esophageal cancer, Hypotension, Tachycardia, Jejunostomy tube present ED Provider Note ED Provider Note NAME: MINA MARTIN AGE:78 SEX: Male : 1945 ARRIVES VIA: private vehicle INFORMANT: Patient ED PROVIDER(s): Brenda Lawrence DO CHIEF COMPLAINT: abdominal pain, vomiting HPI: This is a 78-year-old male presents emergency department due to concern for abdominal pain. Patient states he began having pain approximately 24 hours ago it has been constant and is unrelieved by Tylenol at home. He is felt nauseated and has had some spitting up additionally. Patient is a history of esophageal cancer. A stent was previously placed although migrated down into the stomach and had to be removed. Patient currently has an indwelling J-tube and takes nothing by mouth. Patient is not currently undergoing any chemo but is getting low-dose radiation treatment. He states his only doctor locally is a PCP in [place], the rest of his cancer treatment has been in [place]. He states the J-tube is due to be replaced in June. They have not noticed any recent issues in using it. He denies fevers or chills, no change in any medications. He states he did recently have diarrhea which was initially very dark, no overt blood. He states he was initially told the cancer had not spread. PAST MEDICAL HISTORY:See Below PAST SURGICAL HISTORY:See Below FAMILY HISTORY:See Below SOCIAL HISTORY:See Below HOME MEDICATIONS:See Below ALLERGIES:See Below VITALS:See Below PHYSICAL EXAMINATION: GENERAL: alert, unwell appearing, well nourished, significant distress, rolling back and forth on the bed EYE EXAM: normal conjunctiva, PERRL and EOM's grossly intact OROPHARYNX: no exudate, no erythema, lips, buccal mucosa, and tongue normal and mucous membranes are dry NECK: supple, no nuchal rigidity, no adenopathy, non-tender LUNGS: Clear to auscultation. Normal chest wall mechanics, no w/r/r HEART: no murmurs, S1 normal and S2 normal ABDOMEN: abdomen soft, central abd pain, normo-active bowel sounds, no masses, J-tube present, no drainage or bleeding from around the J-tube site, abdomen is firm to palpation and patient is guarding BACK: Back is symmetrical on inspection and there is no deformity SKIN: no rashes, petechiae, orbruising, diaphoretic and pale UPPER EXTREMITIES: upper extremities are grossly normal. FROM, nml pulses b/l. LOWER EXTREMITIES: No pitting edema. FROM, nml pulses b/l. NEURO EXAM: Normal sensorium, cranial nerves II-XII grossly intact, normal speech, no facial droop,nogross weakness of arms, no gross weakness of legs. Gross sensation intact. No ataxia. Vital Signs: reviewed and remarkable Differential Diagnosis: Perforation, bacteremia/sepsis, J-tube dislodgment, atrial fibrillation, dysrhythmia, PE, hypovolemic shock, GI bleed, mesenteric ischemia, AAA, as well as others were considered MEDICAL DECISION MAKING: This is a 78-year-old male presents emergency department due to concern for 24 hours of persistent worsening central abdominal pain with accompanying nausea and vomiting. On arrival patient noted to be hypotensive and tachycardic, ill- appearing and was immediately brought back to a room. Labs drawn and sent, IV established, EKG and chest ray performed at bedside interpreted me and patient monitored on telemetry. Second IV placed and IV fluids were started with improvement in his hypotension. He was given IV fentanyl for pain which also helped improve his heart rate, and due to concern for his presentation a Protonix drip was started additionally. Type and screen, lactic acid, procalcitonin, blood cultures also obtained. Patient had a [id number] BMP which was reassuring and he was sent urgently for CT of the chest and abdomen/pelvis. Following 1500 mL of IV fluids initially as a bolus his heart rate and blood pressure had improved. He was receiving periodic doses of IV fentanyl which did temporarily control his pain. IV Zosyn also added due to concern for occult infection and other intra-abdominal pathology. CT of the chest did show the esophageal mass, no evidence of perforation or pneumomediastinum, no evidence of aspiration, and no PE. Patient updated several times. He reported feeling improved and his IV fluids were backed down to a maintenance rate. We did discuss his current plan for treatment and whether or not he and his had discuss any end-of-life wishes should his condition worsen. Case signed out pending CT of the abdomen pelvis and further disposition with likely general surgery consult. ER Treatment Provided: See below 0735: Patient signed out to Dr. Samuel pending CT results and disposition. Diagnostics Interpreted By Me: -ECG: A-fib at 171, normal axis, normal intervals, ST depression noted in lead II, 3, aVF as well as V3 through V6 -Cardiac Monitoring: An order was placed for continuous cardiac monitoring. The monitor shows a rate of 144 with sinus tachycardia rhythm. -Laboratory studies: As stated above and show below. -Imaging studies: X-ray Chest: A single view study of the chest was reviewed and was negative for cardiomegaly, focal infiltrate, effusion, pulmonary edema, or wide mediastinum. No free air. Triage Nursing Note Reviewed Prior/Outside Records Reviewed Critical Care: Critical care of 68 min performed to assess and manage high likelihood of life-threatening hypotension and tachycardia, involving labs and imaging performed with assessment to evaluate abdominal pain diagnosis with frequent reassessment. This time includes bedside time, treatment discussions with patient/family/consultants, documentation time and excludes procedure time. 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) Rapid weight loss (Acute) Esophagitis (Acute) Vomiting (Acute) Acute dehydration (Acute) Encounter for pre-operative examination Medical History BPH (benign prostatic hyperplasia) Vomiting reason for upcoming EGD > (30 lb weight loss) Dysphagia reason for upcoming EGD Surgical History Hx of vasectomy Hx of umbilical hernia repair History of appendectomy History of esophagogastroduodenoscopy (EGD) History of adenoidectomy History of tonsillectomy Social History Smoking Status: Never smoker Second Hand Exposure: No; Do You Dip or Chew Tobacco: No; Hx Alcohol Use: No Hx Substance Use: No Preferred Language: Belgian Communication Ability: Effective Egg Breaker Required: No Beliefs That Will Affect Care: None Current Living Situation: Spouse Feels Safe at Home: Yes Safety Concerns: Feels Safe At This Time Assistive Devices: Glasses and Hearing Aid - Bilateral Allergies Allergies Allergy/AdvReac Type Severity Reaction Status Date / Time No Known Allergies Allergy Verified 05/27/24 08:26 Home Meds Home Medications Medication Instructions Recorded Confirmed capecitabine 500 mg tablet See Rx Instructions .Route .COMPLEX 05/27/24 05/27/24 cyclophosphamide 50 mg tablet See Rx Instructions .Route .COMPLEX 05/27/24 05/27/24 Results & Data (ED) Vital Signs Vital Signs - 24 hr 05/27/24 05:33 05/27/24 06:00 05/27/24 06:07 Temperature 36.6 C Temperature Source Temporal Artery Scan Pulse Rate 133 H 104 H 109 H Pulse Rate [Apical] Pulse Rate from SpO2 Sensor 104 H Pulse Rhythm Regular Respiratory Rate 18 16 18 Respiratory Effort / Characteristics Non-Labored Respiratory Depth Normal Blood Pressure 80/65 L 107/70 Blood Pressure [Left Arm] Blood Pressure Mean 70 78 Blood Pressure Mean [Left Arm] Pulse Oximetry 97 98 97 Oxygen Delivery Method Room Air Room Air Room Air Sepsis Recent Fever Within 48 Hours No Sepsis New/Unexplained Change in Mental Status No Sepsis Action Taken by Nursing No Action Required 05/27/24 06:07 05/27/24 06:45 05/27/24 06:45 Temperature Temperature Source Pulse Rate 105 H 104 H Pulse Rate [Apical] Pulse Rate from SpO2 Sensor Pulse Rhythm Respiratory Rate 15 Respiratory Effort / Characteristics Respiratory Depth Blood Pressure 126/74 126/74 Blood Pressure [Left Arm] Blood Pressure Mean 91 84 Blood Pressure Mean [Left Arm] Pulse Oximetry Oxygen Delivery Method Sepsis Recent Fever Within 48 Hours Sepsis New/Unexplained Change in Mental Status Sepsis Action Taken by Nursing 05/27/24 06:45 05/27/24 06:45 05/27/24 07:17 Temperature Temperature Source Pulse Rate Pulse Rate [Apical] 104 H Pulse Rate from SpO2 Sensor Pulse Rhythm Respiratory Rate 18 Respiratory Effort / Characteristics Respiratory Depth Blood Pressure 126/74 126/74 Blood Pressure [Left Arm] 124/86 Blood Pressure Mean 84 84 Blood Pressure Mean [Left Arm] 98 Pulse Oximetry 95 Oxygen Delivery Method Room Air Sepsis Recent Fever Within 48 Hours Sepsis New/Unexplained Change in Mental Status Sepsis Action Taken by Nursing 05/27/24 07:27 05/27/24 07:30 05/27/24 07:30 Temperature Temperature Source Pulse Rate 102 H 99 H Pulse Rate [Apical] Pulse Rate from SpO2 Sensor 102 H 99 H Pulse Rhythm Respiratory Rate 20 16 Respiratory Effort / Characteristics Respiratory Depth Blood Pressure 109/72 Blood Pressure [Left Arm] Blood Pressure Mean 86 Blood Pressure Mean [Left Arm] Pulse Oximetry 92 93 Oxygen Delivery Method Sepsis Recent Fever Within 48 Hours Sepsis New/Unexplained Change in Mental Status Sepsis Action Taken by Nursing 05/27/24 07:30 05/27/24 07:45 05/27/24 07:45 Temperature Temperature Source Pulse Rate 100 H Pulse Rate [Apical] Pulse Rate from SpO2 Sensor 100 H Pulse Rhythm Respiratory Rate 19 Respiratory Effort / Characteristics Respiratory Depth Blood Pressure 109/72 117/83 Blood Pressure [Left Arm] Blood Pressure Mean 86 92 Blood Pressure Mean [Left Arm] Pulse Oximetry 96 Oxygen Delivery Method Sepsis Recent Fever Within 48 Hours Sepsis New/Unexplained Change in Mental Status Sepsis Action Taken by Nursing 05/27/24 07:45 05/27/24 08:00 05/27/24 08:00 Temperature Temperature Source Pulse Rate Pulse Rate [Apical] Pulse Rate from SpO2 Sensor Pulse Rhythm Respiratory Rate Respiratory Effort / Characteristics Respiratory Depth Blood Pressure 117/83 113/83 113/83 Blood Pressure [Left Arm] Blood Pressure Mean 92 94 94 Blood Pressure Mean [Left Arm] Pulse Oximetry Oxygen Delivery Method Sepsis Recent Fever Within 48 Hours Sepsis New/Unexplained Change in Mental Status Sepsis Action Taken by Nursing 05/27/24 08:00 05/27/24 08:00 05/27/24 08:06 Temperature Temperature Source Pulse Rate 97 H 98 H Pulse Rate [Apical] Pulse Rate from SpO2 Sensor 97 H 97 H Pulse Rhythm Respiratory Rate 16 17 Respiratory Effort / Characteristics Respiratory Depth Blood Pressure 113/83 Blood Pressure [Left Arm] Blood Pressure Mean 94 Blood Pressure Mean [Left Arm] Pulse Oximetry 93 94 Oxygen Delivery Method Sepsis Recent Fever Within 48 Hours Sepsis New/Unexplained Change in Mental Status Sepsis Action Taken by Nursing 05/27/24 08:15 05/27/24 08:27 05/27/24 08:30 Temperature Temperature Source Pulse Rate 97 H Pulse Rate [Apical] Pulse Rate from SpO2 Sensor 97 H Pulse Rhythm Respiratory Rate 18 Respiratory Effort / Characteristics Respiratory Depth Blood Pressure 125/88 116/85 Blood Pressure [Left Arm] Blood Pressure Mean 99 98 Blood Pressure Mean [Left Arm] Pulse Oximetry 97 Oxygen Delivery Method Sepsis Recent Fever Within 48 Hours Sepsis New/Unexplained Change in Mental Status Sepsis Action Taken by Nursing 05/27/24 08:30 05/27/24 08:30 05/27/24 08:36 Temperature Temperature Source Pulse Rate 99 H Pulse Rate [Apical] Pulse Rate from SpO2 Sensor 99 H Pulse Rhythm Respiratory Rate 19 Respiratory Effort / Characteristics Respiratory Depth Blood Pressure 116/85 116/85 Blood Pressure [Left Arm] Blood Pressure Mean 98 98 Blood Pressure Mean [Left Arm] Pulse Oximetry 85 L Oxygen Delivery Method Sepsis Recent Fever Within 48 Hours Sepsis New/Unexplained Change in Mental Status Sepsis Action Taken by Nursing 05/27/24 08:45 05/27/24 08:45 05/27/24 08:48 Temperature Temperature Source Pulse Rate 97 H Pulse Rate [Apical] Pulse Rate from SpO2 Sensor 97 H Pulse Rhythm Respiratory Rate 26 H Respiratory Effort / Characteristics Respiratory Depth Blood Pressure 124/88 124/88 Blood Pressure [Left Arm] Blood Pressure Mean 92 92 Blood Pressure Mean [Left Arm] Pulse Oximetry 99 Oxygen Delivery Method Sepsis Recent Fever Within 48 Hours Sepsis New/Unexplained Change in Mental Status Sepsis Action Taken by Nursing Laboratory Data 05/27/24 05:50 05/27/24 05:50 Lab Results 05/27/24 05/27/24 05/27/24 Range/Units 05:50 06:01 06:07 WBC 13.85 H (4.8-10.8) K/ul RBC 3.83 L (4.70-6.10) M/uL Hgb 12.5 L (14.0-18.0) g/dl POC Hgb 12.9 L (14.0-18.0) g/dl Hct 37.1 L (42.0-52.0) % POC Hct 38 L (42-52) % MCV 96.9 (80.0-100.0) fL MCH 32.6 (25.0-34.0) pg MCHC 33.7 (32.0-36.0) g/dL RDW Std Deviation 70.5 H (36.4-46.3) fL RDW Coeff of Fabby 20.0 H (11.5-14.5) % Plt Count 275 (130-400) K/uL MPV 10.1 (9.4-12.4) fL Immature Gran % (Auto) 0.4 % Neut % (Auto) 79.7 % Lymph % (Auto) 11.3 % Stewart % (Auto) 8.1 % Eos % (Auto) 0.1 % Baso % (Auto) 0.4 % Neut # (Auto) 11.05 H (1.40-6.50) K/uL Lymph # (Auto) 1.56 (1.20-3.40) K/uL Stewart # (Auto) 1.12 H (0.11-0.59) K/uL Eos # (Auto) 0.01 (0.00-0.50) K/uL Baso # (Auto) 0.06 (0.00-0.20) K/uL Immature Gran # (Auto) 0.05 (0.01-0.20) K/uL POC Sodium 140 (135-144) mmol/L Sodium 141 (136-145) mmol/L POC Potassium 3.5 (3.3-5.0) mmol/L Potassium 3.6 (3.5-5.1) mmol/L POC Chloride 105 (101-112) mmol/L Chloride 104 (98-107) mmol/L Carbon Dioxide 26 (21-32) mmol/L POC Total CO2 24 (24-31) mmol/L Anion Gap 11 (3-11) POC Anion Gap 16.0 (16-25) mmol/L POC BUN 23 H (7-18) mg/dl BUN 24 H (6-23) mg/dl Creatinine 1.31 (0.6-1.4) mg/dl POC Creatinine 1.4 H (0.6-1.3) mg/dl Est Cr Clr Drug Dosing 38.0 ml/min eGFR 56.41 BUN/Creatinine Ratio 18.3 (10-20) Glucose 153 H (70-99(Fasting)) mg/dl POC Glucose (other) 151 H (70-99) mg/dl Lactate 4.1 H* (0.4-2.0) mmol/L Calcium 9.8 (8.6-10.3) mg/dl POC Ioniz Calcium Yevgeniy 1.19 (1.12-1.32) mmol/l Magnesium 2.1 (1.7-2.4) mg/dl Total Bilirubin 1.5 H (0.2-1.0) mg/dl Direct Bilirubin 0.6 H (0-0.2) mg/dl AST 105 H (13-39) U/L ALT 145 H (7-52) U/L Alkaline Phosphatase 100 (34-104) U/L Troponin I High Sens 11.4 (0-20) pg/ml Total Protein 7.2 (6.0-8.3) gm/dl Albumin 4.1 (3.4-5.0) gm/dl Procalcitonin 0.14 (0-0.5) ng/ml Blood Type O Positive Antibody Screen NEGATIVE Administered Medications Heparin Sodium (Porcine) (Heparin Sod 5,000 Unit/0.5 Ml Vial) 5,000 units SQ Q12 LACY Stop: 06/26/24 20:59 Last Admin: 05/27/24 20:41 Dose: 5,000 units Documented By: MACIE Potassium Chloride/Sodium Chloride (Normal Saline W/20 Meq Kcl) 20 meq in 1,000 mls @ 90 mls/hr IV .Q11H7M LACY Stop: 05/28/24 12:13 Last Admin: 05/27/24 15:43 Dose: 90 mls/hr Documented By: JAC Piperacillin Sod/Tazobactam Sod (Zosyn) 4.5 gm in 100 mls @ 25 mls/hr IV Q8H LACY; Protocol Stop: 06/06/24 15:59 Last Admin: 05/27/24 23:24 Dose: 25 mls/hr Documented By: Infusion: 05/27/24 18:49 Dose: Infused Documented By: Admin: 05/27/24 16:32 Dose: 25 mls/hr Documented By: JAC Acetaminophen (Ofirmev) 1,000 mg in 100 mls @ 400 mls/hr IV Q12H PRN PRN Reason: Mild Pain (Scale 1, 2, 3) Stop: 05/30/24 13:04 Last Infusion: 05/27/24 16:31 Dose: Infused Documented By: Admin: 05/27/24 16:10 Dose: 400 mls/hr Documented By: JAC Pantoprazole Sodium 40 mg/ (Dextrose) 100 mls @ 20 mls/hr IV Q5H [facility] Stop: 06/26/24 23:14 Last Admin: 05/27/24 23:24 Dose: 8 mg/hr, 20 mls/hr Documented By: [facility] [place]ine Sulfate (Morphine Sulfate 4 Mg/Ml 1 Ml Carp\Vial) 3 mg IV Q3H PRN PRN Reason: Mod-Sev Pain (Scale 4-10) Stop: 06/10/24 13:04 Last Admin: 05/27/24 22:29 Dose: 3 mg Documented By: Admin: 05/27/24 19:21 Dose: 3 mg Documented By: Admin: 05/27/24 15:44 Dose: 3 mg Documented By: JAC Ondansetron HCl (Ondansetron Inj 2 Mg/Ml 2 Ml Vial) 4 mg IV Q6H PRN PRN Reason: Nausea Stop: 06/26/24 13:04 Last Admin: 05/27/24 20:53 Dose: 4 mg Documented By: [facility] [place] Admin: 05/27/24 16:03 Dose: 4 mg Documented By: JAC Discontinued Medications Fentanyl Citrate (Fentanyl Citrate Pf 100 Mcg/2 Ml Vial) Confirm Administered Dose 100 mcg .ROUTE .STK-MED ONE Stop: 05/27/24 05:53 Last Increment: 05/27/24 05:57 Dose: 50 mcg Documented By: CHIRAG Fentanyl Citrate (Fentanyl Citrate Pf 100 Mcg/2 Ml Vial) 50 mcg IV Q15M PRN PRN Reason: Pain Stop: 06/10/24 06:01 Last Admin: 05/27/24 07:53 Dose: 50 mcg Documented By: Admin: 05/27/24 06:55 Dose: 50 mcg Documented By: Admin: 05/27/24 06:20 Dose: 50 mcg Documented By: DELVIS Sodium Chloride (Nss) 1,000 mls @ 999 mls/hr IV .Q1H1M ONE Stop: 05/27/24 06:54 Last Infusion: 05/27/24 06:48 Dose: Infused Documented By: Admin: 05/27/24 05:56 Dose: 999 mls/hr Documented By: CHIRAG Piperacillin Sod/Tazobactam Sod (Zosyn) 4.5 gm in 100 mls @ 200 mls/hr IV NOW ONE; Protocol Stop: 05/27/24 06:23 Last Infusion: 05/27/24 06:44 Dose: Infused Documented By: Admin: 05/27/24 06:14 Dose: 200 mls/hr Documented By: CHIRAG Pantoprazole Sodium 40 mg/ (Dextrose) 100 mls @ 20 mls/hr IV Q5H [facility] Stop: 06/26/24 06:14 Last Admin: 05/27/24 13:31 Dose: Not Given Documented By: Infusion: 05/27/24 13:27 Dose: Infused Documented By: Admin: 05/27/24 06:43 Dose: 8 mg/hr, 20 mls/hr Documented By: DELVIS Pantoprazole Sodium 80 mg/ (Dextrose) 120 mls @ 480 mls/hr IV NOW ONE Stop: 05/27/24 06:08 Last Infusion: 05/27/24 06:44 Dose: Infused Documented By: Admin: 05/27/24 06:11 Dose: 480 mls/hr Documented By: CHIRAG Sodium Chloride (Nss) 500 mls @ 999 mls/hr IV .Q31M ONE Stop: 05/27/24 06:32 Last Infusion: 05/27/24 06:44 Dose: Infused Documented By: Admin: 05/27/24 06:09 Dose: 999 mls/hr Documented By: CHIRAG Sodium Chloride (Nss) 1,000 mls @ 150 mls/hr IV .Q6H40M [facility] Stop: 05/28/24 06:59 Last Infusion: 05/27/24 13:32 Dose: Infused Documented By: Infusion: 05/27/24 13:27 Dose: 0 mls/hr Documented By: Admin: 05/27/24 06:56 Dose: 150 mls/hr Documented By: SHAY Potassium Chloride (K Zach / Wtr) 10 meq in 100 mls @ 100 mls/hr IV Q1H [facility] Stop: 05/27/24 13:44 Last Infusion: 05/27/24 18:50 Dose: Infused Documented By: Admin: 05/27/24 15:43 Dose: 100 mls/hr Documented By: Infusion: 05/27/24 14:39 Dose: Infused Documented By: Admin: 05/27/24 13:39 Dose: 100 mls/hr Documented By: Infusion: 05/27/24 13:39 Dose: Infused Documented By: Admin: 05/27/24 13:36 Dose: 100 mls/hr Documented By: Infusion: 05/27/24 11:32 Dose: Infused Documented By: Admin: 05/27/24 10:32 Dose: 100 mls/hr Documented By: SHAY Piperacillin Sod/Tazobactam Sod (Zosyn) 4.5 gm in 100 mls @ 25 mls/hr IV NOW STA; Protocol Stop: 05/27/24 14:10 Last Infusion: 05/27/24 15:55 Dose: Infused Documented By: Admin: 05/27/24 11:17 Dose: 25 mls/hr Documented By: SHAY Ioversol (Optiray 320 100ml) 120 ml IV ONCE ONE Stop: 05/27/24 06:37 Last Admin: 05/27/24 06:36 Dose: 120 ml Documented By: DONNA Lorazepam (Lorazepam 2 Mg/1 Ml Vial) 0.25 mg IV NOW STA Stop: 05/27/24 09:03 Last Admin: 05/27/24 09:09 Dose: 0.25 mg Documented By: SHAY Morphine Sulfate (Morphine Sulfate 4 Mg/Ml 1 Ml Carp\Vial) 4 mg IV Q1H PRN PRN Reason: Severe Pain (Rating 7,8,9,10) Stop: 06/10/24 08:11 Last Admin: 05/27/24 08:15 Dose: 4 mg Documented By: SHAY Ondansetron HCl (Ondansetron Inj 2 Mg/Ml 2 Ml Vial) Confirm Administered Dose 4 mg .ROUTE .STK-MED ONE Stop: 05/27/24 05:51 Last Admin: 05/27/24 05:57 Dose: 4 mg Documented By: CHIRAG Ondansetron HCl (Ondansetron Inj 2 Mg/Ml 2 Ml Vial) 4 mg IV NOW STA Stop: 05/27/24 08:28 Last Admin: 05/27/24 08:30 Dose: 4 mg Documented By: SHAY Pantoprazole Sodium (Pantoprazole Bolus/Drip) 1 each IV NOW STA Stop: 05/27/24 05:55 Last Admin: 05/27/24 06:44 Dose: Not Given Documented By: DELVIS Imaging Data Radiologist's Impression: Abdomen/Pelvis CT 05/27/24 05:57 EXAM: CT abd pelvis IV con only CLINICAL HISTORY: Severe abdominal pain x24 hours, hx of esophagus cancer with J tube placement. also c/o vomiting, diarrhea and bloating. TECHNIQUE: Contrast-enhanced CT of the abdomen and pelvis was performed, with the following protocol: axial images with, and reconstructed coronal and sagittal images. 120ml Optiray 320 Intravenous contrast was administered. One of the following dose reduction techniques was utilized for this exam: Automated exposure control, adjustment of the mA and/or kV according to patient size, and use of iterative reconstruction. COMPARISON: 07/18/2023 CT. FINDINGS: Abdomen: Liver: Normal in size, shape, and density. No focal lesions, cysts, or masses were identified. Hepatic vasculature and biliary ducts are unremarkable. Gallbladder and Biliary System: Gall bladder is distended. No wall thickening, pericholecystic fluid, or gallstones were identified. The common bile duct is normal in caliber without dilation. Mild intra hepatic biliary dilatation. Pancreas: Pancreatic head, body, and tail are visualized and appear normal in size and density. No pancreatic masses or calcifications were noted. The pancreatic duct is not dilated. Spleen: Normal in size, shape, and density. No splenic lesions or masses were identified. Kidneys and Adrenal Glands: Both kidneys are normal in size, shape, and position. Cortical thickness is within normal limits. No renal calculi or hydronephrosis. Adrenal glands are unremarkable with no evidence of masses or hyperplasia. Pelvis: Urinary Bladder: Smooth wall thickening suggesting cystitis. No intraluminal lesions identified. Prostate: Moderate prostatomegaly was noted. No focal lesions or masses identified. Seminal Vesicles: Normal in size and appearance. No abnormalities noted. Rectum and Sigmoid Colon: Normal wall thickness and no evidence of mass. Peritoneal and Retroperitoneal Structures: New demonstrations of ill-defined lesions in the mesenteric fat in the left iliac fossa and at the umbilical level measure up to 3.3cm. Mild free fluid in the pelvis No lymphadenopathy was noted. Small uncomplicated right inguinal hernia. Bowel: An ill-defined circumferential thickening of the esophagogastric junction and the lower esophagus, infiltrate within the adjacent fat and engulf the coliac trunk without luminal stenosis. Severe distention of the gastric and the proximal small bowel till a thickened wall loop in the epigastric area where there is a feeding catheter within the lumen , the distal bowel is unremarkable. New demonstrations of ill-defined lesions in the mesenteric fat in the left iliac fossa and at the umbilical level measure up to 3.3cm. Also in right para rectal region. Bones and Soft Tissues: Pelvic bones and soft tissues are unremarkable. No fractures or abnormal masses were identified. 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 IMPRESSION: 1. Knonw esophageal cancer with interval progression of circumferential thickening of the esophagogastric junction and the lower esophagus, with infiltration within the adjacent fat and engulfs the coeliac trunk without luminal stenosis 2. Severe gastric and small bowel distention till level of feeding catheter, the distal bowel remains unremarkable. 3. New demonstrations of ill-defined lesions in the mesenteric fat in the left paracolic gutter, right para rectal region and at the umbilical level, suggestive of metastatic deposits 4. Mild free fluid in the pelvis 5. Smooth wall thickening suggesting cystitis. 6. Distended acalcular gall bladder with mild intra-hepatic biliary dilatation. 7. The rest of the findings are stable in comparison with CT on 07/18/2023. Electronically signed by Alejandra Lopez 05-27-2024 07:48 AM Discharge Plan Visit Data Chief Complaint: Abdominal Pain Stated Complaint: J TUBE COMPLICATIONS ED Provider: Mateus Samuel Discharge Problem: Abdominal pain, Nausea & vomiting, Esophageal cancer, Hypotension, Tachycardia, Jejunostomy tube present Patient Disposition: Admitted As Inpatient Discharge Instructions Interventions: ED Discharge Assessment Last Done: 05/27/24 12:21
--- NOTE | 2024-05-27 07:32 | CT Scan Report ---
EXAM: CT angio chest PE protocol CLINICAL HISTORY: pt reports severe abd pain x24 hours, hx of esophagus cancer with j tube placement. also c/o vomiting, diarrhea and bloating. TECHNIQUE: Contiguous 3.[address] angiographic images of the chest were acquired with the administration of intravenous contrast. Coronal and sagittal reconstructions were obtained. 120ml Optiray 320 was administered for post-contrast images. One of these 3D techniques was utilized: Maximum Intensity Pixel (MIP), 3D Reconstructed Images, Volume Rendered Images, Surface Shaded Rendering. One of the following dose reduction techniques were utilized for this exam: Automated exposure control, adjustment of the mA and/or kV according to patient size, and use of iterative reconstruction. COMPARISON: previous chest x-ray 05/27/2024 FINDINGS: Pulmonary Arteries: Pulmonary arteries are normal in size and opacification. No evidence of pulmonary embolism. No stenosis or filling defects. Aorta: The thoracic aorta is normal in caliber. Mild atherosclerotic changes. No evidence of aneurysm, or dissection. Aortic arch and descending thoracic aorta are unremarkable. Superior Vena Cava (SVC) and Inferior Vena Cava (IVC): Normal opacification and caliber. No evidence of thrombus or obstruction. Mediastinum: No mediastinal mass or lymphadenopathy. Normal appearance of the thymus. Heart: Normal size and morphology of the heart. Mild pericardial effusion. Lungs: Right upper lobe anterior sub-pleural nodularity with tree in bud configuration. No evidence of consolidation, or masses. No pleural effusion or thickening. Bones: No fractures or lytic/sclerotic lesions of the visualized bony structures. Normal alignment and bone density. Dilated esophagus with air fluid level (thickening of distal esophagus wall vs underdistension), dilated stomach and proximal duodenum, clinical correlation and further evaluation as needed. Right renal cyts. IMPRESSION: - No evidence of acute pulmonary embolism. - Right upper lobe anterior sub-pleural nodularity with tree in bud configuration, suggestive of infection. - Dilated esophagus with air fluid level (thickening of distal esophagus wall vs underdistension), dilated stomach and proximal duodenum, clinical correlation and further evaluation as needed. - Mild pericardial effusion. - Overall findings are conspicuous on the CT examination in comparison to the x ray. Electronically signed by Alejandra Lopez 05-27-2024 07:31 AM
--- NOTE | 2024-05-27 07:38 | Emergency Department Note ---
ED Visit Note Patient is a 78-year-old male with esophageal cancer getting low-dose radiation no chemo who presents to the ER for abdominal pain. Patient was seen and evaluated by Dr. Lawrence. Labs were obtained and showed a mild leukocytosis of 13,000. No significant anemia. BMP was fairly unremarkable with exception of a lactic acid of 4.1. LFTs with mild transaminitis. Troponin was negative. Pro- Alden was normal. Patient was given IV fluids as well as IV Zosyn and IV fentanyl. Heart rate trended down from the 160s and blood pressure improved fro m the 90s. Currently awaiting CT abdomen pelvis. CT abdomen pelvis resulted and I discussed the case with Dr. Bush. He recommended placing NG tube, admission to medicine and decompressing the bulb on the J-tube. After evaluation of the J-tube port there is nothing to secure it and I consequently did discuss with Otilia valladares from general surgery and will defer to them to decompressing and securing the port. NG was ordered and initially was 15 cm short via KUB. This was advanced. Repeat KUB will be ordered. .
--- NOTE | 2024-05-27 07:48 | CT Scan Report ---
EXAM: CT abd pelvis IV con only CLINICAL HISTORY: Severe abdominal pain x24 hours, hx of esophagus cancer with J tube placement. also c/o vomiting, diarrhea and bloating. TECHNIQUE: Contrast-enhanced CT of the abdomen and pelvis was performed, with the following protocol: axial images with, and reconstructed coronal and sagittal images. 120ml Optiray 320 Intravenous contrast was administered. One of the following dose reduction techniques was utilized for this exam: Automated exposure control, adjustment of the mA and/or kV according to patient size, and use of iterative reconstruction. COMPARISON: 07/18/2023 CT. FINDINGS: Abdomen: Liver: Normal in size, shape, and density. No focal lesions, cysts, or masses were identified. Hepatic vasculature and biliary ducts are unremarkable. Gallbladder and Biliary System: Gall bladder is distended. No wall thickening, pericholecystic fluid, or gallstones were identified. The common bile duct is normal in caliber without dilation. Mild intra hepatic biliary dilatation. Pancreas: Pancreatic head, body, and tail are visualized and appear normal in size and density. No pancreatic masses or calcifications were noted. The pancreatic duct is not dilated. Spleen: Normal in size, shape, and density. No splenic lesions or masses were identified. Kidneys and Adrenal Glands: Both kidneys are normal in size, shape, and position. Cortical thickness is within normal limits. No renal calculi or hydronephrosis. Adrenal glands are unremarkable with no evidence of masses or hyperplasia. Pelvis: Urinary Bladder: Smooth wall thickening suggesting cystitis. No intraluminal lesions identified. Prostate: Moderate prostatomegaly was noted. No focal lesions or masses identified. Seminal Vesicles: Normal in size and appearance. No abnormalities noted. Rectum and Sigmoid Colon: Normal wall thickness and no evidence of mass. Peritoneal and Retroperitoneal Structures: New demonstrations of ill-defined lesions in the mesenteric fat in the left iliac fossa and at the umbilical level measure up to 3.3cm. Mild free fluid in the pelvis No lymphadenopathy was noted. Small uncomplicated right inguinal hernia. Bowel: An ill-defined circumferential thickening of the esophagogastric junction and the lower esophagus, infiltrate within the adjacent fat and engulf the coliac trunk without luminal stenosis. Severe distention of the gastric and the proximal small bowel till a thickened wall loop in the epigastric area where there is a feeding catheter within the lumen , the distal bowel is unremarkable. New demonstrations of ill-defined lesions in the mesenteric fat in the left iliac fossa and at the umbilical level measure up to 3.3cm. Also in right para rectal region. Bones and Soft Tissues: Pelvic bones and soft tissues are unremarkable. No fractures or abnormal masses were identified. 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 IMPRESSION: 1. Knonw esophageal cancer with interval progression of circumferential thickening of the esophagogastric junction and the lower esophagus, with infiltration within the adjacent fat and engulfs the coeliac trunk without luminal stenosis 2. Severe gastric and small bowel distention till level of feeding catheter, the distal bowel remains unremarkable. 3. New demonstrations of ill-defined lesions in the mesenteric fat in the left paracolic gutter, right para rectal region and at the umbilical level, suggestive of metastatic deposits 4. Mild free fluid in the pelvis 5. Smooth wall thickening suggesting cystitis. 6. Distended acalcular gall bladder with mild intra-hepatic biliary dilatation. 7. The rest of the findings are stable in comparison with CT on 07/18/2023. Electronically signed by Alejandra Lopez 05-27-2024 07:48 AM
[2024-05-27] MEDS ORDERED: MoRPHine SULFATE 2 MG/ML CARP IV PRN (08:12)
[2024-05-27] MEDS: MoRPHine SULFATE 4 MG/ML 1 ML CARP\\VIAL IV PRN ×2 (08:15→15:44)
[2024-05-27] MEDS: ONDANSETRON INJ 2 MG/ML 2 ML VIAL IV STA (08:30)
[2024-05-27] MEDS: LORazepam 2 MG/1 ML VIAL IV STA (09:09)
--- NOTE | 2024-05-27 09:19 | XRay Report ---
XR KUB/Abdomen 1 view CLINICAL HISTORY: ng tube TECHNIQUE: 1 view of the abdomen was obtained. Comparison: Comparison is made to CT abdomen pelvis 05/27/2024 abdomen radiograph 01/10/2024 FINDINGS: Enteric tube tip and side-port lie above the diaphragm. The osseous structures are grossly unremarkab le. The bowel gas pattern is nonobstructive. A moderate amount of stool is noted within the large bow el. IMPRESSION: Enteric tube tip and side-port lie above the diaphragm. The tube can be advanced approximately 15 cm for improved positioning. ACT 112: Negative or not required by law. Electronically signed by: Kj Angulo M.D. 05/27/2024 9:18 AM
--- NOTE | 2024-05-27 09:51 | History & Physical Report ---
Date of Service May 27, 2024 Assessment & Plan (1) Abdominal pain: (2) Small bowel obstruction: (3) Primary carcinoma of lower third of esophagus: Plan This is a 78-year-old male who has a significant past medical history of invasive adenocarcinoma of esophagus and severe protein calorie malnutrition with J-tube in place who presents to ED secondary to abdominal pain x 24 hours. Abdominal Pain SBO Known advanced adenocarcinoma of esophagus with metastasis Possible Sepsis admit to PCU --CT a/p:. Known esophageal cancer with interval progression of circumferential thickening of the esophagogastric junction and the lower esophagus, with i nfiltration within the adjacent fat and engulfs the coeliac trunk without luminal stenosis 2. Severe gastric and small bowel distention till level of feeding catheter, the distal bowel remains unremarkable. 3. New demonstrations of ill-defined lesions in the mesenteric fat in the left paracolic gutter, right para rectal region and at the umbilical level, suggestive of metastatic deposits 4. Mild free fluid in the pelvis 5. Smooth wall thickening suggesting cystitis. 6. Distended acalcular gall bladder with mild intra-hepatic biliary dilatation. --CT Chest: Right upper lobe anterior sub-pleural nodularity with tree in bud configuration, suggestive of infection. - Dilated esophagus with air fluid level (thickening of distal esophagus wall vs underdistension), dilated stomach and proximal duodenum, clinical correlation and further evaluation as needed. - Mild pericardial effusion. Blood and urine cultures ordered Initiate empiric IV zosyn Strict NPO General surgery consulted - NGT placed, await surgery to vent J tube will hold J tube feeds/meds IVF NSS + KCL @ 90 cc/hr Imaging also concerning for acalculus gallbladder distension, ? cystitis, ? RUL tree in bud configuration ? Aspiration obtain CBC, CMP in a.m. Invasive adenocarcinoma of esophagus with Known Mets Severe PCM with Jtube pt currently follow non traditional approach with goal of quality of life He is seeking treatment at [facility] in [place] current regimen is cyclophosphamide 50 mg daily Friday through Friday, capecitabine 1000 mg twice daily, 2 weeks on and 1 weeks off, recently resumed on 05/23 consult nutrition, will hold off on J tube feedings/meds given above Last PET scan 03/29/24: IMPRESSION 1. Increased hypermetabolism in the lower esophagus and gastric cardia, consist ent with known esophageal adenocarcinoma. 2. Increased size and metabolic activity of gastrohepatic lymph node cluster, peripancreatic nodule, and lower abdominal omental nodule, highly suspicious for metastatic disease. 3. New mildly enlarged left supraclavicular and left axillary lymph nodes with metabolic activity less than blood pool, nonspecific, but given other findings also suspicious for metastasis. At a minimum, attention on follow-up imaging advised. SVT vs afib on arrival now sinus tach Mild pericardial effusion on imaging no chest pain or trop elevation ecg initially with concern for svt vs afib, now ST and a lot of artifact, will repeat ecg in a few hours and again in am. obtain echocardiogram Diarrhea pt reports 10-12 days of freq loose stool after returning from register, presumed from increased dose of Capecitabine diarrhea has resolved for 24 hrs, will obtain stool sample if returns Iron def anemia obtain iron panel per request in a.m. pt recently had 2 venofer infusions hgb stable at 12, no s/sx of bleeding DVT ppx: SQ heparin FULL CODE - discussed in detail with pt and who wish to discuss his wishes and will let us know if he wishes to be DNR PCP: Nina Blanco MD Dispo: admit to PCU Pt was seen and examined in collaboration with Dr. Jalloh, please see addendum I spent a total of 76 minutes reviewing notes, outpatient records, labs, medication, coordinating, documenting and providing care for this patient excluding time spent in the performance of separately billed services. History of Present Illness Chief Complaint: Abdominal pain x 24hrs. Primary Care Provider: Nina Blanco MD This is a 78-year-old male who has a significant past medical history of invasive adenocarcinoma of esophagus and severe protein calorie malnutrition with J-tube in place who presents to ED secondary to abdominal pain x 24 hours. is at bedside who also helps elicit history. Outpatient chart review performed. He reports over the last 24 hours having constant left-sided abdominal pain about the site of his G-tube. He reports rubbing around the G- tube hoping it would improve his symptoms. He felt like it was, "gas." He also had associated nausea, dry heaves and vomiting mucus. He further reports upon arrival to ED and walking into the building he felt very lightheaded and dizzy. He denies any documented fever. Of significance patient is currently following [facility] in [place] for a more holistic approach to his cancer treatment. He most recently had his port removed due to the concern for it being a foreign body. His current regimen is capecitabine 1000 mg twice daily, 2 weeks on and 1 week off. He most recently started on 05/23. He is also taking cyclophosphamide 50 mg daily Friday through Friday. He is also on a regimen of vitamin B17, D, tumeric, selenium, fish oil and melatonin. He is also following with a credit card analyst. He is currently using liquid Hope for tube feeds for an approximation of 2500 javi a day. He does 5 feedings a day. He denies any recent illness. He was last seen in [place] approximately 3 weeks ago. [facility] e returning from [place] he did have approximately 10 days worth of diarrhea, but has not had diarrhea in the last 24 hours. In ED patient was hemodynamically unstable upon arrival. He was hypotensive and tachycardic. Heart rates were in the 170s to 180s. EKG concerning for A- fib versus SVT. He received 2 L of IV fluid. His initial lactate was 4.1. His blood pressure improved upon my evaluation to 110/78. He is still mildly tachycardic with heart rates in the low 100s. He does meet sepsis criteria given leukocytosis, tachycardia and initial hypotension. CT abdomen pelvis reveals severe gastric and small bowel distention to level of feeding catheter, the distal bowel remains unremarkable. Known esophageal cancer with interval progression of circumferential thickening of the esophageal gastric junction in the lower esophagus with infiltration within the adjacent fattening also celiac trunk without luminal stenosis. Distended acalculous gallbladder with mild intrahepatic biliary dilatation also noted. Case was discussed with general surgery and ED provider Who recommended NG tube placement as well as venting the G-tube. Per ED provider he is deferring the J-tube venting to general surgery. Allergies Allergy/AdvReac Type Severity Reaction Status Date / Time No Known Allergies Allergy Verified 05/27/24 08:26 Home Medications Medication Instructions Recorded Confirmed Type capecitabine 500 mg tablet See Rx Instructions .Route .COMPLEX 05/27/24 05/27/24 History cyclophosphamide 50 mg tablet See Rx Instructions .Route .COMPLEX 05/27/24 05/27/24 History Past Med/Surg History Problem List (Updated 05/27/24 @ 10:08 by Patricia Castano PA-C) Small bowel obstruction Nausea & vomiting (Acute) Abdominal pain (Acute) Advanced care planning/counseling discussion Palliative care by specialist Colitis Diarrhea Abdominal pain, generalized Primary carcinoma of lower third of esophagus (Chronic 07/28/23) Rapid weight loss (Acute) Esophagitis (Acute) Vomiting (Acute) Acute dehydration (Acute) Encounter for pre-operative examination Medical History BPH (benign prostatic hyperplasia) Vomiting reason for upcoming EGD > (30 lb weight loss) Dysphagia reason for upcoming EGD Surgical History Hx of vasectomy Hx of umbilical hernia repair History of appendectomy History of esophagogastroduodenoscopy (EGD) History of adenoidectomy History of tonsillectomy Social History Smoking Status: Never smoker Second Hand Exposure: No; Do You Dip or Chew Tobacco: No; Hx Alcohol Use: No Hx Substance Use: No Preferred Language: Indonesian Communication Ability: Effective General Counsel Required: No Beliefs That Will Affect Care: None Current Living Situation: Spouse Feels Safe at Home: Yes Assistive Devices: None Review of Systems Review of Systems: All systems reviewed & are unremarkable except as noted in HPI & below Physical Exam Physical Exam: Constitutional: Cachectic tall M, vitals as above, NAD, sitting up in bed, pleasant, conversing easily Head: Normocephalic, Atraumatic Eyes: PERRL, conjunctivae normal, anicteric sclerae ENMT: external ear and nose normal, oropharynx normal Neck: trachea midline, no thyromegaly normal visual inspection Respiratory: normal respiratory effort, lungs clear to auscultation, no wheeze, rales, rhonchi. Normal insp/exp effort, no accessory muscle use Cardiovascular: tachycardic rate reg rhythm, no murmur, no edema Vessels: no JVD or carotid bruit Chest: normal inspection of chest Abdomen: normal bowel sounds, soft, nontender, +J tube drainage on dressing, but no surrounding erythema or drainage around the j tube Musculoskeletal: no cyanosis or clubbing, extremities motor strength 5/5 Skin: no rashes, warm and dry normal turgor Neurologic: PERRL, EOMI, accommodation nl, no face palsy, no dysarthria CN's II-XI intact bilaterally and moves all extremities Psychiatric: A+Ox3, euthymic affect Lymphatic: no cervical or axillary lymphadenopathy : deferred Results & Data Results & Data Vital Signs (Past 12 Hours) Vital Signs Temp Pulse Pulse Resp BP BP Pulse Ox 05/27/24 09:15 110/78 05/27/24 09:15 106 H 22 95 05/27/24 09:03 98 05/27/24 08:48 97 H 26 H 99 05/27/24 08:45 124/88 05/27/24 08:45 124/88 05/27/24 08:36 99 H 19 85 L 05/27/24 08:30 116/85 05/27/24 08:30 116/85 05/27/24 08:30 116/85 05/27/24 08:27 97 H 18 97 05/27/24 08:15 125/88 05/27/24 08:06 98 H 17 94 05/27/24 08:00 97 H 16 93 05/27/24 08:00 113/83 05/27/24 08:00 113/83 05/27/24 08:00 113/83 05/27/24 07:45 117/83 05/27/24 07:45 117/83 05/27/24 07:45 100 H 19 96 05/27/24 07:30 109/72 05/27/24 07:30 109/72 05/27/24 07:30 99 H 16 93 05/27/24 07:27 102 H 20 92 05/27/24 07:17 104 H 18 124/86 95 05/27/24 06:45 126/74 05/27/24 06:45 126/74 05/27/24 06:45 126/74 05/27/24 06:45 104 H 15 126/74 05/27/24 06:07 105 H 05/27/24 06:07 109 H 18 97 05/27/24 06:00 104 H 16 107/70 98 05/27/24 05:33 36.6 C 133 H 18 80/65 L 97 O2 Del Method 05/27/24 09:15 05/27/24 09:15 05/27/24 09:03 05/27/24 08:48 05/27/24 08:45 05/27/24 08:45 05/27/24 08:36 05/27/24 08:30 05/27/24 08:30 05/27/24 08:30 05/27/24 08:27 05/27/24 08:15 05/27/24 08:06 05/27/24 08:00 05/27/24 08:00 05/27/24 08:00 05/27/24 08:00 05/27/24 07:45 05/27/24 07:45 05/27/24 07:45 05/27/24 07:30 05/27/24 07:30 05/27/24 07:30 05/27/24 07:27 05/27/24 07:17 Room Air 05/27/24 06:45 05/27/24 06:45 05/27/24 06:45 05/27/24 06:45 05/27/24 06:07 05/27/24 06:07 Room Air 05/27/24 06:00 Room Air 05/27/24 05:33 Room Air Laboratory Results I have independently reviewed and interpreted patient's admitting labs including CBC, CMP, PTT, PT/INR, mag and troponin. Diagnostic Findings Chest X-Ray 05/27/24 05:38 EXAM: XR chest 1V portable CLINICAL HISTORY: SEVERE PAIN, SEPSIS. TECHNIQUE: An X-ray image of the chest was obtained in 1 view: AP projection. COMPARISON: No prior studies are available for comparison. FINDINGS: Pulmonary Parenchyma: Prominent bronchovascular marking related to mild congestion/bronchitis. No evidence of consolidation, collapse, or focal opacities. No pulmonary nodules are identified. No evidence of pleural effusion or pleural thickening. Heart and Mediastinum: Heart size and shape are normal. No mediastinal widening or masses. No hilar or mediastinal lymphadenopathy. Bony Thorax: Bony thorax appears intact without fractures or deformities. Soft Tissues: Soft tissues overlying the chest wall are unremarkable. IMPRESSION: 1. Prominent bronchovascular marking related to mild congestion/bronchitis. Clinical correlation is required. 2. No acute cardiopulmonary abnormalities are identified. Electronically signed by Alejandra Lopez 05-27-2024 06:47 AM Abdomen/Pelvis CT 05/27/24 05:57 EXAM: CT abd pelvis IV con only CLINICAL HISTORY: Severe abdominal pain x24 hours, hx of esophagus cancer with J tube placement. also c/o vomiting, diarrhea and bloating. TECHNIQUE: Contrast-enhanced CT of the abdomen and pelvis was performed, with the following protocol: axial images with, and reconstructed coronal and sagittal images. 120ml Optiray 320 Intravenous contrast was administered. One of the following dose reduction techniques was utilized for this exam: Automated exposure control, adjustment of the mA and/or kV according to patient size, and use of iterative reconstruction. COMPARISON: 07/18/2023 CT. FINDINGS: Abdomen: Liver: Normal in size, shape, and density. No focal lesions, cysts, or masses were identified. Hepatic vasculature and biliary ducts are unremarkable. Gallbladder and Biliary System: Gall bladder is distended. No wall thickening, pericholecystic fluid, or gallstones were identified. The common bile duct is normal in caliber without dilation. Mild intra hepatic biliary dilatation. Pancreas: Pancreatic head, body, and tail are visualized and appear normal in size and density. No pancreatic masses or calcifications were noted. The pancreatic duct is not dilated. Spleen: Normal in size, shape, and density. No splenic lesions or masses were identified. Kidneys and Adrenal Glands: Both kidneys are normal in size, shape, and position. Cortical thickness is within normal limits. No renal calculi or hydronephrosis. Adrenal glands are unremarkable with no evidence of masses or hyperplasia. Pelvis: Urinary Bladder: Smooth wall thickening suggesting cystitis. No intraluminal lesions identified. Prostate: Moderate prostatomegaly was noted. No focal lesions or masses identified. Seminal Vesicles: Normal in size and appearance. No abnormalities noted. Rectum and Sigmoid Colon: Normal wall thickness and no evidence of mass. Peritoneal and Retroperitoneal Structures: New demonstrations of ill-defined lesions in the mesenteric fat in the left iliac fossa and at the umbilical level measure up to 3.3cm. Mild free fluid in the pelvis No lymphadenopathy was noted. Small uncomplicated right inguinal hernia. Bowel: An ill-defined circumferential thickening of the esophagogastric junction and the lower esophagus, infiltrate within the adjacent fat and engulf the coliac trunk without luminal stenosis. Severe distention of the gastric and the proximal small bowel till a thickened wall loop in the epigastric area where there is a feeding catheter within the lumen , the distal bowel is unremarkable. New demonstrations of ill-defined lesions in the mesenteric fat in the left iliac fossa and at the umbilical level measure up to 3.3cm. Also in right para rectal region. Bones and Soft Tissues: Pelvic bones and soft tissues are unremarkable. No fractures or abnormal masses were identified. 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 IMPRESSION: 1. Knonw esophageal cancer with interval progression of circumferential thickening of the esophagogastric junction and the lower esophagus, with infiltration within the adjacent fat and engulfs the coeliac trunk without luminal stenosis 2. Severe gastric and small bowel distention till level of feeding catheter, the distal bowel remains unremarkable. 3. New demonstrations of ill-defined lesions in the mesenteric fat in the left paracolic gutter, right para rectal region and at the umbilical level, suggestive of metastatic deposits 4. Mild free fluid in the pelvis 5. Smooth wall thickening suggesting cystitis. 6. Distended acalcular gall bladder with mild intra-hepatic biliary dilatation. 7. The rest of the findings are stable in comparison with CT on 07/18/2023. Electronically signed by Alejandra Lopez 05-27-2024 07:48 AM Chest CTA 05/27/24 05:57 EXAM: CT angio chest PE protocol CLINICAL HISTORY: pt reports severe abd pain x24 hours, hx of esophagus cancer with j tube placement. also c/o vomiting, diarrhea and bloating. TECHNIQUE: Contiguous 3.[address] angiographic images of the chest were acquired with the administration of intravenous contrast. Coronal and sagittal reconstructions were obtained. 120ml Optiray 320 was administered for post-contrast images. One of these 3D techniques was utilized: Maximum Intensity Pixel (MIP), 3D Reconstructed Images, Volume Rendered Images, Surface Shaded Rendering. One of the following dose reduction techniques were utilized for this exam: Automated exposure control, adjustment of the mA and/or kV according to patient size, and use of iterative reconstruction. COMPARISON: previous chest x-ray 05/27/2024 FINDINGS: Pulmonary Arteries: Pulmonary arteries are normal in size and opacification. No evidence of pulmonary embolism. No stenosis or filling defects. Aorta: The thoracic aorta is normal in caliber. Mild atherosclerotic changes. No evidence of aneurysm, or dissection. Aortic arch and descending thoracic aorta are unremarkable. Superior Vena Cava (SVC) and Inferior Vena Cava (IVC): Normal opacification and caliber. No evidence of thrombus or obstruction. Mediastinum: No mediastinal mass or lymphadenopathy. Normal appearance of the thymus. Heart: Normal size and morphology of the heart. Mild pericardial effusion. Lungs: Right upper lobe anterior sub-pleural nodularity with tree in bud configuration. No evidence of consolidation, or masses. No pleural effusion or thickening. Bones: No fractures or lytic/sclerotic lesions of the visualized bony structures. Normal alignment and bone density. Dilated esophagus with air fluid level (thickening of distal esophagus wall vs underdistension), dilated stomach and proximal duodenum, clinical correlation and further evaluation as needed. Right renal cyts. IMPRESSION: - No evidence of acute pulmonary embolism. - Right upper lobe anterior sub-pleural nodularity with tree in bud configuration, suggestive of infection. - Dilated esophagus with air fluid level (thickening of distal esophagus wall vs underdistension), dilated stomach and proximal duodenum, clinical correlation and further evaluation as needed. - Mild pericardial effusion. - Overall findings are conspicuous on the CT examination in comparison to the x ray. Electronically signed by Alejandra Lopez 05-27-2024 07:31 AM KUB X-Ray 05/27/24 08:42 XR KUB/Abdomen 1 view CLINICAL HISTORY: ng tube TECHNIQUE: 1 view of the abdomen was obtained. Comparison: Comparison is made to CT abdomen pelvis 05/27/2024 abdomen ra diograph 01/10/2024 FINDINGS: Enteric tube tip and side-port lie above the diaphragm. The osseous structures are grossly unremarkable. The bowel gas pattern is nonobstructive. A moderate amount of stool is noted within the large bowel. IMPRESSION: Enteric tube tip and side-port lie above the diaphragm. The tube can be advanced approximately 15 cm for improved positioning. ACT 112: Negative or not required by law. Electronically signed by: Kj Angulo M.D. 05/27/2024 9:18 AM Medications Administered Medication List Pantoprazole Sodium 40 mg/ (Dextrose) 100 mls @ 20 mls/hr IV Q5H LACY Stop: 06/26/24 06:14 Last Admin: 05/27/24 06:43 Dose: 8 mg/hr, 20 mls/hr Documented By: DELVIS Sodium Chloride (Nss) 1,000 mls @ 150 mls/hr IV .Q6H40M LACY Stop: 05/28/24 06:59 Last Admin: 05/27/24 06:56 Dose: 150 mls/hr Documented By: SHAY Morphine Sulfate (Morphine Sulfate 4 Mg/Ml 1 Ml Carp\\Vial) 4 mg IV Q1H PRN PRN Reason: Severe Pain (Rating 7,8,9,10) Stop: 06/10/24 08:11 Last Admin: 05/27/24 08:15 Dose: 4 mg Documented By: SHAY Discontinued Medications Fentanyl Citrate (Fentanyl Citrate Pf 100 Mcg/2 Ml Vial) Confirm Administered Dose 100 mcg .ROUTE .STK-MED ONE Stop: 05/27/24 05:53 Last Increment: 05/27/24 05:57 Dose: 50 mcg Documented By: CHIRAG Fentanyl Citrate (Fentanyl Citrate Pf 100 Mcg/2 Ml Vial) 50 mcg IV Q15M PRN PRN Reason: Pain Stop: 06/10/24 06:01 Last Admin: 05/27/24 07:53 Dose: 50 mcg Documented By: Admin: 05/27/24 06:55 Dose: 50 mcg Documented By: Admin: 05/27/24 06:20 Dose: 50 mcg Documented By: DELVIS Sodium Chloride (Nss) 1,000 mls @ 999 mls/hr IV .Q1H1M ONE Stop: 05/27/24 06:54 Last Infusion: 05/27/24 06:48 Dose: Infused Documented By: Admin: 05/27/24 05:56 Dose: 999 mls/hr Documented By: CHIRAG Piperacillin Sod/Tazobactam Sod (Zosyn) 4.5 gm in 100 mls @ 200 mls/hr IV NOW ONE; Protocol Stop: 05/27/24 06:23 Last Infusion: 05/27/24 06:44 Dose: Infused Documented By: Admin: 05/27/24 06:14 Dose: 200 mls/hr Documented By: CHIRAG Pantoprazole Sodium 80 mg/ (Dextrose) 120 mls @ 480 mls/hr IV NOW ONE Stop: 05/27/24 06:08 Last Infusion: 05/27/24 06:44 Dose: Infused Documented By: Admin: 05/27/24 06:11 Dose: 480 mls/hr Documented By: CHIRAG Sodium Chloride (Nss) 500 mls @ 999 mls/hr IV .Q31M ONE Stop: 05/27/24 06:32 Last Infusion: 05/27/24 06:44 Dose: Infused Documented By: Admin: 05/27/24 06:09 Dose: 999 mls/hr Documented By: CHIRAG Ioversol (Optiray 320 100ml) 120 ml IV ONCE ONE Stop: 05/27/24 06:37 Last Admin: 05/27/24 06:36 Dose: 120 ml Documented By: DONNA Lorazepam (Lorazepam 2 Mg/1 Ml Vial) 0.25 mg IV NOW STA Stop: 05/27/24 09:03 Last Admin: 05/27/24 09:09 Dose: 0.25 mg Documented By: SHAY Ondansetron HCl (Ondansetron Inj 2 Mg/Ml 2 Ml Vial) Confirm Administered Dose 4 mg .ROUTE .STK-MED ONE Stop: 05/27/24 05:51 Last Admin: 05/27/24 05:57 Dose: 4 mg Documented By: CHIRAG Ondansetron HCl (Ondansetron Inj 2 Mg/Ml 2 Ml Vial) 4 mg IV NOW STA Stop: 05/27/24 08:28 Last Admin: 05/27/24 08:30 Dose: 4 mg Documented By: SHAY Pantoprazole Sodium (Pantoprazole Bolus/Drip) 1 each IV NOW STA Stop: 05/27/24 05:55 Last Admin: 05/27/24 06:44 Dose: Not Given Documented By: DELVIS ECG Additional Comments: I have independently reviewed and interpreted patient's admitting EKG which revealed: 106 ST qtc 459ms COVID-19 Results Results COVID-19 Adm Lab Results: RBC 3.83 M/uL (4.70-6.10) L 05/27/24 WBC 13.85 K/ul (4.8-10.8) H 05/27/24 Hgb 12.5 g/dl (14.0-18.0) L 05/27/24 Hct 37.1 % (42.0-52.0) L 05/27/24 Plt Count 275 K/uL (130-400) 05/27/24 Neutrophils (%) (Auto) 79.7 % 05/27/24 Lymphocytes (%) (Auto) 11.3 % 05/27/24 Monocytes # (Auto) 1.12 K/uL (0.11-0.59) H 05/27/24 Eosinophils # (Auto) 0.01 K/uL (0.00-0.50) 05/27/24 Immature Granulocyte % (Auto) 0.4 % 05/27/24 Neutrophils # (Auto) 11.05 K/uL (1.40-6.50) H 05/27/24 Lymphocytes # (Auto) 1.56 K/uL (1.20-3.40) 05/27/24 Monocytes # (Auto) 1.12 K/uL (0.11-0.59) H 05/27/24 Eosinophils # (Auto) 0.01 K/uL (0.00-0.50) 05/27/24 Basophils # (Auto) 0.06 K/uL (0.00-0.20) 05/27/24 Immature Granulocyte # (Auto) 0.05 K/uL (0.01-0.20) 4 Na 141 mmol/L (136-145) 05/27/24 K 3.6 mmol/L (3.5-5.1) 05/27/24 Cl 104 mmol/L (98-107) 05/27/24 CO2 26 mmol/L (21-32) 05/27/24 Anion Gap 11 (3-11) 05/27/24 BUN 24 mg/dl (6-23) H 05/27/24 Creatinine 1.31 mg/dl (0.6-1.4) 05/27/24 BUN/Creatinine Ratio 18.3 (10-20) 05/27/24 Glucose Level 153 mg/dl (70-99(Fasting)) H 05/27/24 Ca 9.8 mg/dl (8.6-10.3) 05/27/24 Total Bilirubin 1.5 mg/dl (0.2-1.0) H 05/27/24 Direct Bilirubin 0.6 mg/dl (0-0.2) H 05/27/24 AST/SGOT 105 U/L (13-39) H 05/27/24 ALT/SGPT 145 U/L (7-52) H 05/27/24 Alkaline Phosphatase 100 U/L (34-104) 05/27/24 Total Protein 7.2 gm/dl (6.0-8.3) 05/27/24 Albumin 4.1 gm/dl (3.4-5.0) 05/27/24 Procalcitonin 0.14 ng/ml (0-0.5) 05/27/24 Adenovirus (PCR) Not Detected (NotDetected) 05/27/24 B. parapertussis DNA (PCR) Not Detected (NotDetected) 05/03 11/23 B. pertussis DNA (PCR) Not Detected (NotDetected) 05/27/24 C. pneumoniae DNA (PCR) Not Detected (NotDetected) 4 Coronavirus Type OC43 (PCR) Not Detected (NotDetected) Coronavirus Type HKU1 (PCR) Not Detected (NotDetected) Coronavirus Type 229E (PCR) Not Detected (NotDetected) COVID-19 PCR Not Detected (NotDetected) 05/27/24 Coronavirus Type NL63 (PCR) Not Detected (NotDetected) Human Metapneumovirus (PCR) Not Detected (NotDetected) Influenza Virus Type A (PCR) Not Detected (NotDetected) Influenza Virus Type B (PCR) Not Detected (NotDetected) M. pneumoniae (PCR) Not Detected (NotDetected) 05/27/24 Parainfluenza Type 1 (PCR) Not Detected (NotDetected) 05/03 11/23 Parainfluenza Type 2 (PCR) Not Detected (NotDetected) 05/03 11/23 Parainfluenza Type 3 (PCR) Not Detected (NotDetected) 05/03 11/23 Parainfluenza Type 4 (PCR) Not Detected (NotDetected) 05/03 11/23 RSV (PCR) Not Detected (NotDetected) 05/27/24 Enterovirus/Rhinovirus (PCR) Not Detected (NotDetected) Chest X-Ray 05/27/24 Code Status & VTE Plan Code Status Full CODE VTE Prophylaxis Plan VTE Prophylaxis will be ordered: Yes Supervising Physician Co-Signing Physician Notes Patient is a 78-year-old male with invasive adenocarcinoma of the esophagus and severe protein calorie malnutrition currently on J-tube feeds only presents with history of worsening abdominal pain since 1 day duration. He admits to holding his tube feeds to see if his symptoms resolved. He reports associated nausea and dizziness. Currently patient is getting holistic approach to treatment for his invasive cancer in [place]. He was hypotensive and tachycardic while in ED which later improved. He was in A-fib RVR which spontaneously converted to si nus with IV fluids. Please review HPI for complete details of presentation. I personally reviewed blood work and imaging studies.Lactic acidosis resolved with IV fluids. Noted mild transaminitis. BioFire negative. CT abdomen suggestive of small bowel obstruction, metastatic disease, findings suggestive of cystitis and distended acalculous gallbladder with mild intrahepatic biliary dilatation. Blood, urine culture currently pending. Physical Exam: Vitals signs as noted above General Appearance:Moderately built and nourished, no apparent distress Head: normocephalic, Atraumatic Eyes: normal inspection, EOMI Neck: supple, Trachea midline Respiratory/Chest: Normal breath sounds, CTA, No accessory muscle use Cardiovascular: S1, S2, No murmur Abdomen/GI:Soft, mild generalized tender, + G-tube, mildly distended, no guarding or rigidity Extremities/Musculoskeletal:normal inspection, no edema Neurologic/Psych:AAOX3, grossly no focal neurological deficits Skin: normal color, warm Small bowel obstruction Unclear if secondary to J-tube/metastatic disease NG tube placement unsuccessful Bowel rest Continue IV fluids Appreciate surgery input Patient is planned for J-tube exchange in June at [facility] Possible sepsis Cystitis/bronchitis Empirically on Zosyn Received IV fluids Follow-up cultures A-fib RVR Transient, spontaneously converted to sinus Likely situational IDA VASC's 2 Currently in sinus Will discuss with patient/family if interested in long-term anticoagulation given history of metastatic disease Monitor and replete electrolytes as needed Acalculous distended gallbladder Mild transaminitis Trend LFTs Surgery on board Metastatic esophageal cancer Chronic dysphagia Prior oncologist recommended esophagectomy per patient--refused Currently on holistic medicine in [place] I personally interviewed and examined at bedside. Patient's care is coordinated with Patricia Castano PA-C. I have reviewed the advanced practitioner's documentation, and I agree with plan of care. Please refer to the documentation above for details of patient's presentation and for discussion of other issues. I spent a total [id number] coordinating, documenting, and providing care for this patient excluding time spent in the performance of separately billed services.
--- NOTE | 2024-05-27 10:31 | XRay Report ---
XR KUB/Abdomen 1 view CLINICAL HISTORY: ng tube advanced TECHNIQUE: 1 view of the abdomen was obtained. Comparison: Comparison is made to abdomen radiograph 05/27/2024 FINDINGS: The enteric tube is looped in the esophagus. The osseous structures are grossly unremarkable. The bow el gas pattern is nonobstructive. IMPRESSION: Enteric tube is looped in the esophagus and should be repositioned. ACT 112: Negative or not required by law. Electronically signed by: Kj Angulo M.D. 05/27/2024 10:30 AM
[2024-05-27] MEDS: POTASSIUM CHLORIDE / WTR 10 MEQ/100 ML PLCT IV SCH (10:32)
[2024-05-27] MEDS: PIPERACILLIN/TAZOBACTAM 4.5 GM/100 ML BAG IV STA (11:17)
[2024-05-27 11:31] LABS: Adenovirus PCR Not Detected (NotDetected); Bordetella parapertussis PCR Not Detected (NotDetected); Bordetella pertussis PCR Not Detected (NotDetected); Chlamydia pneumoniae PCR Not Detected (NotDetected); Coronavirus 229E PCR Not Detected (NotDetected); Coronavirus CoV-2 (COVID19)PCR Not Detected (NotDetected); Coronavirus HKU1 PCR Not Detected (NotDetected); Coronavirus NL63 PCR Not Detected (NotDetected); Coronavirus OC43PCR Not Detected (NotDetected); Human Metapneumovirus PCR Not Detected (NotDetected); Influenza A PCR Not Detected (NotDetected); Influenza B PCR Not Detected (NotDetected); Mycoplasma pneumoniae PCR Not Detected (NotDetected); Parainfluenza Virus 1 PCR Not Detected (NotDetected); Parainfluenza Virus 2 PCR Not Detected (NotDetected); Parainfluenza Virus 3 PCR Not Detected (NotDetected); Parainfluenza Virus 4 PCR Not Detected (NotDetected); Respiratory Syncytial VirusPCR Not Detected (NotDetected); Rhinovirus/Enterovirus PCR Not Detected (NotDetected)
--- NOTE | 2024-05-27 12:04 | Surgery Consultation ---
Date of Consultation May 27, 2024 Assessment & Plan (1) Small bowel obstruction: His CT images and results were personally viewed and interpreted by myself It looks as though his J-tube is causing at least a partial obstruction His stomach is quite dilated on CT and would recommend placing NG tube for dec ompression The saline balloon was deflated Jl J-tube taped in place Plan will be to get a tube study tomorrow which will help ensure it is in the correct position as well as possibly be therapeutic for small bowel obstruction if in fact the J-tube was not the cause of the obstruction Continue n.p.o. nothing should be placed to the tube tonight History of Present Illness Reason for Consultation: Small bowel obstruction History of Present Illness This is a 78-year-old male with a history of esophageal cancer with a Jl button G-tube that came to the ER this morning after 24 hours of 9 out of 10 severe abdominal pain, generalized in nature without radiation. He originally had the G-tube placed in August 2023 several different times and J tubes and now has a Jl button G-tube in place. This is worked well for him as he is gaining weight he states the area is more painful. He has had some nausea without vomiting. His last normal bowel movement was yesterday at 10 AM. He states he is not passing flatus. Allergies Allergy/AdvReac Type Severity Reaction Status Date / Time No Known Allergies Allergy Verified 05/27/24 08:26 Home Medications Medication Instructions Recorded Confirmed Type capecitabine 500 mg tablet See Rx Instructions .Route .COMPLEX 05/27/24 05/27/24 History cyclophosphamide 50 mg tablet See Rx Instructions .Route .COMPLEX 05/27/24 05/27/24 History Patient History Medical History BPH (benign prostatic hyperplasia) Vomiting reason for upcoming EGD > (30 lb weight loss) Dysphagia reason for upcoming EGD Surgical History Hx of vasectomy Hx of umbilical hernia repair History of appendectomy History of esophagogastroduodenoscopy (EGD) History of adenoidectomy History of tonsillectomy Social History Smoking Status: Never smoker Second Hand Exposure: No; Do You Dip or Chew Tobacco: No; Hx Alcohol Use: No Hx Substance Use: No Preferred Language: Japanese Communication Ability: Effective Word Processing Operator Required: No Beliefs That Will Affect Care: None Current Living Situation: Spouse Feels Safe at Home: Yes Assistive Devices: None Review of Systems Constitutional: no fever and no chills Eyes: no blind spots and no dry eyes Ear, Nose, Mouth, Throat: no ear pain and no nasal congestion Respiratory: no cough and no dyspnea Cardiovascular: no chest pain and no dyspnea on exertion Gastrointestinal: + abdominal pain, + nausea and + constip ation; no vomiting and no diarrhea/loose stools Genitourinary: no dysuria or no nocturia Musculoskeletal: no back pain and no neck pain Integumentary: no acne, no changing lesions and no sores Neurologic: no gait abnormality, no headache(s) and no confusion Psychiatric: no behavioral changes and no depression Physical Exam Constitutional: WD/WN, vitals as above Eyes: PERRL, conjunctivae normal, anicteric sclerae ENMT: external ear and nose normal, oropharynx normal Neck: trachea midline, no thyromegaly Respiratory: normal respiratory effort, lungs clear to auscultation Cardiovascular: RRR, no murmur, no edema Gastrointestinal (Abdomen): Inspection/Auscultation: abdomen normal to inspection and + abdomen distended Percussion/Palpation: + abdomen tender (mild generalized) and abdomen soft; no guarding and no hernia Musculoskeletal: no cyanosis or clubbing, extremities motor strength 5/5 Skin: no rashes, warm and dry Neurologic: PERRL, EOMI, accommodation nl, no face palsy, no dysarthria Psychiatric: A+Ox3, euthymic affect Results & Data Vital Signs (Past 12 Hours) Vital Signs Temp Pulse Pulse Resp BP BP Pulse Ox 05/27/24 11:15 93 H 13 110/74 95 05/27/24 10:24 98 H 16 108/76 94 05/27/24 10:11 104 H 05/27/24 09:15 110/78 05/27/24 09:15 106 H 22 95 05/27/24 09:03 98 05/27/24 08:48 97 H 26 H 99 05/27/24 08:45 124/88 05/27/24 08:45 124/88 05/27/24 08:36 99 H 19 85 L 05/27/24 08:30 116/85 05/27/24 08:30 116/85 05/27/24 08:30 116/85 05/27/24 08:27 97 H 18 97 05/27/24 08:15 125/88 05/27/24 08:06 98 H 17 94 05/27/24 08:00 97 H 16 93 05/27/24 08:00 113/83 05/27/24 08:00 113/83 05/27/24 08:00 113/83 05/27/24 07:45 117/83 05/27/24 07:45 117/83 05/27/24 07:45 100 H 19 96 05/27/24 07:30 109/72 05/27/24 07:30 109/72 05/27/24 07:30 99 H 16 93 05/27/24 07:27 102 H 20 92 05/27/24 07:17 104 H 18 124/86 95 05/27/24 06:45 126/74 05/27/24 06:45 126/74 05/27/24 06:45 126/74 05/27/24 06:45 104 H 15 126/74 05/27/24 06:07 105 H 05/27/24 06:07 109 H 18 97 05/27/24 06:00 104 H 16 107/70 98 05/27/24 05:33 36.6 C 133 H 18 80/65 L 97 O2 Del Method 05/27/24 11:15 05/27/24 10:24 05/27/24 10:11 05/27/24 09:15 05/27/24 09:15 05/27/24 09:03 05/27/24 08:48 05/27/24 08:45 05/27/24 08:45 05/27/24 08:36 05/27/24 08:30 05/27/24 08:30 05/27/24 08:30 05/27/24 08:27 05/27/24 08:15 05/27/24 08:06 05/27/24 08:00 05/27/24 08:00 05/27/24 08:00 05/27/24 08:00 05/27/24 07:45 05/27/24 07:45 05/27/24 07:45 05/27/24 07:30 05/27/24 07:30 05/27/24 07:30 05/27/24 07:27 05/27/24 07:17 Room Air 05/27/24 06:45 05/27/24 06:45 05/27/24 06:45 05/27/24 06:45 05/27/24 06:07 05/27/24 06:07 Room Air 05/27/24 06:00 Room Air 05/27/24 05:33 Room Air PG Care Time/CCT Total # of Minutes Spent Total Time Spent with Patient: Total time spent is greater than 50% in coordination of care (as documented) at patient's floor/unit and/or counseling patient: Coding Level of Care Code 64701 INT INP/OBS CARE 3/75MIN Diagnoses Small bowel obstruction K56.609
--- NOTE | 2024-05-27 12:40 | Electrocardiogram Report ---
Test Reason : Blood Pressure : */* mmHG Vent. Rate : 171 BPM Atrial Rate : * BPM P-R Int : * ms QRS Dur : 70 ms QT Int : 264 ms P-R-T Axes : * 51 23 degrees QTcB Int : 445 ms Atrial fibrillation with rapid ventricular response Marked ST abnormality, possible inferior subendocardial injury Abnormal ECG When compared with ECG of 12-Aug-2023 20:46, Atrial fibrillation has replaced Sinus rhythm Vent. rate has increased by [address] more depressed Inferior leads ST now depressed in Lateral leads Nonspecific T wave abnormality, worse in Lateral leads Confirmed by Bethel Laguna ([id number]) on 05/27/2024 12:39:57 PM Referred By: Confirmed By: Bethel Laguna
--- NOTE | 2024-05-27 12:45 | Electrocardiogram Report ---
Test Reason : Blood Pressure : */* mmHG Vent. Rate : 106 BPM Atrial Rate : 106 BPM P-R Int : 156 ms QRS Dur : 66 ms QT Int : 346 ms P-R-T Axes : 30 0 46 degrees QTcB Int : 459 ms Sinus tachycardia Otherwise normal ECG When compared with ECG of 27-May-2024 05:44, (unconfirmed) Sinus rhythm has replaced Atrial fibrillation Vent. rate has decreased by [address] less depressed in Inferior leads ST no longer depressed in Anterolateral leads Confirmed by Bethel Laguna ([id number]) on 05/27/2024 12:45:00 PM Referred By: REFERRED SELF Confirmed By: Bethel Laguna
[2024-05-27] MEDS: NSS + 20MEQ KCL 20 MEQ/1,000 ML BAG IV SCH (15:43)
[2024-05-27] MEDS: ONDANSETRON INJ 2 MG/ML 2 ML VIAL IV PRN (16:03)
[2024-05-27] MEDS: ACETAMINOPHEN 1,000 MG/100 ML VIAL IV PRN (16:10)
[2024-05-27] MEDS: PIPERACILLIN/TAZOBACTAM 4.5 GM/100 ML BAG IV SCH (16:32)
[2024-05-27 17:10] LABS: Appearance Urine Clear (Clear); Bilirubin Urine 1+ (Negative); Blood Urine Negative (Negative); Color Urine Yellow; Glucose Urine UA Negative (Negative); Ketones Urine Negative (Negative); Leukocyte Esterase Urine Negative (Negative); Nitrite Urine Negative (Negative); Protein Urine 1+ (Negative); Specific Gravity Urine 1.015 (1.000-1.030); Urobilinogen Urine Negative (Negative)
[2024-05-27 17:19] LABS: Epithelial Cell Urine 0-2 /hpf (0-2)
[2024-05-27 17:20] LABS: Bacteria Urine 1+ (None Seen); Hyaline Casts Urine Present /lpf (None Presnt)
[2024-05-27] MEDS: HEPARIN SOD 5,000 UNIT/0.5 ML VIAL SQ SCH (20:41)
[2024-05-28 06:22] LABS: Hematocrit (blood only) 30.6 % (42.0-52.0); Hemoglobin 10.2 g/dl (14.0-18.0); Mean Corpuscular Hemoglobin 32.6 pg (25.0-34.0); Mean Corpuscular Hgb Conc 33.3 g/dL (32.0-36.0); Mean Corpuscular Volume 97.8 fL (80.0-100.0); Mean Platelet Volume 10.5 fL (9.4-12.4); Platelet Count 156 K/uL (130-400); Red Blood Count 3.13 M/uL (4.70-6.10); White Blood Count 16.83 K/ul (4.8-10.8)
[2024-05-28 06:41] LABS: Anisocytosis Present; Basophils # (auto) 0.04 K/uL (0.00-0.20); Basophils % (auto) 0.2 %; Immature Granulocytes # (auto) 0.09 K/uL (0.01-0.20); Immature Granulocytes % (auto) 0.5 %; Lymphocytes # (auto) 0.31 K/uL (1.20-3.40); Lymphocytes % (auto) 1.8 %; Monocytes # (auto) 0.94 K/uL (0.11-0.59); Monocytes % (auto) 5.6 %; Neutrophils # (auto) 15.45 K/uL (1.40-6.50); Neutrophils % (auto) 91.9 %; Polychromasia 2+
[2024-05-28 06:46] LABS: Alanine Aminotransferase 176 U/L (7-52); Albumin Globulin Ratio 1.4 (0.9-2); Albumin Level 3.2 gm/dl (3.4-5.0); Alkaline Phosphatase 105 U/L (34-104); Anion Gap 6 (3-11); Aspartate Aminotransferase 112 U/L (13-39); BUN Creatinine Ratio 19.3 (10-20); Bilirubin,Total 6.7 mg/dl (0.2-1.0); Blood Urea Nitrogen 21 mg/dl (6-23); Calcium 8.6 mg/dl (8.6-10.3); Carbon Dioxide 24 mmol/L (21-32); Chloride 112 mmol/L (98-107); Creatinine Clr Calc Pharmacy 59.4 ml/min; Globulin 2.3 gm/dl (2.5-4.0); Glucose 107 mg/dl (70-99(Fasting)); Iron < 10 mcg/dl (35-175); Magnesium 1.7 mg/dl (1.7-2.4); Potassium 4.2 mmol/L (3.5-5.1); Sodium 142 mmol/L (136-145); Total Iron Binding Cap Calc 319 mcg/dl (250-450); Total Protein 5.5 gm/dl (6.0-8.3); Transferrin 228 mg/dl (200-360)
[2024-05-28 07:01] LABS: Ferritin 521.2 ng/ml (8-388)
[2024-05-28 07:51] VITALS: RESP 20
[2024-05-28] MEDS ORDERED: SODIUM CHLORIDE 0.9% 50 ML IV PRN (08:33)
[2024-05-28] MEDS ORDERED: SODIUM CHLORIDE 0.9% 100 ML IV PRN (08:33)
--- NOTE | 2024-05-28 09:16 | Surgery Progress Note ---
Date of Service May 28, 2024 Assessment & Plan (1) Jejunostomy tube present: Plan: My physician career services assistant and myself were unable to replace the J-tube at bedside We are going to get a right upper quadrant ultrasound to evaluate his new elevation in LFTs He still has no return of bowel function As far as his J-tube, would recommend to transfer to a tertiary care center or interventional radiology could likely replace the tube using fluoroscopy He has had all of his care at [facility] in [place] We will follow-up with the right upper quadrant ultrasound (2) Esophageal cancer: (3) Small bowel obstruction: (4) Elevated LFTs: Admission and Anticipated Discharge Date Admission Date: May 27, 2024 Subjective Patient seen and examined. J-tube was dislodged overnight. Unable to be replaced. Afebrile. Had some hematemesis as well. No flatus or BM. Review of Systems Constitutional: no fever and no chills Eyes: no blind spots and no dry eyes Ear, Nose, Mouth, Throat: no ear pain and no nasal congestion Respiratory: no cough and no dyspnea Cardiovascular: no chest pain and no dyspnea on exertion Gastrointestinal: + abdominal pain, + nausea, + vomiting a nd + constipation; no diarrhea/loose stools Genitourinary: no dysuria or no nocturia Musculoskeletal: no back pain and no neck pain Integumentary: no acne, no changing lesions and no sores Neurologic: no gait abnormality, no headache(s) and no confusion Psychiatric: no behavioral changes and no depression Physical Exam Constitutional: WD/WN, vitals as above Eyes: PERRL, conjunctivae normal, anicteric sclerae ENMT: external ear and nose normal, oropharynx normal Neck: trachea midline, no thyromegaly Respiratory: normal respiratory effort, lungs clear to auscultation Cardiovascular: RRR, no murmur, no edema Gastrointestinal (Abdomen): Inspection/Auscultation: abdomen normal to in spection and + abdomen distended Percussion/Palpation: + abdomen tender (mild generalized) and abdomen soft; no guarding and no hernia Musculoskeletal: no cyanosis or clubbing, extremities motor strength 5/5 Skin: no rashes, warm and dry Neurologic: PERRL, EOMI, accommodation nl, no face palsy, no dysarthria Psychiatric: A+Ox3, euthymic affect Results & Data Vital Signs (Past 12 Hours) Vital Signs Temp Pulse Pulse Resp BP Pulse Ox O2 Del Method 05/28/24 07:58 110 H 05/28/24 07:50 36.6 C 105 H 20 101/65 95 Room Air 05/28/24 02:58 36.8 C 110 H 18 106/73 93 Room Air 05/28/24 01:10 118 H 05/27/24 22:39 37.2 C 117 H 18 101/63 94 Room Air PG Care Time/CCT Total # of Minutes Spent Total Time Spent with Patient: Total time spent is greater than 50% in coordination of care (as documented) at patient's floor/unit and/or counseling patient: Coding Level of Care Code 38965 SUB INP/OBS CARE 235MIN Diagnoses Jejunostomy tube present Z93.4 Esophageal cancer C15.9 Small bowel obstruction K56.609 Elevated LFTs R79.89
[2024-05-28] MEDS: IRON SUCROSE 300 MG in SODIUM CHLORIDE 0.9% 250 ML IV ONE (09:23)
--- NOTE | 2024-05-28 10:07 | Gastrointestinal Consultation ---
Date of Consultation May 28, 2024 Assessment & Plan (1) Nausea & vomitin78 year old male w/ history of invasive adenocarcinoma of esophagus, severe protein calorie malnutrition with J-tube admitted through the ED w/ GI was asked to evaluate for an episodes of hematemesis which occurred after NG tube insertion and elevated LFTs. 1. Hematemesis, bleeding from left nare after NG tube insertion, concern for SBO - SBO management per general surgery team - Bleeding likely related to NG trauma given history of esophageal cancer w/ known esophageal mass - Denies further episodes of hematemesis, coffee ground emesis, no report of black or bloody stools - Trend H&H - Monitor and document GI output - Transfuse PRN per primary team - IV PPI twice daily - Given known esophageal mass, would avoid NG re-insertion if able 2. Esophageal CA, malnutrition, J-tube dislodgement - J tube not amendable to endoscopic placement given history of esophageal cancer - Recommend IR or surgical placement of the feeding tube - Management of esophageal CA per patient wishes 3. Diarrhea in an immunocompromised patient w/ recent international travel - Stool PCR and stool for c.diff 4. Elevated LFTs - CT shows a distended gallbladder but no apparent stones - Intrahepatic biliary dilation w/ normal common bile duct - Recommend ABD US - Trend LFTs - Check PT/INR - Acute hepatitis panel I spent a total of 60 minutes on the date of service in review of patient's record, and previously obtained information in person and appropriate medical visit, discussion and education of plan, with patient and/or caregiver, placing orders for tests/referral/procedures as medically necessary and documentation of pertinent clinical information in patient's medical records for their visit today. Supervising Physician Co-Signing Physician Notes I examined the patient and reviewed the medical record, laboratory data and imaging studies. I agree with the assessment and plan of care as suggested by the advanced practice provider. Patient has a history of esophageal cancer for which she is undergoing treatment in [place] he states he cannot eat or drink anything he had a G-tube which has unfortunately come out surgery could not replace the J-tube is currently planned to get transferred to another institution to have his J-tube placed by IR cannot be placed endoscopically as he has obstructive esophageal cancer his bili is elevated but ultrasound did not show any obstruction. At the present time he needs to have his J-tube repositioned by IR and the plan is to do so I would 1. Monitor LFTs and get HIDA scan to rule out any obstruction and acalculous cholecystitis 2. Monitor H&H every 12 and placed on IV PPI twice daily 3. Patient needs J-tube by IR or surgery We will follow the patient with you thank you for allowing us to take part in the care of your patient History of Present Illness Reason for Consultation: ?hematemesis, LFTs Requesting Physician: Min Jalloh MD Attending Physician: Min Jalloh MD History of Present Illness 78 year old male w/ history of invasive adenocarcinoma of esophagus, severe protein calorie malnutrition with J-tube in place who presents to ED secondary to abdominal pain. GI was asked to evaluate for an episodes of hematemesis and elevated LFTs. Pt was seen and evaluated, chart reviewed. Family at bedside who aids in history. Regarding his esophageal CA he is doctoring w/ a facility in [place] called [facility] w/ a holistic approach the cancer treatment w/ capecitabine 1000 mg twice daily, cyclophosphamide daily, vitamin B17, vitamin D, tumeric, selenium, fish oil and melatonin. He is to go to [place] in the next 1-2 weeks for a repeat PET/CT scan. Suggest hat he has had chronic abd pain, nausea/vomiting related to his cancer diagnosis. Suggests that he "self induces" emesis daily by brushing his teeth. Suggests over the last 1-2 days he developed abd discomfort, gas and worsening nausea/vomiting. He reports during an episode of emesis he had some BRB w/ clots which were both present in his left nare and from his mouth. He recalls this was after NG tube was attempted to be placed. No further bouts of nausea/vomiting. He has had some diarrhea. Nonbloody per patient. This started about 2 weeks ago and has slightly improved over the last 48 hours. Overnight unfortunately his J-Tube was dislodged. Replacement was attempted per patient by two members of the general surgery team but unsuccessful. He tells me there is plans for transfer to [facility] for IR replacement. No fever, chills, CP, SOB. HGB 14.8 --> 12.5 --> 12.5 --> 10.2 PLT 156 BUN 21 Tbili 6.7 AST 112 ALT 176 ALKP 105 CTAP 2023: Liver: Normal in size, shape, and density. No focal lesions, cysts, or masses were identified. Hepatic vasculature and biliary ducts are unremarkable. Gallbladder and Biliary System: Gall bladder is distended. No wall thickening, pericholecystic fluid, or gallstones were identified. The common bile duct is normal in caliber without dilation. Mild intra hepatic biliary dilatation. Pancreas: Pancreatic head, body, and tail are visualized and appear normal in size and density. No pancreatic masses or calcifications were noted. The pancreatic duct is not dilated. Spleen: Normal in size, shape, and density. No splenic lesions or masses were identified. Rectum and Sigmoid Colon: Normal wall thickness and no evidence of mass. Peritoneal and Retroperitoneal Structures: New demonstrations of ill-defined lesions in the mesenteric fat in the left iliac fossa and at the umbilical level measure up to 3.3cm. Bowel: An ill-defined circumferential thickening of the esophagogastric junction and the lower esophagus, infiltrate within the adjacent fat and engulf the coliac trunk without luminal stenosis. Severe distention of the gastric and the proximal small bowel till a thickened wall loop in the epigastric area where there is a feeding catheter within the lumen , the distal bowel is unremarkable. New demonstrations of ill-defined lesions in the mesenteric fat in the left iliac fossa and at the umbilical level measure up to 3.3cm. Also in right para rectal region. IMPRESSION: 1. Known esophageal cancer with interval progression of circumferential thickening of the esophagogastric junction and the lower esophagus, with infiltration within the adjacent fat and engulfs the coeliac trunk without luminal stenosis 2. Severe gastric and small bowel distention till level of feeding catheter, the distal bowel remains unremarkable. 3. New demonstrations of ill-defined lesions in the mesenteric fat in the left paracolic gutter, right para rectal region and at the umbilical level, suggestive of metastatic deposits 4. Mild free fluid in the pelvis 5. Smooth wall thickening suggesting cystitis. 6. Distended acalcular gall bladder with mild intra-hepatic biliary dilatation. 7. The rest of the findings are stable in comparison with CT on 07/18/2023. PET CT 2023: Increased hypermetabolism in the lower esophagus and gastric cardia, consistent with known esophageal adenocarcinoma. Increased size and metabolic activity of gastrohepatic lymph node cluster, peripancreatic nodule, and lower abdominal omental nodule, highly suspicious for metastatic disease. New mildly enlarged left supraclavicular and left axillary lymph nodes with metabolic activity less than blood pool, nonspecific, but given other findings also suspicious for metastasis. At a minimum, attention on follow-up imaging advised. Dr. Amador Operative Report 2023: Jejunostomy tube Upper endoscopy with removal of stent that had migrated in to the stomach EUS 2023: A mass was found in the gastroesophageal junction. This was staged T2 (based on invasion into) N0 M0 by endosonographic criteria. The staging applies if malignancy is confirmed. - No specimens collected. EGD 2023: Normal upper third of esophagus and middle third of esophagus. Prosthesis placed. Endoscopic suturing performed. - Partially obstructing, likely malignant esophageal tumor was found at the gastroesophageal junction. Biopsied. - Normal gastric body, incisura and antrum. EGD 2023: - LA Grade D esophagitis with stigmata of recent bleeding. At the GE junction and 2-3 cm above the tissue was extremely ulcerated and nodular with deep ulcerations. I did not appreciate an actual esophageal mass but the tissue was very inflamed and nodular. The GE junction was very stenotic due to inflammation. This was only able to be passed after switching to the ultra slim upper endoscope. Biopsies obtained. - Normal stomach. - Normal duodenal bulb and second portion of the duodenum. Allergies Allergy/AdvReac Type Severity Reaction Status Date / Time No Known Allergies Allergy Verified 05/27/24 08:26 Home Medications Medication Instructions Recorded Confirmed Type capecitabine 500 mg tablet See Rx Instructions .Route .COMPLEX 05/27/24 05/27/24 History cyclophosphamide 50 mg tablet See Rx Instructions .Route .COMPLEX 05/27/24 05/27/24 History Patient History Medical History BPH (benign prostatic hyperplasia) Vomiting reason for upcoming EGD > (30 lb weight loss) Dysphagia reason for upcoming EGD Surgical History Hx of vasectomy Hx of umbilical hernia repair History of appendectomy History of esophagogastroduodenoscopy (EGD) History of adenoidectomy History of tonsillectomy Social History Smoking Status: Never smoker Second Hand Exposure: No; Do You Dip or Chew Tobacco: No; Hx Alcohol Use: No Hx Substance Use: No Preferred Language: Malay Communication Ability: Effective Business Objects Analyst Required: No Beliefs That Will Affect Care: None Current Living Situation: Spouse Feels Safe at Home: Yes Safety Concerns: Feels Safe At This Time Assistive Devices: Other Review of Systems Review of Systems: All other findings negative except as noted in HPI. Physical Exam Constitutional: WD/WN, vitals as above Respiratory: normal respiratory effort, lungs clear to auscultation Cardiovascular: Rate/Rhythm: regular rate and regular rhythm Gastrointestinal (Abdomen): Percussion/Palpation: abdomen soft; abdomen nontender, no guarding and abdomen not rigid Site of Jtube is covered in a dressing Skin: no rashes, warm and dry Results & Data Vital Signs (Past 12 Hours) Vital Signs Temp Pulse Pulse Resp BP Pulse Ox O2 Del Method 05/28/24 07:58 110 H 05/28/24 07:50 36.6 C 105 H 20 101/65 95 Room Air 05/28/24 02:58 36.8 C 110 H 18 106/73 93 Room Air 05/28/24 01:10 118 H 05/27/24 22:39 37.2 C 117 H 18 101/63 94 Room Air Laboratory Results 05/28/24 05/27/24 05/27/24 Range/Units 05:40 12:47 10:06 WBC 16.83 H (4.8-10.8) K/ul RBC 3.13 L (4.70-6.10) M/uL Hgb 10.2 L (14.0-18.0) g/dl Hct 30.6 L (42.0-52.0) % MCV 97.8 (80.0-100.0) fL MCH 32.6 (25.0-34.0) pg MCHC 33.3 (32.0-36.0) g/dL RDW Std Deviation 74.0 H (36.4-46.3) fL RDW Coeff of [place] 21.0 H (11.5-14.5) % Plt Count 156 (130-400) K/uL MPV 10.5 (9.4-12.4) fL Immature Gran % (Auto) 0.5 % Neut % (Auto) 91.9 % Lymph % (Auto) 1.8 % [place] % (Auto) 5.6 % Eos % (Auto) 0.0 % Baso % (Auto) 0.2 % Neut # (Auto) 15.45 H (1.40-6.50) K/uL Lymph # (Auto) 0.31 L (1.20-3.40) K/uL [place] # (Auto) 0.94 H (0.11-0.59) K/uL Eos # (Auto) 0.00 (0.00-0.50) K/uL Baso # (Auto) 0.04 (0.00-0.20) K/uL Immature Gran # (Auto) 0.09 (0.01-0.20) K/uL Polychromasia 2+ Anisocytosis Present Sodium 142 (136-145) mmol/L Potassium 4.2 (3.5-5.1) mmol/L Chloride 112 H (98-107) mmol/L Carbon Dioxide 24 (21-32) mmol/L Anion Gap 6 (3-11) BUN 21 (6-23) mg/dl Creatinine 1.09 (0.6-1.4) mg/dl Est Cr Clr Drug Dosing 59.4 ml/min eGFR 70.34 BUN/Creatinine Ratio 19.3 (10-20) Glucose 107 H (70-99(Fasting)) mg/dl Calcium 8.6 (8.6-10.3) mg/dl Magnesium 1.7 (1.7-2.4) mg/dl Iron < 10 L (35-175) mcg/dl TIBC 319 (250-450) mcg/dl Transferrin 228 (200-360) mg/dl Transferrin % Sat TNP Ferritin 521.2 H (8-388) ng/ml Total Bilirubin 6.7 H D (0.2-1.0) mg/dl AST 112 H (13-39) U/L ALT 176 H (7-52) U/L Alkaline Phosphatase 105 H (34-104) U/L Total Protein 5.5 L D (6.0-8.3) gm/dl Albumin 3.2 L (3.4-5.0) gm/dl Globulin 2.3 L (2.5-4.0) gm/dl Albumin/Globulin Ratio 1.4 (0.9-2) Urine Color Yellow Urine Appearance Clear (Clear) Urine pH 6.0 (4.5-7.5) Ur Specific [place] 1.015 (1.000-1.030) Urine Protein 1+ H (Negative) Urine Glucose (UA) Negative (Negative) Urine Ketones Negative (Negative) Urine Blood Negative (Negative) Urine Nitrite Negative (Negative) Urine Bilirubin 1+ H (Negative) Urine Urobilinogen Negative (Negative) Ur Leukocyte Esterase Negative (Negative) Urine RBC 3-5 H (0-2) /hpf Urine WBC 6-10 H (0-5) /hpf Ur Epithelial Cells 0-2 (0-2) /hpf Urine Bacteria 1+ H (None Seen) Hyaline Casts Present A (None Presnt) /lpf Adenovirus (PCR) Not Detected (NotDetected) B. pertussis DNA (PCR) Not Detected (NotDetected) B.parapertussis DNA PCR Not Detected (NotDetected) C. pneumoniae DNA (PCR) Not Detected (NotDetected) Coronavirus OC43 (PCR) Not Detected (NotDetected) Coronavirus HKU1 (PCR) Not Detected (NotDetected) Coronavirus 229E (PCR) Not Detected (NotDetected) SARS-CoV-2 (PCR) Not Detected (NotDetected) Coronavirus NL63 (PCR) Not Detected (NotDetected) Human Metapneumovir PCR Not Detected (NotDetected) Influenza Type A (PCR) Not Detected (NotDetected) Influenza Type B (PCR) Not Detected (NotDetected) M. pneumoniae (PCR) Not Detected (NotDetected) Parainfluenza 1 (PCR) Not Detected (NotDetected) Parainfluenza 2 (PCR) Not Detected (NotDetected) Parainfluenza 3 (PCR) Not Detected (NotDetected) Parainfluenza 4 (PCR) Not Detected (NotDetected) RSV (PCR) Not Detected (NotDetected) Entero/Rhino (PCR) Not Detected (NotDetected) PG Care Time/CCT Total # of Minutes Spent Total Time Spent with Patient: Total time spent is greater than 50% in coordination of care (as documented) at patient's floor/unit and/or counseling patient: Coding Level of Care Code 90629 INT INP/OBS CARE 2/55MIN Diagnoses Nausea & vomiting R11.2
--- NOTE | 2024-05-28 11:11 | Hospitalist Progress Note ---
Date of Service May 28, 2024 Assessment & Plan (1) Abdominal pain: (2) Small bowel obstruction: (3) Primary carcinoma of lower third of esophagus: Plan Patient is a 78 yr old male who has a significant past medical history of invasive adenocarcinoma of esophagus and severe protein calorie malnutrition with J-tube in place who presents to ED secondary to abdominal pain x 24 hours. Small bowel obstruction--Unclear if secondary to J-tube/metastatic disease Known advanced adenocarcinoma of esophagus with metastasis Chronic dysphagia S/P J tube Possible Sepsis : Possible sources:Cystitis/bronchitis/gallbladder disease --CT a/p:. Known esophageal cancer with interval progression of circumferential thickening of the esophagogastric junction and the lower esophagus, with infiltration within the adjacent fat and engulfs the coeliac trunk without luminal stenosis Severe gastric and small bowel distention till level of feeding catheter, the distal bowel remains unremarkable. New demonstrations of ill-defined lesions in the mesenteric fat in the left paracolic gutter, right para rectal region and at the umbilical level, suggestive of metastatic deposits. Mild free fluid in the pelvis. Smooth wall thickening suggesting cystitis. Distended acalcular gall bladder with mild intra-hepatic biliary dilatation. --CT Chest: Right upper lobe anterior sub-pleural nodularity with tree in bud configuration, suggestive of infection. - Dilated esophagus with air fluid level (thickening of distal esophagus wall vs underdistension), dilated stomach and proximal duodenum, clinical correlation and further evaluation as needed. - Mild pericardial effusion. Blood and urine cultures pending -- Unsuccessful NG tube placement --Unintentional J-tube dislodgment Empirically on IV Zosyn Continue bowel rest Appreciate surgery input: Recommends transfer to tertiary care facility for IR replacement of J tube Currently tube feeds held Continue IV fluids A-fib RVR Transient, spontaneously converted to sinus Likely situational IDA VASC's 2 -ECHO: Left ventricle is normal size. Moderate consulting LVH. Left ventricle wall motion is normal. EF 65 to 70%. Mild aortic root dilatation. Trace aortic regurgitation. Small loculated posterior pericardial effusion without significant hemodynamic significance. Grade 1 diastolic dysfunction. -Currently in sinus Discussed with patient/family if interested in long-term anticoagulation given history of metastatic disease Monitor and replete electrolytes as needed Advised Zio patch as outpatient Given hematemesis, no anticoagulation for now Currently rate controlled Hematemesis ? Secondary to NG tube trauma H/O esophageal cancer Avoid anticoagulation Monitor H&H and transfuse as needed Continue Protonix drip Gastroenterology on board Transaminitis CT showed distended gallbladder with mild intrahepatic biliary dilatation Avoid hepatotoxic agents as able Monitor LFTs GI, Surgery on board Empirically on Zosyn as above Liver ultrasound pending Hepatitis panel pending Invasive adenocarcinoma of esophagus with Known Mets Severe PCM with Jtube pt currently follow non traditional approach with goal of quality of life He is seeking treatment at [facility] in [place] current regimen is cyclophosphamide 50 mg daily Friday through Friday, capecitabine 1000 mg twice daily, 2 weeks on and 1 weeks off, recently resumed on 05/23 consult nutrition, will hold off on J tube feedings/meds given above Last PET scan 03/29/24: IMPRESSION 1. Increased hypermetabolism in the lower esophagus and gastric cardia, consistent with known esophageal adenocarcinoma. 2. Increased size and metabolic activity of gastrohepatic lymph node cluster, peripancreatic nodule, and lower abdominal omental nodule, highly suspicious for metastatic disease. 3. New mildly enlarged left supraclavicular and left axillary lymph nodes with metabolic activity less than blood pool, nonspecific, but given other findings also suspicious for metastasis. At a minimum, attention on follow-up imaging advised. Diarrhea pt reports 10-12 days of freq loose stool after returning from [place], presumed from increased dose of Capecitabine diarrhea has resolved for 24 hrs, will obtain stool sample if returns -We will check stool studies if recurrence of diarrhea Iron def anemia Ordered IV Venofer Monitor DVT px: SQ heparin--held due to hematemesis FULL CODE - discussed in detail with pt and who wish to discuss his wishes and will let us know if he wishes to be DNR PCP: Nina Blanco MD Disposition [facility] if accepted Admission and Anticipated Discharge Date Admission Date: May 27, 2024 Subjective Patient is seen and examined at bedside Less abdominal pain today controlled with medications Had a brief episode of hematemesis overnight No nausea, vomiting this morning No flatus, BM today Discussed with surgery today Updated patient's family at bedside J-tube was dislodged overnight Surgery recommends transfer to tertiary care facility for replacement of J tube Review of Systems Review of Systems: All systems reviewed & are unremarkable except as noted in Subjective Physical Exam Physical Exam: Physical Exam: Vitals signs as noted above General Appearance:Moderately built and nourished, no apparent distress Head: normocephalic, Atraumatic Eyes: normal inspection, EOMI Neck: supple, Trachea midline Respiratory/Chest: Normal breath sounds, CTA, No accessory muscle use Cardiovascular: S1, S2, No murmur Abdomen/GI:Soft, mild generalized tender, + J-tube opening, mildly distended, no guarding or rigidity Extremities/Musculoskeletal:normal inspection, no edema Neurologic/Psych:AAOX3, grossly no focal neurological deficits Skin: normal color, warm Results & Data Results & Data Vital Signs (Past 12 Hours) Vital Signs Temp Pulse Pulse Resp BP Pulse Ox O2 Del Method 05/28/24 07:58 110 H 05/28/24 07:50 36.6 C 105 H 20 101/65 95 Room Air 05/28/24 02:58 36.8 C 110 H 18 106/73 93 Room Air 05/28/24 01:10 118 H Laboratory Results Short CBC 05/28/24 Range/Units 05:40 WBC 16.83 H (4.8-10.8) K/ul Hgb 10.2 L (14.0-18.0) g/dl Hct 30.6 L (42.0-52.0) % Plt Count 156 (130-400) K/uL BMP 05/28/24 05:40 Sodium 142 Potassium 4.2 Chloride 112 H Carbon Dioxide 24 BUN 21 Creatinine 1.09 Glucose 107 H Calcium 8.6 Liver Function 05/28/24 Range/Units 05:40 Total Bilirubin 6.7 H D (0.2-1.0) mg/dl AST 112 H (13-39) U/L ALT 176 H (7-52) U/L Alkaline Phosphatase 105 H (34-104) U/L Albumin 3.2 L (3.4-5.0) gm/dl Urine 05/27/24 Range/Units 12:47 Urine Color Yellow Urine Appearance Clear (Clear) Urine pH 6.0 (4.5-7.5) Ur Specific [place] 1.015 (1.000-1.030) Urine Protein 1+ H (Negative) Urine Glucose (UA) Negative (Negative)
[2024-05-28 12:19] LABS: INR 1.3 (0.9-1.1); Prothrombin Time 14.1 Seconds (9.0-12.0)
[2024-05-28 12:43] LABS: Hep B Surface Ag with confirm Negative (Negative)
[2024-05-28 12:48] LABS: Hep C Ab Rflx HepCQuant RNA Negative (Negative)
--- NOTE | 2024-05-28 12:55 | Ultrasound Report ---
ABDOMINAL ULTRASOUND, RIGHT UPPER QUADRANT HISTORY: elevated LFTs. COMPARISON: CT 05/27/2024 FINDINGS: Pancreas: The pancreas demonstrates a normal echotexture. Liver: 15 cm in length. No mass or lesion identified. Gallbladder: Distended measuring up to 10 cm containing floating sludge. A bladder wall is thickened measuring up to 4 mm. No shadowing cholelithiasis. Trace free fluid within the upper abdomen. Negativ e sonographic Singletary's sign. CBD: 5 mm. Right kidney: No cysts are again noted measuring up to approximately 3 cm. No hydronephrosis. IMPRESSION: 1. Gallbladder distention with sludge and nonspecific wall thickening without cholelithiasis identifi ed by ultrasound. Findings could be correlated with nuclear medicine hepatobiliary scan. 2. No biliary ductal dilation. 3. Trace free fluid within the upper abdomen. ACT 112: Negative or not required by law. Electronically signed by: Sanjeev Horowitz M.D. 05/28/2024 12:53 PM
--- NOTE | 2024-05-28 14:25 | Discharge Summary ---
Date of Service May 28, 2024 Admission HPI Per Admitting Provider This is a 78-year-old male who has a significant past medical history of invasive adenocarcinoma of esophagus and severe protein calorie malnutrition with J-tube in place who presents to ED secondary to abdominal pain x 24 hours. is at bedside who also helps elicit history. Outpatient chart review performed. He reports over the last 24 hours having constant left-sided abdominal pain about the site of his G-tube. He reports rubbing around the G- tube hoping it would improve his symptoms. He felt like it was, "gas." He also had associated nausea, dry heaves and vomiting mucus. He further reports upon arrival to ED and walking into the building he felt very lightheaded and dizzy. He denies any documented fever. Of significance patient is currently following [facility] in [place] for a more holistic approach to his cancer treatment. He most recently had his port removed due to the concern for it being a foreign body. His current regimen is capecitabine 1000 mg twice daily, 2 weeks on and 1 week off. He most recently started on 05/23. He is also taking cyclophosphamide 50 mg daily Friday through Friday. He is also on a regimen of vitamin B17, D, tumeric, selenium, fish oil and melatonin. 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 He is currently using liquid Hope for tube feeds for an approximation of 2500 javi a day. He does 5 feedings a day. He denies any recent illness. He was last seen in [place] approximately 3 weeks ago. Since returning from [place] he did have approximately 10 days worth of diarrhea, but has not had diarrhea in the last 24 hours. In ED patient was hemodynamically unstable upon arrival. He was hypotensive and tachycardic. Heart rates were in the 170s to 180s. EKG concerning for A- fib versus SVT. He received 2 L of IV fluid. His initial lactate was 4.1. His blood pressure improved upon my evaluation to 110/78. He is still mildly tachycardic with heart rates in the low 100s. He does meet sepsis criteria given leukocytosis, tachycardia and initial hypotension. CT abdomen pelvis reveals severe gastric and small bowel distention to level of feeding catheter, the distal bowel remains unremarkable. Known esophageal cancer with interval progression of circumferential thickening of the esophageal gastric junction in the lower esophagus with infiltration within the adjacent fattening also celiac trunk without luminal stenosis. Distended acalculous gallbladder with mild intrahepatic biliary dilatation also noted. Case was discussed with general surgery and ED provider Who recommended NG tube placement as well as venting the G-tube. Per ED provider he is deferring the J-tube venting to general surgery. Principal Diagnosis Small bowel obstruction Possible sepsis Metastatic adenocarcinoma of esophagus Chronic dysphagia--on tube feeds A-fib RVR--resolved Hematemesis --likely due to traumatic NG tube Transaminitis Iron deficiency anemia Discharge Data Allergies Allergy/AdvReac Type Severity Reaction Status Date / Time No Known Allergies Allergy Verified 05/27/24 08:26 Consultations 05/27/24 08:12 Consult General Surgery Stat 05/27/24 08:44 ED Decision to Admit Stat 05/28/24 08:00 Consult Gastroenterology Routine 05/28/24 13:56 Burn CD for patient Stat Ordered Studies Laboratory Results WBC 16.83 K/ul (4.8-10.8) H 05/28/24 05:40 RBC 3.13 M/uL (4.70-6.10) L 05/28/24 05:40 Hgb 10.2 g/dl (14.0-18.0) L 05/28/24 05:40 POC Hgb 12.9 g/dl (14.0-18.0) L 05/27/24 06:01 Hct 30.6 % (42.0-52.0) L 05/28/24 05:40 POC Hct 38 % (42-52) L 05/27/24 06:01 MCV 97.8 fL (80.0-100.0) 05/28/24 05:40 MCH 32.6 pg (25.0-34.0) 05/28/24 05:40 MCHC 33.3 g/dL (32.0-36.0) 05/28/24 05:40 RDW Std Deviation 74.0 fL (36.4-46.3) H 05/28/24 05:40 RDW Coeff of Fabby 21.0 % (11.5-14.5) H 05/28/24 05:40 Plt Count 156 K/uL (130-400) 05/28/24 05:40 MPV 10.5 fL (9.4-12.4) 05/28/24 05:40 Immature Gran % (Auto) 0.5 % 05/28/24 05:40 Neut % (Auto) 91.9 % 05/28/24 05:40 Lymph % (Auto) 1.8 % 05/28/24 05:40 Williamson % (Auto) 5.6 % 05/28/24 05:40 Eos % (Auto) 0.0 % 05/28/24 05:40 Baso % (Auto) 0.2 % 05/28/24 05:40 Neut # (Auto) 15.45 K/uL (1.40-6.50) H 05/28/24 05:40 Lymph # (Auto) 0.31 K/uL (1.20-3.40) L 05/28/24 05:40 Williamson # (Auto) 0.94 K/uL (0.11-0.59) H 05/28/24 05:40 Eos # (Auto) 0.00 K/uL (0.00-0.50) 05/28/24 05:40 Baso # (Auto) 0.04 K/uL (0.00-0.20) 05/28/24 05:40 Immature Gran # (Auto) 0.09 K/uL (0.01-0.20) 05/28/24 05:40 Polychromasia 2+ 05/28/24 05:40 Anisocytosis Present 05/28/24 05:40 PT 14.1 Seconds (9.0-12.0) H 05/28/24 11:20 INR 1.3 (0.9-1.1) H 05/28/24 11:20 POC Sodium 140 mmol/L (135-144) 05/27/24 06:01 Sodium 142 mmol/L (136-145) 05/28/24 05:40 POC Potassium 3.5 mmol/L (3.3-5.0) 05/27/24 06:01 Potassium 4.2 mmol/L (3.5-5.1) 05/28/24 05:40 POC Chloride 105 mmol/L (101-112) 05/27/24 06:01 Chloride 112 mmol/L (98-107) H 05/28/24 05:40 Carbon Dioxide 24 mmol/L (21-32) 05/28/24 05:40 POC Total CO2 24 mmol/L (24-31) 05/27/24 06:01 Anion Gap 6 (3-11) 05/28/24 05:40 POC Anion Gap 16.0 mmol/L (16-25) 05/27/24 06:01 POC BUN 23 mg/dl (7-18) H 05/27/24 06:01 BUN 21 mg/dl (6-23) 05/28/24 05:40 Creatinine 1.09 mg/dl (0.6-1.4) 05/28/24 05:40 POC Creatinine 1.4 mg/dl (0.6-1.3) H 05/27/24 06:01 Est Cr Clr Drug Dosing 59.4 ml/min 05/28/24 05:40 eGFR 70.34 05/28/24 05:40 BUN/Creatinine Ratio 19.3 (10-20) 05/28/24 05:40 Glucose 107 mg/dl (70-99(Fasting)) H 05/28/24 05:40 POC Glucose (other) 151 mg/dl (70-99) H 05/27/24 06:01 Lactate 1.3 mmol/L (0.4-2.0) 05/27/24 09:37 Calcium 8.6 mg/dl (8.6-10.3) 05/28/24 05:40 POC Ioniz Calcium Yevgeniy 1.19 mmol/l (1.12-1.32) 05/27/24 06:01 Magnesium 1.7 mg/dl (1.7-2.4) 05/28/24 05:40 Iron < 10 mcg/dl (35-175) L 05/28/24 05:40 TIBC 319 mcg/dl (250-450) 05/28/24 05:40 Transferrin 228 mg/dl (200-360) 05/28/24 05:40 Transferrin % Sat TNP 05/28/24 05:40 Ferritin 521.2 ng/ml (8-388) H 05/28/24 05:40 Total Bilirubin 6.7 mg/dl (0.2-1.0) H D 05/28/24 05:40 Direct Bilirubin 0.6 mg/dl (0-0.2) H 05/27/24 05:50 AST 112 U/L (13-39) H 05/28/24 05:40 ALT 176 U/L (7-52) H 05/28/24 05:40 Alkaline Phosphatase 105 U/L (34-104) H 05/28/24 05:40 Troponin I High Sens 11.4 pg/ml (0-20) 05/27/24 05:50 Total Protein 5.5 gm/dl (6.0-8.3) L D 05/28/24 05:40 Albumin 3.2 gm/dl (3.4-5.0) L 05/28/24 05:40 Globulin 2.3 gm/dl (2.5-4.0) L 05/28/24 05:40 Albumin/Globulin Ratio 1.4 (0.9-2) 05/28/24 05:40 Procalcitonin 0.14 ng/ml (0-0.5) 05/27/24 05:50 Urine Color Yellow 05/27/24 12:47 Urine Appearance Clear (Clear) 05/27/24 12:47 Urine pH 6.0 (4.5-7.5) 05/27/24 12:47 Ur Specific [place] 1.015 (1.000-1.030) 05/27/24 12:47 Urine Protein 1+ (Negative) H 05/27/24 12:47 Urine Glucose (UA) Negative (Negative) 05/27/24 12:47 Urine Ketones Negative (Negative) 05/27/24 12:47 Urine Blood Negative (Negative) 05/27/24 12:47 Urine Nitrite Negative (Negative) 05/27/24 12:47 Urine Bilirubin 1+ (Negative) H 05/27/24 12:47 Urine Urobilinogen Negative (Negative) 05/27/24 12:47 Ur Leukocyte Esterase Negative (Negative) 05/27/24 12:47 Urine RBC 3-5 /hpf (0-2) H 05/27/24 12:47 Urine WBC 6-10 /hpf (0-5) H 05/27/24 12:47 Ur Epithelial Cells 0-2 /hpf (0-2) 05/27/24 12:47 Urine Bacteria 1+ (None Seen) H 05/27/24 12:47 Hyaline Casts Present /lpf (None Presnt) A 05/27/24 12:47 Adenovirus (PCR) Not Detected (NotDetected) 05/27/24 10:06 B. pertussis DNA (PCR) Not Detected (NotDetected) 05/27/24 10:06 B.parapertussis DNA PCR Not Detected (NotDetected) 05/27/24 10:06 C. pneumoniae DNA (PCR) Not Detected (NotDetected) 05/27/24 10:06 Coronavirus OC43 (PCR) Not Detected (NotDetected) 05/27/24 10:06 Coronavirus HKU1 (PCR) Not Detected (NotDetected) 05/27/24 10:06 Coronavirus 229E (PCR) Not Detected (NotDetected) 05/27/24 10:06 SARS-CoV-2 (PCR) Not Detected (NotDetected) 05/27/24 10:06 Coronavirus NL63 (PCR) Not Detected (NotDetected) 05/27/24 10:06 Hep Bs Antigen Negative (Negative) 05/28/24 11:20 Hepatitis C Antibody Negative (Negative) 05/28/24 11:20 Human Metapneumovir PCR Not Detected (NotDetected) 05/27/24 10:06 Influenza Type A (PCR) Not Detected (NotDetected) 05/27/24 10:06 Influenza Type B (PCR) Not Detected (NotDetected) 05/27/24 10:06 M. pneumoniae (PCR) Not Detected (NotDetected) 05/27/24 10:06 Parainfluenza 1 (PCR) Not Detected (NotDetected) 05/27/24 10:06 Parainfluenza 2 (PCR) Not Detected (NotDetected) 05/27/24 10:06 Parainfluenza 3 (PCR) Not Detected (NotDetected) 05/27/24 10:06 Parainfluenza 4 (PCR) Not Detected (NotDetected) 05/27/24 10:06 RSV (PCR) Not Detected (NotDetected) 05/27/24 10:06 Entero/Rhino (PCR) Not Detected (NotDetected) 05/27/24 10:06 Blood Type O Positive 05/27/24 06:07 Antibody Screen NEGATIVE 05/27/24 06:07 Impressions Abdomen/Pelvis CT 05/27/24 05:57 EXAM: CT abd pelvis IV con only CLINICAL HISTORY: Severe abdominal pain x24 hours, hx of esophagus cancer with J tube placement. also c/o vomiting, diarrhea and bloating. TECHNIQUE: Contrast-enhanced CT of the abdomen and pelvis was performed, with the following protocol: axial images with, and reconstructed coronal and sagittal images. 120ml Optiray 320 Intravenous contrast was administered. One of the following dose reduction techniques was utilized for this exam: Automated exposure control, adjustment of the mA and/or kV according to patient size, and use of iterative reconstruction. COMPARISON: 07/18/2023 CT. FINDINGS: Abdomen: Liver: Normal in size, shape, and density. No focal lesions, cysts, or masses were identified. Hepatic vasculature and biliary ducts are unremarkable. Gallbladder and Biliary System: Gall bladder is distended. No wall thickening, pericholecystic fluid, or gallstones were identified. The common bile duct is normal in caliber without dilation. Mild intra hepatic biliary dilatation. Pancreas: Pancreatic head, body, and tail are visualized and appear normal in size and density. No pancreatic masses or calcifications were noted. The pancreatic duct is not dilated. Spleen: Normal in size, shape, and density. No splenic lesions or masses were identified. Kidneys and Adrenal Glands: Both kidneys are normal in size, shape, and position. Cortical thickness is within normal limits. No renal calculi or hydronephrosis. Adrenal glands are unremarkable with no evidence of masses or hyperplasia. Pelvis: Urinary Bladder: Smooth wall thickening suggesting cystitis. No intraluminal lesions identified. Prostate: Moderate prostatomegaly was noted. No focal lesions or masses identified. Seminal Vesicles: Normal in size and appearance. No abnormalities noted. Rectum and Sigmoid Colon: Normal wall thickness and no evidence of mass. Peritoneal and Retroperitoneal Structures: New demonstrations of ill-defined lesions in the mesenteric fat in the left iliac fossa and at the umbilical level measure up to 3.3cm. Mild free fluid in the pelvis No lymphadenopathy was noted. Small uncomplicated right inguinal hernia. Bowel: An ill-defined circumferential thickening of the esophagogastric junction and the lower esophagus, infiltrate within the adjacent fat and engulf the coliac trunk without luminal stenosis. Severe distention of the gastric and the proximal small bowel till a thickened wall loop in the epigastric area where there is a feeding catheter within the lumen , the distal bowel is unremarkable. New demonstrations of ill-defined lesions in the mesenteric fat in the left iliac fossa and at the umbilical level measure up to 3.3cm. Also in right para rectal region. Bones and Soft Tissues: Pelvic bones and soft tissues are unremarkable. No fractures or abnormal masses were identified. 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 IMPRESSION: 1. Knonw esophageal cancer with interval progression of circumferential thickening of the esophagogastric junction and the lower esophagus, with infiltration within the adjacent fat and engulfs the coeliac trunk without luminal stenosis 2. Severe gastric and small bowel distention till level of feeding catheter, the distal bowel remains unremarkable. 3. New demonstrations of ill-defined lesions in the mesenteric fat in the left paracolic gutter, right para rectal region and at the umbilical level, suggestive of metastatic deposits 4. Mild free fluid in the pelvis 5. Smooth wall thickening suggesting cystitis. 6. Distended acalcular gall bladder with mild intra-hepatic biliary dilatation. 7. The rest of the findings are stable in comparison with CT on 07/18/2023. Electronically signed by Alejandra Lopez 05-27-2024 07:48 AM Chest CTA 05/27/24 05:57 EXAM: CT angio chest PE protocol CLINICAL HISTORY: pt reports severe abd pain x24 hours, hx of esophagus cancer with j tube placement. also c/o vomiting, diarrhea and bloating. TECHNIQUE: Contiguous 3.[address] angiographic images of the chest were acquired with the administration of intravenous contrast. Coronal and sagittal reconstructions were obtained. 120ml Optiray 320 was administered for post-contrast images. One of these 3D techniques was utilized: Maximum Intensity Pixel (MIP), 3D Reconstructed Images, Volume Rendered Images, Surface Shaded Rendering. One of the following dose reduction techniques were utilized for this exam: Automated exposure control, adjustment of the mA and/or kV according to patient size, and use of iterative reconstruction. COMPARISON: previous chest x-ray 05/27/2024 FINDINGS: Pulmonary Arteries: Pulmonary arteries are normal in size and opacification. No evidence of pulmonary embolism. No stenosis or filling defects. Aorta: The thoracic aorta is normal in caliber. Mild atherosclerotic changes. No evidence of aneurysm, or dissection. Aortic arch and descending thoracic aorta are unremarkable. Superior Vena Cava (SVC) and Inferior Vena Cava (IVC): Normal opacification and caliber. No evidence of thrombus or obstruction. Mediastinum: No mediastinal mass or lymphadenopathy. Normal appearance of the thymus. Heart: Normal size and morphology of the heart. Mild pericardial effusion. Lungs: Right upper lobe anterior sub-pleural nodularity with tree in bud configuration. No evidence of consolidation, or masses. No pleural effusion or thickening. Bones: No fractures or lytic/sclerotic lesions of the visualized bony structures. Normal alignment and bone density. Dilated esophagus with air fluid level (thickening of distal esophagus wall vs underdistension), dilated stomach and proximal duodenum, clinical correlation and further evaluation as needed. Right renal cyts. IMPRESSION: - No evidence of acute pulmonary embolism. - Right upper lobe anterior sub-pleural nodularity with tree in bud configuration, suggestive of infection. - Dilated esophagus with air fluid level (thickening of distal esophagus wall vs underdistension), dilated stomach and proximal duodenum, clinical correlation and further evaluation as needed. - Mild pericardial effusion. - Overall findings are conspicuous on the CT examination in comparison to the x ray. Electronically signed by Alejandra Lopez 05-27-2024 07:31 AM KUB X-Ray 05/27/24 09:57 XR KUB/Abdomen 1 view CLINICAL HISTORY: ng tube advanced TECHNIQUE: 1 view of the abdomen was obtained. Comparison: Comparison is made to abdomen radiograph 05/27/2024 FINDINGS: The enteric tube is looped in the esophagus. The osseous structures are grossly unremarkable. The bowel gas pattern is nonobstructive. IMPRESSION: Enteric tube is looped in the esophagus and should be repositioned. ACT 112: Negative or not required by law. Electronically signed by: Kj Angulo M.D. 05/27/2024 10:30 AM Liver Ultrasound 05/28/24 08:53 ABDOMINAL ULTRASOUND, RIGHT UPPER QUADRANT HISTORY: elevated LFTs. COMPARISON: CT 05/27/2024 FINDINGS: Pancreas: The pancreas demonstrates a normal echotexture. Liver: 15 cm in length. No mass or lesion identified. Gallbladder: Distended measuring up to 10 cm containing floating sludge. A bladder wall is thickened measuring up to 4 mm. No shadowing cholelithiasis. Trace free fluid within the upper abdomen. Negative sonographic Singletary's sign. CBD: 5 mm. Right kidney: No cysts are again noted measuring up to approximately 3 cm. No hydronephrosis. IMPRESSION: 1. Gallbladder distention with sludge and nonspecific wall thickening without cholelithiasis identified by ultrasound. Findings could be correlated with nuclear medicine hepatobiliary scan. 2. No biliary ductal dilation. 3. Trace free fluid within the upper abdomen. ACT 112: Negative or not required by law. Electronically signed by: Sanjeev Horowitz M.D. 05/28/2024 12:53 PM Hospital Course (1) Abdominal pain: (2) Small bowel obstruction: (3) Primary carcinoma of lower third of esophagus: Plan Patient is a 78 yr old male who has a significant past medical history of invasive adenocarcinoma of esophagus and severe protein calorie malnutrition with J-tube in place who presents to ED secondary to abdominal pain x 24 hours. Small bowel obstruction--Unclear if secondary to J-tube/metastatic disease Known advanced adenocarcinoma of esophagus with metastasis Chronic dysphagia S/P J tube Possible Sepsis : Possible sources:Cystitis/bronchitis/gallbladder disease --CT a/p:. Known esophageal cancer with interval progression of circumferential thickening of the esophagogastric junction and the lower esophagus, with infiltration within the adjacent fat and engulfs the coeliac trunk without luminal stenosis Severe gastric and small bowel distention till level of feeding catheter, the distal bowel remains unremarkable. New demonstrations of ill-defined lesions in the mesenteric fat in the left paracolic gutter, right para rectal region and at the umbilical level, suggestive of metastatic dep osits. Mild free fluid in the pelvis. Smooth wall thickening suggesting cystitis. Distended acalcular gall bladder with mild intra-hepatic biliary dilatation. --CT Chest: Right upper lobe anterior sub-pleural nodularity with tree in bud configuration, suggestive of infection. - Dilated esophagus with air fluid level (thickening of distal esophagus wall vs underdistension), dilated stomach and pr oximal duodenum, clinical correlation and further evaluation as needed. - Mild pericardial effusion. Blood and urine cultures pending -- Unsuccessful NG tube placement --Unintentional J-tube dislodgment: Surgery unable to place feeding tube to keep the site open Empirically on IV Zosyn Continue bowel rest Appreciate surgery input: Recommends transfer to tertiary care facility for IR replacement of J tube Currently tube feeds held Continue IV fluids Patient is accepted at [facility] by Dr. Derrick Vora for further management Patient and patient's family understands and agrees with current management A-fib RVR Transient, spontaneously converted to sinus Likely situational IDA VASC's 2 -ECHO: Left ventricle is normal size. Moderate consulting LVH. Left ventricle wall motion is normal. EF 65 to 70%. Mild aortic root dilatation. Trace aortic regurgitation. Small loculated posterior pericardial effusion without significant hemodynamic significance. Grade 1 diastolic dysfunction. -Currently in sinus Discussed with patient/family if interested in long-term anticoagulation given history of metastatic disease Monitor and replete electrolytes as needed Advised Zio patch as outpatient Given hematemesis, no anticoagulation for now Currently rate controlled Hematemesis ? Secondary to NG tube trauma H/O esophageal cancer Avoid anticoagulation Monitor H&H and transfuse as needed Continue Protonix drip Gastroenterology on board Transaminitis CT showed distended gallbladder with mild intrahepatic biliary dilatation Avoid hepatotoxic agents as able Monitor LFTs GI, Surgery on board Empirically on Zosyn as above Liver ultrasound: Gallbladder distention with sludge and nonspecific wall thickening without cholelithiasis identified by ultrasound. Findings could be correlated with nuclear medicine hepatobiliary scan. No biliary ductal dilation.Trace free fluid within the upper abdomen. Hepatitis panel pending --HIDA scan ordered Invasive adenocarcinoma of esophagus with Known Mets Severe PCM with Jtube pt currently follow non traditional approach with goal of quality of life He is seeking treatment at [facility] in [place] current regimen is cyclophosphamide 50 mg daily Friday through Friday, capecitabine 1000 mg twice daily, 2 weeks on and 1 weeks off, recently resumed on 05/23 consult nutrition, will hold off on J tube feedings/meds given above Last PET scan 03/29/24: IMPRESSION 1. Increased hypermetabolism in the lower esophagus and gastric cardia, consistent with known esophageal adenocarcinoma. 2. Increased size and metabolic activity of gastrohepatic lymph node cluster, peripancreatic nodule, and lower abdominal omental nodule, highly suspicious for metastatic disease. 3. New mildly enlarged left supraclavicular and left axillary lymph nodes with metabolic activity less than blood pool, nonspecific, but given other findings also suspicious for metastasis. At a minimum, attention on follow-up imaging ad vised. Diarrhea pt reports 10-12 days of freq loose stool after returning from [place], presumed from increased dose of Capecitabine diarrhea has resolved for 24 hrs, will obtain stool sample if returns -We will check stool studies if recurrence of diarrhea Iron def anemia Ordered IV Venofer Monitor DVT px: SQ heparin--held due to hematemesis FULL CODE - discussed in detail with pt and who wish to discuss his wishes and will let us know if he wishes to be DNR PCP: Nina Blanco MD Disposition [facility] Total Time Total Time Spent Total Time Spent (In Minutes): 59 minutes Discharge Plan Discharge Items Patient Disposition: Transfer Acute Care Hospital Reason For Visit: SEPSIS, SBO Discharge Diagnosis: Small bowel obstruction Possible sepsis Metastatic adenocarcinoma of esophagus Chronic dysphagia--on tube feeds A-fib RVR--resolved Hematemesis --likely due to traumatic NG tube Transaminitis Iron deficiency anemia Activity: Per Instructions section Exercise/Sports: Wait until after follow-up appointment Non-emergency contact: Primary Care Provider and Surgeon Call non-emergency contact if: you have any medication questions, your symptoms worsen, your pain is concerning for you and you have a fever Follow-up/Referrals: Nina Blanco MD [Primary Care Provider] - Diet: Nothing by Mouth Addtl Attending Provider Instructions: Follow-up with your physician Dr. Derrick Vora at [facility] for further management Seek immediate medical attention if your symptoms reoccur or worsen Please take all medications as instructed on discharge list below. Please call if you have any questions or problems. You can reach a [facility] hospitalist on duty at [facility] 24 hours a day by calling [phone] [facility] Provider Instructions: Date of Service: May 28, 2024 Current Inpatient Medications Heparin Sodium (Porcine) (Heparin Sod 5,000 Unit/0.5 Ml Vial) 5,000 units SQ Q12 LACY Stop: 06/26/24 20:59 Last Admin: 05/27/24 20:41 Dose: 5,000 units Potassium Chloride/Sodium Chloride (Normal Saline W/20 Meq Kcl) 20 meq in 1,000 mls @ 100 mls/hr IV .Q10H LACY Stop: 05/29/24 07:49 Last Infusion: 05/28/24 13:52 Dose: Infused Piperacillin Sod/Tazobactam Sod (Zosyn) 4.5 gm in 100 mls @ 25 mls/hr IV Q8H LACY; Protocol Stop: 06/06/24 15:59 Last Infusion: 05/28/24 12:34 Dose: Infused Acetaminophen (Ofirmev) 1,000 mg in 100 mls @ 400 mls/hr IV Q12H PRN PRN Reason: Mild Pain (Scale 1, 2, 3) Stop: 05/30/24 13:04 Last Infusion: 05/28/24 13:52 Dose: Infused Pantoprazole Sodium 40 mg/ (Dextrose) 100 mls @ 20 mls/hr IV Q5H LACY Stop: 06/26/24 23:14 Last Admin: 05/28/24 13:24 Dose: 8 mg/hr, 20 mls/hr Sodium Chloride (Nss) 50 mls @ 15 mls/hr IV .Q3H20M PRN PRN Reason: For Transfusion Duration Stop: 05/28/24 16:33 Sodium Chloride (Nss) 100 mls @ 15 mls/hr IV .Q6H40M PRN PRN Reason: For Transfusion Duration Stop: 05/28/24 16:33 Morphine Sulfate (Morphine Sulfate 4 Mg/Ml 1 Ml Carp\\Vial) 3 mg IV Q3H PRN PRN Reason: Mod-Sev Pain (Scale 4-10) Stop: 06/10/24 13:04 Last Admin: 05/28/24 06:28 Dose: 3 mg Ondansetron HCl (Ondansetron Inj 2 Mg/Ml 2 Ml Vial) 4 mg IV Q6H PRN PRN Reason: Nausea Stop: 06/26/24 13:04 Last Admin: 05/28/24 02:46 Dose: 4 mg Pending Studies at Discharge: Yes (Blood, urine cultures, hepatitis panel) Stand-Alone Forms: [facility] Skilled Items Patient informed of condition?: Yes DNR: No Discharge Level of Care: Other Communicable Disease: No Discharge Prognosis: Stable Lines: Peripheral IV Urinary Catheter: No Medications and DC Order Prescriptions: Continued capecitabine 500 mg Tablet See Rx Instructions .ROUTE .COMPLEX Rx Instructions: Family of pt unsure of strength, but they travel to [place] every 3-6 months to receive treatment for 20 days. Just left [place] on Apr 07 and will be going back in 6 months. cyclophosphamide 50 mg Tablet See Rx Instructions .ROUTE .COMPLEX Rx Instructions: Family of pt unsure of strength, but they travel to [place] every 3-6 months to receive treatment for 20 days. Just left [place] on Apr 07 and will be going back in 6 months. Discharge Orders: Discharge Order (Routine); Ordered 05/28/24 Ordered By: Min Jalloh Admission Data Admit Date/Time: 05/27/24 09:00 Attending Provider: Min Jalloh Admit Provider: Min Jalloh Primary Care Provider: Nina Blanco Other Providers: Aj Bush; Min Jalloh; Zbigniew Lowe
[2024-05-28 14:47] LABS: Hematocrit (blood only) 28.3 % (42.0-52.0); Hemoglobin 9.3 g/dl (14.0-18.0)
--- NOTE | 2024-05-28 15:49 | Electrocardiogram Report ---
Test Reason : Blood Pressure : */* mmHG Vent. Rate : 105 BPM Atrial Rate : 105 BPM P-R Int : 172 ms QRS Dur : 78 ms QT Int : 328 ms P-R-T Axes : 65 -21 54 degrees QTcB Int : 433 ms Sinus tachycardia Otherwise normal ECG When compared with ECG of 27-May-2024 09:39, No significant change was found Confirmed by Bethel Laguna ([id number]) on 05/28/2024 3:49:07 PM Referred By: REFERRED SELF Confirmed By: Bethel Laguna
[2024-05-28 16:44] VITALS: BP 104/66; PULSE 92; TEMP 97.9; O2SAT 94
[2024-05-29 10:38] LABS: Hepatitis A Antibody IgM NON-REACTIVE (NON-REACTIVE); Hepatitis B Core Antibody IgM NON-REACTIVE (NON-REACTIVE)
== END 2024-05-28 18:08 | disposition short-term general hospital (02) | DRG 919 ==
LOC: ED 05:18 → 4W 09:00